=== PATIENT | female | born 1960 | race Caucasian/White ===

== ENCOUNTER → 2020-07-30 11:29 | Outpatient (BNVA) | payer MEDICARE, SELFPAY | PROVIDERS: Visit Provider Family Medicine Adult Medicine | DX: M96.1 Postlaminectomy syndrome, not elsewhere classified (principal); Z79.891 Long term (current) use of opiate analgesic; Z98.890 Other specified postprocedural states | CPT/HCPCS: 99214 ==

== ENCOUNTER → 2020-09-10 11:09 | Outpatient (BNVA) | payer MEDICARE, SELFPAY | PROVIDERS: PCP Internal Medicine; Visit Provider Family Medicine Adult Medicine | DX: M96.1 Postlaminectomy syndrome, not elsewhere classified (principal); Z79.891 Long term (current) use of opiate analgesic | CPT/HCPCS: 99212 ==

== ENCOUNTER → 2020-10-20 13:42 | Outpatient (BNVA) | payer MEDICARE, SELFPAY | PROVIDERS: PCP Internal Medicine; Visit Provider Family Medicine Adult Medicine | DX: M96.1 Postlaminectomy syndrome, not elsewhere classified (principal); Z79.891 Long term (current) use of opiate analgesic | CPT/HCPCS: 99212 ==

== ENCOUNTER → 2020-12-10 10:00 | Outpatient (BNVA) | payer MEDICARE, SELFPAY | PROVIDERS: PCP Internal Medicine; Visit Provider Family Medicine Adult Medicine | DX: M96.1 Postlaminectomy syndrome, not elsewhere classified (principal) | CPT/HCPCS: 99212 ==

== ENCOUNTER 2020-12-21 19:31 | Emergency (ER) | payer MEDICARE, SELFPAY ==
[2020-12-21 20:04] VITALS: BP 113/61; PULSE 62; RESP 16; TEMP 36.6; O2SAT 98; BMI 21.4
== END 2020-12-21 22:59 | disposition left against medical advice (07) ==
PROVIDERS: Emergency Provider Emergency Medicine; PCP Hospitalist
DX: I10 Essential (primary) hypertension (principal); R44.1 Visual hallucinations; F12.90 Cannabis use, unspecified, uncomplicated; F41.9 Anxiety disorder, unspecified; F32.9 Major depressive disorder, single episode, unspecified; J45.909 Unspecified asthma, uncomplicated; F98.8 Other specified behavioral and emotional disorders with onset usually occurring in childhood and adolescence
CPT/HCPCS: 99281; 99282

== ENCOUNTER → 2021-01-15 11:34 | Outpatient (BNVA) | payer MEDICARE, SELFPAY | PROVIDERS: PCP Hospitalist; Visit Provider Nurse Practitioner Family | DX: M96.1 Postlaminectomy syndrome, not elsewhere classified (principal); Z98.890 Other specified postprocedural states; Z79.899 Other long term (current) drug therapy | CPT/HCPCS: 99212 ==

== ENCOUNTER 2021-02-16 11:55 | Outpatient (REF) | payer MEDICARE, SELFPAY ==
[2021-02-16 13:39] LABS: Glucose Urine UA NEG (NEG); Leukocyte Esterase Urine NEG (NEG); Nitrite Urine NEG (NEG); Specific Gravity - Urine 1.015 (1.005-1.025); Urine Blood NEG (NEG); Urine Ketones NEG (NEG); Urine Protein NEG (NEG-TRACE)
[2021-02-16 13:40] LABS: Appearance Urine CLEAR; Color Urine YELLOW
[2021-02-16 14:17] LABS: Creatinine Urine 74.07 mg/dL; Microalbum/Creatinine Ratio Ur 20.2 ug/mg cr
[2021-02-16 14:31] LABS: Anion Gap 18 (12-20); Blood Urea Nitrogen 17 mg/dL (9-16); Carbon Dioxide 28 mmol/L (22-29); Chloride 95 mmol/L (96-108); Estimated Glomerular Filt Rate 40; Glucose Random 115 mg/dL (60-115); Potassium 3.8 mmol/L (3.3-5.1); Sodium 137 mmol/L (135-145)
[2021-02-16 14:46] LABS: Calcium 11.1 mg/dL (8.4-10.2)
== END 2021-02-16 11:56 | disposition home or self-care (01) ==
LOC: HO.WFDLDS 11:55
PROVIDERS: Visit Provider Family Medicine
DX: Z00.00 Encounter for general adult medical examination without abnormal findings (principal); I10 Essential (primary) hypertension; M96.1 Postlaminectomy syndrome, not elsewhere classified; Z79.899 Other long term (current) drug therapy; Z79.891 Long term (current) use of opiate analgesic
CPT/HCPCS: 36415; 80048; 81003; 82043; Q3014

== ENCOUNTER 2021-03-01 13:22 | Outpatient (REF) | payer MEDICARE, SELFPAY ==
--- NOTE | ~2021-03-01 | MR_ITS ---
EXAMINATION: MR LUMBAR SPINE WITHOUT AND WITH CONTRAST CLINICAL INFORMATION: Postlaminectomy syndrome. COMPARISON: Lumbar spine CT 06/13/2016. Lumbar spine MRI 04/22/2015. TECHNIQUE: MRI of the lumbar spine was obtained using routine sequences without and with intravenous contrast. A total of 5.5 mL Gadavist was intravenously administered. FINDINGS: There are postoperative findings related to instrumented fusion across the L4-L5 level with transpedicular areas and paired rods. Grade anterolisthesis across the L4-L5 level measuring up to 1.2 cm is stable. Minimal retrolisthesis of L1 on L2 and L2 on L3 is also again noted. Anterior wedging compression deformity is seen at L1, new from prior with mild associated edema. There is severe disc height loss at T11-T12 and L2-L3. Edematous endplate changes are seen at T10-T11, T11-T12, L2-L3, and L5-S1. The distal spinal cord appears normal. The conus medullaris terminates normally at the upper L2 level. In no abnormal cauda equina nerve root enhancement is seen. A subcentimeter left-sided T2 hyperintense renal cyst is noted. No follow-up imaging recommended. SPINAL LEVELS: T11-T12: Progressive now severe disc height loss with new severe right neural foraminal stenosis with significant compression of the exiting right T11 nerve root. T12-L1: Central/left subarticular protrusion causing mild narrowing of the spinal canal, new from prior. No foraminal nerve root compression. L1-L2: Progressive disc bulging causing flattening the ventral thecal sac. Bilateral neural foraminal stenosis without foraminal nerve root compression. No significant change. L2-L3: Disc bulging with ligamentum flavum infolding and progressive severe left facet arthropathy resulting in mild to moderate spinal canal stenosis. Left foraminal protrusion results in severe left neural foraminal stenosis with significant compression of the exiting left L2 nerve root, new from prior. No right-sided foraminal nerve root compression. L3-L4: Disc bulging with ligamentum flavum infolding and facet arthropathy resulting in progressive moderate spinal canal stenosis. Mild mass effect on the exiting left L3 nerve root, progressed from prior. L4-L5: Unchanged grade 2 anterolisthesis. Spinal canal has been posteriorly decompressed with mild to moderate spinal canal stenosis noted and apparent aggregation of the cauda equina nerve roots. Bilateral neural foraminal stenosis with mild to moderate left and mild right foraminal nerve root compression. L5-S1: Disc bulging with moderate facet arthropathy. Mild narrowing of the right subarticular zone. Right foraminal protrusion results in progressive compression of the exiting right L5 nerve root. Mild to moderate left neural foraminal stenosis. MR/MR lumbar spine wo/w con IMPRESSION: Anterior wedging compression fracture seen at L1 with mild amount of edema suggesting this finding may be acute to subacute. Advanced multilevel degenerative spondylosis. Stable grade 2 anterolisthesis of L4 on L5 with sequela of instrumented fusion noted. Mild to moderate left and mild right foraminal nerve root compression is seen at this level in addition to mild to moderate spinal canal stenosis. At T11-T12 there is new severe disc height loss with new severe right neural foraminal stenosis with compression of the exiting right T11 nerve root. At L2-L3 there is mild to moderate spinal canal stenosis and severe left neural foraminal stenosis with significant compression of exiting left L2 nerve root, new from prior. At L3-L4 there is progressive moderate spinal canal stenosis and progressive mild mass effect on the exiting left L3 nerve root. At L5-S1 there is right foraminal protrusion causing progressive compression of the exiting right L5 nerve root.
--- NOTE | ~2021-03-01 | XR_ITS ---
EXAMINATION: XR LUMBOSACRAL SPINE WITH OBLIQUES CLINICAL INFORMATION: Post laminectomy syndrome COMPARISON: Previous x-rays most recent March 2018 TECHNIQUE: AP, both oblique, and lateral views of the lumbar spine. Lateral view of the lumbosacral junction. FINDINGS: There is curvature of the mid lumbar spine to the right. There is a 1.2 cm anterior subluxation of L4 with respect L5. This is similar to April 2018 exam. Bone alignment is otherwise normal. There is posterior fusion hardware with interpedicular screws at L4 and L5. Orthopedic hardware appears unchanged. Multilevel degenerative disc disease. There is lower lumbar spine facet arthritis. No fracture or dislocation is seen. XR/XR lumbar spine 4V min IMPRESSION: Stable postoperative changes at L4-L5. Scoliosis and 1.2 cm anterior subluxation of L4 with respect L5 that is unchanged. Multilevel degenerative disc disease. Lower lumbar spine facet arthritis.
== END 2021-03-01 13:23 | disposition home or self-care (01) ==
LOC: HO.MRI 13:22
PROVIDERS: Absent Provider Family Medicine Adult Medicine; PCP Family Medicine; Visit Provider Anesthesiology
DX: M96.1 Postlaminectomy syndrome, not elsewhere classified (principal)
CPT/HCPCS: 72110; 72158; A9585

== ENCOUNTER → 2021-03-18 10:30 | Outpatient (BNVA) | payer MEDICARE, SELFPAY | PROVIDERS: PCP Family Medicine; Visit Provider Family Medicine Adult Medicine | DX: M96.1 Postlaminectomy syndrome, not elsewhere classified (principal) | CPT/HCPCS: 99212 ==

== ENCOUNTER 2021-03-19 11:03 | Outpatient (REF) | payer MEDICARE, SELFPAY ==
[2021-03-19 15:12] LABS: Alanine Aminotransferase 29 U/L (0-31); Albumin Level 4.8 g/dL (3.5-5.0); Alkaline Phosphatase 85 U/L (39-117); Anion Gap 15 (12-20); Aspartate Amino Transferase 27 U/L (5-31); Bilirubin Total 0.4 mg/dL (0.0-1.0); Blood Urea Nitrogen 26 mg/dL (9-16); Calcium 10.6 mg/dL (8.4-10.2); Carbon Dioxide 29 mmol/L (22-29); Chloride 96 mmol/L (96-108); Cholesterol 223 mg/dL; Estimated Glomerular Filt Rate 45; Glucose Fasting 101 mg/dL (60-99); HDL Cholesterol 97 mg/dL; LDL Cholesterol Calculated 110 mg/dl; Potassium 3.9 mmol/L (3.3-5.1); Sodium 136 mmol/L (135-145); Total Protein 7.3 g/dL (6.5-8.0); Triglycerides 81 mg/dL
[2021-03-19 15:13] LABS: TSH reflex Free T4 0.49 uIU/mL (0.32-4.0)
== END 2021-03-19 11:04 | disposition home or self-care (01) ==
LOC: HO.WFDLDS 11:03
PROVIDERS: Visit Provider Family Medicine
DX: Z00.00 Encounter for general adult medical examination without abnormal findings (principal)
CPT/HCPCS: 36415; 80053; 80061; 84443

== ENCOUNTER → 2021-03-31 16:28 | Outpatient (BNVA) | payer MEDICARE, SELFPAY | PROVIDERS: PCP Hospitalist; Visit Provider Anesthesiology | DX: M81.0 Age-related osteoporosis without current pathological fracture (principal); S32.010A Wedge compression fracture of first lumbar vertebra, initial encounter for closed fracture; M51.36 Other intervertebral disc degeneration, lumbar region; M96.1 Postlaminectomy syndrome, not elsewhere classified; G89.4 Chronic pain syndrome; Z79.899 Other long term (current) drug therapy | CPT/HCPCS: 99212 ==

== ENCOUNTER → 2021-04-12 12:11 | Outpatient (BNVA) | payer MEDICARE, SELFPAY | PROVIDERS: PCP Hospitalist; Visit Provider Anesthesiology | DX: M81.0 Age-related osteoporosis without current pathological fracture (principal); M51.36 Other intervertebral disc degeneration, lumbar region; M96.1 Postlaminectomy syndrome, not elsewhere classified; S32.010D Wedge compression fracture of first lumbar vertebra, subsequent encounter for fracture with routine healing; G89.4 Chronic pain syndrome | CPT/HCPCS: Q3014 ==

== ENCOUNTER → 2021-04-16 13:04 | Day surgery (SDC) | payer MEDICARE, SELFPAY ==
--- NOTE | 2021-04-14 10:47 | HO.ANESPROP2 ---
Documented by User: Nini Oliva 04/14/21 10:49 HPI - Anesthesia Eval Consult details Narrative: 61yo F for Kyphoplasty PMFSH Active Problems Active Problems: All Active Problems (Updated 03/31/21 @ 17:53 by George Saucedo MD) Chronic pain syndrome (Acute) Postlaminectomy syndrome (Acute) Disc degeneration, lumbar (Acute) Compression fracture of L1 lumbar vertebra (Acute) Osteoporosis (Acute) Adult general medical exam (Acute) Pre-diabetes (Acute) Left leg weakness (Acute) Abdominal pain (Acute) Hypercalcemia (Acute) Laboratory examination ordered as part of a routine general medical examination (Acute) Right low back pain (Acute) Hypertension (Acute) Hypertensive crisis, unspecified (Acute) Asthma (Acute) IBS (irritable bowel syndrome) (Acute) Abdominal pain (Acute) Hypertension (Acute) Attention deficit disorder (Acute) Anxiety (Acute) History of cervical spinal surgery (Acute) Failed back syndrome, lumbar (Acute) Past Medical History Medical History Anxiety Asthma Attention deficit disorder Chronic pain syndrome Compression fracture of L1 lumbar vertebra Depression Disc degeneration, lumbar Herniated disc Hypertension Migraine headache Osteoporosis Postlaminectomy syndrome Spondylosis Surgical History Surgical History History of cervical spinal surgery History of lumbosacral spine surgery History of spinal surgery History of surgery on left wrist Social History Social History Patient Tobacco Use Status: Former Tobacco user Use of substances other than those prescribed or required for medical reasons: No Are you DNR?: No Advance Directives: No Advance Directives Information Provided: Yes service: No 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 Meds Allergies Allergy/AdvReac Type Severity Reaction Status Date / Time naproxen Allergy Severe asthma, SOB Verified 04/16/21 14:34 animal dander [PET DANDER] Allergy Intermediate rash Verified 04/16/21 14:34 SEASONAL ALLERGIES Allergy Mild congestion Uncoded 03/18/21 10:47 Home Medications Medication Instructions Recorded Confirmed Last Taken Type clonazepam 1 mg tablet 1 mg PO BID 07/27/20 03/31/21 Unknown History duloxetine 60 mg capsule,delayed 60 mg PO BID cap 07/27/20 03/31/21 04/16/21 07:30 History release lorazepam 1 mg tablet 1 mg PO DAILY PRN 07/27/20 03/31/21 Unknown History naratriptan 2.5 mg tablet 2.5 mg PO ONCE PRN 07/27/20 03/31/21 Unknown History lisdexamfetamine 60 mg capsule 50 mg PO DAILY cap 03/31/21 03/31/21 04/16/21 07:30 History Exam Exam Date and Time: April 14, 2021 104 Pertinent Lab Results Pertinent Lab Results: Laboratory Tests 07/24/19 03/19/21 12:20 11:15 WBC 7.1 Hgb 11.9 L Hct 35.9 L Plt Count 308 Sodium 136 Potassium 3.9 Chloride 96 Carbon Dioxide 29 BUN 26 H D Creatinine 1.21 Assessment and Plan Assessment Anesthesia Assessment: Chart Reviewed Documented by User: Leonardo Constantino 04/16/21 14:46 PMFSH Past Medical History Medical History Anxiety Asthma Attention deficit disorder Chronic pain syndrome Compression fracture of L1 lumbar vertebra Depression Disc degeneration, lumbar Herniated disc Hypertension Migraine headache Osteoporosis Postlaminectomy syndrome Spondylosis Surgical History Surgical History History of cervical spinal surgery History of lumbosacral spine surgery History of spinal surgery History of surgery on left wrist Social History Social History Patient Tobacco Use Status: Former Tobacco user Use of substances other than those prescribed or required for medical reasons: No Are you DNR?: No Advance Directives: No Advance Directives Information Provided: Yes service: No 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 Meds Allergies Allergy/AdvReac Type Severity Reaction Status Date / Time naproxen Allergy Severe asthma, SOB Verified 04/16/21 14:34 animal dander [PET DANDER] Allergy Intermediate rash Verified 04/16/21 14:34 SEASONAL ALLERGIES Allergy Mild congestion Uncoded 05/20/21 10:47 Home Medications Medication Instructions Recorded Confirmed Last Taken Type clonazepam 1 mg tablet 1 mg PO BID 07/27/20 03/31/21 Unknown History duloxetine 60 mg capsule,delayed 60 mg PO BID cap 07/27/20 03/31/21 04/16/21 07:30 History release lorazepam 1 mg tablet 1 mg PO DAILY PRN 07/27/20 03/31/21 Unknown History naratriptan 2.5 mg tablet 2.5 mg PO ONCE PRN 07/27/20 03/31/21 Unknown History lisdexamfetamine 60 mg capsule 50 mg PO DAILY cap 03/31/21 03/31/21 04/16/21 07:30 History Exam Airway Mallampati Class: II TM Dist: >3cm Neck ROM: Full Denture: Upper
--- NOTE | ~2021-04-16 | FL_ITS ---
EXAMINATION: XR FLUOROSCOPY WITH IMAGES CLINICAL INFORMATION: Anterior wedging L1 vertebra acute to subacute fracture. COMPARISON: MRI lumbar spine 03/01/2021 TECHNIQUE: Fluoroscopy performed by Dr. George Saucedo. Fluoroscopy time: 2.1 minutes DAP: 2.03 Gycm2 Images: 5 FINDINGS: There is a cement augmentation of L1 vertebra with a bipedicle approach. No other bony abnormality seen. There are degenerative disc changes T11-T12 disc level. There are bilateral pedicle screws at L4 vertebra as L5 vertebra with interconnecting rods for posterior fusion. FL/FL guidance in OR IMPRESSION: Fluoroscopy was provided to Dr. Saucedo for spinal procedure
[2021-04-16 14:39] VITALS: BP 143/74; PULSE 77; RESP 18; TEMP 37.5; O2SAT 98
[2021-04-16] MEDS: Lactated Ringers 1,000 ML 100 ML IVCONT (15:09)
== END ==
PROVIDERS: PCP Family Medicine; Visit Provider Anesthesiology
DX: S32.010A Wedge compression fracture of first lumbar vertebra, initial encounter for closed fracture (principal); Z53.8 Procedure and treatment not carried out for other reasons
CPT/HCPCS: J0690

== ENCOUNTER 2021-04-20 06:05 | Day surgery (SDC) | payer MEDICARE, SELFPAY ==
--- NOTE | 2021-04-19 13:43 | P.CONAN_ITS ---
Documented by User: Nini Cubaney 04/19/21 13:43 HPI - Anesthesia Eval Consult details Narrative: 61yo F for Kyphoplasty Rescheduled from 04/16/21 d/t time [facility] Active Problems Active Problems: All Active Problems (Updated 03/31/21 @ 17:53 by George Saucedo MD) Chronic pain syndrome (Acute) Postlaminectomy syndrome (Acute) Disc degeneration, lumbar (Acute) Compression fracture of L1 lumbar vertebra (Acute) Osteoporosis (Acute) Adult general medical exam (Acute) Pre-diabetes (Acute) Left leg weakness (Acute) Abdominal pain (Acute) Hypercalcemia (Acute) Laboratory examination ordered as part of a routine general medical examination (Acute) Right low back pain (Acute) Hypertension (Acute) Hypertensive crisis, unspecified (Acute) Asthma (Acute) IBS (irritable bowel syndrome) (Acute) Abdominal pain (Acute) Hypertension (Acute) Attention deficit disorder (Acute) Anxiety (Acute) History of cervical spinal surgery (Acute) Failed back syndrome, lumbar (Acute) Past Medical History Medical History Anxiety Asthma Attention deficit disorder Chronic pain syndrome Compression fracture of L1 lumbar vertebra Depression Disc degeneration, lumbar Herniated disc Hypertension Migraine headache Osteoporosis Postlaminectomy syndrome Spondylosis Surgical History Surgical History History of cervical spinal surgery History of lumbosacral spine surgery History of spinal surgery History of surgery on left wrist Social History Social History Patient Tobacco Use Status: Former Tobacco user Use of substances other than those prescribed or required for medical reasons: No Are you DNR?: No Advance Directives: No Advance Directives Information Provided: Yes service: No 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 Meds Allergies Allergy/AdvReac Type Severity Reaction Status Date / Time naproxen Allergy Severe asthma, SOB Verified 04/16/21 14:34 animal dander [PET DANDER] Allergy Intermediate rash Verified 04/16/21 14:34 SEASONAL ALLERGIES Allergy Mild congestion Uncoded 03/18/21 10:47 Home Medications Medication Instructions Recorded Confirmed Last Taken Type clonazepam 1 mg tablet 1 mg PO BID 07/27/20 03/31/21 Unknown History duloxetine 60 mg capsule,delayed 60 mg PO BID cap 07/27/20 03/31/21 04/20/21 History release lorazepam 1 mg tablet 1 mg PO DAILY PRN 07/27/20 03/31/21 Unknown History naratriptan 2.5 mg tablet 2.5 mg PO ONCE PRN 07/27/20 03/31/21 Unknown History lisdexamfetamine 60 mg capsule 50 mg PO DAILY cap 03/31/21 03/31/21 04/16/21 07:30 History Exam Exam Date and Time: April 19, 2021 1343 Assessment and Plan Assessment Anesthesia Assessment: Chart Reviewed Documented by User: Tayler Ndiaye 04/20/21 07:33 [facility] Past Medical History Medical History Anxiety Asthma Attention deficit disorder Chronic pain syndrome Compression fracture of L1 lumbar vertebra Depression Disc degeneration, lumbar Herniated disc Hypertension Migraine headache Osteoporosis Postlaminectomy syndrome Spondylosis Family History Family history of problems with anesthesia: No Surgical History Surgical History History of cervical spinal surgery History of lumbosacral spine surgery History of spinal surgery History of surgery on left wrist History of Problems with Anesthesia: No Social History Social History Patient Tobacco Use Status: Former Tobacco user Use of substances other than those prescribed or required for medical reasons: No Are you DNR?: No Advance Directives: No Advance Directives Information Provided: Yes service: No 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 Meds Allergies Allergy/AdvReac Type Severity Reaction Status Date / Time naproxen Allergy Severe asthma, SOB Verified 04/16/21 14:34 animal dander [PET DANDER] Allergy Intermediate rash Verified 04/16/21 14:34 SEASONAL ALLERGIES Allergy Mild congestion Uncoded 03/18/21 10:47 Home Medications Medication Instructions Recorded Confirmed Last Taken Type clonazepam 1 mg tablet 1 mg PO BID 07/27/20 03/31/21 Unknown History duloxetine 60 mg capsule,delayed 60 mg PO BID cap 07/27/20 03/31/21 04/20/21 History release lorazepam 1 mg tablet 1 mg PO DAILY PRN 07/27/20 03/31/21 Unknown History naratriptan 2.5 mg tablet 2.5 mg PO ONCE PRN 07/27/20 03/31/21 Unknown History lisdexamfetamine 60 mg capsule 50 mg PO DAILY cap 03/31/21 03/31/21 04/16/21 07:30 History Exam Height,Weight and Vital Signs: Vital Signs Temp Pulse Resp BP Pulse Ox 04/20/21 06:24 98.0 F 65 18 123/59 L 100 Airway Mallampati Class: II TM Dist: >3cm Neck ROM: Full Denture: Upper Loose/Missing/Broken Teeth: Yes (Only few teeth on bottom. 1 broken) Heart: RRR Lungs: CTAB Assessment and Plan Assessment Anesthesia Assessment: Anesthesia Plan Discussed and Chart Reviewed Final Anesthetic Review NPO: Yes ASA Class: II Final Preanesthetic Review: No Changes in Pt Med Stat, Meds/Allgs Chart Reviewed, Consent Obtained/Reviewed and Anes Risks/Benef Reviewed Patient Risk: Low Procedure Risk: Low Assessment/Block/Sedation in SS: Assess/Block/Sedation-SS Anesthetic Plan Anesthetic Plan: MAC: Disposition: Standard PACU
[2021-04-20] VITALS (13 sets, daily range): BP systolic 123–162; BP diastolic 59–92; PULSE 65–87; RESP 12–18; TEMP 36.4–36.8; O2SAT 95–100
[2021-04-20] MEDS: Lactated Ringers 1,000 ML 100 ML IVCONT (07:22)
--- NOTE | 2021-04-20 07:28 | MHC.SHP ---
Pre-Procedural Eval Section B Chief Complaint: fx of 1st vertebra Details of Present Illness: VCF L1 Relevant Family History (Specify if Yes): No Relevant Social History: None Present Medications: see Short Stay Collaborative assessment Medical History: Significant History (osteoporosis) Allergies: Allergies Allergy/AdvReac Type Severity Reaction Status Date / Time naproxen Allergy Severe asthma, SOB Verified 04/16/21 14:34 animal dander [PET DANDER] Allergy Intermediate rash Verified 04/16/21 14:34 SEASONAL ALLERGIES Allergy Mild congestion Uncoded 03/18/21 10:47 Review of Systems Sugical H&P ROS: Negative: Constitution, Cardiovascular, Respiratory, Neurological, Psychiatric, Hem-Onc, Allergic/Immunologic, Gastrointestinal, Genitourinary, Musculoskeletal, Integumentary, Endocrine and Eyes/Ears/Nose/Throat Exam Surgical H&P Exam: Normal: HEENT, Normal: Heart, Normal: Lungs, Normal: Extremities, Normal: Abdomen, Normal: Skin and Normal: Neurological Plan Diagnosis/Plan: Unchanged I have reviewed the history and physical and performed a pertinent physical examination on my patient. No changes have occurred unless specified.
--- NOTE | 2021-04-20 09:33 | PM.OP ---
Brief Operative Note Date of Service: 04/20/21 Pre-op diagnosis: VCF L1 Post-op diagnosis: same Procedure: Kyphoplasty Implants: none Surgeon: George Saucedo MD Was an [employer] used for this Procedure?: No Estimated blood loss (mL): 50 Pathology: none sent Condition: stable Disposition: PACU
--- NOTE | 2021-04-20 09:37 | W.PM.OPN ---
Operative Note Operative Note Date of Service: 04/20/21 Narrative: Kyphoplasty. Marilu is a very pleasant 61 y.o. female who is suffering from L1 VCF. She came today to the operating room for a kyphoplasty under sedation.Radiographic imaging including MRI confirms acute compression fracture of the lumbar spine L1 vertebra. The patient was brought to the operating room and was positioned prone on the radiolucent OR table. [place] [employer] monitors were applied and patient was moderately sedated. Time-out was performed delineating correct site and side of the procedure. The name, date of , need for antibiotics, DVT prophylactics were also verified. The back was prepped and draped. Two C-arms were brought into position and the L1 vertebra was identified. The tops of the pedicels were brought to the alignment superior endplate and square picture of the vertebra was demonstrated on the AP screen. Projections of the points of interest were chosen as most superior lateral margins of the pedicles bilateral approximately at 2:00 o'clock transpedicular approach was chosen for the procedure. Projections of the points of interest were chosen as most superior lateral margins of the pedicles bilateral approximately at 2:00 o'clock for the right pedicle and 10:00 o'clock for the left pedicle. The point of interests were injected with small amount of mixture of lidocaine 2% and bupivacaine 0.5%. After that under AP and lateral images the Jamshidi osteointroducers was advanced through the right pedilce until the junction of the pedicle and vertebral body was safely passed about 1 cm into the vertebra. Through the cannula, a drill was advanced into the vertebral body under fluoroscopic guidance toward the anterior cortex, creating a channel. After that the procedure was repeated on the left pedicle in the mirroring fashion. Collapsible Ronjure was introduced through the cannulas into the vertebral body and appropriate expansion of the intervertebral void was performed under anterior posterior and lateral simultaneous views. The anterior cortex was probed with the guide pin to ensure no perforations in the anterior cortex. After completing the entry into the vertebral body, a 15 mm inflatable bone balloons were inserted through the cannula and advanced under fluoroscopic guidance into the vertebral body near the anterior cortex. The radiopaque marker bands on the bone balloon were identified using AP and lateral images. Once the balloons were in the position the be inflated with radio opaque contrast under direct anterior posterior and lateral vision. The expansion of the balloons was not allowed to go above the 300 PCI. The expansion was performed very slowly to allow the balloons to compress the medullary portion of the bone to- the lateral cortical bone of the vertebra. The careful attention being paid to the inflation pressures and balloon position. The final balloon volume was 3.5 cc on the right side and approximately 2 mL on the left. There was no breach of the lateral alberto or anterior cortex as well as posterior cortex of the vertebral body. Direct reduction of the fracture was achieved, end plate movement was noted and approximately 3.5 mm of height hindu was achieved. Under fluoroscopic imaging, and the use of the bone void fillers, internal fixation was achieved through a low-pressure injection of the bone cement. The cavity was filled with a total volume of 3.5 cc on the right side and 2.5 cc on the left side. Once the bone cement had hardened, the cannulas were then removed.Post-procedure, all incisions were closed with 0 silk sutures. The patient was kept in the prone position for approximately 10 minutes post cement injection. She was then turned supine, monitored briefly and returned to PACU. She was moving both her lower extremities at this time. Throughout the procedure, there were no intraoperative complications. She recovered in PACU uneventfully She went home without immediate complications.
[2021-04-20] MEDS: fentaNYL citrate/PF 100 MCG/2 ML VIAL 25 MCG IVPUSH ×4 (10:05→10:25)
== END 2021-04-20 12:06 ==
LOC: HO.SSS 06:05
PROVIDERS: PCP Family Medicine; Visit Provider Anesthesiology
PROC: (CPT 22514; principal; 2021-04-20 07:30)
DX: M80.88XA Other osteoporosis with current pathological fracture, vertebra(e), initial encounter for fracture (principal); M81.0 Age-related osteoporosis without current pathological fracture; M51.36 Other intervertebral disc degeneration, lumbar region; M96.1 Postlaminectomy syndrome, not elsewhere classified; G89.4 Chronic pain syndrome; J45.909 Unspecified asthma, uncomplicated; F32.9 Major depressive disorder, single episode, unspecified; I10 Essential (primary) hypertension; Z79.899 Other long term (current) drug therapy; Z88.8 Allergy status to other drugs, medicaments and biological substances; Z87.891 Personal history of nicotine dependence
CPT/HCPCS: 22514; C1713; J0690; J1100; J2250; J2405; J3010; Q9967

== ENCOUNTER → 2021-04-22 11:02 | Outpatient (BNVA) | payer MEDICARE, SELFPAY | PROVIDERS: PCP Family Medicine; Visit Provider Family Medicine Adult Medicine | DX: M18.0 Bilateral primary osteoarthritis of first carpometacarpal joints (principal); M51.36 Other intervertebral disc degeneration, lumbar region; M96.1 Postlaminectomy syndrome, not elsewhere classified; G89.4 Chronic pain syndrome; S32.010D Wedge compression fracture of first lumbar vertebra, subsequent encounter for fracture with routine healing | CPT/HCPCS: 99212 ==

== ENCOUNTER → 2021-04-29 10:32 | Outpatient (BNVA) | payer MEDICARE, SELFPAY | PROVIDERS: PCP Family Medicine; Visit Provider Anesthesiology | DX: M81.0 Age-related osteoporosis without current pathological fracture (principal); S32.010A Wedge compression fracture of first lumbar vertebra, initial encounter for closed fracture; M51.36 Other intervertebral disc degeneration, lumbar region; M96.1 Postlaminectomy syndrome, not elsewhere classified; G89.4 Chronic pain syndrome | CPT/HCPCS: 99212 ==

== ENCOUNTER → 2021-05-10 10:28 | Outpatient (BNVA) | payer MEDICARE, SELFPAY | PROVIDERS: PCP Family Medicine; Visit Provider Anesthesiology | DX: M96.1 Postlaminectomy syndrome, not elsewhere classified (principal); M51.36 Other intervertebral disc degeneration, lumbar region; G89.4 Chronic pain syndrome; G43.909 Migraine, unspecified, not intractable, without status migrainosus; S32.010D Wedge compression fracture of first lumbar vertebra, subsequent encounter for fracture with routine healing | CPT/HCPCS: 99212 ==

== ENCOUNTER 2021-05-14 14:04 | Outpatient (REF) | payer MEDICARE, SELFPAY ==
--- NOTE | ~2021-05-14 | MR_ITS ---
EXAMINATION: MR LUMBAR SPINE WITHOUT AND WITH CONTRAST CLINICAL INFORMATION: 61-year-old with low back pain since previous L1 kyphoplasty. History of L4-L5 laminectomy and fusion. Bowel incontinence. COMPARISON: 03/01/2021 MRI. TECHNIQUE: MRI of the lumbar spine was obtained using routine sequences with and without contrast. Intravenous Contrast: Gadavist 5 mL. FINDINGS: Coronal Alignment: Moderate lumbar dextroscoliosis, convex to the right at L2-L3, stable in appearance. Sagittal Alignment: Stable grade 2 spondylolisthesis at L4-L5 measuring 1.1 cm. 3 mm of grade 1 spondylolisthesis at L3-L4, stable in appearance. Trace retrolisthesis at L2-L3 and L1-L2 are unchanged. Lumbosacral Junction: Normal. Vertebral Bodies: Mild anterior wedge compression deformity of the L1 vertebral body again noted, now with evidence of previous vertebral augmentation since the previous study. No significant progression of height loss. Some enhancement noted along the superior endplate asymmetric to the left which is similar to the previous exam consistent with granulation tissue. Remaining vertebral body heights are well maintained. Bone Marrow: Methylmethacrylate cement noted in the L1 vertebral body since the previous exam consistent with vertebral augmentation. Small benign vertebral hemangioma in the L2 vertebral body, unchanged. Type I degenerative marrow signal changes along the endplates at L4-L5 are unchanged. Type I and type II degenerative marrow signal changes along the endplates at T11-T12 and L5-S1 are stable. Conus Medullaris: Terminates at L1. Morphology and signal is normal. No abnormal enhancement.. Intradural Nerve Roots: There is crowding of the intradural nerve roots at L4-L5 again noted similar to the previous exam consistent with residual spinal stenosis. Mild crowding of the intradural nerve roots also noted at L2-L3 consistent with spinal stenosis, unchanged. Otherwise, within normal limits. No abnormal intradural enhancement. SPINAL LEVELS: L5-S1: Moderate disc space height loss and disc desiccation with Schmorl's nodes and degenerative endplate changes are stable with stable anterolateral spondylosis and diffuse disc bulging, with slight flattening of the dural sac. Bilateral facet arthropathy is stable with slight narrowing of the right subarticular zone without significant central spinal canal stenosis, stable in appearance. Right-sided foraminal disc herniation again noted encroaching on the exiting right L5 nerve root with moderate right-sided and mild left-sided neural foraminal stenosis, stable in appearance. L4-L5: Severe disc space height loss, disc desiccation, Schmorl's nodes and degenerative endplate changes are stable with stable grade 1 spondylolisthesis and ferromagnetic artifact consistent with previous posterior instrumented fusion. Spinal canal has been decompressed posteriorly with moderate residual spinal canal stenosis and crowding of the intradural nerve roots, stable in appearance. Redemonstrated is moderate left-sided and lzjm-lp-nfdbztiz right-sided craniocaudal neural foraminal stenosis, stable in appearance. L3-L4: Disc space height is mildly narrowed asymmetric to the left with mild disc desiccation, stable in appearance, and mild grade 1 spondylolisthesis, unchanged. Diffuse disc bulging is again noted with a prominent dorsal epidural fat pad, ligamentum flavum thickening, interspinous ligament degeneration and bilateral facet arthropathy with moderate central spinal canal stenosis, stable in appearance. Mild narrowing of the subarticular zones bilaterally is stable and there is mild right-sided and moderate left-sided neural foraminal stenosis, with disc bulging encroaching on the exiting left L3 nerve root, unchanged in appearance. L2-L3: Bbpkzhgm-zf-emovwf disc space height loss asymmetric to the left with disc desiccation, Schmorl's nodes and degenerative endplate changes similar to the previous exam with trace retrolisthesis, unchanged. Anterolateral spondylosis and posterolateral disc osteophyte complex is noted with a left-sided foraminal extruded disc herniation with mild cephalad migration, stable in appearance. Ligamentum flavum thickening is stable with qjmuwwsm-rf-cdkasy facet arthropathy, left more than right, unchanged in appearance. Moderate central spinal canal stenosis and crowding of the intradural nerve roots is noted, stable in appearance, with moderate left-sided subarticular recess stenosis, unchanged. Severe left-sided neural foraminal stenosis with left L2 nerve root impingement is stable with stable mild right-sided neural foraminal stenosis. L1-L2: Yhgj-rn-bgwfmllm loss of disc space height, intradiscal degenerative signal changes and mild retrolisthesis with spondylosis are stable. Small central disc protrusion with diffuse disc bulging is stable with mild flattening of the dural sac, unchanged in appearance. Fcyu-ia-mnudecmr bilateral facet hypertrophic degenerative change is stable without significant spinal canal stenosis. Bswi-rv-kurxcxax neural foraminal stenosis, left more than right, is stable. T12-L1: Broad-based ninlbin-dd-rluz subarticular disc protrusion again noted with mild flattening of the dural sac asymmetric to the left without spinal cord impingement similar to the previous exam. Mild spinal canal narrowing is stable. There is lwar-qm-kmagomai neural foraminal stenosis, left more than right, stable in appearance. Severe discogenic degenerative changes at T11-T12 with spondylosis and posterolateral disc osteophyte complex asymmetric to the right with bilateral facet arthropathy and severe right-sided neural foraminal stenosis are stable without significant spinal canal stenosis. Spondylosis and disc degenerative change at T10-T11 are also stable with facet arthropathy and moderate right-sided/mild left-sided neural foraminal stenosis, unchanged. Paraspinal/Retroperitoneal: The paravertebral soft tissues are unremarkable. Small cyst medial cortex left kidney stable in appearance. MR/MR lumbar spine wo/w con IMPRESSION: 1. No significant interval change in multilevel, multifactorial degenerative changes and postoperative changes at L4-L5. 2. Stable height loss at the L1 vertebral body status post vertebral augmentation with persistent marrow edema and enhancement along the superior endplate. 3. Stable multilevel spinal canal stenosis and bilateral neural foraminal stenosis as detailed above similar to the previous exam.
[2021-05-14 14:19] LABS: Blood Urea Nitrogen 30 mg/dL (9-16); Estimated Glomerular Filt Rate 28
== END 2021-05-14 14:05 | disposition home or self-care (01) ==
LOC: HO.MRI 14:04
PROVIDERS: Visit Provider Anesthesiology
DX: S32.010A Wedge compression fracture of first lumbar vertebra, initial encounter for closed fracture (principal); G89.4 Chronic pain syndrome; M51.36 Other intervertebral disc degeneration, lumbar region; M96.1 Postlaminectomy syndrome, not elsewhere classified; R15.9 Full incontinence of feces; Z98.890 Other specified postprocedural states
CPT/HCPCS: 36415; 72158; 82565; 84520; A9585

== ENCOUNTER → 2021-05-20 13:36 | Outpatient (BNVA) | payer MEDICARE, SELFPAY | PROVIDERS: PCP Family Medicine; Visit Provider Family Medicine Adult Medicine | DX: M81.0 Age-related osteoporosis without current pathological fracture (principal); M51.36 Other intervertebral disc degeneration, lumbar region; M96.1 Postlaminectomy syndrome, not elsewhere classified; G89.4 Chronic pain syndrome; S32.010D Wedge compression fracture of first lumbar vertebra, subsequent encounter for fracture with routine healing | CPT/HCPCS: 99212 ==

== ENCOUNTER → 2021-06-10 15:26 | Outpatient (BNVA) | payer MEDICARE, SELFPAY | PROVIDERS: PCP Family Medicine; Visit Provider Family Medicine Adult Medicine | DX: Z51.81 Encounter for therapeutic drug level monitoring (principal); M96.1 Postlaminectomy syndrome, not elsewhere classified; G89.4 Chronic pain syndrome | CPT/HCPCS: 99212 ==

== ENCOUNTER → 2021-06-23 12:54 | Outpatient (BNVA) | payer MEDICARE, SELFPAY | PROVIDERS: PCP Family Medicine; Visit Provider Anesthesiology | DX: G89.4 Chronic pain syndrome (principal); M96.1 Postlaminectomy syndrome, not elsewhere classified; M51.36 Other intervertebral disc degeneration, lumbar region; S32.010A Wedge compression fracture of first lumbar vertebra, initial encounter for closed fracture; G43.909 Migraine, unspecified, not intractable, without status migrainosus; Z79.899 Other long term (current) drug therapy | CPT/HCPCS: 99212 ==

== ENCOUNTER → 2021-07-22 11:34 | Outpatient (BNVA) | payer MEDICARE, SELFPAY | PROVIDERS: PCP Family Medicine; Visit Provider Family Medicine Adult Medicine | DX: Z51.81 Encounter for therapeutic drug level monitoring (principal); Z96.1 Presence of intraocular lens; Z98.890 Other specified postprocedural states | CPT/HCPCS: 99212 ==

== ENCOUNTER 2021-08-05 13:03 | Outpatient (REF) | payer MEDICARE, SELFPAY ==
--- NOTE | ~2021-08-05 | MR_ITS ---
EXAMINATION: MR THORACIC SPINE WITHOUT CONTRAST CLINICAL INFORMATION: 61-year-old with mid back pain and thoracic radiculopathy. COMPARISON: 05/14/2021 MR lumbar spine TECHNIQUE: MRI of the thoracic spine was obtained using routine sequences without contrast. FINDINGS: ALIGNMENT: There is mild S-shaped thoracolumbar scoliosis with moderate lumbar dextroscoliosis and lower thoracic levoscoliosis, convex to the left at T11-T12 with mild upper thoracic dextroscoliosis, convex to the right at T5-T6. There is nqst-am-tgfreats thoracic kyphosis centered at T6-T7. No thoracic spondylolisthesis. VERTEBRAL BODIES AND BONE MARROW: Thoracic vertebral body heights are well maintained. There is mild anterior wedging of the L1 vertebral body again noted with evidence of a previous vertebral augmentation at this level as noted on the previous exam. There are type I degenerative marrow signal changes and type II marrow signal changes at T11-T12, L1-L2 and L2-L3. Remainder of bone marrow signal intensity appears grossly unremarkable. DISC SPACES AND ENDPLATES: There is lsoneftr-px-bwlwrx multilevel thoracic intervertebral disc space height loss, most apparent at T11-T12 and T10-T11 but also seen throughout the remainder of the thoracic spine with multilevel disc desiccation and multilevel fmsx-no-oxldpocm diffuse thoracic spondylosis, most prominent at T10-T11 and T11-T12. Schmorl's nodes are noted at T11-T12 and, to a lesser degree, at other levels including L2-L3 and T7-T8. PARASPINAL SOFT TISSUES: The paravertebral soft tissues appear grossly unremarkable. No paraspinal soft tissue masses or collections. SPINAL CORD: The thoracic spinal cord is normal in caliber and signal intensity throughout. The conus terminates at the L1-L2 level. SPINAL LEVELS: C7-T1: C7-T1 is not included in the ktkrl-zt-tuvy. T1-T2: There is posterolateral disc protrusion bilaterally and disc-osteophyte complex which is also partially cut off from the buogz-no-nzmx on the sagittal images but results in mkvk-px-isyibygr narrowing of the subarticular zones bilaterally on the axial images. There is facet arthropathy bilaterally and probable gkfxmgvn-gu-nkfxmg bilateral neural foraminal stenosis at this level without significant central spinal canal stenosis. This could be better assessed with MRI of the cervical spine if clinically warranted. T2-T3: Posterolateral disc protrusion and disc-osteophyte complex bilaterally with mild bilateral facet arthropathy and mild bilateral neural foraminal stenosis without canal stenosis. T3-T4: Posterolateral disc-osteophyte complex noted bilaterally with minor facet arthrosis without significant canal stenosis. Mild right-sided neural foraminal stenosis noted. T4-T5: Small left paramedian disc protrusion and left foraminal disc-osteophyte complex. Right paramedian to foraminal disc-osteophyte complex. Ponh-nh-zopyiqtz facet arthrosis, right more than left. Bvzm-xn-meopvvnt right-sided neural foraminal stenosis without canal stenosis. T5-T6: Tiny left paramedian disc protrusion. Mild bilateral facet arthropathy noted. Mild bilateral neural foraminal narrowing without canal stenosis. T6-T7: Mild right-sided and htll-lk-lnyffabs left-sided facet arthropathy noted without disc herniation. Minimal left-sided foraminal narrowing without canal stenosis. T7-T8: Left paramedian disc protrusion with flattening of the left side of the dural sac without cord impingement. Cxgz-pl-mfaifppm bilateral facet arthrosis and ligamentum flavum thickening with mild bilateral foraminal stenosis without canal stenosis. T8-T9: Moderate left-sided and mild right-sided facet arthropathy noted without disc herniation or canal stenosis. There is moderate left-sided and mild right-sided neural foraminal stenosis. T9-T10: There is a right paramedian extruded disc herniation with mild cephalad migration, with moderate flattening of the dural sac on the right without cord impingement. Vscn-py-kwvxylfr bilateral facet arthrosis is noted with lhmm-mk-ouvjowqf right-sided and moderate left-sided neural foraminal stenosis without significant central spinal canal stenosis. T10-T11: Mild bilateral facet arthropathy is noted with minimal central to right paramedian disc protrusion without cord impingement or significant spinal canal stenosis. There is moderate right-sided and maeh-is-byvhvosq left-sided neural foraminal stenosis. T11-T12: Posterolateral disc-osteophyte complex noted bilaterally, right more than left, with moderate right-sided facet arthropathy and severe right-sided neural foraminal stenosis with right T11 nerve root impingement. This is unchanged from the previous MRI lumbar spine. No significant central spinal canal stenosis. T12-L1: Broad-based central to left subarticular disc herniation again noted, similar to the previous exam with flattening of the dural sac asymmetric to the left without cord impingement. Mild spinal canal stenosis and left lateral recess stenosis is stable, and there is bilateral facet arthropathy, with moderate left-sided and mild right-sided neural foraminal stenosis, stable in appearance. The visualized L1-L2, L2-L3 and L3-L4 levels demonstrate no significant change from previous MRI report. See previous MRI report. MR/MR thoracic spine wo con IMPRESSION: 1. Thoracolumbar scoliosis, as described above, with upper thoracic kyphosis. 2. Extensive multilevel DDD and multilevel spondylosis, as described above, with multilevel bilateral facet arthropathy, posterolateral disc-osteophyte complexes and disc protrusions without spinal cord impingement, as detailed above. 3. Multilevel bilateral thoracic neural foraminal stenosis throughout the entire thoracic spine, most severe on the right at T11-T12 and probably uolwiptc-qi-hhwftg bilaterally at T1-T2 which was not completely within the cdoia-qd-sant. If clinically warranted, MRI of the cervical spine may be of additional value as the C7-T1 level was also not visualized. 4. Normal appearance to the thoracic spinal cord. No cord compression.
== END 2021-08-05 13:04 | disposition home or self-care (01) ==
LOC: HO.MRI 13:03
PROVIDERS: PCP Hospitalist; Visit Provider Neurological Surgery
DX: M54.89 Other dorsalgia (principal); M54.14 Radiculopathy, thoracic region
CPT/HCPCS: 72146

== ENCOUNTER → 2021-08-19 11:26 | Outpatient (BNVA) | payer MEDICARE, SELFPAY | PROVIDERS: Visit Provider Family Medicine Adult Medicine | DX: M96.1 Postlaminectomy syndrome, not elsewhere classified (principal); M81.0 Age-related osteoporosis without current pathological fracture; G89.4 Chronic pain syndrome; F41.8 Other specified anxiety disorders; F98.8 Other specified behavioral and emotional disorders with onset usually occurring in childhood and adolescence; Z88.8 Allergy status to other drugs, medicaments and biological substances; J30.81 Allergic rhinitis due to animal (cat) (dog) hair and dander; J30.2 Other seasonal allergic rhinitis; Z87.891 Personal history of nicotine dependence; Z79.899 Other long term (current) drug therapy | CPT/HCPCS: Q3014 ==

== ENCOUNTER → 2021-09-14 13:34 | Outpatient (BNVA) | payer MEDICARE, SELFPAY | PROVIDERS: Visit Provider Family Medicine Adult Medicine | DX: Z51.81 Encounter for therapeutic drug level monitoring (principal); M96.1 Postlaminectomy syndrome, not elsewhere classified | CPT/HCPCS: 99212 ==

== ENCOUNTER 2021-09-27 12:27 | Outpatient (REF) | payer MEDICARE, SELFPAY ==
[2021-09-27 14:37] LABS: Anion Gap 15 (12-20); Blood Urea Nitrogen 18 mg/dL (9-16); Calcium 10.2 mg/dL (8.4-10.2); Carbon Dioxide 23 mmol/L (22-29); Chloride 102 mmol/L (96-108); Estimated Glomerular Filt Rate 42; Glucose Random 130 mg/dL (60-115); Potassium 4.1 mmol/L (3.3-5.1); Sodium 136 mmol/L (135-145)
== END 2021-09-27 12:28 | disposition home or self-care (01) ==
LOC: HO.WFDLDS 12:27
PROVIDERS: Visit Provider Family Medicine
DX: Z00.00 Encounter for general adult medical examination without abnormal findings (principal); R79.89 Other specified abnormal findings of blood chemistry
CPT/HCPCS: 36415; 80048

== ENCOUNTER → 2021-10-14 14:18 | Outpatient (BNVA) | payer MEDICARE, SELFPAY | PROVIDERS: PCP Family Medicine; Visit Provider Family Medicine Adult Medicine | DX: Z51.81 Encounter for therapeutic drug level monitoring (principal); F11.20 Opioid dependence, uncomplicated | CPT/HCPCS: 99211 ==

== ENCOUNTER 2021-11-01 10:28 | Outpatient (REF) | payer MEDICARE, SELFPAY ==
[2021-11-01 14:23] LABS: Anion Gap 13 (12-20); Blood Urea Nitrogen 24 mg/dL (9-16); Calcium 10.2 mg/dL (8.4-10.2); Carbon Dioxide 27 mmol/L (22-29); Chloride 102 mmol/L (96-108); Estimated Glomerular Filt Rate 36; Glucose Random 85 mg/dL (60-115); Potassium 4.7 mmol/L (3.3-5.1); Sodium 137 mmol/L (135-145)
== END 2021-11-01 10:29 | disposition home or self-care (01) ==
LOC: HO.WFDLDS 10:28
PROVIDERS: Visit Provider Family Medicine
DX: Z00.00 Encounter for general adult medical examination without abnormal findings (principal); R79.89 Other specified abnormal findings of blood chemistry
CPT/HCPCS: 36415; 80048

== ENCOUNTER → 2021-11-11 11:38 | Outpatient (BNVA) | payer MEDICARE, SELFPAY | PROVIDERS: PCP Family Medicine; Visit Provider Nurse Practitioner Family | DX: Z51.81 Encounter for therapeutic drug level monitoring (principal); F11.20 Opioid dependence, uncomplicated; M96.1 Postlaminectomy syndrome, not elsewhere classified; M47.22 Other spondylosis with radiculopathy, cervical region; M51.36 Other intervertebral disc degeneration, lumbar region; G43.909 Migraine, unspecified, not intractable, without status migrainosus; I10 Essential (primary) hypertension; Z98.890 Other specified postprocedural states | CPT/HCPCS: 99212 ==

== ENCOUNTER → 2021-12-07 13:01 | Outpatient (BNVA) | payer MEDICARE, SELFPAY | PROVIDERS: PCP Family Medicine; Visit Provider Nurse Practitioner Family | DX: Z51.81 Encounter for therapeutic drug level monitoring (principal); F11.20 Opioid dependence, uncomplicated | CPT/HCPCS: 99212 ==

== ENCOUNTER 2021-12-20 12:39 | Outpatient (REF) | payer MEDICARE, SELFPAY ==
[2021-12-20 13:47] LABS: Anion Gap 13 (12-20); Blood Urea Nitrogen 19 mg/dL (9-16); Calcium 10.6 mg/dL (8.4-10.2); Carbon Dioxide 27 mmol/L (22-29); Chloride 90 mmol/L (96-108); Estimated Glomerular Filt Rate 47; Glucose Random 94 mg/dL (60-115); Potassium 5.6 mmol/L (3.3-5.1); Sodium 124 mmol/L (135-145)
== END 2021-12-20 12:40 | disposition home or self-care (01) ==
LOC: HO.WFDLDS 12:39
PROVIDERS: Visit Provider Family Medicine
DX: Z00.00 Encounter for general adult medical examination without abnormal findings (principal); I10 Essential (primary) hypertension
CPT/HCPCS: 36415; 80048

== ENCOUNTER → 2022-01-11 12:45 | Outpatient (BNVA) | payer MEDICARE, SELFPAY | PROVIDERS: PCP Family Medicine; Visit Provider Nurse Practitioner Family | DX: Z51.81 Encounter for therapeutic drug level monitoring (principal); F11.20 Opioid dependence, uncomplicated; M47.22 Other spondylosis with radiculopathy, cervical region; M96.1 Postlaminectomy syndrome, not elsewhere classified; M51.36 Other intervertebral disc degeneration, lumbar region; G89.4 Chronic pain syndrome | CPT/HCPCS: 99212 ==

== ENCOUNTER → 2022-02-08 12:52 | Outpatient (BNVA) | payer MEDICARE, SELFPAY | PROVIDERS: PCP Family Medicine; Visit Provider Nurse Practitioner Family | DX: Z51.81 Encounter for therapeutic drug level monitoring (principal); F11.20 Opioid dependence, uncomplicated; M96.1 Postlaminectomy syndrome, not elsewhere classified; M51.36 Other intervertebral disc degeneration, lumbar region; G89.4 Chronic pain syndrome | CPT/HCPCS: 99212 ==

== ENCOUNTER 2022-03-08 12:26 | Outpatient (REF) | payer MEDICARE, SELFPAY ==
[2022-03-08 13:24] LABS: MANUAL DIFF FLAG NO
[2022-03-08 13:31] LABS: Basophils Absolute Auto 0.1 X10*3/uL (0.0-0.2); Basophils Percent Auto 1.3 % (0-2); Eosinophils Absolute Auto 0.2 X10*3/uL (0.0-0.4); Eosinophils Percent Auto 3.1 % (0-4); Hematocrit 32.2 % (37.0-47.0); Hemoglobin 10.3 g/dl (12.0-16.0); Imm Gran Abs Auto 0.03 X10*3/uL (0.00-0.03); Imm Gran Pct Auto 0.5 % (0.0-0.4); Lymphocytes Absolute Auto 0.6 X10*3/uL (1.2-4.9); Lymphocytes Percent Auto 10.3 % (20-40); Mean Corpuscular Hemoglobin 29.6 pg (27.0-33.0); Mean Corpuscular Volume 92.5 fL (80.0-98.0); Mean Platelet Volume 10.1 fL (9.4-12.3); Monocytes Absolute Auto 0.7 X10*3/uL (0.1-1.2); Monocytes Percent Auto 11.1 % (2-11); Neutrophils Absolute Auto 4.5 x10*3/uL (2.0-8.3); Neutrophils Percent Auto 73.7 % (45-73); Platelet Count 325 X10*3/uL (160-400); Red Blood Count 3.48 X10*6/uL (4.20-5.50); Red Cell Distribution Width 13.4 % (11.0-16.0); White Blood Count 6.1 X10*3/uL (4.8-10.8)
[2022-03-08 13:43] LABS: Alanine Aminotransferase 79 U/L (0-31); Albumin Level 4.5 g/dL (3.5-5.0); Alkaline Phosphatase 112 U/L (39-117); Anion Gap 12 (12-20); Aspartate Amino Transferase 82 U/L (5-31); Bilirubin Total 0.5 mg/dL (0.0-1.0); Blood Urea Nitrogen 21 mg/dL (9-16); Carbon Dioxide 27 mmol/L (22-29); Chloride 101 mmol/L (96-108); Cholesterol 287 mg/dL; Estimated Glomerular Filt Rate 50; Glucose Random 114 mg/dL (60-115); HDL Cholesterol 149 mg/dL; Iron 196 mcg/dL (30-160); LDL Cholesterol Calculated 128 mg/dl; Percent Iron Saturation 41 % (15-50); Potassium 4.1 mmol/L (3.3-5.1); Sodium 136 mmol/L (135-145); Total Iron Binding Capacity 483 mcg/dL (228-428); Total Protein 7.4 g/dL (6.5-8.0); Triglycerides 53 mg/dL; Unsaturated Iron Binding 287 ug/dL
[2022-03-08 13:50] LABS: Calcium 11.5 mg/dL (8.4-10.2)
[2022-03-08 13:59] LABS: TSH reflex Free T4 1.16 uIU/mL (0.32-4.0)
[2022-03-10 07:06] LABS: LDL Cholesterol Direct 99 mg/dL (<100)
== END 2022-03-08 12:27 | disposition home or self-care (01) ==
LOC: HO.WFDLDS 12:26
PROVIDERS: Visit Provider Family Medicine
DX: Z00.00 Encounter for general adult medical examination without abnormal findings (principal); R00.2 Palpitations
CPT/HCPCS: 36415; 80053; 80061; 83540; 83721; 84443; 85025

== ENCOUNTER → 2022-03-11 12:59 | Outpatient (BNVA) | payer MEDICARE, SELFPAY | PROVIDERS: PCP Family Medicine; Visit Provider Nurse Practitioner Family | DX: Z13.89 Encounter for screening for other disorder (principal) ==

== ENCOUNTER → 2022-04-07 13:07 | Outpatient (BNVA) | payer MEDICARE, SELFPAY | PROVIDERS: PCP Family Medicine; Visit Provider Nurse Practitioner Family | DX: G89.4 Chronic pain syndrome (principal); M96.1 Postlaminectomy syndrome, not elsewhere classified; M51.36 Other intervertebral disc degeneration, lumbar region; Z79.891 Long term (current) use of opiate analgesic | CPT/HCPCS: 99212 ==

== ENCOUNTER → 2022-05-12 15:51 | Outpatient (BNVA) | payer MEDICARE, SELFPAY | PROVIDERS: PCP Family Medicine; Visit Provider Nurse Practitioner Family | DX: G89.4 Chronic pain syndrome (principal); M96.1 Postlaminectomy syndrome, not elsewhere classified; M51.36 Other intervertebral disc degeneration, lumbar region; K58.9 Irritable bowel syndrome, unspecified; Z79.891 Long term (current) use of opiate analgesic | CPT/HCPCS: 99211; Q3014 ==

== ENCOUNTER → 2022-06-09 14:03 | Outpatient (BNVA) | payer MEDICARE, SELFPAY | PROVIDERS: PCP Family Medicine; Visit Provider Nurse Practitioner Family | DX: G89.4 Chronic pain syndrome (principal); M96.1 Postlaminectomy syndrome, not elsewhere classified; M51.36 Other intervertebral disc degeneration, lumbar region; Z98.890 Other specified postprocedural states; M81.0 Age-related osteoporosis without current pathological fracture; Z79.891 Long term (current) use of opiate analgesic | CPT/HCPCS: 99212 ==

== ENCOUNTER → 2022-07-08 13:28 | Outpatient (BNVA) | payer MEDICARE, SELFPAY | PROVIDERS: PCP Family Medicine; Visit Provider Nurse Practitioner Family | DX: Z51.81 Encounter for therapeutic drug level monitoring (principal); F11.20 Opioid dependence, uncomplicated; M96.1 Postlaminectomy syndrome, not elsewhere classified; M51.36 Other intervertebral disc degeneration, lumbar region; G89.4 Chronic pain syndrome | CPT/HCPCS: 99212 ==

== ENCOUNTER → 2022-08-12 13:54 | Outpatient (BNVA) | payer MEDICARE, SELFPAY | PROVIDERS: PCP Family Medicine; Visit Provider Nurse Practitioner Family | DX: M96.1 Postlaminectomy syndrome, not elsewhere classified (principal); G89.4 Chronic pain syndrome; M51.36 Other intervertebral disc degeneration, lumbar region; Z51.81 Encounter for therapeutic drug level monitoring; Z79.891 Long term (current) use of opiate analgesic | CPT/HCPCS: 99212 ==

== ENCOUNTER → 2022-09-09 13:31 | Outpatient (BNVA) | payer MEDICARE, SELFPAY | PROVIDERS: PCP Family Medicine; Visit Provider Nurse Practitioner Family | DX: Z51.81 Encounter for therapeutic drug level monitoring (principal); F11.20 Opioid dependence, uncomplicated | CPT/HCPCS: 99211 ==

== ENCOUNTER → 2022-10-13 14:35 | Outpatient (BNVA) | payer MEDICARE, SELFPAY | PROVIDERS: PCP Family Medicine; Visit Provider Nurse Practitioner Family | DX: Z51.81 Encounter for therapeutic drug level monitoring (principal); M96.1 Postlaminectomy syndrome, not elsewhere classified; M51.36 Other intervertebral disc degeneration, lumbar region; M25.511 Pain in right shoulder; M19.049 Primary osteoarthritis, unspecified hand; G89.4 Chronic pain syndrome; Z79.891 Long term (current) use of opiate analgesic | CPT/HCPCS: 99212 ==

== ENCOUNTER → 2022-11-10 11:47 | Outpatient (BNVA) | payer MEDICARE, SELFPAY | PROVIDERS: PCP Family Medicine; Visit Provider Nurse Practitioner Family | DX: Z51.81 Encounter for therapeutic drug level monitoring (principal); F11.20 Opioid dependence, uncomplicated | CPT/HCPCS: 99211 ==

== ENCOUNTER → 2022-12-09 13:56 | Outpatient (BNVA) | payer MEDICARE, SELFPAY | PROVIDERS: PCP Family Medicine; Visit Provider Nurse Practitioner Family | DX: G89.4 Chronic pain syndrome (principal); M96.1 Postlaminectomy syndrome, not elsewhere classified; M51.36 Other intervertebral disc degeneration, lumbar region; R19.7 Diarrhea, unspecified; F41.9 Anxiety disorder, unspecified; F98.8 Other specified behavioral and emotional disorders with onset usually occurring in childhood and adolescence; Z79.891 Long term (current) use of opiate analgesic | CPT/HCPCS: 99212 ==

== ENCOUNTER 2022-12-16 17:56 | Inpatient (IN) | payer MEDICARE, SELFPAY ==
[2022-12-16] VITALS (8 sets, daily range): BP systolic 151–209; BP diastolic 93–113; PULSE 89–109; RESP 13–22; TEMP 36.8–36.9; O2SAT 94–100; BMI 20.5
--- NOTE | ~2022-12-16 | CT_ITS ---
EXAMINATION: CT ABDOMEN AND PELVIS WITH CONTRAST CLINICAL INFORMATION: Epigastric pain. Question pancreas. COMPARISON: None TECHNIQUE: Multidetector volumetric images were obtained from the superior aspect of the liver through the pubic symphysis following administration 85 mL of Omnipaque 350 intravenous contrast. Sagittal and coronal reformatted images were obtained on the technologist's workstation. Oral contrast: No This CT examination was performed using dose optimization techniques as appropriate, variously including the following: *Automated exposure control *Adjustment of mA and/or kV according to patient size (this includes techniques or standardized protocols for targeted exams where dose is matched to indication/reason for exam; i.e. extremities or head) *Use of iterative reconstruction technique DLP: 348 mGy-cm FINDINGS: Artifact from spinal fusion hardware limits evaluation. LUNG BASES: The visualized lung bases are unremarkable. LIVER, GALLBLADDER, AND BILIARY TREE: The liver is normal in size, shape, and attenuation. No focal hepatic lesion or intrahepatic biliary ductal dilatation is present. The gallbladder is unremarkable with no evidence of radiopaque gallstones, gallbladder wall thickening, or obvious pericholecystic inflammatory changes. Mild dilatation of the common bile duct measures 0.7 cm. PANCREAS: Unremarkable. SPLEEN: Unremarkable. ADRENAL GLANDS: Unremarkable. KIDNEYS AND URETERS: The kidneys are normal in size, shape, and attenuation. No hydronephrosis, hydroureter, or calculi seen. No perinephric stranding. BLADDER: Normally distended without wall thickening. GASTROINTESTINAL TRACT: The stomach is unremarkable. Normal caliber small bowel. No obstruction. No colonic wall thickening or inflammation. Normal appendix. No free air. Small volume of pelvic free fluid. ABDOMINAL WALL: No significant hernia is appreciated. LYMPH NODES: Normal. VASCULAR: Unremarkable. PELVIC VISCERA: The uterus and adnexa are unremarkable. OSSEOUS STRUCTURES: Posterior fusion hardware at L4-L5. Kyphoplasty cement at L1. Degenerative changes throughout the spine with multilevel vacuum disc phenomenon. Moderate degenerative change of the left hip with joint space narrowing and osteophytes. CT/CT abdomen pelvis w IV con IMPRESSION: No acute findings in the abdomen or pelvis. No inflammatory changes. Normal appearance of the pancreas. There is mild dilatation of the common bile duct measuring 0.4 cm. No definite ductal filling defect seen. Fleischner guidelines were followed.
--- NOTE | ~2022-12-16 | XR_ITS ---
EXAMINATION: XR CHEST CLINICAL INFORMATION: Shortness of breath COMPARISON: 03/31/2017 TECHNIQUE: 2 views of the chest were obtained. FINDINGS: Mild elevation right hemidiaphragm. Cervical fusion changes noted. No significant abnormality is noted involving the heart, lungs, mediastinum, bony thorax or soft tissues. Vertebral plasty changes noted in the thoracolumbar junction seen in a limited fashion XR/XR chest 2V IMPRESSION: No active chest disease.
--- NOTE | 2022-12-16 19:26 | ECG_ITS ---
Test Reason : CHEST PAIN Blood Pressure : / mmHG Vent. Rate : 084 BPM Atrial Rate : 084 BPM P-R Int : 158 ms QRS Dur : 080 ms QT Int : 360 ms P-R-T Axes : 053 019 046 degrees QTc Int : 425 ms Sinus rhythm with Premature atrial complexes Septal infarct , age undetermined Abnormal ECG When compared with ECG of 28-AUG-2013 13:26, Septal infarct is now Present Referred By: Park Bloom Electronically Signed By:Yared Ge
[2022-12-16 20:06] LABS: MANUAL DIFF FLAG NO
[2022-12-16 20:08] LABS: Basophils Absolute Auto 0.1 X10*3/uL (0.0-0.2); Basophils Percent Auto 0.6 % (0-2); Eosinophils Absolute Auto 0.4 X10*3/uL (0.0-0.4); Eosinophils Percent Auto 4.1 % (0-4); Hematocrit 37.1 % (37.0-47.0); Hemoglobin 12.6 g/dl (12.0-16.0); Imm Gran Abs Auto 0.02 X10*3/uL (0.00-0.03); Imm Gran Pct Auto 0.2 % (0.0-0.4); Lymphocytes Absolute Auto 1.3 X10*3/uL (1.2-4.9); Lymphocytes Percent Auto 12.9 % (20-40); Mean Corpuscular Hemoglobin 29.2 pg (27.0-33.0); Mean Corpuscular Volume 85.9 fL (80.0-98.0); Mean Platelet Volume 9.4 fL (9.4-12.3); Monocytes Absolute Auto 0.8 X10*3/uL (0.1-1.2); Neutrophils Absolute Auto 7.3 x10*3/uL (2.0-8.3); Neutrophils Percent Auto 74.2 % (45-73); Platelet Count 309 X10*3/uL (160-400); Red Blood Count 4.32 X10*6/uL (4.20-5.50); Red Cell Distribution Width 13.2 % (11.0-16.0); White Blood Count 9.9 X10*3/uL (4.8-10.8)
[2022-12-16 20:14] LABS: INTERNATIONAL NORM RATIO 0.9 (0.9-1.1); Prothrombin Time 10.2 SEC (10.0-13.1)
[2022-12-16 20:28] LABS: Alanine Aminotransferase 29 U/L (0-31); Albumin Level 4.3 g/dL (3.5-5.0); Alkaline Phosphatase 113 U/L (39-117); Anion Gap 14 (12-20); Aspartate Amino Transferase 34 U/L (5-31); Bilirubin Total 0.8 mg/dL (0.0-1.0); Blood Urea Nitrogen 5 mg/dL (9-16); Calcium 9.6 mg/dL (8.4-10.2); Carbon Dioxide 24 mmol/L (22-29); Chloride 107 mmol/L (96-108); Creatinine Clr Calc Pharmacy 60.3; Estimated Glomerular Filt Rate > 60; Glucose Random 101 mg/dL (60-115); Magnesium 1.6 mg/dL (1.6-2.6); Potassium 3.1 mmol/L (3.3-5.1); Sodium 142 mmol/L (135-145); Total Protein 6.5 g/dL (6.5-8.0)
[2022-12-16 20:29] LABS: B Type Natriuretic Peptide < 10 pg/mL (<100)
[2022-12-16 20:38] LABS: Troponin-I High Sensitivity 7.5 ng/L (<3.5-17.0)
[2022-12-16 20:45] LABS: Influenza A PCR NEGATIVE (Negative); Influenza B PCR NEGATIVE (Negative); Resp Syncy Virus RNA Qual PCR NEGATIVE (Negative); SARS COV2 PCR INHOUSE NEGATIVE (Negative)
--- NOTE | 2022-12-16 21:34 | ED.SOB ---
HPI - SOB/Dyspnea General Chief Complaint: Dyspnea Stated Complaint: SOB/feeling unwell x 6 days per EMS Time Seen by Provider: 12/16/22 21:17 Source: patient Mode of arrival: ambulatory Limitations: no limitations History of Present Illness HPI Narrative: Patient 62 years old with history of asthma, anxiety, chronic pain syndrome, chronic back pain status post surgery, depression, hypertension comes here for 1 week of nausea feeling and not feeling well for last 5 days noticed shortness of breath which has increased no cough no fever no chills also noticed for last few days has epigastric pain with poor p.o. intake for last 2 days patient using inhalers without much response saturating 97% on arrival blood pressure on arrival was 219/111 with pulse rate 90 patient does have chronic diarrhea Related Data Home Medications Medication Instructions Recorded Confirmed clonazepam 1 mg tablet 1 mg PO BID 07/27/20 11/10/22 lorazepam 1 mg tablet 1 mg PO DAILY PRN anxiety 07/27/20 11/10/22 duloxetine 60 mg capsule,delayed 60 mg PO DAILY 12/07/21 11/10/22 release (Cymbalta) duloxetine 30 mg capsule,delayed 30 mg PO DAILY 03/08/22 11/10/22 release Previous Rx's Medication Instructions Recorded albuterol sulfate 90 mcg/actuation 2 puff inhalation Q4-6H PRN 12/20/21 aerosol inhaler (ProAir HFA) shortness of breath or wheezing 90 days #3 ea naloxone 4 mg/actuation nasal 4 mg intranasal Q2M PRN opioid 01/11/22 spray (Narcan) overdose #2 ea fluticasone 500 mcg-salmeterol 50 1 inh inhalation Q12H 30 days #60 01/19/22 mcg/dose blistr powdr for ea inhalation (Wixela Inhub) lisinopril 40 mg tablet 40 mg PO DAILY 3 months #90 tabs 08/25/22 naratriptan 2.5 mg tablet 2.5 mg PO ONCE PRN migraine 30 08/25/22 days #9 tabs amlodipine 2.5 mg tablet 2.5 mg PO DAILY 30 days #30 tabs 08/28/22 ibuprofen 800 mg tablet 800 mg PO Q12H PRN pain #60 tabs 10/13/22 ferrous sulfate 325 mg (65 mg 325 mg PO BID #60 tabs 10/24/22 iron) tablet clonidine HCl 0.1 mg tablet 0.1 mg PO BID 30 days #60 tabs 11/23/22 tizanidine 4 mg tablet 4 mg PO TID #90 tabs 11/23/22 hydrocodone 10 mg-acetaminophen 1 tab PO Q6H PRN pain 30 days #120 12/09/22 325 mg tablet tabs Allergies Allergy/AdvReac Type Severity Reaction Status Date / Time amoxicillin [From Augmentin] Allergy Severe Facial Verified 12/09/22 14:08 Swelling clavulanic acid Allergy Severe Facial Verified 12/09/22 14:08 [From Augmentin] Swelling naproxen Allergy Severe asthma, SOB Verified 12/09/22 14:08 animal dander [PET DANDER] Allergy Intermediate rash Verified 12/09/22 14:08 SEASONAL ALLERGIES Allergy Mild congestion Uncoded 11/10/22 12:30 Review of Systems Review of Systems: Yes all other systems are reviewed and are negative PMFSH Past Medical History Medical History Anxiety Asthma Attention deficit disorder Chronic pain syndrome Compression fracture of L1 lumbar vertebra Depression Disc degeneration, lumbar Herniated disc Hypertension Migraine headache Migraine headache Osteoporosis Postlaminectomy syndrome Spondylosis Stool incontinence Surgical History History of cervical spinal surgery History of lumbosacral spine surgery History of spinal surgery History of surgery on left wrist Status post kyphoplasty Family History Family History Sister Ovarian cancer Lung cancer Maternal Grandmother Ovarian cancer Paternal Aunt Ovarian cancer Maternal Aunt Pancreatic cancer Social History Social History Household Members: Spouse Housing: House Are you a primary manager respiratory care to a significant other at home: No Do you presently have visiting nurse or other home services: No Patient Tobacco Use Status: Former Tobacco user Smoked in Last 30 Days: No e-Cigarette/Vaping Use: Never Used Second Hand Smoke Exposure: No Advance Directives: No Advance Directives Information Provided: Yes Nutrition Risks: Acute nausea or vomiting x1 week Patient : No service: No Current occupational status: disabled 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 Oriented X3. Moderate discomfort and anxious. Eyes: No pallor or icterus ENT: Pharynx normal. Oral Mucosa moist Neck: Normal inspection. Neck supple. CVS: Normal heart rate and rhythm. Pulses normal. Respiratory: Mild respiratory distress. Equal air entry bilateral, prolonged expiration Abdomen: Soft, epigastric tenderness no rebound tenderness or guarding. Bowel sounds are present, no mass palpable, no CVA tenderness Skin: Skin warm and dry. Normal skin color. Normal skin turgor. Extremities: No lower extremity edema. No calf tenderness Neuro: Oriented X 3. No motor deficit. Medications Administered Generic Name Dose Route Start Last Admin Trade Name Freq PRN Reason Stop Dose Admin Enoxaparin Sodium 40 mg 12/17/22 06:00 12/17/22 06:10 Enoxaparin Sodium 40 Mg/0.4 Ml Syringe SUBCUT 40 mg Q24H OLIVIA Administration Morphine Sulfate 4 mg 12/17/22 02:27 12/17/22 07:00 Morphine Sulfate 4 Mg/Ml Cartridge IVPUSH 4 mg Q4H PRN Administration Pain, Severe (Pain Scale 7-10) Protocol Sodium Chloride 3 ml 12/17/22 08:00 12/17/22 08:07 0.9 % Sodium Chloride Flush 3 Ml Syringe IVFLUSH 3 ml QSHIFT OLIVIA Administration Discontinued Medications Generic Name Dose Route Start Last Admin Trade Name Freq PRN Reason Stop Dose Admin Al Hydroxide/Mg Hydroxide 30 ml 12/17/22 01:21 12/17/22 01:28 Magnesium Hydrox/Alum Hydrox 30 Ml Oral.Susp PO 12/17/22 01:22 30 ml ONCE ONE Administration Amlodipine Besylate 5 mg 12/17/22 02:39 12/17/22 03:20 Amlodipine Besylate 5 Mg Tablet PO 12/17/22 02:40 5 mg ONCE ONE Administration Protocol Clonidine HCl 0.1 mg 12/17/22 00:29 12/17/22 00:52 Clonidine Hcl 0.1 Mg Tablet PO 12/17/22 00:30 0.1 mg ONCE ONE Administration Protocol Albuterol Sulfate 2.5 mg/ 0 mg 12/16/22 21:38 12/16/22 21:50 Ipratropium [place] 0.5 mg INHALE 12/16/22 21:39 1 each ONCE ONE Administration Famotidine 20 mg 12/16/22 21:37 12/16/22 21:56 Famotidine/Pf 20 Mg/2 Ml Vial IVPUSH 12/16/22 21:38 20 mg ONCE ONE Administration Sodium Chloride 1,000 mls @ 999 mls/hr 12/16/22 21:37 12/16/22 23:21 Ns IV 12/16/22 22:37 Infused .Q1H1M ONE Infusion Iohexol 100 ml 12/16/22 22:35 12/16/22 22:35 Iohexol 350 Mg/Ml 100 Ml Infus..Btl IV 12/16/22 22:36 85 ml ONCE ONE Administration Labetalol HCl 20 mg 12/16/22 23:07 12/16/22 23:29 Labetalol Hcl 100 Mg/20 Ml Vial IVPUSH 12/16/22 23:08 20 mg ONCE ONE Administration Labetalol HCl 20 mg 12/17/22 00:28 12/17/22 00:51 Labetalol Hcl 100 Mg/20 Ml Vial IVPUSH 12/17/22 00:29 20 mg ONCE ONE Administration Labetalol HCl 20 mg 12/17/22 04:26 12/17/22 04:34 Labetalol Hcl 100 Mg/20 Ml Vial IVPUSH 12/17/22 04:27 20 mg ONCE ONE Administration Morphine Sulfate 4 mg 12/16/22 21:37 12/16/22 21:55 Morphine Sulfate 4 Mg/Ml Cartridge IVPUSH 12/16/22 21:38 4 mg ONCE ONE Administration Protocol Nitroglycerin 1 inch 12/17/22 02:25 12/17/22 02:41 Nitroglycerin 2 % Oint 1 Gm Packet TRANSDERMA 12/17/22 02:26 1 inch ONCE ONE Administration Ondansetron HCl 4 mg 12/16/22 21:37 12/16/22 21:56 Ondansetron Hcl 4 Mg/2 Ml Vial IVPUSH 12/16/22 21:38 4 mg ONCE ONE Administration Ondansetron HCl 4 mg 12/17/22 01:20 12/17/22 01:28 Ondansetron Hcl 4 Mg/2 Ml Vial IVPUSH 12/17/22 01:21 4 mg ONCE ONE Administration Potassium Chloride 40 meq 12/17/22 02:51 12/17/22 03:20 Potassium Chloride Er 20 Meq Tab.Er.Prt PO 12/17/22 02:52 40 meq ONCE ONE Administration Medical Decision Making Medical Decision Making [facility] Narrative: Patient with epigastric pain with nausea with elevated blood pressure and asthma workup showed slightly elevated lipase but CT scan negative for pancreatitis patient on lisinopril 40 mg and amlodipine 2.5 mg will give a dose of labetalol and pain control patient did complain of shortness of breath but saturating 97% at room air chest x-ray negative for any infiltrate Patient continued to have hypertension with blood pressure in the range of 210/110 requiring 2 doses of IV labetalol until blood pressure on the higher side. Will admit patient for accelerated hypertension Differential Diagnosis Pancreatitis/peptic ulcer disease/UTI/pneumonia/cholelithiasis Consult Healthcare Provider Management of the patient was discussed with: Hospitalist Lab Data [facility] Lab Attestation statement: I reviewed the patient's lab results. 12/16/22 20:01 12/16/22 20:01 Labs: Lab Results 12/16/22 12/16/22 12/16/22 Range/Units 20:00 20:01 20:01 WBC 9.9 (4.8-10.8) X10*3/uL RBC 4.32 D (4.20-5.50) X10*6/uL Hgb 12.6 D (12.0-16.0) g/dl Hct 37.1 (37.0-47.0) % MCV 85.9 (80.0-98.0) fL MCH 29.2 (27.0-33.0) pg MCHC 34.0 (31.0-35.0) g/dl RDW 13.2 (11.0-16.0) % Plt Count 309 (160-400) X10*3/uL MPV 9.4 (9.4-12.3) fL Immature Gran % (Auto) 0.2 (0.0-0.4) % Neut % (Auto) 74.2 H (45-73) % Lymph % (Auto) 12.9 L (20-40) % [place] % (Auto) 8.0 (2-11) % Eos % (Auto) 4.1 H (0-4) % Baso % (Auto) 0.6 (0-2) % Lymph # (Auto) 1.3 (1.2-4.9) X10*3/uL [place] # (Auto) 0.8 (0.1-1.2) X10*3/uL Eos # (Auto) 0.4 (0.0-0.4) X10*3/uL Baso # (Auto) 0.1 (0.0-0.2) X10*3/uL Abs Immat Gran (auto) 0.02 (0.00-0.03) X10*3/uL Absolute Neuts (auto) 7.3 (2.0-8.3) x10*3/uL Absolute Nucleated RBC 0.000 (0.0-0.012) X10*3/uL Nucleated RBC % (auto) 0.0 (0.0-0.2) /100WBC PT 10.2 (10.0-13.1) SEC INR 0.9 (0.9-1.1) Sodium (135-145) mmol/L Potassium (3.3-5.1) mmol/L Chloride (96-108) mmol/L Carbon Dioxide (22-29) mmol/L Anion Gap (12-20) BUN (9-16) mg/dL Creatinine (0.5-1.4) mg/dL Estim Creat Clear Calc Estimated GFR Random Glucose (60-115) mg/dL Calcium (8.4-10.2) mg/dL Magnesium (1.6-2.6) mg/dL Total Bilirubin (0.0-1.0) mg/dL AST (5-31) U/L ALT (0-31) U/L Alkaline Phosphatase (39-117) U/L Troponin I High Sens (<3.5-17.0) ng/L B-Natriuretic Peptide (<100) pg/mL Total Protein (6.5-8.0) g/dL Albumin (3.5-5.0) g/dL Lipase (8-78) U/L Influenza Type A (PCR) NEGATIVE (Negative) Influenza Type B (PCR) NEGATIVE (Negative) RSV RNA Qual (PCR) NEGATIVE (Negative) SARS-CoV-2 RNA (RT-PCR) NEGATIVE (Negative) 12/16/22 12/16/22 12/16/22 Range/Units 20:01 20:01 20:01 WBC (4.8-10.8) X10*3/uL RBC (4.20-5.50) X10*6/uL Hgb (12.0-16.0) g/dl Hct (37.0-47.0) % MCV (80.0-98.0) fL MCH (27.0-33.0) pg MCHC (31.0-35.0) g/dl RDW (11.0-16.0) % Plt Count (160-400) X10*3/uL MPV (9.4-12.3) fL Immature Gran % (Auto) (0.0-0.4) % Neut % (Auto) (45-73) % Lymph % (Auto) (20-40) % [place] % (Auto) (2-11) % Eos % (Auto) (0-4) % Baso % (Auto) (0-2) % Lymph # (Auto) (1.2-4.9) X10*3/uL [place] # (Auto) (0.1-1.2) X10*3/uL Eos # (Auto) (0.0-0.4) X10*3/uL Baso # (Auto) (0.0-0.2) X10*3/uL Abs Immat Gran (auto) (0.00-0.03) X10*3/uL Absolute Neuts (auto) (2.0-8.3) x10*3/uL Absolute Nucleated RBC (0.0-0.012) X10*3/uL Nucleated RBC % (auto) (0.0-0.2) /100WBC PT (10.0-13.1) SEC INR (0.9-1.1) Sodium 142 (135-145) mmol/L Potassium 3.1 L D (3.3-5.1) mmol/L Chloride 107 (96-108) mmol/L Carbon Dioxide 24 (22-29) mmol/L Anion Gap 14 (12-20) BUN 5 L (9-16) mg/dL Creatinine 0.82 (0.5-1.4) mg/dL Estim Creat Clear Calc 60.3 Estimated GFR > 60 Random Glucose 101 (60-115) mg/dL Calcium 9.6 D (8.4-10.2) mg/dL Magnesium 1.6 (1.6-2.6) mg/dL Total Bilirubin 0.8 (0.0-1.0) mg/dL AST 34 H (5-31) U/L ALT 29 (0-31) U/L Alkaline Phosphatase 113 (39-117) U/L Troponin I High Sens 7.5 (<3.5-17.0) ng/L B-Natriuretic Peptide < 10 (<100) pg/mL Total Protein 6.5 (6.5-8.0) g/dL Albumin 4.3 (3.5-5.0) g/dL Lipase 294 H (8-78) U/L Influenza Type A (PCR) (Negative) Influenza Type B (PCR) (Negative) RSV RNA Qual (PCR) (Negative) SARS-CoV-2 RNA (RT-PCR) (Negative) Critical Care Time Critical Care Time Critical Care Time: Yes Total Critical Care Time: 55 Attestation: The patient was critically ill with a high probability of imminent or life threatening deterioration. I spent greater than 60 minutes of discontinuous time evaluating the patient,delivering critical care at the bedside, discussing and evaluating pertinent data with consultants. Critical care time does not include time spent performing separately billable procedures or teaching. Total time spent performing critical care was 55 minutes. Discharge Plan Discharge Clinical Impression: Accelerated essential hypertension, Abdominal pain Patient Disposition: Admitted As Inpatient
[2022-12-16] MEDS: Morphine Sulfate 4 MG/ML CARTRIDGE IVPUSH (21:55)
[2022-12-16] MEDS: ondansetron HCL 4 MG/2 ML VIAL IVPUSH (21:56)
[2022-12-16] MEDS: Famotidine/PF 20 MG/2 ML VIAL IVPUSH (21:56)
[2022-12-16] MEDS: 0.9 % Sodium Chloride 1,000 ML 999 ML IV (21:57)
[2022-12-16] MEDS: iohexoL 350 MG/ML 100 ML INFUS..BTL IV (22:35)
[2022-12-16 22:36] LABS: Lipase 294 U/L (8-78)
[2022-12-16] MEDS: Labetalol HCL 100 MG/20 ML VIAL 20 MG IVPUSH (23:29)
[2022-12-17] VITALS (21 sets, daily range): BP systolic 100–213; BP diastolic 53–129; PULSE 14–101; RESP 11–18; TEMP 36.6–37.1; O2SAT 95–99; BMI 20.7
[2022-12-17] MEDS: Labetalol HCL 100 MG/20 ML VIAL 20 MG IVPUSH ×2 (00:51→04:34)
[2022-12-17] MEDS: cloNIDine HCL 0.1 MG TABLET PO ×3 (00:52→22:24)
[2022-12-17] MEDS: Magnesium Hydrox/Alum Hydrox 30 ML ORAL.SUSP PO (01:28)
[2022-12-17] MEDS: ondansetron HCL 4 MG/2 ML VIAL IVPUSH ×2 (01:28→11:26)
--- NOTE | 2022-12-17 01:32 | PC.NURSE ---
Patient is alert and oriented x3. Patient reports generalized pain at tolerable level at present. Patient's BP has been elevated. 180/122, P 79, and O2 Sat 96% RA after receiving Labetalol 20 mg I push and Clonidine 0.1 mg PO. Patient reported nausea, no vomiting. Dr. Holm notified. Patient medicated with Zofran 4 mg IV push and Maalox PO, effect pending.
--- NOTE | 2022-12-17 02:18 | PM.IMHP ---
History of Present Illness Date of Service: 12/17/22 Chief Complaint: Elevated blood pressure This is a 62-year-old female with pertinent history of essential hypertension, mood disorder, chronic back pain with opioid use, asthma, who presents to the emergency department for evaluation of 5 days of nausea and not feeling well. Patient states her blood pressure was with controlled up until September. She lost her insurance in October and was not able to take her oral home p.o. antihypertensives. She recently got back on her insurance and restarted home medications. States for the last 5 days to 1 week patient has not been feeling well. She has complaints of nausea, dyspnea on exertion, epigastric pain which is constant, nonradiating. Also admits poor p.o. intake. Patient denies fever, chills, palpitations, chest pain, changes in urinary bowel habits In the emergency department, patient's blood pressure upon arrival was 219/111. Review of Systems Constitutional: Constitutional: Reports lethargy and Reports malaise Cardiovascular: Cardiovascular: Reports dyspnea on exertion Respiratory: Respiratory: Reports dyspnea on exertion Gastrointestinal: Gastrointestinal: Reports abdominal pain and Reports nausea Genitourinary: Genitourinary: Reports no additional female genitourinary complaints [facility] Medical History Anxiety Asthma Attention deficit disorder Chronic pain syndrome Compression fracture of L1 lumbar vertebra Depression Disc degeneration, lumbar Herniated disc Hypertension Migraine headache Migraine headache Osteoporosis Postlaminectomy syndrome Spondylosis Stool incontinence Family History Sister Ovarian cancer Lung cancer Maternal Grandmother Ovarian cancer Paternal Aunt Ovarian cancer Maternal Aunt Pancreatic cancer Surgical History History of cervical spinal surgery History of lumbosacral spine surgery History of spinal surgery History of surgery on left wrist Status post kyphoplasty Social History Household Members: Spouse Housing: House Are you a primary home care administrator to a significant other at home: No Do you presently have visiting nurse or other home services: No Patient Tobacco Use Status: Former Tobacco user Smoked in Last 30 Days: No e-Cigarette/Vaping Use: Never Used Second Hand Smoke Exposure: No Advance Directives: No Advance Directives Information Provided: Yes Patient : No service: No Current occupational status: disabled 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 Current occupational exposures/hazards: No Cognitive needs: No Hearing needs: No Vision needs: Yes Meds Allergies Allergy/AdvReac Type Severity Reaction Status Date / Time amoxicillin [From Augmentin] Allergy Severe Facial Verified 12/09/22 14:08 Swelling clavulanic acid Allergy Severe Facial Verified 12/09/22 14:08 [From Augmentin] Swelling naproxen Allergy Severe asthma, SOB Verified 12/09/22 14:08 animal dander [PET DANDER] Allergy Intermediate rash Verified 12/09/22 14:08 SEASONAL ALLERGIES Allergy Mild congestion Uncoded 11/10/22 12:30 Home Medications Medication Instructions Recorded Confirmed Last Taken Type clonazepam 1 mg tablet 1 mg PO BID 07/27/20 11/10/22 Unknown History lorazepam 1 mg tablet 1 mg PO DAILY PRN anxiety 07/27/20 11/10/22 Unknown History dexamethasone 4 mg tablet 4 mg PO DAILY PRN Back Pain 12/07/21 11/10/22 Unknown History duloxetine 60 mg capsule,delayed 60 mg PO DAILY 12/07/21 11/10/22 Unknown History release (Cymbalta) duloxetine 30 mg capsule,delayed 30 mg PO DAILY 03/08/22 11/10/22 Unknown History release lisdexamfetamine 70 mg capsule 70 mg PO QAM 03/08/22 11/10/22 Unknown History (Vyvanse) Physical Exam Vital Signs and Narrative: Vital Signs: Last Vital Signs Temp 98.8 F 12/17/22 00:00 Pulse 88 12/17/22 00:00 Resp 15 12/17/22 00:00 BP 188/120 H 12/17/22 00:00 Pulse Ox 97 12/17/22 00:00 O2 Del Method 12/17/22 00:00 BMI result Body Mass Index 20.5 Middle-aged female lying in bed in no distress Neck supple, no JVD Regular rate and rhythm, S1-S2 heard Regular breath sounds bilaterally, no wheezing or crackles appreciated Abdomen with generalized tenderness to palpation, no guarding, no rigidity, no rebound tenderness Patient is awake, alert and oriented to self, place, time and person ; no focal motor deficit Psych: Normal mood No pedal edema Results Labs 12/16/22 20:01 12/16/22 20:01 Labs: Laboratory Results - last 24 hr 12/16/22 12/16/22 12/16/22 20:00 20:01 20:01 MCV 85.9 MCH 29.2 MCHC 34.0 RDW 13.2 Plt Count 309 MPV 9.4 Immature Gran % (Auto) 0.2 Neut % (Auto) 74.2 H Lymph % (Auto) 12.9 L [place] % (Auto) 8.0 Eos % (Auto) 4.1 H Baso % (Auto) 0.6 Lymph # (Auto) 1.3 [place] # (Auto) 0.8 Eos # (Auto) 0.4 Baso # (Auto) 0.1 Abs Immat Gran (auto) 0.02 Absolute Neuts (auto) 7.3 Absolute Nucleated RBC 0.000 Nucleated RBC % (auto) 0.0 PT 10.2 INR 0.9 Anion Gap Estim Creat Clear Calc Estimated GFR Random Glucose Calcium Magnesium Total Bilirubin AST ALT Alkaline Phosphatase Troponin I High Sens B-Natriuretic Peptide Total Protein Albumin Lipase Influenza Type A (PCR) NEGATIVE Influenza Type B (PCR) NEGATIVE RSV RNA Qual (PCR) NEGATIVE SARS-CoV-2 RNA (RT-PCR) NEGATIVE 12/16/22 12/16/22 12/16/22 20:01 20:01 20:01 MCV MCH MCHC RDW Plt Count MPV Immature Gran % (Auto) Neut % (Auto) Lymph % (Auto) [place] % (Auto) Eos % (Auto) Baso % (Auto) Lymph # (Auto) [place] # (Auto) Eos # (Auto) Baso # (Auto) Abs Immat Gran (auto) Absolute Neuts (auto) Absolute Nucleated RBC Nucleated RBC % (auto) PT INR Anion Gap 14 Estim Creat Clear Calc 60.3 Estimated GFR > 60 Random Glucose 101 Calcium 9.6 D Magnesium 1.6 Total Bilirubin 0.8 AST 34 H ALT 29 Alkaline Phosphatase 113 Troponin I High Sens 7.5 B-Natriuretic Peptide < 10 Total Protein 6.5 Albumin 4.3 Lipase 294 H Influenza Type A (PCR) Influenza Type B (PCR) RSV RNA Qual (PCR) SARS-CoV-2 RNA (RT-PCR) Imaging Radiologist's Impressions: Impressions Chest X-Ray 12/16/22 20:28 IMPRESSION: No active chest disease. Abdomen/Pelvis CT 12/16/22 22:43 IMPRESSION: No acute findings in the abdomen or pelvis. No inflammatory changes. Normal appearance of the pancreas. There is mild dilatation of the common bile duct measuring 0.4 cm. No definite ductal filling defect seen. Fleischner guidelines were followed. Assessment and Plan (1) Elevated blood pressure reading: Status: Acute Plan This is a 62-year-old female with pertinent history of essential hypertension, mood disorder, chronic back pain with opioid use, asthma, who presents to the emergency department for evaluation of 5 days of nausea and not feeling well. #. Hypertensive urgency/emergency: IV labetalol 20 mg x 2 administered in the ER. Initiating nitropaste. Administered oral p.o. antihypertensive. Monitor closely and optimize antihypertensives at discharge. #. Generalized abdominal discomfort with elevated lipase: Unclear etiology. Although lipase is elevated, abdominal imaging without pancreatitis. Patient does have epigastric pain but it is not classical and does not radiate to the back. Full liquid diet and advance as tolerated #. Mood disorder: Continue home mood stabilizing agents #. Chronic back pain with chronic opioid use: Continue home analgesics. IV morphine p.r.n. #. Asthma: No concern for exacerbation at admission. DuoNebs p.r.n. Med rec pending DVT prophylaxis: Lovenox 40 mg daily Full liquid diet. Full code Admit as inpatient and will require two night minimum hospital stay for monitoring of hemodynamics and optimizing antihypertensives Time Spent With Patient Time: Total time managing care of this patient today ____ minutes. Quality Stroke Does the patient have a stroke diagnosis?: No VTE Prior VTE?: No VTE Risk Level:: Medical - moderate - high VTE Device Contraindication: Treatment Not Indicated VTE Drug Contraindication: N/A - Med Ordered
[2022-12-17] MEDS: Nitroglycerin 2 % Oint 1 GM Packet 1 INCH TRANSDERMA (02:41)
[2022-12-17] MEDS: Morphine Sulfate 4 MG/ML CARTRIDGE IVPUSH ×4 (02:41→18:11)
[2022-12-17] MEDS: amLODIPine Besylate 5 MG TABLET PO (03:20)
[2022-12-17] MEDS: Potassium Chloride ER 20 MEQ TAB.ER.PRT 40 MEQ PO (03:20)
--- NOTE | 2022-12-17 03:36 | PC.NURSE ---
Patient medicated per DEC. BP remains elevated 181/113, P 85, RR16, O2 Sat 96% RA. Patient reports improvement in abdominal pain down from 8 to 02/06. Patient states nausea resolved. Patient has been drinking clear liquids, tolerating well. Call suero placed within patient's reach, patient is able to make her needs known.
--- NOTE | 2022-12-17 04:19 | ECG_ITS ---
Test Reason : HYPERTENSION Blood Pressure : / mmHG Vent. Rate : 077 BPM Atrial Rate : 077 BPM P-R Int : 172 ms QRS Dur : 088 ms QT Int : 374 ms P-R-T Axes : 057 015 036 degrees QTc Int : 423 ms Sinus rhythm with Premature atrial complexes Otherwise normal ECG When compared with ECG of 16-DEC-2022 20:10, Criteria for Septal infarct are no longer Present Referred By: Natacha Arreaga Electronically Signed By:Yared Ge
--- NOTE | 2022-12-17 04:27 | PC.NURSE ---
Patient's BP remains high 198/112, P 80, O2 Sat 96% RA. Patient reports mild 3/10 non-radiating pain in left chest describes it as pressure, nausea improved, pain her abdomen is at tolerable level now 4/10. Dr. Arreaga notified, EKG completed and sent to MD via Maven message.
--- NOTE | 2022-12-17 04:43 | PC.NURSE ---
Patient medicated with Labetalol 20 mg IV push with improvement in BP noted 162/104, P 83, O2 Sat 95% RA. Patient reports pressure like pain in her left chest is nearly gone, rating it as 2/10 on 0-10 pain scale.
[2022-12-17 05:01] LABS: Basophils Absolute Auto 0.1 X10*3/uL (0.0-0.2); Basophils Percent Auto 0.8 % (0-2); Eosinophils Absolute Auto 0.5 X10*3/uL (0.0-0.4); Eosinophils Percent Auto 5.7 % (0-4); Hematocrit 38.1 % (37.0-47.0); Hemoglobin 12.9 g/dl (12.0-16.0); Imm Gran Abs Auto 0.02 X10*3/uL (0.00-0.03); Imm Gran Pct Auto 0.2 % (0.0-0.4); Lymphocytes Absolute Auto 1.1 X10*3/uL (1.2-4.9); Lymphocytes Percent Auto 11.9 % (20-40); MANUAL DIFF FLAG NO; Mean Corpuscular HGB Conc 33.9 g/dl (31.0-35.0); Mean Corpuscular Hemoglobin 29.2 pg (27.0-33.0); Mean Corpuscular Volume 86.2 fL (80.0-98.0); Mean Platelet Volume 9.4 fL (9.4-12.3); Monocytes Absolute Auto 0.8 X10*3/uL (0.1-1.2); Monocytes Percent Auto 8.5 % (2-11); Neutrophils Absolute Auto 6.4 x10*3/uL (2.0-8.3); Neutrophils Percent Auto 72.9 % (45-73); Platelet Count 297 X10*3/uL (160-400); Red Blood Count 4.42 X10*6/uL (4.20-5.50); Red Cell Distribution Width 13.4 % (11.0-16.0); White Blood Count 8.8 X10*3/uL (4.8-10.8)
[2022-12-17 05:18] LABS: Anion Gap 17 (12-20); Blood Urea Nitrogen 5 mg/dL (9-16); Calcium 9.7 mg/dL (8.4-10.2); Carbon Dioxide 22 mmol/L (22-29); Chloride 108 mmol/L (96-108); Creatinine Clr Calc Pharmacy 57.5; Estimated Glomerular Filt Rate > 60; Glucose Random 109 mg/dL (60-115); Potassium 3.6 mmol/L (3.3-5.1); Sodium 143 mmol/L (135-145)
[2022-12-17] MEDS: Enoxaparin Sodium 40 MG/0.4 ML SYRINGE SUBCUT (06:10)
[2022-12-17] MEDS: 0.9 % Sodium Chloride Flush 3 ML SYRINGE IVFLUSH ×2 (08:07→22:24)
--- NOTE | 2022-12-17 08:30 | PC.NURSE ---
Alert and oriented, resp even and unlabored. Pt remains hypertensive at this time, denies any headache or dizziness. Respiratory at bedside.
--- NOTE | 2022-12-17 09:02 | PHA.MEDREC ---
Pharmacy Consult ? Medication Reconciliation Pharmacy has completed the medication reconciliation. Patient had list that I reviewed with her and she confirmed medications taken and last doses to complete med rec.
[2022-12-17] MEDS: lisinopriL 40 MG TABLET PO (11:25)
[2022-12-17] MEDS: Multivitamin TABLET 1 TAB PO (11:25)
[2022-12-17] MEDS: DULoxetine HCl 30 MG CAPSULE.DR PO (11:25)
[2022-12-17] MEDS: hydrALAZINE HCl 20 MG/ML VIAL 10 MG IVPUSH (11:26)
--- NOTE | 2022-12-17 12:38 | PM.EVENT ---
Event Note Date of Service: 12/17/22 Event Note: pt seen and examined, admitted this morning with accelereated htn,, bp still high, ordered home meds and added PRN IV hydralazine, o/w a/p per h and p from this morning. Time Spent With Patient Time: Total time managing care of this patient today ____ minutes.
[2022-12-17] MEDS: clonazePAM 1 MG TABLET PO ×2 (13:05→18:40)
[2022-12-17] MEDS: TiZANidine HCL 4 MG TABLET PO ×2 (13:05→18:40)
--- NOTE | 2022-12-17 13:47 | MHC.CM.PN ---
Lives at home with . No previous services or equipment. Drives self where she needs to go. D/C plan is to return home with via . CM to follow.
--- NOTE | 2022-12-17 16:03 | PC.NURSE ---
received in report that pts systolic BP was in the 200s and that it hadn't gone below 190. Upon meeting pt, a new set of vitals was obtained. Current BP is 116/68. aware. Will continue to monitor
[2022-12-18] VITALS (12 sets, daily range): BP systolic 80–186; BP diastolic 56–112; PULSE 72–95; RESP 14–20; TEMP 36.4–36.8; O2SAT 93–98
[2022-12-18] MEDS: Acetaminophen 325 MG TABLET 650 MG PO (03:07)
[2022-12-18] MEDS: SUMAtriptan succinate 50 MG TABLET PO (04:14)
[2022-12-18] MEDS: Enoxaparin Sodium 40 MG/0.4 ML SYRINGE SUBCUT (06:19)
[2022-12-18] MEDS: cloNIDine HCL 0.1 MG TABLET PO (09:16)
[2022-12-18] MEDS: lisinopriL 40 MG TABLET PO (09:16)
[2022-12-18] MEDS: amLODIPine Besylate 2.5 MG TABLET PO (09:16)
[2022-12-18] MEDS: Multivitamin TABLET 1 TAB PO (09:16)
[2022-12-18] MEDS: DULoxetine HCl 30 MG CAPSULE.DR PO (09:16)
[2022-12-18] MEDS: 0.9 % Sodium Chloride Flush 3 ML SYRINGE IVFLUSH ×2 (09:17→15:20)
--- NOTE | 2022-12-18 11:10 | HO.PM.IMPN ---
Subjective Subjective Date of Service: 12/18/22 Interval History: f/u on uncontrolled HTN BP remains very ghigh but better Physical Exam Vital Signs: Vital Signs: Last Vital Signs Temp 98.2 F 12/18/22 08:00 Pulse 72 12/18/22 08:14 Resp 17 12/18/22 08:14 BP 184/96 H 12/18/22 09:29 Pulse Ox 98 12/18/22 08:00 O2 Del Method 12/18/22 08:00 BMI result Body Mass Index 20.7 Objective Data Active Medications Acetaminophen (Acetaminophen 325 Mg Tablet) 650 mg PO Q6H PRN PRN Reason: Pain, Mild (Pain Scale 1-3) Last Admin: 12/18/22 03:07 Dose: 650 mg Documented By: CRISTO Albuterol Sulfate (Albuterol Sulfate 90 Mcg 8 Gm Inhaler) 2 puff INHALE Q4H PRN PRN Reason: shortness of breath or wheezing Amlodipine Besylate (Amlodipine Besylate 2.5 Mg Tablet) 2.5 mg PO DAILY [facility]; Protocol Last Admin: 12/18/22 09:16 Dose: 2.5 mg Documented By: MORGAN Clonazepam (Clonazepam 1 Mg Tablet) 1 mg PO DAILY@1400,1800 [facility] Last Admin: 12/17/22 18:40 Dose: 1 mg Documented By: MORGAN Clonidine HCl (Clonidine Hcl 0.1 Mg Tablet) 0.1 mg PO BID [facility]; Protocol Last Admin: 12/18/22 09:16 Dose: 0.1 mg Documented By: MORGAN Albuterol Sulfate 2.5 mg/ (Ipratropium [place] 0.5 mg) 0 mg INHALE RQ4H WHILE AWAKE [facility] Last Admin: 12/18/22 08:11 Dose: 1 each Documented By: KI Albuterol Sulfate 2.5 mg/ (Ipratropium [place] 0.5 mg) 0 mg INHALE Q4H PRN PRN Reason: Wheezing Duloxetine HCl (Duloxetine Hcl 30 Mg Capsule.Dr) 30 mg PO DAILY [facility] Last Admin: 12/18/22 09:16 Dose: 30 mg Documented By: MORGAN Enoxaparin Sodium (Enoxaparin Sodium 40 Mg/0.4 Ml Syringe) 40 mg SUBCUT Q24H [facility] Last Admin: 12/18/22 06:19 Dose: 40 mg Documented By: CRISTO Fluticasone/Vilanterol (Fluticasone/Vilanterol 200/25 Blst.W.Dev) 1 puff INHALE RDAILY [facility] Hydralazine HCl (Hydralazine Hcl 20 Mg/Ml Vial) 10 mg IVPUSH Q6H PRN; Protocol PRN Reason: Sb > 180 Last Admin: 12/17/22 11:26 Dose: 10 mg Documented By: VANESSA Lisinopril (Lisinopril 40 Mg Tablet) 40 mg PO DAILY [facility]; Protocol Last Admin: 12/18/22 09:16 Dose: 40 mg Documented By: MORGAN Lorazepam (Lorazepam 1 Mg Tablet) 1 mg PO DAILY PRN PRN Reason: anxiety Melatonin (Melatonin 3 Mg Tablet) 6 mg PO BEDTIME PRN PRN Reason: Insomnia Morphine Sulfate (Morphine Sulfate 4 Mg/Ml Cartridge) 4 mg IVPUSH Q4H PRN; Protocol PRN Reason: Pain, Severe (Pain Scale 7-10) Last Admin: 12/17/22 18:11 Dose: 4 mg Documented By: MORGAN Multivitamins/Vitamin C (Multivitamin Tablet) 1 tab PO DAILY [facility] Last Admin: 12/18/22 09:16 Dose: 1 tab Documented By: MORGAN Naloxone HCl (Naloxone Hcl Nasal 4 Mg Presho) 4 mg NOSTRILALT Q2M PRN PRN Reason: opioid overdose Non-Formulary Medication (Lisdexamfetamine [Vyvanse]) 70 mg PO DAILY PRN PRN Reason: adhd symptoms Non-Formulary Medication (Naratriptan) 2.5 mg PO ONCE PRN PRN Reason: migraine Ondansetron HCl (Ondansetron Hcl 4 Mg/2 Ml Vial) 4 mg IVPUSH Q8H PRN PRN Reason: Nausea and Vomiting Last Admin: 12/17/22 11:26 Dose: 4 mg Documented By: VANESSA Pharmacy Consult (Consult Rx Perform Med Rec) 1 each MISCELLANE ONCE PRN PRN Reason: Consult order Sodium Chloride (0.9 % Sodium Chloride Flush 3 Ml Syringe) [facility] Last Admin: 12/18/22 09:17 Dose: 3 ml Documented By: MORGAN Tizanidine HCl (Tizanidine Hcl 4 Mg Tablet) 4 mg PO BID@1400,1800 [facility] Last Admin: 12/17/22 18:40 Dose: 4 mg Documented By: MORGAN Labs 12/17/22 04:57 12/17/22 04:57 Assessment and Plan (1) Accelerated essential hypertension: Status: Acute Plan 62-year-old female with pertinent history of essential hypertension, mood disorder, chronic back pain with opioid use, asthma, who presents to the emergency department for evaluation of 5 days of nausea and not feeling well. #. Hypertensive urgency/emergency: restarted on home meds, PRN hydralazine #. Generalized abdominal discomfort with elevated lipase: Unclear etiology. Although lipase is elevated, abdominal imaging without pancreatitis. Patient does have epigastric pain but it is not classical and does not radiate to the back. better, regular diet #. Mood disorder: Continue home mood stabilizing agents #. Chronic back pain with chronic opioid use: Continue home analgesics. IV morphine p.r.n. #. Asthma: No concern for exacerbation at admission. DuoNebs p.r.n. home when eating and BP alexander DVT prophylaxis: Lovenox 40 mg daily Full code Admit as inpatient and will require two night minimum hospital stay for monitoring of hemodynamics and optimizing antihypertensives Time Spent With Patient Time: Total time managing care of this patient today ____ minutes. Quality Stroke Does the patient have a stroke diagnosis?: No VTE Prior VTE?: No VTE Risk Level:: Medical - moderate - high VTE Device Contraindication: Treatment Not Indicated VTE Drug Contraindication: N/A - Med Ordered
[2022-12-18] MEDS: hydrALAZINE HCl 20 MG/ML VIAL 10 MG IVPUSH (11:52)
[2022-12-18] MEDS: Morphine Sulfate 4 MG/ML CARTRIDGE IVPUSH (14:21)
[2022-12-18] MEDS: clonazePAM 1 MG TABLET PO ×2 (15:16→18:09)
[2022-12-18] MEDS: TiZANidine HCL 4 MG TABLET PO ×2 (15:16→18:08)
[2022-12-18] MEDS: 0.9 % Sodium Chloride 500 ML IV (20:32)
[2022-12-19] VITALS: BP 148/90; PULSE 83; RESP 14; TEMP 36.5; O2SAT 95
[2022-12-19] MEDS: Melatonin 3 MG TABLET 6 MG PO (01:28)
[2022-12-19] MEDS: SUMAtriptan succinate 50 MG TABLET PO (02:39)
[2022-12-19 02:58] VITALS: BP 152/82; PULSE 80; RESP 15; TEMP 36.4; O2SAT 95
[2022-12-19] MEDS: Enoxaparin Sodium 40 MG/0.4 ML SYRINGE SUBCUT (06:09)
[2022-12-19 08:00] VITALS: BP 156/86; PULSE 90; RESP 16; TEMP 36.7; O2SAT 96
[2022-12-19] MEDS: Multivitamin TABLET 1 TAB PO (08:03)
[2022-12-19] MEDS: cloNIDine HCL 0.1 MG TABLET PO (08:03)
[2022-12-19] MEDS: amLODIPine Besylate 2.5 MG TABLET PO (08:03)
[2022-12-19] MEDS: Acetaminophen 325 MG TABLET 650 MG PO (08:04)
[2022-12-19] MEDS: DULoxetine HCl 30 MG CAPSULE.DR PO (08:04)
[2022-12-19] MEDS: 0.9 % Sodium Chloride Flush 3 ML SYRINGE IVFLUSH (08:05)
[2022-12-19] MEDS: lisinopriL 40 MG TABLET PO (08:05)
--- NOTE | 2022-12-19 10:35 | PM.DS ---
DS: Providers Provider Date of Service: 12/19/22 Date of admission: 12/17/22 02:27 Primary care physician: Gustavo Leiva MD DS: Diagnosis Discharge Diagnosis (1) Accelerated essential hypertension: Status: Acute DS: Summary Hospital Course Hospital Course: Chief Complaint: Elevated blood pressure This is a 62-year-old female with pertinent history of essential hypertension, mood disorder, chronic back pain with opioid use, asthma, who presents to the emergency department for evaluation of 5 days of nausea and not feeling well.? Patient states her blood pressure was with controlled up until September.? She lost her insurance in October and was not able to take her oral home p.o. antihypertensives.? She recently got back on her insurance and restarted home medications.? States for the last 5 days to 1 week patient has not been feeling well.? She has complaints of nausea, dyspnea on exertion, epigastric pain which is constant, nonradiating.? Also admits poor p.o. intake.? Patient denies fever, chills, palpitations, chest pain, changes in urinary bowel habits In the emergency department, patient's blood pressure upon arrival was 219/111. Hospital course: Patient presented with abdominal pain and was found to have acceerated blood pressure with SBP > 200 , aparently has not been taking her medication she said she was having abdomen pain and couldn't eat or take her medication. Abdominal work up with CT was unremarkable. Initially her blood pressure was treated with IV medications including labetalol and IV hydralazine and was ultimately restarted on her home medication and presently has no abdominal pain and blood pressure is accepatable at 155/86. Norvasc 2.5 will be increased to 5 mga and will continue Lisinopril 40 mg daily, Clonidine 0.1 bid. She feels comfrotable going home and advised to comply with medication and follow [facility] PCP for further evaluation and possible BP mes adjustment. Time Spent with Patient Time attestation: Total time managing care of this patient today ____ minutes. Discharge coordination time: Greater than 30 minutes Quality: Safe Use of Opioids Does Pt have an Active Cancer Diagnosis on the Problem List?: No Quality: Stroke Does the patient have a stroke diagnosis?: No Physical Exam Vital Signs: Vital Signs: Last Vital Signs Temp 98.1 F 12/19/22 08:00 Pulse 90 12/19/22 08:00 Resp 16 12/19/22 08:00 BP 156/86 H 12/19/22 08:00 Pulse Ox 96 12/19/22 08:00 O2 Del Method 12/19/22 08:00 BMI result Body Mass Index 20.7 Discharge Plan Discharge Anticipated Discharge Date/Time: 12/19/22 10:23 Patient Disposition: Home, Self-Care Discharge Diagnosis: Accelerated HTN Referrals: Gustavo Leiva MD [Primary Care Provider] - 1 Week Discharge Medications: New amlodipine [Norvasc] 5 mg tablet 5 mg PO DAILY Qty: 30 0RF Continued lisinopril 40 mg tablet 40 mg PO DAILY 90 Days Qty: 90 3RF naratriptan 2.5 mg tablet 2.5 mg PO ONCE PRN (Reason: migraine) 30 Days Qty: 9 2RF clonidine HCl 0.1 mg tablet 0.1 mg PO BID 30 Days Qty: 60 1RF fluticasone propion-salmeterol [Wixela Inhub] 500-50 mcg/dose blister with device 1 inh inhalation BID albuterol sulfate [ProAir HFA] 90 mcg/actuation HFA aerosol inhaler 2 puff inhalation Q4H PRN (Reason: shortness of breath or wheezing) tizanidine 4 mg tablet 4 mg PO BID@1400,1800 triamcinolone acetonide 0.025 % Cream 1 appl TOPICAL BID PRN (Reason: rash) Excedrin Migraine 250-250-65 mg Tablet 2 tab PO BID PRN (Reason: Headache) Vyvanse 70 mg capsule 70 mg PO DAILY PRN (Reason: adhd symptoms) nnkiyxorkvab-ovzw-stiyu acid 18-400 mg-mcg Tablet 1 tab PO DAILY duloxetine 30 mg capsule,delayed release(DR/EC) 30 mg PO DAILY lorazepam 1 mg tablet 1 mg PO DAILY PRN (Reason: anxiety) clonazepam 1 mg tablet 1 mg PO DAILY@1400,1800 duloxetine [Cymbalta] 60 mg capsule,delayed release(DR/EC) 60 mg PO DAILY ibuprofen 800 mg tablet 800 mg PO Q12H PRN (Reason: pain) Qty: 60 1RF Rx Instructions: Take it with food and full glass of water. hydrocodone-acetaminophen 10-325 mg tablet 1 tab PO Q6H PRN (Reason: pain) 30 Days Qty: 120 0RF Rx Instructions: Partial Fill upon patient request. naloxone [Narcan] 4 mg/actuation spray,non-aerosol 4 mg intranasal Q2M PRN (Reason: opioid overdose) Qty: 2 0RF Rx Instructions: spray 1 dose into ONE nostril; alternate nostrils w each dose until help arrives Discontinued amlodipine 2.5 mg tablet 2.5 mg PO DAILY 30 Days Qty: 30 1RF Discharge Orders: Discharge Order (Routine); Ordered 12/19/22 Ordered By: Mich Restrepo Diet: Advance to usual diet Activity on Discharge: As tolerated Stand Alone Forms: Patient Portal Discharge page Care Plan Goals: Control of the blood pressure Health Concerns: Uncontrol blood pressure Plan of Treatment: Take your blood pressure medication as recommended Norvasc is increased to 5 mg daily Follow up with your Doctor in a week Assessment: See above
--- NOTE | 2022-12-19 11:07 | MHC.CM.PN ---
dc home no skilled servceis ordered by
[2022-12-19 11:50] VITALS: BP 158/89; PULSE 97; RESP 16; TEMP 36.9; O2SAT 98
== END 2022-12-19 12:50 | disposition home or self-care (01) | DRG 305 ==
LOC: HO.ED 21:17 → HO.EDOVER 12-17 02:42 → HO.IMC 12-17 14:13
PROVIDERS: Physician Assistant Medical; Admitting Provider Student in an Organized Health Care Education/Training Program; Emergency Provider Internal Medicine; PCP Family Medicine; Visit Provider Internal Medicine
DX: I16.0 Hypertensive urgency (principal); G89.4 Chronic pain syndrome; F41.9 Anxiety disorder, unspecified; I10 Essential (primary) hypertension; F32.A Depression, unspecified; R10.9 Unspecified abdominal pain; J45.909 Unspecified asthma, uncomplicated; Z20.822 Contact with and (suspected) exposure to COVID-19; Z91.14 Patient's other noncompliance with medication regimen; Z87.891 Personal history of nicotine dependence; Z88.0 Allergy status to penicillin; Z88.6 Allergy status to analgesic agent; Z79.51 Long term (current) use of inhaled steroids; Z79.891 Long term (current) use of opiate analgesic; Z79.899 Other long term (current) drug therapy
CPT/HCPCS: 0241U; 36415; 71046; 74177; 80048; 80053; 83690; 83735; 83880; 84484; 85025; 85610; 93005; 94640; 99222; 99285; J1650; J2270; J2405; Q9967

== ENCOUNTER → 2023-01-05 12:54 | Outpatient (BNVA) | payer MEDICARE, SELFPAY | PROVIDERS: PCP Family Medicine; Visit Provider Nurse Practitioner Family | DX: Z51.81 Encounter for therapeutic drug level monitoring (principal); F11.20 Opioid dependence, uncomplicated | CPT/HCPCS: 99211 ==

== ENCOUNTER 2023-01-18 12:34 | Outpatient (REF) | payer MEDICARE, SELFPAY ==
[2023-01-18 14:13] LABS: Alanine Aminotransferase 34 U/L (0-31); Alkaline Phosphatase 85 U/L (39-117); Anion Gap 15 (12-20); Aspartate Amino Transferase 32 U/L (5-31); Bilirubin Total 0.4 mg/dL (0.0-1.0); Blood Urea Nitrogen 10 mg/dL (9-16); Calcium 10.7 mg/dL (8.4-10.2); Carbon Dioxide 25 mmol/L (22-29); Chloride 106 mmol/L (96-108); Estimated Glomerular Filt Rate > 60; Glucose Random 121 mg/dL (60-115); Lipase 12 U/L (8-78); Potassium 3.6 mmol/L (3.3-5.1); Sodium 142 mmol/L (135-145); Total Protein 7.5 g/dL (6.5-8.0)
== END 2023-01-18 12:35 | disposition home or self-care (01) ==
LOC: HO.WFDLDS 12:34
PROVIDERS: Visit Provider Family Medicine
DX: R74.8 Abnormal levels of other serum enzymes (principal); I16.1 Hypertensive emergency; I10 Essential (primary) hypertension
CPT/HCPCS: 36415; 80053; 83690

== ENCOUNTER → 2023-02-02 13:51 | Outpatient (BNVA) | payer MEDICARE, SELFPAY | PROVIDERS: PCP Family Medicine; Visit Provider Nurse Practitioner Family | DX: Z51.81 Encounter for therapeutic drug level monitoring (principal); F11.20 Opioid dependence, uncomplicated | CPT/HCPCS: 99211 ==

== ENCOUNTER 2023-02-10 10:36 | Outpatient (REF) | payer MEDICARE, SELFPAY ==
--- NOTE | ~2023-02-10 | US_ITS ---
EXAMINATION: ULTRASOUND RENAL WITH DOPPLER CLINICAL INFORMATION: Hypertensive emergency. COMPARISON: CT abdomen and pelvis to. TECHNIQUE: Real-time grayscale, color Doppler, and duplex Doppler evaluation of the kidneys and renal vasculature was performed. FINDINGS: RENAL MEASUREMENTS: Right: 10.0 x 3.8 x 6.0 cm (Sag x AP x TV) Left: 10.1 x 4.2 x 4.1 cm (Sag x AP x TV) The renal parenchyma appears normal. No hydronephrosis or nephrolithiasis. DOPPLER INTERROGATION: Aorta: 83 cm/sec Right Main Renal Artery: Proximal: 130 cm/sec Mid: 119 cm/sec Distal: 142 cm/sec Left Main Renal Artery: Proximal: 80 cm/sec Mid: 122 cm/sec Distal: 89 cm/sec Renal-Aortic Ratio (RAR): Right: 1.7 Left: 1.5 Resistive Indices: Right: 0.57-0.67 Left: 0.60-0.64 US/US renal doppler IMPRESSION: No evidence of hemodynamically significant renal artery stenosis.
--- NOTE | ~2023-02-10 | US_ITS ---
EXAMINATION: ULTRASOUND RENAL WITH DOPPLER CLINICAL INFORMATION: Hypertensive emergency. COMPARISON: CT abdomen and pelvis to. TECHNIQUE: Real-time grayscale, color Doppler, and duplex Doppler evaluation of the kidneys and renal vasculature was performed. FINDINGS: RENAL MEASUREMENTS: Right: 10.0 x 3.8 x 6.0 cm (Sag x AP x TV) Left: 10.1 x 4.2 x 4.1 cm (Sag x AP x TV) The renal parenchyma appears normal. No hydronephrosis or nephrolithiasis. DOPPLER INTERROGATION: Aorta: 83 cm/sec Right Main Renal Artery: Proximal: 130 cm/sec Mid: 119 cm/sec Distal: 142 cm/sec Left Main Renal Artery: Proximal: 80 cm/sec Mid: 122 cm/sec Distal: 89 cm/sec Renal-Aortic Ratio (RAR): Right: 1.7 Left: 1.5 Resistive Indices: Right: 0.57-0.67 Left: 0.60-0.64 US/US renal BI IMPRESSION: No evidence of hemodynamically significant renal artery stenosis.
== END 2023-02-10 10:37 | disposition home or self-care (01) ==
LOC: HO.US 10:36
PROVIDERS: PCP Family Medicine; Visit Provider Family Medicine
DX: I16.1 Hypertensive emergency (principal); I10 Essential (primary) hypertension
CPT/HCPCS: 76775; 93975

== ENCOUNTER 2023-03-03 12:32 | Outpatient (REF) | payer MEDICARE, SELFPAY ==
[2023-03-03 16:47] LABS: Alanine Aminotransferase 33 U/L (0-31); Albumin Level 4.7 g/dL (3.5-5.0); Alkaline Phosphatase 86 U/L (39-117); Anion Gap 12 (12-20); Aspartate Amino Transferase 33 U/L (5-31); Bilirubin Total 0.3 mg/dL (0.0-1.0); Blood Urea Nitrogen 20 mg/dL (9-16); Calcium 10.5 mg/dL (8.4-10.2); Carbon Dioxide 28 mmol/L (22-29); Chloride 103 mmol/L (96-108); Estimated Glomerular Filt Rate 59; Glucose Random 107 mg/dL (60-115); Sodium 139 mmol/L (135-145); Total Protein 7.1 g/dL (6.5-8.0)
== END 2023-03-03 12:33 | disposition home or self-care (01) ==
LOC: HO.WFDLDS 12:32
PROVIDERS: Visit Provider Family Medicine
DX: G89.4 Chronic pain syndrome (principal); M96.1 Postlaminectomy syndrome, not elsewhere classified; M51.36 Other intervertebral disc degeneration, lumbar region; M25.561 Pain in right knee; R74.8 Abnormal levels of other serum enzymes; E83.52 Hypercalcemia; Z79.891 Long term (current) use of opiate analgesic
CPT/HCPCS: 36415; 80053; 99212

== ENCOUNTER → 2023-03-31 12:54 | Outpatient (BNVA) | payer MEDICARE, SELFPAY | PROVIDERS: PCP Family Medicine; Visit Provider Nurse Practitioner Family | DX: Z51.81 Encounter for therapeutic drug level monitoring (principal); F11.20 Opioid dependence, uncomplicated; M96.1 Postlaminectomy syndrome, not elsewhere classified; M51.36 Other intervertebral disc degeneration, lumbar region; M25.561 Pain in right knee; G89.4 Chronic pain syndrome; Z79.891 Long term (current) use of opiate analgesic | CPT/HCPCS: 99212 ==

== ENCOUNTER 2023-04-17 11:31 | Outpatient (REF) | payer MEDICARE, SELFPAY ==
[2023-04-17 13:48] LABS: MANUAL DIFF FLAG NO
[2023-04-17 14:01] LABS: Basophils Absolute Auto 0.1 X10*3/uL (0.0-0.2); Basophils Percent Auto 1.9 % (0-2); Eosinophils Absolute Auto 0.5 X10*3/uL (0.0-0.4); Hematocrit 36.1 % (37.0-47.0); Hemoglobin 11.6 g/dl (12.0-16.0); Imm Gran Abs Auto 0.01 X10*3/uL (0.00-0.03); Imm Gran Pct Auto 0.2 % (0.0-0.4); Lymphocytes Absolute Auto 1.1 X10*3/uL (1.2-4.9); Lymphocytes Percent Auto 18.6 % (20-40); Mean Corpuscular HGB Conc 32.1 g/dl (31.0-35.0); Mean Corpuscular Hemoglobin 29.4 pg (27.0-33.0); Mean Corpuscular Volume 91.6 fL (80.0-98.0); Mean Platelet Volume 9.8 fL (9.4-12.3); Monocytes Absolute Auto 0.7 X10*3/uL (0.1-1.2); Monocytes Percent Auto 12.4 % (2-11); Neutrophils Absolute Auto 3.5 x10*3/uL (2.0-8.3); Neutrophils Percent Auto 58.9 % (45-73); Platelet Count 375 X10*3/uL (160-400); Red Blood Count 3.94 X10*6/uL (4.20-5.50); Red Cell Distribution Width 12.7 % (11.0-16.0); White Blood Count 5.9 X10*3/uL (4.8-10.8)
[2023-04-17 14:46] LABS: Alanine Aminotransferase 33 U/L (0-31); Albumin Level 4.6 g/dL (3.5-5.0); Alkaline Phosphatase 80 U/L (39-117); Anion Gap 14 (12-20); Aspartate Amino Transferase 33 U/L (5-31); Bilirubin Total 0.5 mg/dL (0.0-1.0); Blood Urea Nitrogen 21 mg/dL (9-16); Calcium 10.9 mg/dL (8.4-10.2); Carbon Dioxide 27 mmol/L (22-29); Chloride 99 mmol/L (96-108); Estimated Glomerular Filt Rate 58; Glucose Fasting 112 mg/dL (60-99); Potassium 3.9 mmol/L (3.3-5.1); Sodium 136 mmol/L (135-145); TSH reflex Free T4 0.72 uIU/mL (0.32-4.0); Total Protein 7.5 g/dL (6.5-8.0)
[2023-04-17 14:55] LABS: Folate 18.4 ng/mL (> or = 4.0); Vitamin B12 1261 pg/mL (200-900)
[2023-04-19 14:18] LABS: Calcium (PTHI) 10.6 mg/dL (8.6-10.4); PTHI 23 pg/mL (16-77)
[2023-04-19 20:19] LABS: CRP High Sensitivity <0.3 mg/L
== END 2023-04-17 11:32 | disposition home or self-care (01) ==
LOC: HO.WFDLDS 11:31
PROVIDERS: Visit Provider Family Medicine
DX: Z00.00 Encounter for general adult medical examination without abnormal findings (principal); R53.83 Other fatigue; E34.9 Endocrine disorder, unspecified; E53.8 Deficiency of other specified B group vitamins; E55.9 Vitamin D deficiency, unspecified
CPT/HCPCS: 36415; 80053; 82306; 82607; 82746; 83970; 84443; 85025; 86141

== ENCOUNTER → 2023-04-28 13:03 | Outpatient (BNVA) | payer MEDICARE, SELFPAY | PROVIDERS: PCP Family Medicine; Visit Provider Nurse Practitioner Family | DX: M25.511 Pain in right shoulder (principal); G89.4 Chronic pain syndrome; M51.36 Other intervertebral disc degeneration, lumbar region; M96.1 Postlaminectomy syndrome, not elsewhere classified; Z79.891 Long term (current) use of opiate analgesic | CPT/HCPCS: 99212 ==

== ENCOUNTER 2023-05-25 11:35 | Outpatient (AMB) | payer MEDICARE, SELFPAY ==
--- NOTE | 2023-05-25 11:37 | A.OFFPC_ITS ---
Vital Signs 05/25/23 11:44 Height 5 ft 4 in Weight 111 lb 2 oz BMI 19.1 BP 126/64 Blood Pressure Location Lt brachial Position Sitting Pulse 83 Pulse Source Pulse Oximeter Pulse Oximetry (%) 97 Intake Visit Reasons: f/u hypertension, fatigue and labs Intake Note: pt is here for hypertension, fatigue, and lab review Library Specialist Required: No Accompanied by: Self / Same As Patient Allergies amoxicillin [From Augmentin] Allergy (Severe, Verified 05/25/23 11:38) Facial Swelling clavulanic acid [From Augmentin] Allergy (Severe, Verified 05/25/23 11:38) Facial Swelling naproxen Allergy (Severe, Verified 05/25/23 11:38) asthma, SOB animal dander [PET DANDER] Allergy (Intermediate, Verified 05/25/23 11:38) rash SEASONAL ALLERGIES Allergy (Mild, Uncoded 04/14/23 13:31) congestion Tobacco use date assessed: 05/25/23 Fall risk assessment: No Falls in past year Last assessed Fall Risk: 05/25/23 Dental Screening Dental Screen Date: 05/25/23 Did you have a dental visit in the last 12 months?: Yes Did you have a dental problem in the last 6 months where you did not have access to dental care?: No Was dental information given to patient?: Patient has dentist HPI f/u hypertension, fatigue and labs HPI Details 63 y/o female presents with complaints of hypertension, fatigue and labs. Labs were drawn 04/17/23. Reviewed labs with pt. Ongoing mild anemia. Blood pressure today is 126/64. She is on lisinopril 40mg. She reports ongoing fatigue. [facility] Medical History Anxiety Asthma Attention deficit disorder Chronic pain syndrome Compression fracture of L1 lumbar vertebra Depression Disc degeneration, lumbar Herniated disc Hypertension Migraine headache Migraine headache Osteoporosis Postlaminectomy syndrome Spondylosis Stool incontinence Surgical History History of cervical spinal surgery History of lumbosacral spine surgery History of spinal surgery History of surgery on left wrist Status post kyphoplasty Family History Sister Ovarian cancer Lung cancer Maternal Grandmother Ovarian cancer Paternal Aunt Ovarian cancer Maternal Aunt Pancreatic cancer Social History Household Members: Spouse Housing: House Are you a primary skin care instructor to a significant other at home: No Do you presently have visiting nurse or other home services: No Patient Tobacco Use Status: Former Tobacco user e-Cigarette/Vaping Use: Never Used Second Hand Smoke Exposure: No service: No Current occupational status: disabled 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 1. Little interest or pleasure in doing things: nearly every day 2. Feeling down, depressed, or hopeless: more than half the days 3. Trouble falling or staying asleep, or sleeping too much: nearly every day 4. Feeling tired or having little energy: nearly every day 5. Poor appetite or overeating: nearly every day 6. Feeling bad about yourself - or that you are a failure or have let yourself or your family down: nearly every day 7. Trouble concentrating on things, such as reading the newspaper or watching television: more than half the days 8. Moving or speaking so slowly that other people could have noticed. Or the opposite - being so fidgety or restless that you have been moving around a lot more than usual: not at all 9. Thoughts that you would be better off or of hurting yourself in some way: not at all Total score: 19 Depression Screening Interpretation: Positive 83433 - PHQ-9 Billing: Yes Source: Developed by Drs. Tyrone García, Marnie Huston, Sadi Ross and colleagues, with an educational krystina from [employer]. Thrive Questionnaire Date Thrive assessed: 05/25/23 I am a: Patient What is your living situation today?: I have a steady place to live Within the past 12 months, did the food you bought not last and you didn't have the money to get more?: Never true Within the past 12 months, did you worry whether your food would run out before you got money to buy more?: Never true Do you have trouble paying for medicines?: No Do you have trouble getting transportation to medical appointments?: No Do you have trouble paying your heating and electricity bill?: No Do you have trouble taking care of your child, family member or friend?: No Do you have trouble with day-to-day activities such as bathing, preparing meals, shopping, managing finances, etc.?: No Are you currently unemployed and looking for a job?: No Are you interested in more education?: No Please select the resources that you would like help with: None Currently or been in a relationship where the following occur: no concerns reported MAU-7 AMB Questionnaire MAU-7 Date MAU - 7 assessed: 05/25/23 Feeling nervous, anxious, or on edge: 3 = Nearly every day Not being able to stop or control worryin = Nearly every day Worrying too much about different things: 3 = Nearly every day Trouble relaxin = Nearly every day Being so restless that it is hard to sit still: 3 = Nearly every day Becoming easily annoyed or irritable: 2 = More than half the days Feeling afraid as if something awful might happen: 0 = Not at all Total MAU-7 score (0-4 normal; 5-9 mild; 10-14 moderate; 15-21 severe): 17 Source: Developed by Drs. Tyrone García, Marnie Huston, Sadi Ross and colleagues, with an educational krystina from [employer]. MAU-7 Assessment Billing MAU-7 Assessment Tool: MAU-7 Assessment 52761 Review of Systems Const Reports fatigue, Denies headache(s) and Denies weakness ENT Denies dizziness and Denies headache(s) Card Denies chest pain, Denies lightheadedness, Denies dyspnea and Denies other (Palpitations) Resp Denies cough, Denies dyspnea, Denies wheezing and Denies other ( shortness of breath) Musc Denies numbness and Denies tingling Neuro Denies dizziness, Denies headache(s), Denies numbness, Denies tingling, Denies paresthesias and Denies weakness Psych Denies anxiety and Denies depression Endo Reports fatigue Aller/Immun Denies wheezing Physical exam (Primary Care) Vital Signs: Last Vital Signs Pulse 83 05/25/23 11:44 BP 126/64 05/25/23 11:44 Pulse Ox 97 05/25/23 11:44 BMI result Body Mass Index 19.1 Tobacco/Smoking Status: Tobacco use Status Tobacco use date assessed 05/25/23 05/25/23 11:39 Patient Tobacco Use Status Former Tobacco user 05/25/23 11:39 e-Cigarette/Vaping Use Never Used 05/25/23 11:39 PHQ-9: PHQ-9 Score PHQ-9: Total score 19 05/25/23 12:17 Depression Screening Interpretation: Positive Thrive Assessment: Date of Thrive Assessment Date Thrive assessed 05/25/23 05/25/23 11:50 Currently or been in a relationship where the following occur: no concerns reported Const General: no acute distress and well developed Nutritional Appearance: well nourished Orientation/consciousness: patient oriented x3 HENMT Head: Yes normocephalic and Yes atraumatic Eyes General: appearance normal, both eyes and all related structures Pupils: Equal, round and reactive pupils present EOM: EOMs intact bilaterally Resp Effort & Inspection: normal respiratory effort Auscultation: clear to auscultation bilaterally Cardio Rate: regular rate Rhythm: regular rhythm Heart sounds: S1 normal heart sound present, S2 normal heart sound present, no gallops, no murmurs and no rubs Neuro General: patient oriented x3 and gait normal Cranial nerves: Yes Equal, round and reactive pupils present Psych Affect: normal affect Assessment and Plan Assessment & Plan (1) Hypertension: Code(s): I10 - Essential (primary) hypertension Plan: Blood pressure is controlled. Goal is less than 140/90 Continue current medications (2) Fatigue: Code(s): R53.83 - Other fatigue Plan: Mild anemia and mild calcium elevations but these do not seem drastic enough to cause fatigue. She also has significant anxiety and depression and is followed by a therapist. She has medications such as duloxetine and a benzodiazepine as well. She is getting enough sleep and does not have any evidence sleep apnea. Objectively she describes improvements in her activity does subjectively she does note that she still has some fatigue This does seem to be improving Encouraged increase activity and exercise (3) Anemia: Code(s): D64.9 - Anemia, unspecified Plan: Very mild anemia Will recheck this prior to her next visit (4) Anxiety: Code(s): F41.9 - Anxiety disorder, unspecified Plan: Positive mau 7 As above, she is followed by therapist and has medication regimen which is stable. Continue current medication regimen, follow-up with therapist as recommended Denies SI/HI Orders: Orders Comprehensive Met. Panel Today R53.83 - Other fatigue Hemoglobin A1c Today R73.01 - Impaired fasting glucose Complete Blood Count Auto Diff Today D64.9 - Anemia, unspecified, Z00.00 - Encounter for general adult medical examination without abnormal findings Coding Level of Care Code Est Pt Level 4 (22426) Diagnoses Hypertension I10 Fatigue R53.83 Anemia D64.9 Anxiety F41.9 Additional Codes MAU-7 Assessment Billing - MAU-7 Assessment Tool: MAU-7 Assessment 16517 ([id number])
[2023-05-25 11:44] VITALS: BP 126/64; PULSE 83; O2SAT 97; BMI 19.1
== END 2023-05-25 12:31 | disposition home or self-care (01) ==
PROVIDERS: PCP Family Medicine; Visit Provider Family Medicine
DX: I10 Essential (primary) hypertension (principal); R53.83 Other fatigue; D64.9 Anemia, unspecified; F41.9 Anxiety disorder, unspecified
CPT/HCPCS: 96127; 99214

== ENCOUNTER 2023-05-26 11:19 | Outpatient (AMB) | payer MEDICARE, SELFPAY ==
--- NOTE | 2023-05-26 11:32 | MHC.OFFVIS ---
Intake Vital Signs 05/26/23 11:45 Height 5 ft 4 in Weight 112 lb 6 oz BMI 19.3 BP 158/89 H Blood Pressure Location Lt brachial Position Sitting Pulse 78 Pulse Source Pulse Oximeter Pulse Oximetry (%) 99 Oxygen Delivery Method Room Air Intake Visit Reasons: Pill count/random UDS Intake Note: Marilu comes in today for a pill count to hydrocodone-acetaminophen, patient should have 108 tablets and presents with 115 tablets which she last took today 05/26/23 at 10:45am. Pain today 04/08. Patient will also have a random UDS done today, aware that she needs to go to the lab on the first floor of this building today 05/26/23 before 1pm. 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 Patient is supposed to have #108 pills, in her possession has #115 pills. This demonstrates a responsible attitude in regards to the medication regimen. Patient reports adequate pain relief on her regimen of hydrocodone-acetaminophen 10-325 mg 1 tab Q6H prn without any noted side effects. Denies any fevers, chills, weight changes, infection, constipation, swelling in her feet, nausea, sedation, dizziness, or urinary retention. PFSH Medical History Anxiety Asthma Attention deficit disorder Chronic pain syndrome Compression fracture of L1 lumbar vertebra Depression Disc degeneration, lumbar Herniated disc Hypertension Migraine headache Migraine headache Osteoporosis Postlaminectomy syndrome Spondylosis Stool incontinence Surgical History History of cervical spinal surgery History of lumbosacral spine surgery History of spinal surgery History of surgery on left wrist Status post kyphoplasty Family History Sister Ovarian cancer Lung cancer Maternal Grandmother Ovarian cancer Paternal Aunt Ovarian cancer Maternal Aunt Pancreatic cancer Social History Household Members: Spouse Housing: House Are you a primary transitional care manager to a significant other at home: No Do you presently have visiting nurse or other home services: No Patient Tobacco Use Status: Former Tobacco user e-Cigarette/Vaping Use: Never Used Second Hand Smoke Exposure: No service: No Current occupational status: disabled 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 Alert and oriented. Mood and affect appropriate. Follows and participates in conversation appropriately. Respiratory effort is unlabored. Able to transition from sit to stand unassisted. Ambulates with bilaterally normal heel strike and toe off. Psych Appearance: grossly normal and well kempt Mental Status: mental status grossly normal Speech and movement: Normal speech and movement present Affect: normal affect Attitude: cooperative Thought process: Normal thought process present Thought content: Normal thought content present, suicidality (none), no hallucinations and No Depressive thoughts present Insight: Good insight present (Psych) Judgement: Good judgement present (Psych) Assessment & Plan Assessment & Plan (1) Chronic pain syndrome: Code(s): G89.4 - Chronic pain syndrome (2) Postlaminectomy syndrome: Code(s): M96.1 - Postlaminectomy syndrome, not elsewhere classified (3) Disc degeneration, lumbar: Code(s): M51.36 - Other intervertebral disc degeneration, lumbar region (4) Opioid contract exists: Code(s): Z79.891 - 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 There is no evidence of misuse, abuse or diversion at this time. [facility] reviewed. Will send in a prescription for hydrocodone-acetaminophen 10-325 mg 1 tab Q6H for 30 days with advanced date on 06/22/23. Discussed with the patient the risks associated with benzodiazepine and opioid use. Patient is aware and verbalized an agreement to take the medications at least two hours apart and she has Narcan at home. All questions were answered and the patient is in agreement with the plan. Follow up in 4 weeks for a pill count/UDS review or sooner if needed. Medications: Refilled hydrocodone-acetaminophen 10-325 mg Partial Fill upon patient request. 1 tab PO Q6H 30 days PRN 120 tabs 0RF pain G89.4 - Chronic pain syndrome, M96.1 - Postlaminectomy syndrome, not elsewhere classified Coding Level of Care Code Est Pt Level 4 (55519) Diagnoses Chronic pain syndrome G89.4 Postlaminectomy syndrome M96.1 Disc degeneration, lumbar M51.36 Opioid contract exists Z79.891
[2023-05-26 11:45] VITALS: BP 158/89; PULSE 78; O2SAT 99; BMI 19.3
== END 2023-05-26 11:51 | disposition home or self-care (01) ==
PROVIDERS: PCP Family Medicine; Visit Provider Nurse Practitioner Family
DX: G89.4 Chronic pain syndrome (principal); M96.1 Postlaminectomy syndrome, not elsewhere classified; M51.36 Other intervertebral disc degeneration, lumbar region; Z79.891 Long term (current) use of opiate analgesic
CPT/HCPCS: 99214

== ENCOUNTER → 2023-05-26 11:19 | Outpatient (BNVA) | payer MEDICARE, SELFPAY | PROVIDERS: PCP Family Medicine; Visit Provider Nurse Practitioner Family | DX: Z51.81 Encounter for therapeutic drug level monitoring (principal); M96.1 Postlaminectomy syndrome, not elsewhere classified; M51.36 Other intervertebral disc degeneration, lumbar region; G89.4 Chronic pain syndrome; Z79.891 Long term (current) use of opiate analgesic | CPT/HCPCS: 99212 ==

== ENCOUNTER 2023-06-02 10:42 | Outpatient (REF) | payer MEDICARE, SELFPAY ==
--- NOTE | ~2023-06-02 | XR_ITS ---
EXAMINATION: XR SHOULDER, RIGHT CLINICAL INFORMATION: Pain COMPARISON: 03/31/2017 TECHNIQUE: AP external rotation, Grashey, scapular Y, and axillary views of the right shoulder. FINDINGS: Severe degeneration the glenohumeral joint appears progressive. Loss of joint space with bulky osteophytes. No radiopaque loose body or focal bony lesion. No erosions. XR/XR shoulder RT min 2V IMPRESSION: Progressive severe degeneration of the glenohumeral joint.
== END 2023-06-02 10:43 | disposition home or self-care (01) ==
LOC: HO.XRAY 10:42
PROVIDERS: PCP Family Medicine; Visit Provider Nurse Practitioner Family
DX: M25.511 Pain in right shoulder (principal)
CPT/HCPCS: 73030

== ENCOUNTER 2023-06-22 11:15 | Outpatient (AMB) | payer MEDICARE, SELFPAY ==
--- NOTE | 2023-06-22 11:28 | A.OFFVIS_ITS ---
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 Patient is currently on a pain contract with pain mgmt. Patient reports that she has had ongoing pain in the right shoulder for about 2 years now, she explains that she was thrown off a horse and landed primarily on her back but she is unsure if this impacted her shoulder. About 5 years ago she reports slip and fall about 5 years ago and landing on the right elbow, she is unsure if this has impacted the shoulder. 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 She complains of pain with daily activity, worse with overhead activity and overuse of her shoulder. She says her pain is severe and is limiting her daily activity. She complains of recent pain that radiates from the back of her shoulder into her neck and jaw, and she thinks this may be due to her posture and stiffness. 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 She reports a Hx of hand OA and has received basal joint injections, which she found very painful She follows with Pain Management for chronic pain syndrome & postlaminectomy syndrome, and is on an Opioid contract with them. She takes NORCO 3-4x daily, which includes 30-40mg Hydrocodone daily PFSH Medical History Anxiety Asthma Attention deficit disorder Chronic pain syndrome Compression fracture of L1 lumbar vertebra Depression Disc degeneration, lumbar Herniated disc Hypertension Migraine headache Migraine headache Osteoporosis Postlaminectomy syndrome Spondylosis Stool incontinence Surgical History History of cervical spinal surgery History of lumbosacral spine surgery History of spinal surgery History of surgery on left wrist Status post kyphoplasty Family History Sister Ovarian cancer Lung cancer Maternal Grandmother Ovarian cancer Paternal Aunt Ovarian cancer Maternal Aunt Pancreatic cancer Social History Household Members: Spouse Housing: House Are you a primary care program resident to a significant other at home: No Do you presently have visiting nurse or other home services: No Patient Tobacco Use Status: Former Tobacco user e-Cigarette/Vaping Use: Never Used Second Hand Smoke Exposure: No service: No Current occupational status: disabled 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 Current occupational exposures/hazards: No Cognitive needs: No Hearing needs: No Vision needs: Yes Review of Systems Const All systems reviewed & are unremarkable except as noted in HPI and below Physical Exam Const General: no acute distress, alert and awake Orientation/consciousness: patient oriented x3 HEENT Head: Yes normocephalic and Yes atraumatic Eyes EOM: EOMs intact bilaterally Resp Effort & Inspection: normal respiratory effort and able to speak in complete sentences Cardio Jugular venous distension: no JVD Skin General skin exam: turgor normal Rashes: no rashes Neuro General: patient oriented x3 Extrem Other: Right Shoulder: ER to 25 degrees compared to 55 degrees on the left side RTC appears intact Psych Appearance: grossly normal Affect: normal affect Attitude: cooperative Office Procedures Joint Injection/Drain Joint Injection/Drain Details: Injected 1 mL of Decadron and 3 mL 1% lidocaine and 3 mL of 0.25% Marcaine. Site was prepped using aseptic technique. Patient tolerated the procedure well. Primary Site: right shoulder (GH joint) Approach Used: posterolateral Coding 87436 - Large joint Procedure code (CPT) selection complete Results Reviewed Results Reviewed: 06/22/23 11:51 BUPivacaine MPF 0.25 % [Sensorcaine-MPF 0.25% 10 ML] 10 ml .ROUTE .STK-MED ONE Lidocaine HCl 2 % MPF [Xylocaine 2 % MPF] 5 ml .ROUTE .STK-MED ONE dexAMETHasone sod phosphate [Decadron] 4 mg .ROUTE .STK-MED ONE I personally reviewed relevant radiographs. Progressive severe degeneration of the glenohumeral joint. Assessment & Plan Assessment & Plan (1) Osteoarthritis of right glenohumeral joint: Code(s): M19.011 - Primary osteoarthritis, right shoulder Plan: This is a 63 year old woman with severe right GH OA. She has pain with daily activity, worse with overhead activity and use of her shoulder. She is on an Opioid contract with Pain Management for chronic pain syndrome, and takes NORCO TID/QID, which she says doesn't help her shoulder pain much. I discussed her diagnosis and treatment options. It is likely she would benefit from a TSA in the future. I recommend she modify her activities and be mindful to not push through pain. I injected her right GH joint today, which she tolerated well. She will follow up in 3 months Plan Scribed for Kaiden Tom MD by Chan Madrigal, medical office technician, on 06/22/23 at 11:45 AM, EST. Coding Level of Care Code New Pt Level 4 (67727) Diagnoses Osteoarthritis of right glenohumeral joint M19.011 CPT Codes Coding - 87823 Large joint: 41098 - Large joint ([id number])
== END 2023-06-22 12:02 | disposition home or self-care (01) ==
PROVIDERS: PCP Family Medicine; Visit Provider Orthopaedic Surgery
DX: M19.011 Primary osteoarthritis, right shoulder (principal)
CPT/HCPCS: 20610; 99204

== ENCOUNTER → 2023-06-22 11:15 | Outpatient (BNVA) | payer MEDICARE, SELFPAY | PROVIDERS: PCP Family Medicine; Visit Provider Orthopaedic Surgery | DX: M19.011 Primary osteoarthritis, right shoulder (principal) | CPT/HCPCS: 20610; 99202; J1100 ==

== ENCOUNTER 2023-06-27 11:02 | Outpatient (AMB) | payer MEDICARE, SELFPAY ==
--- NOTE | 2023-06-27 11:03 | A.OFFVIS_ITS ---
Intake Vital Signs 06/27/23 11:15 Height 5 ft 4 in Weight 112 lb 6 oz BMI 19.3 BP 118/70 Blood Pressure Location Lt brachial Position Sitting Pulse 80 Pulse Source Pulse Oximeter Pulse Oximetry (%) 97 Oxygen Delivery Method Room Air Intake Visit Reasons: Pill count Intake Note: Marilu comes in today for a ill count to hydrocodone-acetaminophen, patient should have 100 tablets and presents with 107 tablets which she last took today 06/27/23 at 10am. Pain today 05/08. 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 Patient is supposed to have #100 pills, in her possession has #107 pills. This demonstrates a responsible attitude in regards to the medication regimen. Patient reports mild to moderate pain relief on her current regimen of hydrocodone-acetaminophen 10-325 mg 1 tab Q6H prn without any noted side effects. Denies any fevers, chills, weight changes, infection, constipation, edema, nausea, sedation, dizziness, or urinary retention. Patient reports she was recently evaluated by Dr. Tom for right shoulder and has received cortisone injection on 06/22/23 with some improvement. She was told she might be a good candidate for potential TSA in the future. Today she also reports left shoulder pain. Pain is localized to anterior left shoulder with mild difficulty with overhead reaches. [facility] Medical History Anxiety Asthma Attention deficit disorder Chronic pain syndrome Compression fracture of L1 lumbar vertebra Depression Disc degeneration, lumbar Herniated disc Hypertension Migraine headache Migraine headache Osteoporosis Postlaminectomy syndrome Spondylosis Stool incontinence Surgical History History of cervical spinal surgery History of lumbosacral spine surgery History of spinal surgery History of surgery on left wrist Status post kyphoplasty Family History Sister Ovarian cancer Lung cancer Maternal Grandmother Ovarian cancer Paternal Aunt Ovarian cancer Maternal Aunt Pancreatic cancer Social History Household Members: Spouse Housing: House Are you a primary vision care associate to a significant other at home: No Do you presently have visiting nurse or other home services: No Patient Tobacco Use Status: Former Tobacco user e-Cigarette/Vaping Use: Never Used Second Hand Smoke Exposure: No service: No Current occupational status: disabled 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 Alert and oriented. Mood and affect appropriate. Follows and participates in conversation appropriately. Respiratory effort is unlabored. Able to transition from sit to stand unassisted. Ambulates with bilaterally normal heel strike and toe off. Extrem General: Yes capillary refill normal, Yes no clubbing, cyanosis or edema and Yes no calf tenderness Right upper extremity: shoulder/upper arm (Limited ROM, mild TTP anterior shoulder. Pain with overhead reaches.) Details: crepitus; no swelling, no ecchymosis and no unusual warmth Left upper extremity: shoulder/upper arm (Limited ROM. TTP anteior shoulder. Pain with overhead reaches.) Details: no swelling, no ecchymosis, no crepitus and no unsual warmth Psych Appearance: grossly normal and well kempt Mental Status: mental status grossly normal Speech and movement: Normal speech and movement present Affect: normal affect Attitude: cooperative Thought process: Normal thought process present Thought content: Normal thought content present, suicidality (none), no hallucinations and No Depressive thoughts present Insight: Good insight present (Psych) Judgement: Good judgement present (Psych) Results Reviewed Results Reviewed: XR SHOULDER, RIGHT 06/02/23 COMPARISON: 03/31/2017 FINDINGS: Severe degeneration the glenohumeral joint appears progressive. Loss of joint space with bulky osteophytes. No radiopaque loose body or focal bony lesion. No erosions. IMPRESSION: Progressive severe degeneration of the glenohumeral joint. 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 There is no evidence of misuse, abuse or diversion at this time. [employer] reviewed and consistent. Recent random UDS came back concordant. Will send in a prescription for hydrocodone-acetaminophen 10-325 mg 1 tab Q6H for 30 days with advanced date on 07/22/23. Discussed with the patient the risks associated with benzodiazepine and opioid use. Patient is aware and verbalized an agreement to take the medications at least two hours apart and she has Narcan at home. Follow up with Orthopedics for bilateral shoulder pain. Recent cortisone right shoulder injection, with minimal to moderate effects so far. Will order imaging for left shoulder. All questions were answered and the patient is in agreement with the plan. Follow up in 4 weeks for a pill count or sooner if needed. Orders: Orders XR shoulder LT min 2V Today M25.512 - Pain in left shoulder Medications: Refilled hydrocodone-acetaminophen 10-325 mg Partial Fill upon patient request. 1 tab PO Q6H 30 days PRN 120 tabs 0RF pain G89.4 - Chronic pain syndrome, M96.1 - Postlaminectomy syndrome, not elsewhere classified Coding Level of Care Code Est Pt Level 4 (18563) Diagnoses Left shoulder pain M25.512 Postlaminectomy syndrome M96.1 Disc degeneration, lumbar M51.36 Opioid contract exists Z79.891 Osteoarthritis of right glenohumeral joint M19.011
[2023-06-27 11:15] VITALS: BP 118/70; PULSE 80; O2SAT 97; BMI 19.3
== END 2023-06-27 11:27 | disposition home or self-care (01) ==
PROVIDERS: PCP Family Medicine; Visit Provider Nurse Practitioner Family
DX: M25.512 Pain in left shoulder (principal); M96.1 Postlaminectomy syndrome, not elsewhere classified; M51.36 Other intervertebral disc degeneration, lumbar region; Z79.891 Long term (current) use of opiate analgesic; M19.011 Primary osteoarthritis, right shoulder
CPT/HCPCS: 99214

== ENCOUNTER → 2023-06-27 11:02 | Outpatient (BNVA) | payer MEDICARE, SELFPAY | PROVIDERS: PCP Family Medicine; Visit Provider Nurse Practitioner Family | DX: M96.1 Postlaminectomy syndrome, not elsewhere classified (principal); M51.36 Other intervertebral disc degeneration, lumbar region; M19.011 Primary osteoarthritis, right shoulder; M25.512 Pain in left shoulder; Z79.891 Long term (current) use of opiate analgesic | CPT/HCPCS: 99212 ==

== ENCOUNTER 2023-07-25 11:09 | Outpatient (AMB) | payer MEDICARE, SELFPAY ==
--- NOTE | 2023-07-25 11:10 | A.OFFVIS_ITS ---
Intake Vital Signs 07/25/23 11:26 Height 5 ft 4 in Weight 117 lb BMI 20.1 BP 145/79 H Blood Pressure Location Lt brachial Position Sitting Pulse 72 Pulse Source Pulse Oximeter Pulse Oximetry (%) 100 Oxygen Delivery Method Room Air Intake Visit Reasons: PILL COUNT/ LVM Intake Note: Marilu comes in today for a pill count to hydrocodone-acetaminophen, patient should have 108 tablets and presents with 114 tablets which she last took today 07/25/23 at 6am. 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 Patient is supposed to have #108 pills, in her possession has #114 pills. This demonstrates a responsible attitude in regards to the medication regimen. Patient reports mild to moderate pain relief on her current regimen of hydrocodone-acetaminophen 10-325 mg 1 tab Q6H prn without any noted side effects. Denies any fevers, chills, weight changes, infection, constipation, edema, nausea, sedation, dizziness, or urinary retention. Patient reports she is considering Ketamine infusion for depression through her psychiatrist Dr. Tonja Lazo. She has upcoming follow up with her psychiatrist and will decide on proceeding with Ketamine or not. Patient also reports right shoulder pain is returning and she will reach out to Orthopedics to schedule another cortisone injection. [facility] Medical History Migraine headache Stool incontinence Chronic pain syndrome Postlaminectomy syndrome Disc degeneration, lumbar Compression fracture of L1 lumbar vertebra Osteoporosis Hypertension Spondylosis Attention deficit disorder Herniated disc Asthma Depression Anxiety Migraine headache Surgical History Status post kyphoplasty History of lumbosacral spine surgery History of cervical spinal surgery History of spinal surgery History of surgery on left wrist Family History Sister Ovarian cancer Lung cancer Maternal Grandmother Ovarian cancer Paternal Aunt Ovarian cancer Maternal Aunt Pancreatic cancer Social History Household Members: Spouse Housing: House Are you a primary care navigator to a significant other at home: No Do you presently have visiting nurse or other home services: No Patient Tobacco Use Status: Former Tobacco user e-Cigarette/Vaping Use: Never Used Second Hand Smoke Exposure: No service: No Current occupational status: disabled 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 Alert and oriented. Mood and affect appropriate. Follows and participates in conversation appropriately. Respiratory effort is unlabored. Able to transition from sit to stand unassisted. Ambulates with bilaterally normal heel strike and toe off. Psych Appearance: grossly normal and well kempt Mental Status: mental status grossly normal Speech and movement: Normal speech and movement present Affect: normal affect Attitude: cooperative Thought process: Normal thought process present Thought content: Normal thought content present, suicidality (none), no hallucinations and No Depressive thoughts present Insight: Good insight present (Psych) Judgement: Good judgement present (Psych) Results Reviewed Results Reviewed: XR SHOULDER, RIGHT 06/02/23 COMPARISON: 03/31/2017 FINDINGS: Severe degeneration the glenohumeral joint appears progressive. Loss of joint space with bulky osteophytes. No radiopaque loose body or focal bony lesion. No erosions. IMPRESSION: Progressive severe degeneration of the glenohumeral joint. Assessment & Plan Assessment & Plan (1) Postlaminectomy syndrome: Code(s): M96.1 - Postlaminectomy syndrome, not elsewhere classified (2) Disc degeneration, lumbar: Code(s): M51.36 - Other intervertebral disc degeneration, lumbar region (3) Opioid contract exists: Code(s): Z79.891 - intermediate (current) use of opiate analgesic (4) Osteoarthritis of right glenohumeral joint: Code(s): M19.011 - Primary osteoarthritis, right shoulder (5) Right shoulder pain: Code(s): M25.511 - Pain in right shoulder Plan Patient has shown accountability for her medication regimen and the pill count was accurate. There is no evidence of misuse, abuse or diversion at this time. [employer] reviewed and consistent. Will send in a prescription for hydrocodone- acetaminophen 10-325 mg 1 tab Q6H for 30 days with advanced date on 08/20/23. Discussed with the patient the risks associated with benzodiazepine and opioid use. Patient is aware and verbalized an agreement to take the medications at least two hours apart and she has Narcan at home. Patient will follow up with Orthopedics for right shoulder pain. Patient also considering Ketamine infusion through her psychiatrist for depression and will update our office the date. All questions were answered and the patient is in agreement with the plan. Follow up in 4-5 weeks for a pill count or sooner if needed. Medications: Refilled hydrocodone-acetaminophen 10-325 mg Partial Fill upon patient request. 1 tab PO Q6H 30 days PRN 120 tabs 0RF pain G89.4 - Chronic pain syndrome, M96.1 - Postlaminectomy syndrome, not elsewhere classified Coding Level of Care Code Est Pt Level 4 (46067) Diagnoses Postlaminectomy syndrome M96.1 Disc degeneration, lumbar M51.36 Opioid contract exists Z79.891 Osteoarthritis of right glenohumeral joint M19.011 Right shoulder pain M25.511
[2023-07-25 11:26] VITALS: BP 145/79; PULSE 72; O2SAT 100; BMI 20.1
== END 2023-07-25 11:41 | disposition home or self-care (01) ==
PROVIDERS: PCP Family Medicine; Visit Provider Nurse Practitioner Family
DX: M96.1 Postlaminectomy syndrome, not elsewhere classified (principal); M51.36 Other intervertebral disc degeneration, lumbar region; Z79.891 Long term (current) use of opiate analgesic; M19.011 Primary osteoarthritis, right shoulder; M25.511 Pain in right shoulder
CPT/HCPCS: 99214

== ENCOUNTER → 2023-07-25 11:09 | Outpatient (BNVA) | payer MEDICARE, SELFPAY | PROVIDERS: PCP Family Medicine; Visit Provider Nurse Practitioner Family | DX: Z51.81 Encounter for therapeutic drug level monitoring (principal); M96.1 Postlaminectomy syndrome, not elsewhere classified; M51.36 Other intervertebral disc degeneration, lumbar region; M19.011 Primary osteoarthritis, right shoulder; M25.511 Pain in right shoulder; Z79.891 Long term (current) use of opiate analgesic | CPT/HCPCS: 99212 ==

== ENCOUNTER 2023-08-07 10:33 | Outpatient (REF) | payer MEDICARE, SELFPAY ==
[2023-08-07 13:27] LABS: MANUAL DIFF FLAG NO
[2023-08-07 13:43] LABS: Basophils Absolute Auto 0.1 X10*3/uL (0.0-0.2); Basophils Percent Auto 1.5 % (0-2); Eosinophils Absolute Auto 0.6 X10*3/uL (0.0-0.4); Eosinophils Percent Auto 9.7 % (0-4); Hemoglobin 11.6 g/dl (12.0-16.0); Imm Gran Abs Auto 0.02 X10*3/uL (0.00-0.03); Imm Gran Pct Auto 0.3 % (0.0-0.4); Lymphocytes Absolute Auto 1.2 X10*3/uL (1.2-4.9); Lymphocytes Percent Auto 20.6 % (20-40); Mean Corpuscular HGB Conc 33.1 g/dl (31.0-35.0); Mean Corpuscular Hemoglobin 29.7 pg (27.0-33.0); Mean Corpuscular Volume 89.5 fL (80.0-98.0); Mean Platelet Volume 9.4 fL (9.4-12.3); Monocytes Absolute Auto 0.7 X10*3/uL (0.1-1.2); Monocytes Percent Auto 11.9 % (2-11); Neutrophils Absolute Auto 3.3 x10*3/uL (2.0-8.3); Platelet Count 356 X10*3/uL (160-400); Red Blood Count 3.91 X10*6/uL (4.20-5.50); Red Cell Distribution Width 12.3 % (11.0-16.0); White Blood Count 5.9 X10*3/uL (4.8-10.8)
[2023-08-07 14:10] LABS: Alanine Aminotransferase 35 U/L (0-31); Albumin Level 4.5 g/dL (3.5-5.0); Alkaline Phosphatase 93 U/L (39-117); Anion Gap 16 (12-20); Aspartate Amino Transferase 32 U/L (5-31); Bilirubin Total 0.3 mg/dL (0.0-1.0); Blood Urea Nitrogen 21 mg/dL (9-16); Calcium 10.5 mg/dL (8.4-10.2); Carbon Dioxide 24 mmol/L (22-29); Chloride 95 mmol/L (96-108); Estimated Glomerular Filt Rate 58; Glucose Random 94 mg/dL (60-115); Potassium 4.2 mmol/L (3.3-5.1); Sodium 131 mmol/L (135-145); Total Protein 7.1 g/dL (6.5-8.0)
[2023-08-08 15:23] LABS: Calcium (PTHI) 10.3 mg/dL (8.6-10.4); PTHI 9 pg/mL (16-77)
== END 2023-08-07 10:34 | disposition home or self-care (01) ==
LOC: HO.WFDLDS 10:33
PROVIDERS: Visit Provider Family Medicine
DX: Z00.00 Encounter for general adult medical examination without abnormal findings (principal); R73.01 Impaired fasting glucose; R53.83 Other fatigue; E83.52 Hypercalcemia; D64.9 Anemia, unspecified
CPT/HCPCS: 36415; 80053; 83036; 83970; 85025

== ENCOUNTER 2023-08-18 11:35 | Outpatient (AMB) | payer MEDICARE, SELFPAY ==
--- NOTE | 2023-08-18 11:46 | MHC.OFFVIS ---
Intake Vital Signs 08/18/23 11:55 Height 5 ft 4 in Weight 117 lb 2 oz BMI 20.1 BP 138/84 Blood Pressure Location Lt brachial Position Sitting Pulse 75 Pulse Source Pulse Oximeter Pulse Oximetry (%) 100 Oxygen Delivery Method Room Air Intake Visit Reasons: PILL COUNT Intake Note: Marilu comes in today for a pill count to hydrocodone-acetaminophen, patient should have 12 tablets and presents with 19 tablets which she last took today 08/18/23 at 10:45am. 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 Patient is supposed to have #12 pills, in her possession has #19 pills. This demonstrates a responsible attitude in regards to the medication regimen. Patient reports mild to moderate pain relief on her current regimen of hydrocodone-acetaminophen 10-325 mg 1 tab Q6H prn without any noted side effects. Denies any fevers, chills, weight changes, infection, constipation, edema, nausea, sedation, dizziness, or urinary retention. Patient reports she is considering Ketamine sublingual for depression through her psychiatrist Dr. Tonja Lazo whom she saw yesterday. She will undergo trial of two more anti-depressants prior to Ketamine SL. Patient also reports persistent right shoulder pain and has upcoming appt with Orthopedics next Monday for potential cortisone injection. She notes right shoulder pain will radiate to her neck and cause her neck stiffness with spasms. She is wearing neck collar with magnets and also uses over the counter topical applications. [facility] Medical History Migraine headache Stool incontinence Chronic pain syndrome Postlaminectomy syndrome Disc degeneration, lumbar Compression fracture of L1 lumbar vertebra Osteoporosis Hypertension Spondylosis Attention deficit disorder Herniated disc Asthma Depression Anxiety Migraine headache Surgical History Status post kyphoplasty History of lumbosacral spine surgery History of cervical spinal surgery History of spinal surgery History of surgery on left wrist Family History Sister Ovarian cancer Lung cancer Maternal Grandmother Ovarian cancer Paternal Aunt Ovarian cancer Maternal Aunt Pancreatic cancer Social History Household Members: Spouse Housing: House Are you a primary customer care associate to a significant other at home: No Do you presently have visiting nurse or other home services: No Patient Tobacco Use Status: Former Tobacco user e-Cigarette/Vaping Use: Never Used Second Hand Smoke Exposure: No service: No Current occupational status: disabled 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 Loss of joint space with bulky osteophytes. No radiopaque loose body or focal bony lesion. No erosions. IMPRESSION: Progressive severe degeneration of the glenohumeral joint. Assessment & Plan Assessment & Plan (1) Postlaminectomy syndrome: Code(s): M96.1 - Postlaminectomy syndrome, not elsewhere classified (2) Disc degeneration, lumbar: Code(s): M51.36 - Other intervertebral disc degeneration, lumbar region (3) Opioid contract exists: Code(s): Z79.891 - skilled nursing (current) use of opiate analgesic (4) Osteoarthritis of right glenohumeral joint: Code(s): M19.011 - Primary osteoarthritis, right shoulder (5) Right shoulder pain: Code(s): M25.511 - Pain in right shoulder Plan Patient has shown accountability for her medication regimen and the pill count was accurate. There is no evidence of misuse, abuse or diversion at this time. [facility] reviewed and consistent. Patient has a pending prescription for hydrocodone-acetaminophen 10-325 mg 1 tab Q6H for 30 days with advanced date on 08/20/23. Discussed with the patient the risks associated with benzodiazepine and opioid use. Patient is aware and verbalized an agreement to take the medications at least two hours apart and she has Narcan at home. Patient will follow up with Orthopedics for right shoulder pain on Monday as planned. Patient also considering Ketamine sublingual through her psychiatrist for depression. All questions were answered and the patient is in agreement with the plan. Follow up in one month for a pill count or sooner if needed. Coding Level of Care Code Est Pt Level 4 (27874) Diagnoses Postlaminectomy syndrome M96.1 Disc degeneration, lumbar M51.36 Opioid contract exists Z79.891 Osteoarthritis of right glenohumeral joint M19.011 Right shoulder pain M25.511
[2023-08-18 11:55] VITALS: BP 138/84; PULSE 75; O2SAT 100; BMI 20.1
== END 2023-08-18 12:08 | disposition home or self-care (01) ==
PROVIDERS: PCP Family Medicine; Visit Provider Nurse Practitioner Family
DX: M96.1 Postlaminectomy syndrome, not elsewhere classified (principal); M51.36 Other intervertebral disc degeneration, lumbar region; Z79.891 Long term (current) use of opiate analgesic; M19.011 Primary osteoarthritis, right shoulder; M25.511 Pain in right shoulder
CPT/HCPCS: 99214

== ENCOUNTER → 2023-08-18 11:35 | Outpatient (BNVA) | payer MEDICARE, SELFPAY | PROVIDERS: PCP Family Medicine; Visit Provider Nurse Practitioner Family | DX: M19.011 Primary osteoarthritis, right shoulder (principal); M25.511 Pain in right shoulder; M54.2 Cervicalgia; M51.36 Other intervertebral disc degeneration, lumbar region; M96.1 Postlaminectomy syndrome, not elsewhere classified; G89.4 Chronic pain syndrome; Z79.891 Long term (current) use of opiate analgesic | CPT/HCPCS: 99212 ==

== ENCOUNTER 2023-08-21 11:20 | Outpatient (AMB) | payer MEDICARE, SELFPAY ==
--- NOTE | 2023-08-21 11:21 | A.OFFVIS_ITS ---
Intake Intake Visit Reasons: OV-right shoulder injection-last injection 06/22/23 Intake Note: Marilu is a 63 year old right hand dominant female who presents today for a follow up of her right shoulder pain, at her last visit on 06/22/23 she received an injection and was advised to modify activity. Patient reports that the injection lasted about a week. She wants to repeat injection and is looking to postpone surgery. Allergies amoxicillin [From Augmentin] Allergy (Severe, Verified 08/18/23 11:56) Facial Swelling clavulanic acid [From Augmentin] Allergy (Severe, Verified 08/18/23 11:56) Facial Swelling naproxen Allergy (Severe, Verified 08/18/23 11:56) asthma, SOB animal dander [PET DANDER] Allergy (Intermediate, Verified 08/18/23 11:56) rash SEASONAL ALLERGIES Allergy (Mild, Uncoded 04/14/23 13:31) congestion HPI OV-right shoulder injection-last injection 06/22/23 HPI Details Marilu is a 63 year old woman who returns to discuss her right shoulder OA. She continues to complain of pain with daily activity, worse with overhead activity and overuse of her shoulder. She says her pain is severe and is limiting her daily activity. She was last seen, and injected, on 06/22/23. 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 She feels she needs to consider shoulder surgery soon in the future as her pain is worsening and limiting her function. She is planning on transitioning to trying Ketamine to manage her depression. She follows with Pain Management for chronic pain syndrome & postlaminectomy syndrome, and is on an Opioid contract with them. She takes NORCO 3-4x daily, which includes 30-40mg Hydrocodone daily. She says she has been taking these for ~20 years now She has a hx of Kyphoplasty [facility] Medical History (Updated 08/21/23 @ 11:58 by Chan Madrigal) Depression Migraine headache Stool incontinence Chronic pain syndrome Postlaminectomy syndrome Disc degeneration, lumbar Compression fracture of L1 lumbar vertebra Osteoporosis Hypertension Spondylosis Attention deficit disorder Herniated disc Asthma Anxiety Migraine headache Surgical History Status post kyphoplasty History of lumbosacral spine surgery History of cervical spinal surgery History of spinal surgery History of surgery on left wrist Family History Sister Ovarian cancer Lung cancer Maternal Grandmother Ovarian cancer Paternal Aunt Ovarian cancer Maternal Aunt Pancreatic cancer Social History Household Members: Spouse Housing: House Are you a primary care navigator to a significant other at home: No Do you presently have visiting nurse or other home services: No Patient Tobacco Use Status: Former Tobacco user e-Cigarette/Vaping Use: Never Used Second Hand Smoke Exposure: No service: No Current occupational status: disabled 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 Current occupational exposures/hazards: No Cognitive needs: No Hearing needs: No Vision needs: Yes Review of Systems Const All systems reviewed & are unremarkable except as noted in HPI and below Physical Exam Const General: no acute distress, alert and awake Orientation/consciousness: patient oriented x3 HEENT Head: Yes normocephalic and Yes atraumatic Eyes EOM: EOMs intact bilaterally Resp Effort & Inspection: normal respiratory effort and able to speak in complete sentences Cardio Jugular venous distension: no JVD Skin General skin exam: turgor normal Rashes: no rashes Neuro General: patient oriented x3 Extrem Other: Right Shoulder: ER to 20 degrees AB 90 degrees with crepitus & pain Psych Appearance: grossly normal Affect: normal affect Attitude: cooperative Office Procedures Joint Injection/Drain Joint Injection/Drain Details: Injected 1 mL of Decadron and 3 mL 1% lidocaine and 3 mL of 0.25% Marcaine. Site was prepped using aseptic technique. Patient tolerated the procedure well. Primary Site: right shoulder Approach Used: posterolateral Coding 02119 - Glenohumeral/Tronchanteric Bursa/Intraarticular Procedure code (CPT) selection complete Results Reviewed Results Reviewed: 08/21/23 11:59 BUPivacaine MPF 0.25 % [Sensorcaine-MPF 0.25% 10 ML] 10 ml .ROUTE .STK-MED ONE Lidocaine HCl 2 % MPF [Xylocaine 2 % MPF] 5 ml .ROUTE .STK-MED ONE dexAMETHasone sod phosphate [Decadron] 4 mg .ROUTE .STK-MED ONE I personally reviewed relevant radiographs. Progressive severe degeneration of the glenohumeral joint. Assessment & Plan Assessment & Plan (1) Osteoarthritis of right glenohumeral joint: Code(s): M19.011 - Primary osteoarthritis, right shoulder Plan: This is a 63 year old woman with severe right GH OA. She has pain with daily activity, worse with overhead activity and use of her shoulder. She is on an Opioid contract with Pain Management for chronic pain syndrome, and takes NORCO TID/QID, which she says doesn't help her shoulder pain much. I discussed the effects of Opioid use prior to surgery and recovery. She found ~1 week of relief from her last steroid injection on 06/22/23. I discussed her diagnosis and treatment options. It is likely she would benefit from a TSA in the future, and she would like to consider this for sometime next year, no sooner than 01/2024. I recommend she modify her activities and be mindful to not push through pain. I injected her right GH joint today, which she tolerated well. She will follow up in 3 months to discuss surgery. I explained this surgery to Marilu including the risks, benefits, and recovery timeline. I will have Angie reach out to her for more information about this procedure. 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 She reports having taken Opioids for ~20 years now. (3) Depression: Code(s): F32.9 - Major depressive disorder, single episode, unspecified Plan: Planning to try Ketamine treatments soon Plan Scribed for Kaiden Tom MD by Chan Madrigal, medical records technician, on 08/21/23 at 12:00 PM, EST. Coding Level of Care Code Est Pt Level 4 (95369) Diagnoses Osteoarthritis of right glenohumeral joint M19.011 Opioid contract exists Z79.891 Depression F32.9 CPT Codes Coding - Joint 7: 95551 - Glenohumeral/Tronchanteric Bursa/Intraarticular ([id number])
== END 2023-08-21 12:20 | disposition home or self-care (01) ==
PROVIDERS: PCP Family Medicine; Visit Provider Orthopaedic Surgery
DX: M19.011 Primary osteoarthritis, right shoulder (principal); Z79.891 Long term (current) use of opiate analgesic; F32.9 Major depressive disorder, single episode, unspecified
CPT/HCPCS: 20610; 99214

== ENCOUNTER → 2023-08-21 11:20 | Outpatient (BNVA) | payer MEDICARE, SELFPAY | PROVIDERS: PCP Family Medicine; Visit Provider Orthopaedic Surgery | DX: M19.011 Primary osteoarthritis, right shoulder (principal); F32.9 Major depressive disorder, single episode, unspecified; Z79.891 Long term (current) use of opiate analgesic | CPT/HCPCS: 20610; 99212; J1100 ==

== ENCOUNTER 2023-09-15 11:07 | Outpatient (AMB) | payer MEDICARE, SELFPAY ==
--- NOTE | 2023-09-15 11:10 | MHC.OFFVIS ---
Intake Vital Signs 09/15/23 11:19 Height 5 ft 4 in Weight 113 lb BMI 19.4 BP 141/76 H Blood Pressure Location Lt brachial Position Sitting Pulse 89 Pulse Source Pulse Oximeter Pulse Oximetry (%) 100 Oxygen Delivery Method Room Air Intake Visit Reasons: PILL COUNT/lvm Intake Note: Marilu comes in today for a pill count to hydrocodone-acetaminophen, patient should have 32 tablets and presents with 32 tablets which she last took today 09/15/23 at 7am. Pain today 07/09. 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 Patient is supposed to have #32 pills, in her possession has #32 pills. This demonstrates a responsible attitude in regards to the medication regimen. Patient reports mild to moderate pain relief on her current regimen of hydrocodone-acetaminophen 7.5-325 mg 1 tab Q6H prn without any noted side effects. Denies any fevers, chills, weight changes, infection, constipation, edema, nausea, sedation, dizziness, or urinary retention. Patient reports she has started Ketamine sublingual for depression through her psychiatrist Dr. Tonja Lazo. She undergone 3 treatments so far and notices some improvement in sleep and increased energy levels. Patient reports she has received right shoulder steroid injection last month and considering right shoulder surgery as next steps. She has decreased her hydrocodone from 10 mg Q6H prn to 7.5 mg Q6H prn in anticipation of surgery and will continue to titrate down as able. [facility] Medical History Depression Migraine headache Stool incontinence Chronic pain syndrome Postlaminectomy syndrome Disc degeneration, lumbar Compression fracture of L1 lumbar vertebra Osteoporosis Hypertension Spondylosis Attention deficit disorder Herniated disc Asthma Anxiety Migraine headache Surgical History Status post kyphoplasty History of lumbosacral spine surgery History of cervical spinal surgery History of spinal surgery History of surgery on left wrist Family History Sister Ovarian cancer Lung cancer Maternal Grandmother Ovarian cancer Paternal Aunt Ovarian cancer Maternal Aunt Pancreatic cancer Social History Household Members: Spouse Housing: House Are you a primary cna caregiver to a significant other at home: No Do you presently have visiting nurse or other home services: No Patient Tobacco Use Status: Former Tobacco user e-Cigarette/Vaping Use: Never Used Second Hand Smoke Exposure: No service: No Current occupational status: disabled 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 Alert and oriented. Mood and affect appropriate. Follows and participates in conversation appropriately. Respiratory effort is unlabored. Able to transition from sit to stand unassisted. Ambulates with bilaterally normal heel strike and toe off. Extrem Right upper extremity: normal capillary refill and shoulder/upper arm (Limited ROM due to pain. ) Details: normal to inspection and tenderness (Anterior and posterior aspects of shoulder); no swelling and no crepitus; no cyanosis Psych Appearance: grossly normal and well kempt Mental Status: mental status grossly normal Speech and movement: Normal speech and movement present Affect: normal affect Attitude: cooperative Thought process: Normal thought process present Thought content: Normal thought content present, suicidality (none), no hallucinations and No Depressive thoughts present Insight: Good insight present (Psych) Judgement: Good judgement present (Psych) Results Reviewed Results Reviewed: XR SHOULDER, RIGHT 06/02/23 COMPARISON: 03/31/2017 FINDINGS: Severe degeneration the glenohumeral joint appears progressive. Loss of joint space with bulky osteophytes. No radiopaque loose body or focal bony lesion. No erosions. IMPRESSION: Progressive severe degeneration of the glenohumeral joint. 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 There is no evidence of misuse, abuse or diversion at this time. [employer] reviewed and consistent. Patient has a pending prescription for hydrocodone-acetaminophen 7.5-325 mg 1 tab Q6H for 30 days with advanced date on 09/23/23. Discussed with the patient the risks associated with benzodiazepine and opioid use. Patient is aware and verbalized an agreement to take the medications at least two hours apart and she has Narcan at home. Patient is also undergoing Ketamine sublingual treatments through her psychiatrist for depression with some notable improvements. All questions were answered and the patient is in agreement with the plan. Follow up in one month for a pill count or sooner if needed. Medications: Changed From hydrocodone-acetaminophen 7.5-325 mg Partial Fill upon patient request. 1 tab PO Q4-6H 30 days PRN 150 tabs 0RF pain G89.4 - Chronic pain syndrome, M96.1 - Postlaminectomy syndrome, not elsewhere classified, Z79.891 - senior living (current) use of opiate analgesic To hydrocodone-acetaminophen 7.5-325 mg Partial Fill upon patient request. 1 tab PO Q6H 30 days PRN 120 tabs 0RF pain G89.4 - Chronic pain syndrome, M96.1 - Postlaminectomy syndrome, not elsewhere classified, Z79.891 - senior living (current) use of opiate analgesic Coding Level of Care Code Est Pt Level 4 (08825) Diagnoses Postlaminectomy syndrome M96.1 Disc degeneration, lumbar M51.36 Opioid contract exists Z79.891 Osteoarthritis of right glenohumeral joint M19.011 Right shoulder pain M25.511
[2023-09-15 11:19] VITALS: BP 141/76; PULSE 89; O2SAT 100; BMI 19.4
== END 2023-09-15 11:33 | disposition home or self-care (01) ==
PROVIDERS: PCP Family Medicine; Visit Provider Nurse Practitioner Family
DX: M96.1 Postlaminectomy syndrome, not elsewhere classified (principal); M51.36 Other intervertebral disc degeneration, lumbar region; Z79.891 Long term (current) use of opiate analgesic; M19.011 Primary osteoarthritis, right shoulder; M25.511 Pain in right shoulder
CPT/HCPCS: 99214

== ENCOUNTER → 2023-09-15 11:07 | Outpatient (BNVA) | payer MEDICARE, SELFPAY | PROVIDERS: PCP Family Medicine; Visit Provider Nurse Practitioner Family | DX: Z51.81 Encounter for therapeutic drug level monitoring (principal); F11.20 Opioid dependence, uncomplicated; M96.1 Postlaminectomy syndrome, not elsewhere classified; M51.36 Other intervertebral disc degeneration, lumbar region; M19.011 Primary osteoarthritis, right shoulder; M25.511 Pain in right shoulder; Z79.891 Long term (current) use of opiate analgesic | CPT/HCPCS: 99212 ==

== ENCOUNTER 2023-09-18 13:06 | Outpatient (AMB) | payer MEDICARE, SELFPAY ==
--- NOTE | 2023-09-18 13:08 | A.OFFVIS_ITS ---
Intake Vital Signs 09/18/23 13:09 Height 5 ft 4 in Weight 113 lb BMI 19.4 Handedness Right Intake Visit Reasons: OV-right shoulder injection-last injection 06/22/23 Intake Note: Marilu is a 63 year old right hand dominant female who presents today for a follow up of her right shoulder. Last Injection was done 06/22/23. Patient reports that this injection was helpful, she has also been implementing a stretching routine. She is looking to discuss pain management for the future as she weans from the Viocin. She has dropped from 10mg to 7.5mg, she is doing well with this transition. She started sublingual Ketamine at the begining of August. has done sessions the , , and 19 of September. Allergies amoxicillin [From Augmentin] Allergy (Severe, Verified 09/28/23 11:21) Facial Swelling clavulanic acid [From Augmentin] Allergy (Severe, Verified 09/28/23 11:21) Facial Swelling naproxen Allergy (Severe, Verified 09/28/23 11:21) asthma, SOB animal dander [PET DANDER] Allergy (Intermediate, Verified 09/28/23 11:21) rash SEASONAL ALLERGIES Allergy (Mild, Uncoded 09/28/23 11:21) congestion HPI OV-right shoulder injection-last injection 06/22/23 HPI Details Marilu is a 63 year old woman who returns to discuss her right shoulder OA. She reports good relief from her most recent injection on 08/21/23 and has been performing a stretching routine at home. She says after using her shoulder for activity or after her exercises she has some increased shoulder pain. She has been weaning off of her Vicodin in preparation to discuss TSA, and has reduced her dose from 40mg to 30mg daily. She is worried about her pain returning and her function being limited in the future. She wants to know how she is supposed to manage her pain if she comes off her Vicoden and cannot have another injection prior to surgery. 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 She has started Ketamine for depression treatment, and feels this is going well. She reports sleeping better and having more energy throughout the day. She follows with Pain Management for chronic pain syndrome & postlaminectomy syndrome, and is on an Opioid contract with them. She has been taking prescription pain medication for ~20 years at this point. She has a hx of Kyphoplasty [facility] Medical History Depression Migraine headache Stool incontinence Chronic pain syndrome Postlaminectomy syndrome Disc degeneration, lumbar Compression fracture of L1 lumbar vertebra Osteoporosis Hypertension Spondylosis Attention deficit disorder Herniated disc Asthma Anxiety Migraine headache Surgical History Status post kyphoplasty History of lumbosacral spine surgery History of cervical spinal surgery History of spinal surgery History of surgery on left wrist Family History Sister Ovarian cancer Lung cancer Maternal Grandmother Ovarian cancer Paternal Aunt Ovarian cancer Maternal Aunt Pancreatic cancer Social History Household Members: Spouse Housing: House Are you a primary eye care professional to a significant other at home: No Do you presently have visiting nurse or other home services: No Comment: medicated in pacu Patient Tobacco Use Status: Former Tobacco user e-Cigarette/Vaping Use: Never Used Second Hand Smoke Exposure: No service: No Current occupational status: disabled 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 Current occupational exposures/hazards: No Cognitive needs: No Hearing needs: No Vision needs: Yes Review of Systems Const All systems reviewed & are unremarkable except as noted in HPI and below Physical Exam Vital Signs: BMI result Body Mass Index 19.4 Const General: no acute distress, alert and awake Orientation/consciousness: patient oriented x3 HEENT Head: Yes normocephalic and Yes atraumatic Eyes EOM: EOMs intact bilaterally Resp Effort & Inspection: normal respiratory effort and able to speak in complete sentences Cardio Jugular venous distension: no JVD Skin General skin exam: turgor normal Rashes: no rashes Neuro General: patient oriented x3 Extrem Other: painful abduction to 70 deg and painful ER to 20 + crepitus Psych Appearance: grossly normal Affect: normal affect Attitude: cooperative Assessment & Plan Assessment & Plan (1) Osteoarthritis of right glenohumeral joint: Code(s): M19.011 - Primary osteoarthritis, right shoulder Plan: This is a 63 year old woman with severe right GH OA. She has pain with daily activity, worse with overhead activity and use of her shoulder. Her pain has improved somewhat following her most recent GH joint injection on 08/21/23. She is on an Opioid contract with Pain Management for chronic pain syndrome, and takes NORCO TID/QID, which she says doesn't help her shoulder pain much. I discussed the effects of Opioid use prior to surgery and recovery. I discussed her diagnosis and treatment options. It is likely she would benefit from a TSA in the future, and she would like to consider this for sometime next year, no sooner than 01/2024. I recommend she modify her activities and be mindful to not push through pain. She will follow up in 2 months to discuss surgery. I explained this surgery to Marilu including the risks, benefits, and recovery timeline. I will have Angie reach out to her for more information about this procedure. Coding Level of Care Code Est Pt Level 3 (69084) Diagnoses Osteoarthritis of right glenohumeral joint M19.011
[2023-09-18 13:09] VITALS: BMI 19.4
== END 2023-09-18 14:06 | disposition home or self-care (01) ==
PROVIDERS: PCP Family Medicine; Visit Provider Orthopaedic Surgery
DX: M19.011 Primary osteoarthritis, right shoulder (principal)
CPT/HCPCS: 99213

== ENCOUNTER → 2023-09-18 13:06 | Outpatient (BNVA) | payer MEDICARE, SELFPAY | PROVIDERS: PCP Family Medicine; Visit Provider Orthopaedic Surgery | DX: M19.011 Primary osteoarthritis, right shoulder (principal) | CPT/HCPCS: 99212 ==

== ENCOUNTER 2023-09-28 11:06 | Outpatient (AMB) | payer MEDICARE, SELFPAY ==
--- NOTE | 2023-09-28 11:18 | A.OFFPC_ITS ---
Vital Signs 09/28/23 11:31 Height 5 ft 4 in Weight 144 lb 6 oz BMI 24.8 BP 120/80 Blood Pressure Location Lt brachial Position Sitting Pulse 69 Pulse Source Pulse Oximeter Pulse Oximetry (%) 99 Oxygen Delivery Method Room Air Intake Visit Reasons: f/u hypertension Intake Note: Patient is here to follow up on hypertension today. Allergies amoxicillin [From Augmentin] Allergy (Severe, Verified 09/28/23 11:21) Facial Swelling clavulanic acid [From Augmentin] Allergy (Severe, Verified 09/28/23 11:21) Facial Swelling naproxen Allergy (Severe, Verified 09/28/23 11:21) asthma, SOB animal dander [PET DANDER] Allergy (Intermediate, Verified 09/28/23 11:21) rash SEASONAL ALLERGIES Allergy (Mild, Uncoded 09/28/23 11:21) congestion Tobacco use date assessed: 09/28/23 Fall risk assessment: No Falls in past year Last assessed Fall Risk: 09/28/23 HPI f/u hypertension HPI Details 63 y/o female presents to f/u hypertensi on. Blood pressure today 120/80. She is on lisinopril 40mg daily and clonidine 0.1mg t.i.d. Pt notes she had been badly depressed over the summer. She had followed up with her psychiatrist and states she is currently on ketamine therapy. She notes the only thing she noticed was increased energy which has been improving her depression a bit. She denies any adverse affects. Labs were drawn 08/07/23. Reviewed labs with pt. Ongoing mild anemia. Liver enzymes mildly elevated - AST 32 and ALT 35. Pt has complaints of a rash. [facility] Medical History Depression Migraine headache Stool incontinence Chronic pain syndrome Postlaminectomy syndrome Disc degeneration, lumbar Compression fracture of L1 lumbar vertebra Osteoporosis Hypertension Spondylosis Attention deficit disorder Herniated disc Asthma Anxiety Migraine headache Surgical History Status post kyphoplasty History of lumbosacral spine surgery History of cervical spinal surgery History of spinal surgery History of surgery on left wrist Family History Sister Ovarian cancer Lung cancer Maternal Grandmother Ovarian cancer Paternal Aunt Ovarian cancer Maternal Aunt Pancreatic cancer Social History Household Members: Spouse Housing: House Are you a primary home care music therapist to a significant other at home: No Do you presently have visiting nurse or other home services: No Comment: medicated in pacu Patient Tobacco Use Status: Former Tobacco user e-Cigarette/Vaping Use: Never Used Second Hand Smoke Exposure: No service: No Current occupational status: disabled 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 Tyrone García, Marnie Huston, Sadi Ross and colleagues, with an educational krystina from [employer]. ACT Questionnaire In the past 4 weeks, how much of the time did your asthma keep you from getting as much done at work, school or at home?: Some of the time During the past 4 weeks, how often have you had shortness of breath?: 1-2 times a week During the past 4 weeks, how often did your asthma symptoms wake you up at night or earlier than usual in the morning?: Not at all During the past 4 weeks, how often have you had to use your rescue inhaler or nebulizer medication?: Once a week or less How would you rate your asthma control during the past 4 weeks?: Well controlled Score: 20 Review of Systems Const Denies chills, Denies fatigue, Denies fever(s), Denies headache(s) and Denies weakness ENT Denies dizziness and Denies headache(s) Card Denies dyspnea Resp Denies cough, Denies dyspnea, Denies wheezing and Denies other (shortness of breath) Musc Denies numbness and Denies tingling Skin/Breast Reports rash Neuro Denies dizziness, Denies headache(s), Denies numbness, Denies tingling and Denies weakness Psych Denies anxiety and Reports depression Endo Denies fatigue Aller/Immun Denies wheezing Physical exam (Primary Care) Vital Signs: Last Vital Signs Pulse 69 09/28/23 11:31 BP 120/80 09/28/23 11:31 Pulse Ox 99 09/28/23 11:31 Oxygen Delivery Method Room Air 09/28/23 11:31 BMI result Body Mass Index 24.8 Tobacco/Smoking Status: Tobacco use Status Tobacco use date assessed 09/28/23 09/28/23 11:25 Patient Tobacco Use Status Former Tobacco user 09/28/23 11:19 e-Cigarette/Vaping Use Never Used 09/28/23 11:19 Thrive Assessment: Date of Thrive Assessment Date Thrive assessed 05/25/23 09/28/23 11:19 Const General: well developed; No acute distress Nutritional Appearance: well nourished Orientation/consciousness: patient oriented x3 HENMT Head: Yes normocephalic and Yes atraumatic Eyes General: appearance normal, both eyes and all related structures Pupils: Equal, round and reactive pupils present EOM: EOMs intact bilaterally Resp Effort & Inspection: normal respiratory effort Neuro General: patient oriented x3 and gait normal Cranial nerves: Yes Equal, round and reactive pupils present Psych Affect: normal affect Office Procedures Pulmonary Testing Pulmonary Testing Details: 180 260 280 best, 280 All charges added?: Additional procedure code (CPT) needed Assessment and Plan Assessment & Plan (1) Hypertension: Code(s): I10 - Essential (primary) hypertension Plan: Blood?pressure?is?controlled.??Goal?is?less?than?140/90 Continue?current?medication?regimen (2) Depression: Code(s): F32.9 - Major depressive disorder, single episode, unspecified Plan: Ongoing?depression?but?improved?with?psychiatrist?and?starting?regimen?with?[place] Follow-up?with?psychiatrist?as?recommended (3) Anemia: Code(s): D64.9 - Anemia, unspecified Plan: Mild?persistent?anemia Likely?secondary?to?opioids?and?or?anemia?of?chronic?disease Will?continue?to?follow (4) Elevated liver enzymes: Code(s): R74.8 - Abnormal levels of other serum enzymes Plan: Check?liver?enzymes?with?elastography. Patient?no?longer?drinking?regularly. (5) Rash: Code(s): R21 - Rash and other nonspecific skin eruption Plan: Appears?allergic Will?give?her?a?prednisone?taper Also?advised?Zyrtec If?not?improving?or?if?returns?after?prednisone?taper,?will?refer?her?to?immunol ogy?for?scratch?testing. Orders: Orders Pulmonary Test/Procedure Today J45.909 - Unspecified asthma, uncomplicated US abdomen arriaza w elastography Today R74.8 - Abnormal levels of other serum enzymes Parathyroid Hormone Intact Today E83.52 - Hypercalcemia Calcium Today E83.52 - Hypercalcemia Referrals Endocrinology Referral E83.52 - Hypercalcemia Medications: New cetirizine (Zyrtec) 10 mg PO DAILY PRN 30 tabs 2RF allergy symptoms 30 days prednisone 4 tabs daily for 4 days, 3 tabs daily for 2 days, 2 tabs daily for 2 days, 1 tab daily for 2 days PO daily; 28 tabs 0RF 10 days Refilled tizanidine 4 mg PO TID 90 tabs 0RF Coding Level of Care Code Est Pt Level 4 (42935) Diagnoses Hypertension I10 Depression F32.9 Anemia D64.9 Elevated liver enzymes R74.8 Rash R21
[2023-09-28 11:31] VITALS: BP 120/80; PULSE 69; O2SAT 99; BMI 24.8
== END 2023-09-28 12:29 | disposition home or self-care (01) ==
PROVIDERS: PCP Family Medicine; Visit Provider Family Medicine
DX: I10 Essential (primary) hypertension (principal); F32.9 Major depressive disorder, single episode, unspecified; D64.9 Anemia, unspecified; R74.8 Abnormal levels of other serum enzymes; R21 Rash and other nonspecific skin eruption
CPT/HCPCS: 99214

== ENCOUNTER 2023-10-20 11:12 | Outpatient (AMB) | payer MEDICARE, SELFPAY ==
--- NOTE | 2023-10-20 11:16 | A.OFFVIS_ITS ---
Intake Vital Signs 10/20/23 11:25 10/20/23 11:25 Height 5 ft 4 in Weight 115 lb BMI 19.7 BP 159/77 H 142/67 H Blood Pressure Location Lt brachial Rt brachial Position Sitting Sitting Pulse 76 Pulse Source Pulse Oximeter Pulse Oximetry (%) 100 Oxygen Delivery Method Room Air Intake Visit Reasons: PILL COUNT/lvm Intake Note: Marilu comes in today for a pill count to hydrocodone-acetaminophen, patient should have 12 tablets and presents with 16 tablets which she last took today 10/20/23 at 10am. Pain today 05/08 [place] Required: No Accompanied by: Self / Same As Patient Allergies amoxicillin [From Augmentin] Allergy (Severe, Verified 10/20/23 11:26) Facial Swelling clavulanic acid [From Augmentin] Allergy (Severe, Verified 10/20/23 11:26) Facial Swelling naproxen Allergy (Severe, Verified 10/20/23 11:26) asthma, SOB animal dander [PET DANDER] Allergy (Intermediate, Verified 10/20/23 11:26) rash SEASONAL ALLERGIES Allergy (Mild, Uncoded 09/28/23 11:21) congestion HPI HPI Comments History of Present Illness Details Patient presents today for a pill count. Patient is supposed to have #12 pills, in her possession has #16 pills. This demonstrates a responsible attitude in regards to the medication regimen. Patient reports adequate analgesia on her current regimen of hydrocodone-acetaminophen 7.5-325 mg 1 tab Q6H prn without any noted side effects. Denies any fevers, chills, weight changes, infection, constipation, edema, nausea, sedation, dizziness, or urinary retention. Patient reports positive benefits in her emotional, social and psychological well being since starting Ketamine sublingual for depression through her psychiatrist Dr. Tonja Lazo. She completed 8 treatments so far and notices significant improvement in her sleep and increased energy levels. She also considers right shoulder surgery due to severe OA in Spring 2023. [facility] Medical History Depression Migraine headache Stool incontinence Chronic pain syndrome Postlaminectomy syndrome Disc degeneration, lumbar Compression fracture of L1 lumbar vertebra Osteoporosis Hypertension Spondylosis Attention deficit disorder Herniated disc Asthma Anxiety Migraine headache Surgical History Status post kyphoplasty History of lumbosacral spine surgery History of cervical spinal surgery History of spinal surgery History of surgery on left wrist Family History Sister Ovarian cancer Lung cancer Maternal Grandmother Ovarian cancer Paternal Aunt Ovarian cancer Maternal Aunt Pancreatic cancer Social History Household Members: Spouse Housing: House Are you a primary family day care worker to a significant other at home: No Do you presently have visiting nurse or other home services: No Comment: medicated in pacu Patient Tobacco Use Status: Former Tobacco user e-Cigarette/Vaping Use: Never Used Second Hand Smoke Exposure: No service: No Current occupational status: disabled 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 Alert and oriented. Mood and affect appropriate. Follows and participates in conversation appropriately. Respiratory effort is unlabored. Able to transition from sit to stand unassisted. Ambulates with bilaterally normal heel strike and toe off. Psych Appearance: grossly normal and well kempt Mental Status: mental status grossly normal Speech and movement: Normal speech and movement present and Clear speech present Affect: normal affect and Ecstatic affect present Attitude: cooperative Thought process: Normal thought process present Thought content: Normal thought content present, suicidality (none), no hallucinations and No Depressive thoughts present Insight: Good insight present (Psych) Judgement: Good judgement present (Psych) Assessment & Plan Assessment & Plan (1) Postlaminectomy syndrome: Code(s): M96.1 - Postlaminectomy syndrome, not elsewhere classified (2) Disc degeneration, lumbar: Code(s): M51.36 - Other intervertebral disc degeneration, lumbar region (3) Opioid contract exists: Code(s): 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 There is no evidence of misuse, abuse or diversion at this time. [employer] reviewed and consistent. Script sent for hydrocodone-acetaminophen 7.5- 325 mg 1 tab Q6H for 30 days with advanced date on 10/21/23. Discussed with the patient the risks associated with benzodiazepine and opioid use. Patient is aware and verbalized an agreement to take the medications at least two hours apart and she has Narcan at home. Patient is also undergoing Ketamine sublingual treatments through her psychiatrist for depression with significant improvements. All questions were answered and the patient is in agreement with the plan. Follow up in one month for a pill count or sooner if needed. Medications: Refilled hydrocodone-acetaminophen 7.5-325 mg Partial Fill upon patient request. 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
[2023-10-20 11:25] VITALS: BP 142/67; BP 159/77; PULSE 76; O2SAT 100; BMI 19.7
== END 2023-10-20 11:40 | disposition home or self-care (01) ==
PROVIDERS: PCP Family Medicine; Visit Provider Nurse Practitioner Family
DX: M96.1 Postlaminectomy syndrome, not elsewhere classified (principal); M51.36 Other intervertebral disc degeneration, lumbar region; Z79.891 Long term (current) use of opiate analgesic; M19.011 Primary osteoarthritis, right shoulder; M25.511 Pain in right shoulder
CPT/HCPCS: 99214

== ENCOUNTER → 2023-10-20 11:12 | Outpatient (BNVA) | payer MEDICARE, SELFPAY | PROVIDERS: PCP Family Medicine; Visit Provider Nurse Practitioner Family | DX: Z51.81 Encounter for therapeutic drug level monitoring (principal); M96.1 Postlaminectomy syndrome, not elsewhere classified; M51.36 Other intervertebral disc degeneration, lumbar region; M19.011 Primary osteoarthritis, right shoulder; M25.511 Pain in right shoulder; Z79.891 Long term (current) use of opiate analgesic | CPT/HCPCS: 99212 ==

== ENCOUNTER → 2023-11-17 11:36 | Outpatient (BNVA) | payer MEDICARE, SELFPAY | PROVIDERS: PCP Family Medicine; Visit Provider Nurse Practitioner Family | DX: Z51.81 Encounter for therapeutic drug level monitoring (principal); M96.1 Postlaminectomy syndrome, not elsewhere classified; M51.36 Other intervertebral disc degeneration, lumbar region; M19.011 Primary osteoarthritis, right shoulder; M25.511 Pain in right shoulder; G89.4 Chronic pain syndrome; Z79.891 Long term (current) use of opiate analgesic | CPT/HCPCS: 99212 ==

== ENCOUNTER 2023-12-14 11:29 | Outpatient (AMB) | payer MEDICARE, SELFPAY ==
[2023-12-14 11:39] VITALS: BP 147/74; PULSE 83; RESP 18; O2SAT 99
--- NOTE | 2023-12-14 11:39 | MHC.OFFVIS ---
Intake Vital Signs 12/14/23 11:39 Height 5 ft 4 in Weight 116 lb 6 oz BMI 20.0 BP 147/74 H Blood Pressure Location Lt brachial Position Sitting Respiration 18 Pulse 83 Pulse Source Pulse Oximeter Pulse Oximetry (%) 99 Oxygen Delivery Method Room Air Intake Visit Reasons: PILL COUNT Allergies amoxicillin [From Augmentin] Allergy (Severe, Verified 12/14/23 11:38) Facial Swelling clavulanic acid [From Augmentin] Allergy (Severe, Verified 12/14/23 11:38) Facial Swelling naproxen Allergy (Severe, Verified 12/14/23 11:38) asthma, SOB animal dander [PET DANDER] Allergy (Intermediate, Verified 12/14/23 11:38) rash SEASONAL ALLERGIES Allergy (Mild, Uncoded 09/28/23 11:21) congestion HPI HPI Comments History of Present Illness Details Patient presents today for a pill count. Patient is supposed to have #36 pills, in her possession has #45 pills. This demonstrates a responsible attitude in regards to the medication regimen. Patient reports mild to moderate analgesia on her current regimen of hydrocodone-acetaminophen 7.5-325 mg 1 tab Q6H prn without any noted side effects. Reports ongoing acute on chronic right shoulder pain which she rates at 8/10. Patient reports she is scheduled to undergo right shoulder steroid injection next Monday with Dr. Tom. Denies any fevers, chills, weight changes, infection, constipation, edema, nausea, sedation, dizziness, or urinary retention. Patient reports Ketamine continues to work well for her and she has graduated to once weekly Ketamine sublingual intake through her psychiatrist Dr. Tonja Lazo. Patient reports significant improvement in her sleep and increased energy levels. [facility] Medical History Depression Migraine headache Stool incontinence Chronic pain syndrome Postlaminectomy syndrome Disc degeneration, lumbar Compression fracture of L1 lumbar vertebra Osteoporosis Hypertension Spondylosis Attention deficit disorder Herniated disc Asthma Anxiety Migraine headache Surgical History Status post kyphoplasty History of lumbosacral spine surgery History of cervical spinal surgery History of spinal surgery History of surgery on left wrist Family History Sister Ovarian cancer Lung cancer Maternal Grandmother Ovarian cancer Paternal Aunt Ovarian cancer Maternal Aunt Pancreatic cancer Social History Household Members: Spouse Housing: House Are you a primary acute care occupational therapist to a significant other at home: No Do you presently have visiting nurse or other home services: No Comment: medicated in pacu Patient Tobacco Use Status: Former Tobacco user e-Cigarette/Vaping Use: Never Used Second Hand Smoke Exposure: No service: No Current occupational status: disabled 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 Alert and oriented. Mood and affect appropriate. Follows and participates in conversation appropriately. Respiratory effort is unlabored. No cough. Wearing facemask. Able to transition from sit to stand unassisted. Ambulates with bilaterally normal heel strike and toe off. Extrem Right upper extremity: shoulder/upper arm (limited ROM due to pain, difficulty with overhead reaches) Details: normal to inspection, tenderness Location: of the A-C joint, over the biceps tendon and over the subacromial bursa and crepitus; no swelling, no ecchymosis and no unusual warmth Psych Appearance: grossly normal Mental Status: mental status grossly normal Speech and movement: Normal speech and movement present Affect: normal affect Attitude: cooperative Thought process: Normal thought process present Thought content: Normal thought content present, suicidality (none), no hallucinations and No Depressive thoughts present Insight: Good insight present (Psych) Judgement: Good judgement present (Psych) Results Reviewed Results Reviewed: XR SHOULDER, RIGHT 06/02/23 COMPARISON: 03/31/2017 FINDINGS: Severe degeneration the glenohumeral joint appears progressive. Loss of joint space with bulky osteophytes. No radiopaque loose body or focal bony lesion. No erosions. IMPRESSION: Progressive severe degeneration of the glenohumeral joint. Assessment & Plan Assessment & Plan (1) Postlaminectomy syndrome: Code(s): M96.1 - Postlaminectomy syndrome, not elsewhere classified (2) Disc degeneration, lumbar: Code(s): M51.36 - Other intervertebral disc degeneration, lumbar region (3) Opioid contract exists: Code(s): Z79.891 - long-term (current) use of opiate analgesic (4) Right shoulder pain: Code(s): M25.511 - Pain in right shoulder (5) Chronic pain syndrome: Code(s): G89.4 - Chronic pain syndrome Plan Patient has shown accountability for her medication regimen and the pill count was accurate. There is no evidence of misuse, abuse or diversion at this time. [employer]Pat reviewed and consistent. Script sent for hydrocodone-acetaminophen 7.5-325 mg 1 tab Q6H for 30 days with advanced date on 12/25/23. Discussed with the patient the risks associated with benzodiazepine and opioid use. Patient is aware and verbalized an agreement to take the medications at least two hours apart. Patient has Narcan at home. Patient is also undergoing Ketamine sublingual treatments through her psychiatrist for depression with notable improvements. Patient is scheduled to undergo right shoulder steroid injection next week with Dr. Tom. All questions were answered and the patient is in agreement with the plan. Follow up in one month for a pill count or sooner if needed. Medications: Refilled hydrocodone-acetaminophen 7.5-325 mg Partial Fill upon patient request. 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
== END 2023-12-14 11:56 | disposition home or self-care (01) ==
PROVIDERS: PCP Family Medicine; Visit Provider Nurse Practitioner Family
DX: G89.4 Chronic pain syndrome (principal); M51.36 Other intervertebral disc degeneration, lumbar region; M25.511 Pain in right shoulder; Z79.891 Long term (current) use of opiate analgesic
CPT/HCPCS: 99214

== ENCOUNTER → 2023-12-14 11:29 | Outpatient (BNVA) | payer MEDICARE, SELFPAY | PROVIDERS: PCP Family Medicine; Visit Provider Nurse Practitioner Family | DX: Z51.81 Encounter for therapeutic drug level monitoring (principal); M96.1 Postlaminectomy syndrome, not elsewhere classified; M51.36 Other intervertebral disc degeneration, lumbar region; M25.511 Pain in right shoulder; G89.4 Chronic pain syndrome; Z79.891 Long term (current) use of opiate analgesic | CPT/HCPCS: 99212 ==

== ENCOUNTER 2023-12-22 11:13 | Outpatient (AMB) | payer MEDICARE, SELFPAY ==
--- NOTE | 2023-12-22 11:16 | MHC.OFFVIS ---
Intake Vital Signs 12/22/23 11:18 Height 5 ft 4 in Weight 116 lb BMI 19.9 Intake Visit Reasons: OV - Severe Right GH OA - Last Inj 09/18/23 Intake Note: Marilu is a 63 year old right hand dominant female who presents today for a follow up of her sever right glenohumeral osteoarthritis. At her last appointment it was discussed that she would benefit from arthroplasty but this should not happen until at least January of 2024. Last injection done 09/18/2023. Patient reports that she is feeling about the same, the injection only give relief for a matter days. She is asking if there is anything else that can be added to the injection for longer relief, or possibly trying a different steroid. But she explains that she typically has good relief with Dexamethasone. Allergies amoxicillin [From Augmentin] Allergy (Severe, Verified 12/22/23 11:18) Facial Swelling clavulanic acid [From Augmentin] Allergy (Severe, Verified 12/22/23 11:18) Facial Swelling naproxen Allergy (Severe, Verified 12/22/23 11:18) asthma, SOB animal dander [PET DANDER] Allergy (Intermediate, Verified 12/22/23 11:18) rash SEASONAL ALLERGIES Allergy (Mild, Uncoded 12/22/23 11:18) congestion HPI OV - Severe Right GH OA - Last Inj 09/18/23 HPI Details Marilu is a 63 year old woman who returns to discuss her right shoulder GH OA. She was last injected on 08/21/23, with good but short-term relief. She has been working on reducing her Vicodin use in order to discuss a TSA. She is still taking 30mg daily, with little relief, and would like to have a shoulder injection today. She wants to know if there is anything else that can be added to the injection for longer pain relief. She continues on her Ketamine treatment for her depression, which she says is going well. [facility] Medical History Depression Migraine headache Stool incontinence Chronic pain syndrome Postlaminectomy syndrome Disc degeneration, lumbar Compression fracture of L1 lumbar vertebra Osteoporosis Hypertension Spondylosis Attention deficit disorder Herniated disc Asthma Anxiety Migraine headache Surgical History Status post kyphoplasty History of lumbosacral spine surgery History of cervical spinal surgery History of spinal surgery History of surgery on left wrist Family History Sister Ovarian cancer Lung cancer Maternal Grandmother Ovarian cancer Paternal Aunt Ovarian cancer Maternal Aunt Pancreatic cancer Social History Household Members: Spouse Housing: House Are you a primary care management associate to a significant other at home: No Do you presently have visiting nurse or other home services: No Comment: medicated in pacu Patient Tobacco Use Status: Former Tobacco user e-Cigarette/Vaping Use: Never Used Second Hand Smoke Exposure: No service: No Current occupational status: disabled 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 Current occupational exposures/hazards: No Cognitive needs: No Hearing needs: No Vision needs: Yes Review of Systems Const All systems reviewed & are unremarkable except as noted in HPI and below Physical Exam Vital Signs: BMI result Body Mass Index 19.9 Const General: no acute distress, alert and awake Orientation/consciousness: patient oriented x3 HEENT Head: Yes normocephalic and Yes atraumatic Eyes EOM: EOMs intact bilaterally Resp Effort & Inspection: normal respiratory effort and able to speak in complete sentences Cardio Jugular venous distension: no JVD Skin General skin exam: turgor normal Rashes: no rashes Neuro General: patient oriented x3 Extrem Other: Painful active and passive motion Neg EC ER to 20 deg Psych Appearance: grossly normal Affect: normal affect Attitude: cooperative Office Procedures Joint Injection/Drain Joint Injection/Drain Details: Injected 1 mL of Decadron and 3 mL 1% lidocaine and 3 mL of 0.25% Marcaine. Site was prepped using aseptic technique. Patient tolerated the procedure well. Primary Site: right shoulder Approach Used: posterolateral Coding 36537 - Large joint Procedure code (CPT) selection complete Assessment & Plan Assessment & Plan (1) Osteoarthritis of right glenohumeral joint: Code(s): M19.011 - Primary osteoarthritis, right shoulder Plan: Marilu is doing well. She still has significant pain and feels limited but wants to get her teeth pulled first ( our recommendation). I injected her shoulder today and we will see her in 3 months. Plan Prepared for Kaiden Tom MD by Chan Madrigal, medical anthropology director, on 12/22/23 at 11:27 AM, EST. Coding Level of Care Code Est Pt Level 3 (92040) Diagnoses Osteoarthritis of right glenohumeral joint M19.011 CPT Codes Coding - 34540 Large joint: 42681 - Large joint ([id number])
[2023-12-22 11:18] VITALS: BMI 19.9
== END 2023-12-22 11:45 | disposition home or self-care (01) ==
PROVIDERS: PCP Family Medicine; Visit Provider Orthopaedic Surgery
DX: M19.011 Primary osteoarthritis, right shoulder (principal)
CPT/HCPCS: 20610; 99213

== ENCOUNTER → 2023-12-22 11:13 | Outpatient (BNVA) | payer MEDICARE, SELFPAY | PROVIDERS: PCP Family Medicine; Visit Provider Orthopaedic Surgery | DX: M19.011 Primary osteoarthritis, right shoulder (principal) | CPT/HCPCS: 20610; 99212; J0665; J1100 ==

== ENCOUNTER 2024-01-10 10:57 | Outpatient (AMB) | payer MEDICARE, SELFPAY ==
[2024-01-10 11:06] VITALS: BP 128/80; PULSE 88; RESP 13; TEMP 36.4; O2SAT 99; BMI 20.8
--- NOTE | 2024-01-10 11:06 | A.OFFPC_ITS ---
Vital Signs 01/10/24 11:06 Height 5 ft 4 in Weight 121 lb BMI 20.8 BP 128/80 Blood Pressure Location Rt brachial Position Sitting Respiration 13 Pulse 88 Pulse Source Pulse Oximeter Temp 97.6 F Temp Source Temporal Artery Scan Pulse Oximetry (%) 99 Oxygen Delivery Method Room Air Intake Visit Reasons: Extended exam with f/u labs and health maintenance Intake Note: Patient needs refill on tizanidine. 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 Accompanied by: Self / Same As Patient Allergies amoxicillin [From Augmentin] Allergy (Severe, Verified 01/10/24 11:11) Facial Swelling clavulanic acid [From Augmentin] Allergy (Severe, Verified 01/10/24 11:11) Facial Swelling naproxen Allergy (Severe, Verified 01/10/24 11:11) asthma, SOB animal dander [PET DANDER] Allergy (Intermediate, Verified 01/10/24 11:11) rash SEASONAL ALLERGIES Allergy (Mild, Uncoded 12/22/23 11:18) congestion Tobacco use date assessed: 01/10/24 Fall risk assessment: No Falls in past year Last assessed Fall Risk: 01/10/24 Dental Screening Dental Screen Date: 01/10/24 Did you have a dental visit in the last 12 months?: No Did you have a dental problem in the last 6 months where you did not have access to dental care?: No Was dental information given to patient?: Patient has dentist HPI Extended exam with f/u labs and health maintenance HPI Details 63 y/o female presents for an extended e xam with f/u labs and health maintenance. No recent CPE-labs to review. Elevated liver enzymes from labs drawn in July. She notes she declines a liver ultrasound. Positive for anxiety/depression. [facility] Medical History Depression Migraine headache Stool incontinence Chronic pain syndrome Postlaminectomy syndrome Disc degeneration, lumbar Compression fracture of L1 lumbar vertebra Osteoporosis Hypertension Spondylosis Attention deficit disorder Herniated disc Asthma Anxiety Migraine headache Surgical History Status post kyphoplasty History of lumbosacral spine surgery History of cervical spinal surgery History of spinal surgery History of surgery on left wrist Family History Sister Ovarian cancer Lung cancer Maternal Grandmother Ovarian cancer Paternal Aunt Ovarian cancer Maternal Aunt Pancreatic cancer Social History Household Members: Spouse Housing: House Are you a primary clinical manager home care to a significant other at home: No Do you presently have visiting nurse or other home services: No Comment: medicated in pacu Patient Tobacco Use Status: Former Tobacco user e-Cigarette/Vaping Use: Never Used Second Hand Smoke Exposure: No service: No Current occupational status: disabled 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 1. Little interest or pleasure in doing things: several days 2. Feeling down, depressed, or hopeless: several days 3. Trouble falling or staying asleep, or sleeping too much: more than half the days 4. Feeling tired or having little energy: more than half the days 5. Poor appetite or overeating: nearly every day 6. Feeling bad about yourself - or that you are a failure or have let yourself or your family down: several days 7. Trouble concentrating on things, such as reading the newspaper or watching television: not at all 8. Moving or speaking so slowly that other people could have noticed. Or the opposite - being so fidgety or restless that you have been moving around a lot more than usual: not at all 9. Thoughts that you would be better off or of hurting yourself in some way: not at all Total score: 10 Depression Screening Interpretation: Positive Depression Screening Follow-up: Existing condition Depression Screening Done: Yes 50759 - PHQ-9 Billing: Yes Source: Developed by Drs. Tyrone García, Marnie Huston, Sadi Ross and colleagues, with an educational krystina from [email or web address]. Thrive Questionnaire Date Thrive assessed: 05/25/23 AUDIT C Alcohol Use Questionnaire (AUDIT-C) 1. How often do you have a drink containing alcohol?: Never 3. How often do you have six or more drinks on one occasion?: Never Total Score: 0 MAU-7 AMB Questionnaire MAU-7 Date MAU - 7 assessed: 01/10/24 Feeling nervous, anxious, or on edge: 2 = More than half the days Not being able to stop or control worryin = More than half the days Worrying too much about different things: 2 = More than half the days Trouble relaxin = More than half the days Being so restless that it is hard to sit still: 0 = Not at all Becoming easily annoyed or irritable: 1 = Several days Feeling afraid as if something awful might happen: 0 = Not at all Total MAU-7 score (0-4 normal; 5-9 mild; 10-14 moderate; 15-21 severe): 9 Source: Developed by Drs. Tyrone García, Marnie Huston, Sadi Ross and colleagues, with an educational krystina from [email or web address]. MAU-7 Assessment Billing MAU-7 Assessment Tool: MAU-7 Assessment 34869 ACT Questionnaire In the past 4 weeks, how much of the time did your asthma keep you from getting as much done at work, school or at home?: A little of the time During the past 4 weeks, how often have you had shortness of breath?: 3-6 times a week During the past 4 weeks, how often did your asthma symptoms wake you up at night or earlier than usual in the morning?: Not at all During the past 4 weeks, how often have you had to use your rescue inhaler or nebulizer medication?: Once a week or less How would you rate your asthma control during the past 4 weeks?: Completely controlled ACT Interpretation: Positive Score: 21 Review of Systems Const Denies chills, Denies fatigue, Denies fever(s), Denies headache(s) and Denies weakness Eyes Denies change in vision ENT Denies dizziness, Denies headache(s), Denies hearing loss, Denies nasal congest ion, Denies sinus pain, Denies sinus pressure and Denies sore throat Card Denies chest pain, Denies lightheadedness, Denies dyspnea and Denies other (palpitations) Resp Denies cough, Denies dyspnea and Denies wheezing GI Denies abdominal pain, Denies melena, Denies hematochezia, Denies change in bowel habits, Denies dyspepsia and Denies nausea Denies hematuria and Denies dysuria Musc Denies abnormal gait, Denies myalgias, Denies arthralgias, Denies numbness and Denies tingling Skin/Breast Denies rash, Denies unusual bruising and Denies wounds Neuro Denies abnormal gait, Denies dizziness, Denies headache(s), Denies memory loss, Denies numbness, Denies Sensory deficit (Neuro), Denies tingling and Denies weakness Psych Denies anxiety, Denies depression and Denies memory loss Endo Denies cold intolerance, Denies fatigue, Denies heat intolerance, Denies polydipsia and Denies polyuria Wood/Lymph Denies easy bleeding and Denies easy bruising Aller/Immun Denies wheezing Physical exam (Primary Care) Vital Signs: Last Vital Signs Temp 97.6 F 01/10/24 11:06 Pulse 88 01/10/24 11:06 Resp 13 01/10/24 11:06 BP 128/80 01/10/24 11:06 Pulse Ox 99 01/10/24 11:06 Oxygen Delivery Method Room Air 01/10/24 11:06 BMI result Body Mass Index 20.8 Tobacco/Smoking Status: Tobacco use Status Tobacco use date assessed 01/10/24 01/10/24 11:21 Patient Tobacco Use Status Former Tobacco user 01/10/24 11:21 e-Cigarette/Vaping Use Never Used 01/10/24 11:21 PHQ-9: PHQ-9 Score PHQ-9: Total score 10 01/10/24 11:40 Depression Screening Interpretation: Positive Depression Screening Follow-up: Existing condition Thrive Assessment: Date of Thrive Assessment Date Thrive assessed 05/25/23 01/10/24 11:21 Const General: no acute distress, well developed, alert and awake Nutritional Appearance: well nourished Orientation/consciousness: patient oriented x3 HENMT Head: Yes normocephalic and Yes atraumatic Ears: hearing grossly normal bilaterally and TM's normal bilaterally General nose exam: Normal external nose present and Normal nares present Mouth: Normal oral and palatal mucosa present and moist mucous membranes Teeth and gingiva: dentition normal Throat: Yes posterior oropharynx normal Eyes General: appearance normal, both eyes and all related structures Pupils: Equal, round and reactive pupils present and Pupil accommodation reflex normal EOM: EOMs intact bilaterally Neck Neck: Yes normal visual inspection, Yes no lymphadenopathy and Yes trachea midline Thyroid: Thyroid normal Carotids: no bruits Lymphatic: no lymphadenopathy noted Chest Chest palpation & inspection: normal inspection of the chest Resp Effort & Inspection: normal respiratory effort Auscultation: clear to auscultation bilaterally Cardio Rate: regular rate Rhythm: regular rhythm Heart sounds: S1 normal heart sound present, S2 normal heart sound present, no gallops, no murmurs and no rubs Bruits: no abdominal aortic bruits and no carotid bruits GI Palpation (GI): No Abdominal aortic bruit present, Soft to palpation, nontender, No hepatosplenomegaly present and No Rebound tenderness present Auscultation: normal bowel sounds General: Yes no CVA tenderness Back/Spine/Pelvis Back: no CVA tenderness Cervical Spine: cervical ROM normal and No Cervical spine tenderness Thoracic/Lumbar Spine: thoraco-lumbar ROM normal, No pain with thoraco-lumbar ROM, No thoracic spinal tenderness and No lumbar spinal tenderness Skin Lesions: no lesions Rashes: no rashes Trauma: no lacerations or abrasions Wounds: no wounds Nails: normal Neuro General: patient oriented x3 Cranial nerves: Yes Equal, round and reactive pupils present Cognition (Neuro): normal cognition Gait exam (Neuro): Normal gait present Motor exam (neuro): 5/5 motor strength present throughout Sensory Exam: No Sensory deficit (Neuro) Deep tendon reflexes (DTR's): Right patellar reflex intensity grade: 2+ and Left patellar reflex intensity grade: 2+ Extrem General: Yes normal to inspection and No edema Psych Appearance: grossly normal Affect: normal affect Attitude: cooperative Thought process: Normal thought process present Assessment and Plan Assessment & Plan (1) Depression with anxiety: Code(s): F41.8 - Other specified anxiety disorders Plan: Continue?duloxetine (2) Cough: Code(s): R05.9 - Cough, unspecified (3) Elevated liver enzymes: Code(s): R74.8 - Abnormal levels of other serum enzymes Plan: Had?ordered?liver?ultrasound but?patient?declines?this She?will?let?me?know?if?she?changes?her?mind (4) Screening for colon cancer: Code(s): Z12.11 - Encounter for screening for malignant neoplasm of colon Plan: Patient?says?she?had?a?colonoscopy?about?7?years?ago?at?[facility] Will?request?report (5) Breast cancer screening by mammogram: Code(s): Z12.31 - Encounter for screening mammogram for malignant neoplasm of breast Plan: Last?mammogram?about?10?years?ago?and?patient?declines?the She?performs?her?own?breast?exams?and?will?let?me?know?if?she?notices?any?proble ms. (6) Adult general medical exam: Code(s): Z00.00 - Encounter for general adult medical examination without abnormal findings Plan: 63-year-old?female?presents?for?an?extended?exam (7) Hypercalcemia: Code(s): E83.52 - Hypercalcemia Plan: History?of?hypercalcemia?and?elevated?parathyroid?hormone. Had?referred?patient?endocrinology?but?she?declines?to?go Will?repeat?labs?and?discuss?at?at?follow-up?visit. Also?patient?high?risk?for?osteoporosis.??Bone?density?test?ordered Orders: Orders Complete Blood Count Auto Diff Today Z00.00 - Encounter for general adult medical examination without abnormal findings XR DEXA axial skeleton Today M81.0 - Age-related osteoporosis without current pathological fracture Parathyroid Hormone Intact Today E83.52 - Hypercalcemia Comprehensive [place]. Panel Fast Today Z00.00 - Encounter for general adult medical examination without abnormal findings Lipid Panel Today Z00.00 - Encounter for general adult medical examination without abnormal findings Microalbumin, Random (w Creat) Today I10 - Essential (primary) hypertension TSH reflex Free T4 Today Z00.00 - Encounter for general adult medical examination without abnormal findings UA and rflx microscopic Today Z00.00 - Encounter for general adult medical examination without abnormal findings Medications: Changed From tizanidine 4 mg PO TID 30 tabs 0RF To tizanidine 4 mg PO TID 90 tabs 0RF 30 days Refilled tizanidine 4 mg PO TID 30 tabs 0RF Coding Level of Care Code Est Pt Level 4 (84355) Diagnoses Depression with anxiety F41.8 Cough R05.9 Elevated liver enzymes R74.8 Screening for colon cancer Z12.11 Breast cancer screening by mammogram Z12.31 Adult general medical exam Z00.00 Hypercalcemia E83.52 Additional Codes MAU-7 Assessment Billing - MAU-7 Assessment Tool: MAU-7 Assessment 70711 ([id number])
== END 2024-01-10 15:05 | disposition home or self-care (01) ==
PROVIDERS: PCP Family Medicine; Visit Provider Family Medicine
DX: Z00.00 Encounter for general adult medical examination without abnormal findings (principal); F41.8 Other specified anxiety disorders; R74.8 Abnormal levels of other serum enzymes; R05.9 Cough, unspecified; E83.52 Hypercalcemia; Z12.11 Encounter for screening for malignant neoplasm of colon; Z12.31 Encounter for screening mammogram for malignant neoplasm of breast
CPT/HCPCS: 99396

== ENCOUNTER 2024-01-18 11:04 | Outpatient (AMB) | payer MEDICARE, SELFPAY ==
--- NOTE | 2024-01-18 11:05 | A.OFFVIS_ITS ---
Intake Vital Signs 01/18/24 11:14 Height 5 ft 4 in Weight 117 lb 2 oz BMI 20.1 BP 135/75 Blood Pressure Location Lt brachial Position Sitting Pulse 98 Pulse Source Pulse Oximeter Pulse Oximetry (%) 98 Oxygen Delivery Method Room Air Intake Visit Reasons: Pill Count Intake Note: Marilu comes in today for a pill count to hydrocodone-acetaminophen, patient should have 24 tablets and presents with 32 tablets which she last took today 01/18/24. 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 Patient is supposed to have #24 pills, in her possession has #32 pills. This demonstrates a responsible a ttitude in regards to the medication regimen. Patient reports mild to moderate analgesia on her current regimen of hydrocodone-acetaminophen 7.5-325 mg 1 tab Q6H prn without any noted side effects. Reports ongoing acute on chronic right shoulder and exacerbation of chronic low back pain which she rates at 8/10. She recently received right shoulder steroid injection on 12/22/[address] Tom. Denies any fevers, chills, weight changes, infection, constipation, edema, nausea, sedation, dizziness, or urinary retention. Patient reports Ketamine continues to work well for her which she gets once weekly Ketamine sublingual intake through her psychiatrist Dr. Tonja Lazo and plans to start it on every other week schedule. Patient reports significant improvement in her sleep and increased energy levels as well as improving her emotional state. She does report lower energy levels with onset of low back pain. [facility] Medical History Depression Migraine headache Stool incontinence Chronic pain syndrome Postlaminectomy syndrome Disc degeneration, lumbar Compression fracture of L1 lumbar vertebra Osteoporosis Hypertension Spondylosis Attention deficit disorder Herniated disc Asthma Anxiety Migraine headache Surgical History Status post kyphoplasty History of lumbosacral spine surgery History of cervical spinal surgery History of spinal surgery History of surgery on left wrist Family History Sister Ovarian cancer Lung cancer Maternal Grandmother Ovarian cancer Paternal Aunt Ovarian cancer Maternal Aunt Pancreatic cancer Social History Household Members: Spouse Housing: House Are you a primary small animal caretaker to a significant other at home: No Do you presently have visiting nurse or other home services: No Comment: medicated in pacu Patient Tobacco Use Status: Former Tobacco user e-Cigarette/Vaping Use: Never Used Second Hand Smoke Exposure: No service: No Current occupational status: disabled 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 Alert and oriented. Mood and affect appropriate. Follows and participates in conversation appropriately. Respiratory effort is unlabored. No cough. Wearing facemask. Able to transition from sit to stand unassisted. Ambulates with bilaterally normal heel strike and toe off. Extrem Right upper extremity: shoulder/upper arm (limited ROM due to pain, difficulty with overhead reaches) Details: normal to inspection, tenderness Location: of the A-C joint, over the biceps tendon and over the subacromial bursa and crepitus; no swelling, no ecchymosis and no unusual warmth Psych Appearance: grossly normal Mental Status: mental status grossly normal Speech and movement: Normal speech and movement present Affect: normal affect Attitude: cooperative Thought process: Normal thought process present Thought content: Normal thought content present, suicidality (none), no hallucinations and No Depressive thoughts present Insight: Good insight present (Psych) Judgement: Good judgement present (Psych) Assessment & Plan Assessment & Plan (1) Postlaminectomy syndrome: Code(s): M96.1 - Postlaminectomy syndrome, not elsewhere classified (2) Disc degeneration, lumbar: Code(s): M51.36 - Other intervertebral disc degeneration, lumbar region (3) Opioid contract exists: Code(s): Z79.891 - intermediate (current) use of opiate analgesic (4) Right shoulder pain: Code(s): M25.511 - Pain in right shoulder (5) Chronic pain syndrome: Code(s): G89.4 - Chronic pain syndrome Plan Patient has shown accountability for her medication regimen and the pill count was accurate. There is no evidence of misuse, abuse or diversion at this time. [employer] reviewed and consistent. Script sent for hydrocodone-acetaminophen 7.5- 325 mg 1 tab Q6H for 30 days with advanced date on 01/24/24. Discussed with the patient the risks associated with benzodiazepine and opioid use. Patient is aware and verbalized an agreement to take the medications at least two hours apart. Patient has Narcan at home. Patient is also undergoing Ketamine sublingual treatments through her psychiatrist for depression with notable improvements. Patient recently received right shoulder steroid injection next week with Dr. oTm. She is planning to get her lower teeth removed for denture plans All questions were answered and the patient is in agreement with the plan. Follow up in one month for a pill count or sooner if needed. Medications: Refilled hydrocodone-acetaminophen 7.5-325 mg Partial Fill upon patient request. 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
[2024-01-18 11:14] VITALS: BP 135/75; PULSE 98; O2SAT 98; BMI 20.1
== END 2024-01-18 11:32 | disposition home or self-care (01) ==
PROVIDERS: PCP Family Medicine; Visit Provider Nurse Practitioner Family
DX: G89.4 Chronic pain syndrome (principal); M96.1 Postlaminectomy syndrome, not elsewhere classified; M51.36 Other intervertebral disc degeneration, lumbar region; Z79.891 Long term (current) use of opiate analgesic; M25.511 Pain in right shoulder
CPT/HCPCS: 99214

== ENCOUNTER → 2024-01-18 11:04 | Outpatient (BNVA) | payer MEDICARE, SELFPAY | PROVIDERS: PCP Family Medicine; Visit Provider Nurse Practitioner Family | DX: M96.1 Postlaminectomy syndrome, not elsewhere classified (principal); M25.511 Pain in right shoulder; G89.4 Chronic pain syndrome; Z51.81 Encounter for therapeutic drug level monitoring; Z79.891 Long term (current) use of opiate analgesic | CPT/HCPCS: 99212 ==

== ENCOUNTER 2024-02-19 11:27 | Outpatient (AMB) | payer MEDICARE, SELFPAY ==
--- NOTE | 2024-02-19 11:29 | A.OFFVIS_ITS ---
Vital Signs 02/19/24 11:40 Height 5 ft 4 in Weight 115 lb 8 oz BMI 19.8 BP 134/76 Blood Pressure Location Lt brachial Position Sitting Pulse 94 Pulse Source Pulse Oximeter Temp 97.3 F Temp Source Tympanic Pulse Oximetry (%) 99 Oxygen Delivery Method Room Air Intake Visit Reasons: Medication Count/ Random UDS Intake Note: Marilu comes in today for a pill count to hydrocodone-acetaminophen, patient should have 16 tablets and presents with 30 tablets which she last too today 02/19/24 at 9:30am. Pain today 07/09 Patient will also go for a random UDS today, aware that she needs to go to the lab on the first floor of this building before 12pm today 02/19/24. Lens Block Gauger Required: No Accompanied by: Self / Same As Patient Allergies amoxicillin [From Augmentin] Allergy (Severe, Verified 02/19/24 11:40) Facial Swelling clavulanic acid [From Augmentin] Allergy (Severe, Verified 02/19/24 11:40) Facial Swelling naproxen Allergy (Severe, Verified 02/19/24 11:40) asthma, SOB animal dander [PET DANDER] Allergy (Intermediate, Verified 02/19/24 11:40) rash SEASONAL ALLERGIES Allergy (Mild, Uncoded 12/22/23 11:18) congestion HPI Comments Details: Patient presents today for a pill count. Patient is supposed to have #16 pills, in her possession has #30 pills. This demonstrates a responsible attitude in regards to the medication regimen. Patient reports mild to moderate analgesia on her current regimen of hydrocodone-acetaminophen 7.5-325 mg 1 tab Q6H prn without any noted side effects. She reports recent stomach bug and has decrease her medication use. Reports ongoing acute on chronic right shoulder and exacerbation of chronic low back pain which she rates at 8/10. She recently received right shoulder steroid injection on 12/22/[address] Tom with partial relief. She has Ortho follow up next month. Denies any fevers, chills, weight changes, infection, constipation, edema, nausea, sedation, dizziness, or urinary retention. Patient reports current Ketamine dose is 160 mg per week and noted this has been working well for her through her psychiatrist Dr. Tonja Lazo. [facility] Medical History Depression Migraine headache Stool incontinence Chronic pain syndrome Postlaminectomy syndrome Disc degeneration, lumbar Compression fracture of L1 lumbar vertebra Osteoporosis Hypertension Spondylosis Attention deficit disorder Herniated disc Asthma Anxiety Migraine headache Surgical History Status post kyphoplasty History of lumbosacral spine surgery History of cervical spinal surgery History of spinal surgery History of surgery on left wrist Family History Sister Ovarian cancer Lung cancer Maternal Grandmother Ovarian cancer Paternal Aunt Ovarian cancer Maternal Aunt Pancreatic cancer Social History Household Members: Spouse Housing: House Are you a primary day care supervisor to a significant other at home: No Do you presently have visiting nurse or other home services: No Comment: medicated in pacu Patient Tobacco Use Status: Former Tobacco user e-Cigarette/Vaping Use: Never Used Second Hand Smoke Exposure: No service: No Current occupational status: disabled 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 Alert and oriented. Mood and affect appropriate. Follows and participates in conversation appropriately. Respiratory effort is unlabored. No cough. Wearing facemask. Able to transition from sit to stand unassisted. Ambulates with bilaterally normal heel strike and toe off. Extrem General: Yes capillary refill normal, Yes no clubbing, cyanosis or edema and Yes no calf tenderness Right upper extremity: shoulder/upper arm (Limited ROM due to pain, difficulty with overhead and back pocket reaches) Details: normal to inspection, tenderness Location: of the A-C joint, over the biceps tendon and over the subacromial bursa and crepitus; no swelling, no ecchymosis, no deformity and no unusual warmth Psych Appearance: grossly normal and well kempt Mental Status: mental status grossly normal Speech and movement: Normal speech and movement present and Clear speech present Affect: normal affect Attitude: cooperative Thought process: Normal thought process present Thought content: Normal thought content present, suicidality (none), no hallucinations and No Depressive thoughts present Insight: Good insight present (Psych) Judgement: Good judgement present (Psych) Assessment & Plan Assessment & Plan (1) Postlaminectomy syndrome: Code(s): M96.1 - Postlaminectomy syndrome, not elsewhere classified Category: Medical (2) Disc degeneration, lumbar: Code(s): M51.36 - Other intervertebral disc degeneration, lumbar region Category: Medical (3) Opioid contract exists: Code(s): Z79.891 - [facility] (current) use of opiate analgesic Category: Medical (4) Right shoulder pain: Code(s): M25.511 - Pain in right shoulder Category: Medical (5) Chronic pain syndrome: Code(s): G89.4 - Chronic pain syndrome Category: Medical Plan Patient has shown accountability for her medication regimen and the pill count was accurate. There is no evidence of misuse, abuse or diversion at this time. [employer] reviewed and consistent. Script sent for hydrocodone-acetaminophen 7.5- 325 mg 1 tab Q6H for 30 days with advanced date on 02/26/24. Discussed with the patient the risks associated with benzodiazepine and opioid use. Patient is aware and verbalized an agreement to take the medications at least two hours apart. Patient has Narcan at home. Patient is also undergoing Ketamine sublingual treatments, currently 160 mg weekly through her psychiatrist for depression with notable improvements. Patient recently received right shoulder steroid injection last month with Dr. Tom with partial pain relief. She is planning to get her lower teeth removed for denture plans prior to shoulder surgery. All questions were answered and the patient is in agreement with the plan. Follow up in one month for a pill count or sooner if needed. Medications: Refilled hydrocodone-acetaminophen 7.5-325 mg Partial Fill upon patient request. 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
[2024-02-19 11:40] VITALS: BP 134/76; PULSE 94; TEMP 36.3; O2SAT 99; BMI 19.8
== END 2024-02-19 12:14 | disposition home or self-care (01) ==
LOC: HO.PMC 11:29
PROVIDERS: PCP Family Medicine; Visit Provider Nurse Practitioner Family
DX: G89.4 Chronic pain syndrome (principal); M96.1 Postlaminectomy syndrome, not elsewhere classified; M51.36 Other intervertebral disc degeneration, lumbar region; Z79.891 Long term (current) use of opiate analgesic; M25.511 Pain in right shoulder
CPT/HCPCS: 99214

== ENCOUNTER → 2024-02-19 11:28 | Outpatient (BNVA) | payer MEDICARE, SELFPAY | PROVIDERS: PCP Family Medicine; Visit Provider Nurse Practitioner Family | DX: Z51.81 Encounter for therapeutic drug level monitoring (principal); F11.20 Opioid dependence, uncomplicated; M96.1 Postlaminectomy syndrome, not elsewhere classified; M51.36 Other intervertebral disc degeneration, lumbar region; M25.511 Pain in right shoulder; G89.4 Chronic pain syndrome; Z79.891 Long term (current) use of opiate analgesic | CPT/HCPCS: 99212 ==

== ENCOUNTER 2024-03-15 12:57 | Outpatient (AMB) | payer MEDICARE, SELFPAY ==
--- NOTE | 2024-03-15 13:03 | MHC.OFFVIS ---
Vital Signs 03/15/24 13:11 Height 5 ft 4 in Weight 114 lb 2 oz BMI 19.6 BP 134/81 Blood Pressure Location Lt brachial Position Sitting Pulse 78 Pulse Source Pulse Oximeter Pulse Oximetry (%) 98 Oxygen Delivery Method Room Air Intake Visit Reasons: PILL COUNT Intake Note: Marilu comes in today for a pill count to hydrocodone-acetaminophen. Patient should have 44 tablets and presents with 53 tablets which she last took today 03/15/24 at 10:20am. Pain today 10. Transitional Care Manager Required: No Accompanied by: Self / Same As Patient Allergies amoxicillin [From Augmentin] Allergy (Severe, Verified 03/15/24 13:11) Facial Swelling clavulanic acid [From Augmentin] Allergy (Severe, Verified 03/15/24 13:11) Facial Swelling naproxen Allergy (Severe, Verified 03/15/24 13:11) asthma, SOB animal dander [PET DANDER] Allergy (Intermediate, Verified 03/15/24 13:11) rash SEASONAL ALLERGIES Allergy (Mild, Uncoded 12/22/23 11:18) congestion HPI Comments Details: Patient presents today for a pill count. Patient is supposed to have #44 pills, in her possession has #53 pills. This demonstrates a responsible attitude in regards to the medication regimen. Patient reports adequate analgesia on her current regimen of hydrocodone-acetaminophen 7.5-325 mg 1 tab Q6H prn without any noted side effects. Reports ongoing chronic right shoulder and exacerbation of chronic low back pain which she rates at 6/10. She recently received right shoulder steroid injection on 12/22/[address] Tom with partial relief. She has Ortho follow up on 03/29/24. She also reports chronic joint pain with inflammation and deformities in the tips of her fingers and new onset of numbness in the right thumb since last yesterday. Patient was offered right hand xray and referral to Rheumatology, patient declined both and would like to follow up with Dr. Tom for this. Denies any fevers, chills, weight changes, infection, constipation, edema, nausea, sedation, dizziness, or urinary retention. Patient reports current Ketamine dose is 160 mg per every other week and noted this has been working well for her through her psychiatrist Dr. Tonja Lazo. COUNTS INCLUDE 234 BEDS AT THE [facility] Medical History Depression Migraine headache Stool incontinence Chronic pain syndrome Postlaminectomy syndrome Disc degeneration, lumbar Compression fracture of L1 lumbar vertebra Osteoporosis Hypertension Spondylosis Attention deficit disorder Herniated disc Asthma Anxiety Migraine headache Surgical History Status post kyphoplasty History of lumbosacral spine surgery History of cervical spinal surgery History of spinal surgery History of surgery on left wrist Family History Sister Ovarian cancer Lung cancer Maternal Grandmother Ovarian cancer Paternal Aunt Ovarian cancer Maternal Aunt Pancreatic cancer Social History Household Members: Spouse Housing: House Are you a primary healthcare facility administrator to a significant other at home: No Do you presently have visiting nurse or other home services: No Comment: medicated in pacu Patient Tobacco Use Status: Former Tobacco user e-Cigarette/Vaping Use: Never Used Second Hand Smoke Exposure: No service: No Current occupational status: disabled 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 Alert and oriented. Mood and affect appropriate. Follows and participates in conversation appropriately. Respiratory effort is unlabored. No cough. Wearing facemask. Able to transition from sit to stand unassisted. Ambulates with bilaterally normal heel strike and toe off. Extrem Right upper extremity: shoulder/upper arm (Limited ROM due to pain, difficulty with overhead and back pocket reaches) Details: normal to inspection, tenderness Location: of the A-C joint, over the biceps tendon and over the subacromial bursa and crepitus; no swelling, no ecchymosis, no deformity and no unusual warmth Psych Appearance: grossly normal Mental Status: mental status grossly normal Speech and movement: Normal speech and movement present Affect: normal affect Attitude: cooperative Thought process: Normal thought process present Thought content: Normal thought content present, suicidality (none), no hallucinations and No Depressive thoughts present Insight: Good insight present (Psych) Judgement: Good judgement present (Psych) Results Reviewed Results Reviewed: XR SHOULDER, RIGHT 06/02/23 COMPARISON: 03/31/2017 FINDINGS: Severe degeneration the glenohumeral joint appears progressive. Loss of joint space with bulky osteophytes. No radiopaque loose body or focal bony lesion. No erosions. IMPRESSION: Progressive severe degeneration of the glenohumeral joint. 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 There is no evidence of misuse, abuse or diversion at this time. [employer] reviewed and consistent. Script sent for hydrocodone-acetaminophen 7.5-325 mg 1 tab Q6H for 30 days with advanced date on 03/27/24. Discussed with the patient the risks associated with benzodiazepine and opioid use. Patient is aware and verbalized an agreement to take the medications at least two hours apart. Patient has Narcan at home. Patient is also undergoing Ketamine sublingual treatments, currently 160 mg once every other week through her psychiatrist for depression with notable improvements. All questions were answered and the patient is in agreement with the plan. Follow up in one month for a pill count or sooner if needed. Medications: Refilled hydrocodone-acetaminophen 7.5-325 mg Partial Fill upon patient request. 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
[2024-03-15 13:11] VITALS: BP 134/81; PULSE 78; O2SAT 98; BMI 19.6
== END 2024-03-15 13:23 | disposition home or self-care (01) ==
PROVIDERS: PCP Family Medicine; Visit Provider Nurse Practitioner Family
DX: M96.1 Postlaminectomy syndrome, not elsewhere classified (principal); M51.36 Other intervertebral disc degeneration, lumbar region; Z79.891 Long term (current) use of opiate analgesic; M25.511 Pain in right shoulder; G89.4 Chronic pain syndrome; M19.041 Primary osteoarthritis, right hand; M19.042 Primary osteoarthritis, left hand
CPT/HCPCS: 99214

== ENCOUNTER → 2024-03-15 12:57 | Outpatient (BNVA) | payer MEDICARE, SELFPAY | PROVIDERS: PCP Family Medicine; Visit Provider Nurse Practitioner Family | DX: Z51.81 Encounter for therapeutic drug level monitoring (principal); M96.1 Postlaminectomy syndrome, not elsewhere classified; M51.36 Other intervertebral disc degeneration, lumbar region; M25.511 Pain in right shoulder; M19.041 Primary osteoarthritis, right hand; M19.042 Primary osteoarthritis, left hand; G89.4 Chronic pain syndrome; Z79.891 Long term (current) use of opiate analgesic | CPT/HCPCS: 99212 ==

== ENCOUNTER 2024-03-29 11:17 | Outpatient (AMB) | payer MEDICARE, SELFPAY ==
--- NOTE | 2024-03-29 11:29 | MHC.OFFVIS ---
Vital Signs 03/29/24 11:34 Height 5 ft 4 in Weight 114 lb BMI 19.6 Intake Visit Reasons: OV-Severe Right GH OA - Last Inj 12/22/23 Intake Note: Simi is a 64 year old right hand dominant female who presents today for a follow up of her severe right shoulder OA. She last had an injection in the right shoulder on 12/22/23, as she needed to proceed with dental work before perusing any surgical intervention. She has not gotten the dental work done, she is working on getting new insurance to have this dental work done. Allergies amoxicillin [From Augmentin] Allergy (Severe, Verified 03/29/24 11:30) Facial Swelling clavulanic acid [From Augmentin] Allergy (Severe, Verified 03/29/24 11:30) Facial Swelling naproxen Allergy (Severe, Verified 03/29/24 11:30) asthma, SOB animal dander [PET DANDER] Allergy (Intermediate, Verified 03/29/24 11:30) rash SEASONAL ALLERGIES Allergy (Mild, Uncoded 03/29/24 11:30) congestion HPI HPI OV-Severe Right GH OA - Last Inj 12/22/23: Details: Simi is a 64 year old right hand dominant female who presents today for a follow up of her severe right shoulder OA. She last had an injection in the right shoulder on 12/22/23, as she needed to proceed with dental work before perusing any surgical intervention. She has not gotten the dental work done, she is working on getting new insurance to have this dental work done. [facility] Medical History Depression Migraine headache Stool incontinence Chronic pain syndrome Postlaminectomy syndrome Disc degeneration, lumbar Compression fracture of L1 lumbar vertebra Osteoporosis Hypertension Spondylosis Attention deficit disorder Herniated disc Asthma Anxiety Migraine headache Surgical History Status post kyphoplasty History of lumbosacral spine surgery History of cervical spinal surgery History of spinal surgery History of surgery on left wrist Family History Sister Ovarian cancer Lung cancer Maternal Grandmother Ovarian cancer Paternal Aunt Ovarian cancer Maternal Aunt Pancreatic cancer Social History Household Members: Spouse Housing: House Are you a primary child care centre manager to a significant other at home: No Do you presently have visiting nurse or other home services: No Comment: medicated in pacu Patient Tobacco Use Status: Former Tobacco user e-Cigarette/Vaping Use: Never Used Second Hand Smoke Exposure: No service: No Current occupational status: disabled 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 Current occupational exposures/hazards: No Cognitive needs: No Hearing needs: No Vision needs: No Physical Exam Vital Signs: BMI result Body Mass Index 19.6 Const General: no acute distress, alert and awake Orientation/consciousness: patient oriented x3 HEENT Head: Yes normocephalic and Yes atraumatic Eyes EOM: EOMs intact bilaterally Resp Effort & Inspection: normal respiratory effort and able to speak in complete sentences Cardio Jugular venous distension: no JVD Skin General skin exam: turgor normal Rashes: no rashes Neuro General: patient oriented x3 Extrem Other: Painful active and passive motion Neg EC ER to 20 deg Psych Appearance: grossly normal Affect: normal affect Attitude: cooperative Assessment & Plan Assessment & Plan (1) Osteoarthritis of right glenohumeral joint: Code(s): M19.011 - Primary osteoarthritis, right shoulder Category: Medical Plan: Marilu is doing well. She still has significant pain and feels limited but still has not had her teeth pulled. Prior inejctions have been only partially helpful. Ordered GH injection to be done in procedure room with pain management. Plan Prepared for Kaiden Tom MD by Chan Madrigal, medical certification specialist, on 12/22/23 at 11:27 AM, EST. Orders: Referrals Pain Management Referral M19.011 - Primary osteoarthritis, right shoulder Coding Level of Care Code Est Pt Level 4 (62827) Diagnoses Osteoarthritis of right glenohumeral joint M19.011
[2024-03-29 11:34] VITALS: BMI 19.6
== END 2024-03-29 12:20 | disposition home or self-care (01) ==
PROVIDERS: PCP Family Medicine; Visit Provider Orthopaedic Surgery
DX: M19.011 Primary osteoarthritis, right shoulder (principal)
CPT/HCPCS: 99214

== ENCOUNTER → 2024-03-29 11:17 | Outpatient (BNVA) | payer MEDICARE, SELFPAY | PROVIDERS: PCP Family Medicine; Visit Provider Orthopaedic Surgery | DX: M19.011 Primary osteoarthritis, right shoulder (principal) | CPT/HCPCS: 99212 ==

== ENCOUNTER 2024-04-12 12:57 | Outpatient (AMB) | payer MEDICARE, SELFPAY ==
--- NOTE | 2024-04-12 13:02 | A.OFFVIS_ITS ---
Vital Signs 04/12/24 13:11 Height 5 ft 4 in Weight 113 lb 4 oz BMI 19.4 BP 133/79 Blood Pressure Location Lt brachial Position Sitting Pulse 88 Pulse Source Pulse Oximeter Pulse Oximetry (%) 96 Oxygen Delivery Method Room Air Intake Visit Reasons: PILL COUNT Intake Note: Marilu comes in today for a pill count to hydrocodone-acetaminophen, patient should have 56 tablets and presents with 62 tablets which she last took today 04/12/24 at 10am. 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 Patient is supposed to have #56 pills, in her possession has #62 pills. This demonstrates a responsible attitude in regards to the medication regimen. Patient reports mild analgesia on her current regimen of hydrocodone-acetaminophen 7.5-325 mg 1 tab Q6H prn without any noted side effects. She reports significant right shoulder pain due to advanced OA. She was evaluated by Dr. Tom, Orthopedics, on 03/29/24 and was referred to us for fluoroscopy guided right GH injection which has pending authorization approval. In meantime, patient would like to return to previous dose of hydrocodone-acetaminophen 10-325 mg 1 tab Q6H prn. She is in the process of dental procedure and is not planning for right shoulder surgery for at least 6 months from now. Patient lso reports her dog is in the process of terminal diagnosis and requires constant care which increases patient's right shoulder pain. She continues to follow up with Psychiatry for ketamine with Dr. Tonja Lazo. Patient denies any fevers, chills, weight changes, infection, constipation, edema, nausea, sedation, dizziness, or urinary retention. [facility] Medical History Depression Migraine headache Stool incontinence Chronic pain syndrome Postlaminectomy syndrome Disc degeneration, lumbar Compression fracture of L1 lumbar vertebra Osteoporosis Hypertension Spondylosis Attention deficit disorder Herniated disc Asthma Anxiety Migraine headache Surgical History Status post kyphoplasty History of lumbosacral spine surgery History of cervical spinal surgery History of spinal surgery History of surgery on left wrist Family History Sister Ovarian cancer Lung cancer Maternal Grandmother Ovarian cancer Paternal Aunt Ovarian cancer Maternal Aunt Pancreatic cancer Social History Household Members: Spouse Housing: House Are you a primary rn wound care to a significant other at home: No Do you presently have visiting nurse or other home services: No Comment: medicated in pacu Patient Tobacco Use Status: Former Tobacco user e-Cigarette/Vaping Use: Never Used Second Hand Smoke Exposure: No service: No Current occupational status: disabled 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 Alert and oriented. Mood and affect appropriate. Follows and participates in conversation appropriately. Respiratory effort is unlabored. No cough. Able to transition from sit to stand unassisted. Ambulates with bilaterally normal heel strike and toe off. Extrem General: Yes capillary refill normal, Yes no clubbing, cyanosis or edema and Yes no calf tenderness Right upper extremity: shoulder/upper arm (Limited passive and active internal and external ROM due to pain) Details: normal to inspection, tenderness Location: of the A-C joint, over the biceps tendon and over the subacromial bursa and crepitus; no swelling, no ecchymosis, no deformity and no unusual warmth Psych Appearance: grossly normal and well kempt Mental Status: mental status grossly normal Speech and movement: Normal speech and movement present and Clear speech present Affect: normal affect and Sad affect present Attitude: cooperative Thought process: Normal thought process present Thought content: Normal thought content present, suicidality (none), no hallucinations and No Depressive thoughts present Insight: Good insight present (Psych) Judgement: Good judgement present (Psych) Results Reviewed Results Reviewed: XR SHOULDER, RIGHT 06/02/23 COMPARISON: 03/31/2017 FINDINGS: Severe degeneration the glenohumeral joint appears progressive. Loss of joint space with bulky osteophytes. No radiopaque loose body or focal bony lesion. No erosions. IMPRESSION: Progressive severe degeneration of the glenohumeral joint. 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 There is no evidence of misuse, abuse or diversion at this time. [employer] reviewed and consistent. Script sent for increased dose of hydrocodone-acetaminophen 10-325 mg 1 tab Q6H for 30 days with advanced date on 04/27/24. Discussed with the patient the risks associated with benzodiazepine and opioid use. Patient is aware and verbalized an agreement to take the medications at least two hours apart. Patient has Narcan at home. Proceed with Right glenohumeral intra-articular steroid injection with local and fluoroscopy as planned. Pending PA. All questions were answered and the patient is in agreement with the plan. Follow up in one month for a pill count or sooner if needed. Medications: Changed From hydrocodone-acetaminophen 7.5-325 mg Partial Fill upon patient request. 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
[2024-04-12 13:11] VITALS: BP 133/79; PULSE 88; O2SAT 96; BMI 19.4
== END 2024-04-12 13:31 | disposition home or self-care (01) ==
PROVIDERS: PCP Family Medicine; Visit Provider Nurse Practitioner Family
DX: M51.36 Other intervertebral disc degeneration, lumbar region (principal); G89.4 Chronic pain syndrome; Z79.891 Long term (current) use of opiate analgesic; M25.511 Pain in right shoulder; M19.011 Primary osteoarthritis, right shoulder; M96.1 Postlaminectomy syndrome, not elsewhere classified
CPT/HCPCS: 99214

== ENCOUNTER → 2024-04-12 12:57 | Outpatient (BNVA) | payer MEDICARE, SELFPAY | PROVIDERS: PCP Family Medicine; Visit Provider Nurse Practitioner Family | DX: G89.4 Chronic pain syndrome (principal); M51.36 Other intervertebral disc degeneration, lumbar region; M19.011 Primary osteoarthritis, right shoulder; M96.1 Postlaminectomy syndrome, not elsewhere classified; Z79.891 Long term (current) use of opiate analgesic | CPT/HCPCS: 99212 ==

== ENCOUNTER 2024-05-07 06:19 | Outpatient (REF) | payer MEDICARE, SELFPAY ==
--- NOTE | ~2024-05-07 | FL_ITS ---
EXAMINATION: XR FLUOROSCOPY WITH IMAGES CLINICAL INFORMATION: Osteoarthritis shoulder, right. COMPARISON: None available. TECHNIQUE: Fluoroscopy Supervised By: Dr. George Saucedo. Fluoroscopy Time: 0.2 minutes. Cumulative Dose: 0.243 mGy. DAP: 0.95043 mGym2. Images: 3. FINDINGS: Intraoperative fluoroscopy and spot films were performed during a procedure in the OR. Marked degenerative changes are seen in the right shoulder. A single needle is present. Contrast media appears to be in the region of the rotator cuff. No visible contrast in the right shoulder glenohumeral joint. Please correlate with Dr. Saucedo's report for complete details. FL/FL guidance in treatment room IMPRESSION: Intraoperative fluoroscopy and spot films were obtained. Please see Dr. Saucedo's report for complete details.
== END 2024-05-07 06:20 | disposition home or self-care (01) ==
LOC: CF 06:19
PROVIDERS: Visit Provider Anesthesiology
DX: M19.011 Primary osteoarthritis, right shoulder (principal); M51.36 Other intervertebral disc degeneration, lumbar region; G89.4 Chronic pain syndrome
CPT/HCPCS: 20610; J2795; J3301; Q9967

== ENCOUNTER 2024-05-07 14:37 | Outpatient (AMB) | payer MEDICARE, SELFPAY ==
--- NOTE | 2024-05-07 15:45 | A.OFFVIS_ITS ---
Vital Signs 05/07/24 16:21 05/07/24 16:22 Height 5 ft 4 in 5 ft 4 in Weight 113 lb 4 oz 113 lb 4 oz BMI 19.4 19.4 BP 129/70 136/68 Blood Pressure Location Lt brachial Lt brachial Position Sitting Sitting Respiration 12 12 Pulse 73 77 Pulse Source Pulse Oximeter Pulse Oximeter Pulse Oximetry (%) 98 99 Oxygen Delivery Method Room Air Room Air Comment pre-op post-op Intake Visit Reasons: right shoulder injection (okay per Shawna) Allergies amoxicillin [From Augmentin] Allergy (Severe, Verified 05/07/24 16:23) Facial Swelling clavulanic acid [From Augmentin] Allergy (Severe, Verified 05/07/24 16:23) Facial Swelling naproxen Allergy (Severe, Verified 05/07/24 16:23) asthma, SOB animal dander [PET DANDER] Allergy (Intermediate, Verified 05/07/24 16:23) rash SEASONAL ALLERGIES Allergy (Mild, Uncoded 03/29/24 11:30) congestion [facility] Medical History Depression Migraine headache Stool incontinence Chronic pain syndrome Postlaminectomy syndrome Disc degeneration, lumbar Compression fracture of L1 lumbar vertebra Osteoporosis Hypertension Spondylosis Attention deficit disorder Herniated disc Asthma Anxiety Migraine headache Surgical History Status post kyphoplasty History of lumbosacral spine surgery History of cervical spinal surgery History of spinal surgery History of surgery on left wrist Family History Sister Ovarian cancer Lung cancer Maternal Grandmother Ovarian cancer Paternal Aunt Ovarian cancer Maternal Aunt Pancreatic cancer Social History Household Members: Spouse Housing: House Are you a primary acute care physician to a significant other at home: No Do you presently have visiting nurse or other home services: No Comment: medicated in pacu Patient Tobacco Use Status: Former Tobacco user e-Cigarette/Vaping Use: Never Used Second Hand Smoke Exposure: No service: No Current occupational status: disabled 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 Current occupational exposures/hazards: No Cognitive needs: No Hearing needs: No Vision needs: No Physical Exam Vital Signs: Last Vital Signs Pulse 77 05/07/24 16:22 Resp 12 05/07/24 16:22 BP 136/68 05/07/24 16:22 Pulse Ox 99 05/07/24 16:22 Oxygen Delivery Method Room Air 05/07/24 16:22 BMI result Body Mass Index 19.4 Assessment & Plan Assessment & Plan (1) Disc degeneration, lumbar: Code(s): M51.36 - Other intervertebral disc degeneration, lumbar region Category: Medical (2) Chronic pain syndrome: Code(s): G89.4 - Chronic pain syndrome Category: Medical (3) Opioid contract exists: Code(s): Z79.891 - senior care (current) use of opiate analgesic Category: Medical (4) Right shoulder pain: Code(s): M25.511 - Pain in right shoulder Category: Medical (5) Osteoarthritis of right glenohumeral joint: Code(s): M19.011 - Primary osteoarthritis, right shoulder Category: Medical (6) Postlaminectomy syndrome: Code(s): M96.1 - Postlaminectomy syndrome, not elsewhere classified Category: Medical Plan Right shoulder steroid injection Informed consent was explained thoroughly to the patient.? All questions about benefits and risks for the procedure were answered. The patient came to the operating room and was positioned prone on the operating table with a small pillow under the right shoulder. The right neck and right shoulder were prepped with ChloraPrep and draped with sterile utility towels. Sterilely draped C-arm was brought over the operating field and picture of the right shoulder joint/glenohumeral joint was demonstrated on the screen. Very prominent narrowing of the glenohumeral joint was noted on the screen. 22 gauge 3 and 1/2 inch needle was driven to the right joint in tunnel vision fashion.? When needle entered the joint capsule injection of the contrast was performed demonstrating intra-articular and minimally periarticular spread of the contrast.? After that 4 cc. of ropivacaine 0.5% mixed with Kenalog 40 mg was injected into the joint.? Upon completion of the injections the needles were removed and pressure were applied.? Sterile dressing was applied.? Upon completion of the injection patient was taken outside of the operating room to the recovery room where she recovered uneventfully. Orders: Orders FL guidance in treatment room 05/07/24 M19.011 - Primary osteoarthritis, right shoulder Coding Level of Care Code Procedure Only Diagnoses Disc degeneration, lumbar M51.36 Chronic pain syndrome G89.4 Opioid contract exists Z79.891 Right shoulder pain M25.511 Osteoarthritis of right glenohumeral joint M19.011 Postlaminectomy syndrome M96.1
[2024-05-07 16:21] VITALS: BP 129/70; PULSE 73; RESP 12; O2SAT 98; BMI 19.4
[2024-05-07 16:22] VITALS: BP 136/68; PULSE 77; RESP 12; O2SAT 99; BMI 19.4
== END 2024-05-07 16:17 | disposition home or self-care (01) ==
LOC: HO.PMCPRC 14:37
PROVIDERS: PCP Family Medicine; Visit Provider Anesthesiology
DX: M25.511 Pain in right shoulder (principal); M19.011 Primary osteoarthritis, right shoulder
CPT/HCPCS: 20610; 77002

== ENCOUNTER 2024-05-10 11:19 | Outpatient (AMB) | payer MEDICARE, SELFPAY ==
--- NOTE | 2024-05-10 11:22 | MHC.OFFVIS ---
Vital Signs 05/10/24 11:31 Height 5 ft 4 in Weight 112 lb BMI 19.2 BP 155/80 H Blood Pressure Location Lt brachial Position Sitting Pulse 96 Pulse Source Pulse Oximeter Pulse Oximetry (%) 99 Oxygen Delivery Method Room Air Intake Visit Reasons: Pill Count/ also f/u right shoulder injection Intake Note: Marilu comes in today for a pill count to hydrocodone-acetaminophen, patient should have 68 tablets and presents with 72 tablets which she last took today 05/10/24 at 10am. 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 Patient is supposed to have #68 pills, in her possession has #72 pills. This demonstrates a responsible attitude in regards to the medication regimen. Patient reports adequate analgesia on her current regimen of hydrocodone-acetaminophen 10-325 mg 1 tab Q6H prn without any noted side effects. Patient underwent fluoroscopy guided right GH steroid injection on 05/07/[address] Saucedo for significant right shoulder pain due to advanced OA. She reports slight pain relief with some bruising. She is in the process of dental procedure and is not planning for right shoulder surgery for several months. Patient continues to follow Psychiatry for ketamine therapy with Dr. Tonja Lazo. Patient denies any fevers, chills, weight changes, infection, constipation, edema, nausea, sedation, dizziness, or urinary retention. [facility] Medical History Depression Migraine headache Stool incontinence Chronic pain syndrome Postlaminectomy syndrome Disc degeneration, lumbar Compression fracture of L1 lumbar vertebra Osteoporosis Hypertension Spondylosis Attention deficit disorder Herniated disc Asthma Anxiety Migraine headache Surgical History Status post kyphoplasty History of lumbosacral spine surgery History of cervical spinal surgery History of spinal surgery History of surgery on left wrist Family History Sister Ovarian cancer Lung cancer Maternal Grandmother Ovarian cancer Paternal Aunt Ovarian cancer Maternal Aunt Pancreatic cancer Social History Household Members: Spouse Housing: House Are you a primary career guidance counselor to a significant other at home: No Do you presently have visiting nurse or other home services: No Comment: medicated in pacu Patient Tobacco Use Status: Former Tobacco user e-Cigarette/Vaping Use: Never Used Second Hand Smoke Exposure: No service: No Current occupational status: disabled 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 Alert and oriented. Mood and affect appropriate. Follows and participates in conversation appropriately. Respiratory effort is unlabored. No cough. Able to transition from sit to stand unassisted. Ambulates with bilaterally normal heel strike and toe off. Extrem General: Yes capillary refill normal, Yes no clubbing, cyanosis or edema and Yes no calf tenderness Right upper extremity: shoulder/upper arm (Limited ROM due to pain) Details: normal to inspection, tenderness Location: of the A-C joint and over the subacromial bursa and crepitus; no swelling, no ecchymosis, no deformity and no unusual warmth Psych Appearance: grossly normal and well kempt Mental Status: mental status grossly normal Speech and movement: Normal speech and movement present and Clear speech present Affect: normal affect and Sad affect present Attitude: cooperative Thought process: Normal thought process present Thought content: Normal thought content present, suicidality (none), no hallucinations and No Depressive thoughts present Insight: Good insight present (Psych) Judgement: Good judgement present (Psych) Results Reviewed Results Reviewed: XR SHOULDER, RIGHT 06/02/23 COMPARISON: 03/31/2017 FINDINGS: Severe degeneration the glenohumeral joint appears progressive. Loss of joint space with bulky osteophytes. No radiopaque loose body or focal bony lesion. No erosions. IMPRESSION: Progressive severe degeneration of the glenohumeral joint. Assessment & Plan Assessment & Plan (1) Disc degeneration, lumbar: Code(s): M51.36 - Other intervertebral disc degeneration, lumbar region Category: Medical (2) Chronic pain syndrome: Code(s): G89.4 - Chronic pain syndrome Category: Medical (3) Opioid contract exists: Code(s): Z79.891 - shelter (current) use of opiate analgesic Category: Medical (4) Right shoulder pain: Code(s): M25.511 - Pain in right shoulder Category: Medical (5) Osteoarthritis of right glenohumeral joint: Code(s): M19.011 - Primary osteoarthritis, right shoulder Category: Medical (6) Postlaminectomy syndrome: Code(s): M96.1 - Postlaminectomy syndrome, not elsewhere classified Category: Medical Plan Patient has shown accountability for her medication regimen and the pill count was accurate. There is no evidence of misuse, abuse or diversion at this time. [facility] reviewed and consistent. Script sent for hydrocodone-acetaminophen 10-325 mg 1 tab Q6H for 30 days with advanced date on 05/26/24. Discussed with the patient the risks associated with benzodiazepine and opioid use. Patient is aware and verbalized an agreement to take the medications at least two hours apart. Patient has Narcan at home. Patient is status post Right glenohumeral intra-articular steroid injection on 05/07/24-will re-evaluate effectiveness of therapeutic injection at next visit. All questions were answered and the patient is in agreement with the plan. Follow up in 4-5 weeks for a pill count or sooner if needed. Medications: Refilled hydrocodone-acetaminophen 10-325 mg Partial Fill upon patient request. 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
[2024-05-10 11:31] VITALS: BP 155/80; PULSE 96; O2SAT 99; BMI 19.2
== END 2024-05-10 11:39 | disposition home or self-care (01) ==
PROVIDERS: PCP Family Medicine; Visit Provider Nurse Practitioner Family
DX: M51.36 Other intervertebral disc degeneration, lumbar region (principal); G89.4 Chronic pain syndrome; Z79.891 Long term (current) use of opiate analgesic; M25.511 Pain in right shoulder; M19.011 Primary osteoarthritis, right shoulder; M96.1 Postlaminectomy syndrome, not elsewhere classified
CPT/HCPCS: 99214

== ENCOUNTER → 2024-05-10 11:19 | Outpatient (BNVA) | payer MEDICARE, SELFPAY | PROVIDERS: PCP Family Medicine; Visit Provider Nurse Practitioner Family | DX: Z51.81 Encounter for therapeutic drug level monitoring (principal); M51.36 Other intervertebral disc degeneration, lumbar region; M25.511 Pain in right shoulder; M19.011 Primary osteoarthritis, right shoulder; M96.1 Postlaminectomy syndrome, not elsewhere classified; G89.4 Chronic pain syndrome; Z79.891 Long term (current) use of opiate analgesic | CPT/HCPCS: 99212 ==

== ENCOUNTER 2024-06-14 11:12 | Outpatient (AMB) | payer MEDICARE, SELFPAY ==
--- NOTE | 2024-06-14 11:17 | MHC.OFFVIS ---
Vital Signs 06/14/24 11:28 Height 5 ft 4 in Weight 111 lb 6 oz BMI 19.1 BP 139/83 Blood Pressure Location Lt brachial Position Sitting Pulse 82 Pulse Source Pulse Oximeter Pulse Oximetry (%) 100 Oxygen Delivery Method Room Air Intake Visit Reasons: Pill Count Intake Note: Marilu comes in today for a pill count to hydrocodone-acetaminophen, patient should have 48 tablets and presents with 51 tablets which she last took today 06/14/24 at 10:30am. 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 Patient is supposed to have #48 pills, in her possession has #51 pills. This demonstrates a responsible attitude in regards to the medication regimen. Patient reports adequate analgesia on her current regimen of hydrocodone-acetaminophen 10-325 mg 1 tab Q6H prn without any noted side effects. Patient underwent fluoroscopy guided right GH steroid injection on 05/07/[address] Saucedo for significant right shoulder pain due to advanced OA. She awaits dental procedure prior to right shoulder surgery and might need to repeat one more therapeutic injection prior to shoulder surgery per patient. Patient continues to follow Psychiatry for ketamine therapy with Dr. Tonja Lazo. She has paused ketamine therapy for 2 months and recently restarted ketamine at 160 mg weekly. Patient denies any fevers, chills, weight changes, infection, constipation, edema, nausea, sedation, dizziness, or urinary retention. [facility] Medical History Depression Migraine headache Stool incontinence Chronic pain syndrome Postlaminectomy syndrome Disc degeneration, lumbar Compression fracture of L1 lumbar vertebra Osteoporosis Hypertension Spondylosis Attention deficit disorder Herniated disc Asthma Anxiety Migraine headache Surgical History Status post kyphoplasty History of lumbosacral spine surgery History of cervical spinal surgery History of spinal surgery History of surgery on left wrist Family History Sister Ovarian cancer Lung cancer Maternal Grandmother Ovarian cancer Paternal Aunt Ovarian cancer Maternal Aunt Pancreatic cancer Social History Household Members: Spouse Housing: House Are you a primary pet care assistant to a significant other at home: No Do you presently have visiting nurse or other home services: No Comment: medicated in pacu Patient Tobacco Use Status: Former Tobacco user e-Cigarette/Vaping Use: Never Used Second Hand Smoke Exposure: No service: No Current occupational status: disabled 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 Alert and oriented. Mood and affect appropriate. Follows and participates in conversation appropriately. Respiratory effort is unlabored. No cough. Able to transition from sit to stand unassisted. Ambulates with bilaterally normal heel strike and toe off. Extrem General: Yes capillary refill normal, Yes no clubbing, cyanosis or edema and Yes no calf tenderness Right upper extremity: shoulder/upper arm (Limited ROM due to pain) Details: tenderness Location: of the A-C joint and over the subacromial bursa and crepitus; no swelling, no ecchymosis and no unusual warmth Psych Appearance: grossly normal Mental Status: mental status grossly normal Speech and movement: Normal speech and movement present Affect: normal affect Attitude: cooperative Thought process: Normal thought process present Thought content: Normal thought content present, suicidality (none), no hallucinations and No Depressive thoughts present Insight: Good insight present (Psych) Judgement: Good judgement present (Psych) Results Reviewed Results Reviewed: XR SHOULDER, RIGHT 06/02/23 COMPARISON: 03/31/2017 FINDINGS: Severe degeneration the glenohumeral joint appears progressive. Loss of joint space with bulky osteophytes. No radiopaque loose body or focal bony lesion. No erosions. IMPRESSION: Progressive severe degeneration of the glenohumeral joint. 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 There is no evidence of misuse, abuse or diversion at this time. [facility] reviewed and consistent. Script sent for hydrocodone-acetaminophen 10-325 mg 1 tab Q6H for 30 days with advanced date on 06/26/24. Discussed with the patient the risks associated with benzodiazepine and opioid use. Patient is aware and verbalized an agreement to take the medications at least two hours apart. Patient has Narcan at home. All questions were answered and the patient is in agreement with the plan. Follow up in 4-5 weeks for a pill count or sooner if needed. Medications: Refilled hydrocodone-acetaminophen 10-325 mg Partial Fill upon patient request. 1 tab PO Q6H PRN 120 tabs 0RF pain 30 days MDD 4 G89.4 - Chronic pain syndrome, M19.011 - Primary osteoarthritis, right shoulder, M25.511 - Pain in right shoulder, M51.36 - Other intervertebral disc degeneration, lumbar region, Z79.891 - prison (current) use of opiate analgesic Coding Level of Care Code Est Pt Level 4 (79328) Diagnoses Disc degeneration, lumbar M51.36 Chronic pain syndrome G89.4 Opioid contract exists Z79.891 Right shoulder pain M25.511 Osteoarthritis of right glenohumeral joint M19.011 Postlaminectomy syndrome M96.1
[2024-06-14 11:28] VITALS: BP 139/83; PULSE 82; O2SAT 100; BMI 19.1
== END 2024-06-14 11:41 | disposition home or self-care (01) ==
PROVIDERS: PCP Family Medicine; Visit Provider Nurse Practitioner Family
DX: G89.4 Chronic pain syndrome (principal); M51.36 Other intervertebral disc degeneration, lumbar region; M25.511 Pain in right shoulder; Z79.891 Long term (current) use of opiate analgesic; M19.011 Primary osteoarthritis, right shoulder; M96.1 Postlaminectomy syndrome, not elsewhere classified
CPT/HCPCS: 99214

== ENCOUNTER → 2024-06-14 11:12 | Outpatient (BNVA) | payer MEDICARE, SELFPAY | PROVIDERS: PCP Family Medicine; Visit Provider Nurse Practitioner Family | DX: Z51.81 Encounter for therapeutic drug level monitoring (principal); M51.36 Other intervertebral disc degeneration, lumbar region; M25.511 Pain in right shoulder; M19.011 Primary osteoarthritis, right shoulder; M96.1 Postlaminectomy syndrome, not elsewhere classified; G89.4 Chronic pain syndrome; Z79.891 Long term (current) use of opiate analgesic | CPT/HCPCS: 99212 ==

== ENCOUNTER 2024-07-19 11:28 | Outpatient (AMB) | payer MEDICARE, SELFPAY ==
--- NOTE | 2024-07-19 11:34 | A.OFFVIS_ITS ---
Vital Signs 07/19/24 11:46 Height 5 ft Weight 115 lb 8 oz BMI 22.6 BP 137/86 Blood Pressure Location Lt brachial Position Sitting Pulse 85 Pulse Source Pulse Oximeter Pulse Oximetry (%) 98 Oxygen Delivery Method Room Air Intake Visit Reasons: Pill Count Intake Note: Marilu comes in today for a pill count to hydrocodone-acetaminophen, patient should have 32 tablets and presents with 34 tablets which she last took today 07/19/24. Pain 06/08 Hair Assistant Required: No Accompanied by: Self / Same As Patient Allergies amoxicillin [From Augmentin] Allergy (Severe, Verified 05/10/24 11:32) Facial Swelling clavulanic acid [From Augmentin] Allergy (Severe, Verified 05/10/24 11:32) Facial Swelling naproxen Allergy (Severe, Verified 05/10/24 11:32) asthma, SOB animal dander [PET DANDER] Allergy (Intermediate, Verified 05/10/24 11:32) rash SEASONAL ALLERGIES Allergy (Mild, Uncoded 03/29/24 11:30) congestion HPI Comments Details: Patient presents today for a pill count. Patient is supposed to have #32 pills, in her possession has #34 pills. This demonstrates a responsible attitude in regards to the medication regimen. Patient reports mild-moderate analgesia on her current regimen of hydrocodone-acetaminophen 10-325 mg 1 tab Q6H prn without any noted side effects. Patient reports effects of right GH steroid injection on 05/07/24 have faded out. She continues to report significant right shoulder pain due to advanced OA with neck stiffness and muscle spasms. She also has chronic left hip pain with moderate OA and post-laminectomy syndrome. Patient reports current opioid regime does not provide adequate analgesia but allows her to be less symptomatic and more functional. Patient requests refill for tizanidine and is aware to avoid Tylenol or Excedrin medication while taking tizanidine. She is scheduled for dental procedure for teeth extractions next week prior to right shoulder surgery. Patient continues to follow Psychiatry for ketamine therapy with Dr. Tonja Lazo. Patient denies any fevers, chills, weight changes, infection, constipation, edema, nausea, sedation, dizziness, or urinary retention. [facility] Medical History Depression Migraine headache Stool incontinence Chronic pain syndrome Postlaminectomy syndrome Disc degeneration, lumbar Compression fracture of L1 lumbar vertebra Osteoporosis Hypertension Spondylosis Attention deficit disorder Herniated disc Asthma Anxiety Migraine headache Surgical History Status post kyphoplasty History of lumbosacral spine surgery History of cervical spinal surgery History of spinal surgery History of surgery on left wrist Family History Sister Ovarian cancer Lung cancer Maternal Grandmother Ovarian cancer Paternal Aunt Ovarian cancer Maternal Aunt Pancreatic cancer Social History Household Members: Spouse Housing: House Are you a primary nursing care attendant to a significant other at home: No Do you presently have visiting nurse or other home services: No Comment: medicated in pacu Patient Tobacco Use Status: Former Tobacco user e-Cigarette/Vaping Use: Never Used Second Hand Smoke Exposure: No service: No Current occupational status: disabled 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 Alert and oriented. Mood and affect appropriate. Follows and participates in conversation appropriately. Respiratory effort is unlabored. No cough. Able to transition from sit to stand unassisted. Ambulates with bilaterally normal heel strike and toe off. Neck Neck: Yes full ROM, Yes supple, No anterior neck swelling, Yes no JVD and No prominent dorsocervical fat pad Back/Spine/Pelvis Cervical Spine: cervical ROM normal, loss of normal cervical lordosis, cervical muscular tenderness, pain with cervical ROM and No Cervical spine tenderness Thoracic/Lumbar Spine: thoracic and lumbar spine normal to inspection, Thoracic/lumbar spine scar(s), pain with thoraco-lumbar ROM, No thoracic spinal tenderness and No lumbar spinal tenderness Extrem General: Yes capillary refill normal, Yes no clubbing, cyanosis or edema and Yes no calf tenderness Right upper extremity: shoulder/upper arm (Limited ROM due to pain) Details: tenderness Location: of the A-C joint and over the subacromial bursa and crepitus; no swelling, no ecchymosis and no unusual warmth Right lower extremity: hip/thigh (Limited ROM due to pain) Details: tenderness Location: of the hip Location: laterally and crepitus Psych Appearance: grossly normal Mental Status: mental status grossly normal Speech and movement: Normal speech and movement present Affect: normal affect Attitude: cooperative Thought process: Normal thought process present Thought content: Normal thought content present, suicidality (none), no hallucinations and No Depressive thoughts present Insight: Good insight present (Psych) Judgement: Good judgement present (Psych) Results Reviewed Results Reviewed: XR SHOULDER, RIGHT 06/02/23 COMPARISON: 03/31/2017 FINDINGS: Severe degeneration the glenohumeral joint appears progressive. Loss of joint space with bulky osteophytes. No radiopaque loose body or focal bony lesion. No erosions. IMPRESSION: Progressive severe degeneration of the glenohumeral joint. CT abdomen pelvis w IV con 12/16/22 OSSEOUS STRUCTURES: Posterior fusion hardware at L4-L5. Kyphoplasty cement at L1. Degenerative changes throughout the spine with multilevel vacuum disc phenomenon. Moderate degenerative change of the left hip with joint space narrowing and osteophytes. 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 There is no evidence of misuse, abuse or diversion at this time. [employer] reviewed and consistent. Script sent for hydrocodone-acetaminophen 10-325 mg 1 tab Q6H for 30 days with advanced date on 07/27/24. Discussed with the patient the risks associated with benzodiazepine and opioid use. Patient is aware and verbalized an agreement to take the medications at least two hours apart. Patient has Narcan at home. Refill provided for tizanidine. Reviewed side effects and precautions. Patient is aware to avoid Excedrin and Tylenol while taking tizanidine for neck muscle spasms. All questions were answered and the patient is in agreement with the plan. Follow up in 4-5 weeks for a pill count or sooner if needed. Medications: Refilled hydrocodone-acetaminophen 10-325 mg Partial Fill upon patient request. 1 tab PO Q6H 30 days PRN 120 tabs 0RF pain MDD 4 G89.4 - Chronic pain syndrome, M19.011 - Primary osteoarthritis, right shoulder, M25.511 - Pain in right shoulder, M51.36 - Other intervertebral disc degeneration, lumbar region, Z79.891 - assisted (current) use of opiate analgesic hydrocodone-acetaminophen 10-325 mg Partial Fill upon patient request. 1 tab PO Q6H 30 days PRN 120 tabs 0RF pain MDD 4 G89.4 - Chronic pain syndrome, M19.011 - Primary osteoarthritis, right shoulder, M25.511 - Pain in right shoulder, M51.36 - Other intervertebral disc degeneration, lumbar region, Z79.891 - assisted (current) use of opiate analgesic tizanidine 4 mg PO TID 30 days 90 tabs 0RF Coding Level of Care Code Est Pt Level 4 (10219) Complex EM visit Add On G2211 Diagnoses Disc degeneration, lumbar M51.36 Chronic pain syndrome G89.4 Opioid contract exists Z79.891 Right shoulder pain M25.511 Osteoarthritis of right glenohumeral joint M19.011 Postlaminectomy syndrome M96.1 Left hip pain M25.552
[2024-07-19 11:46] VITALS: BP 137/86; PULSE 85; O2SAT 98; BMI 22.6
== END 2024-07-19 11:59 | disposition home or self-care (01) ==
PROVIDERS: PCP Family Medicine; Visit Provider Nurse Practitioner Family
DX: M51.36 Other intervertebral disc degeneration, lumbar region (principal); G89.4 Chronic pain syndrome; Z79.891 Long term (current) use of opiate analgesic; M25.511 Pain in right shoulder; M19.011 Primary osteoarthritis, right shoulder; M96.1 Postlaminectomy syndrome, not elsewhere classified; M25.552 Pain in left hip
CPT/HCPCS: 99214; G2211

== ENCOUNTER → 2024-07-19 11:28 | Outpatient (BNVA) | payer MEDICARE, SELFPAY | PROVIDERS: PCP Family Medicine; Visit Provider Nurse Practitioner Family | DX: M51.36 Other intervertebral disc degeneration, lumbar region (principal); M25.511 Pain in right shoulder; M19.011 Primary osteoarthritis, right shoulder; M25.552 Pain in left hip; M96.1 Postlaminectomy syndrome, not elsewhere classified; G89.4 Chronic pain syndrome; Z51.81 Encounter for therapeutic drug level monitoring; Z79.891 Long term (current) use of opiate analgesic | CPT/HCPCS: 99212 ==

== ENCOUNTER 2024-08-02 10:10 | Outpatient (AMB) | payer MEDICARE, SELFPAY ==
[2024-08-02 10:11] VITALS: BMI 19.7
--- NOTE | 2024-08-02 10:11 | A.OFFVIS_ITS ---
Vital Signs 08/02/24 10:11 Height 5 ft 4 in Weight 115 lb BMI 19.7 Intake Visit Reasons: Electrical Shock Feeling in Legs Allergies amoxicillin [From Augmentin] Allergy (Severe, Verified 08/02/24 10:11) Facial Swelling clavulanic acid [From Augmentin] Allergy (Severe, Verified 08/02/24 10:11) Facial Swelling naproxen Allergy (Severe, Verified 08/02/24 10:11) asthma, SOB animal dander [PET DANDER] Allergy (Intermediate, Verified 08/02/24 10:11) rash SEASONAL ALLERGIES Allergy (Mild, Uncoded 03/29/24 11:30) congestion HPI Comments Details: Patient presents today for follow up via telehealth encounter to address electrical shock-like sensations of my whole body. Patient reports she was taking tizanidine for increasing muscle spasms in her neck and shoulder blades with minimal relief. She underwent dental procedure with multiple teeth extractions and has significant bruising and swelling to her chin and cheek bones. She had dental follow up yesterday at [facility]. She is concerned for residual tooth fragment and potential nerve damage it can cause and requests dexamethasone . I encouraged patient to continue to follow up for this with her dentist. Patient reports she first experienced numbness and shock-like sensations in her lower extremities, worse in her right foot and now experiences increase in neck symptoms and upper and lower extremities with numbness, tingling and shock-like sensations. Patient notified our office on Monday, reports no follow up for this with her PCP. Patient states she spent 3 days mostly resting and in bed after dental procedure and has significant exacerbation of her chronic pain generators. She is chronically suffering from post laminectomy syndrome and has been on our opioid program for many years and has also underwent interventional treatments. Denies any recent cough, cold, infection, fever, weakness, bladder or bowel dysfunction, saddle anesthesia or any other significant changes in medical history since last office visit. PRIOR: Patient presents today for a pill count. Patient is supposed to have #32 pills, in her possession has #34 pills. This demonstrates a responsible attitude in regards to the medication regimen. Patient reports mild-moderate analgesia on her current regimen of hydrocodone-acetaminophen 10-325 mg 1 tab Q6H prn without any noted side effects. Patient reports effects of right GH steroid injection on 05/07/24 have faded out. She continues to report significant right shoulder pain due to advanced OA with neck stiffness and muscle spasms. She also has chronic left hip pain with moderate OA and post-laminectomy syndrome. Patient reports current opioid regime does not provide adequate analgesia but allows her to be less symptomatic and more functional. Patient requests refill for tizanidine and is aware to avoid Tylenol or Excedrin medication while taking tizanidine. She is scheduled for dental procedure for teeth extractions next week prior to right shoulder surgery. Patient continues to follow Psychiatry for ketamine therapy with Dr. Tonja Lazo. Patient denies any fevers, chills, weight changes, infection, constipation, edema, nausea, sedation, dizziness, or urinary retention. [facility] Medical History Depression Migraine headache Stool incontinence Chronic pain syndrome Postlaminectomy syndrome Disc degeneration, lumbar Compression fracture of L1 lumbar vertebra Osteoporosis Hypertension Spondylosis Attention deficit disorder Herniated disc Asthma Anxiety Migraine headache Surgical History Status post kyphoplasty History of lumbosacral spine surgery History of cervical spinal surgery History of spinal surgery History of surgery on left wrist Family History Sister Ovarian cancer Lung cancer Maternal Grandmother Ovarian cancer Paternal Aunt Ovarian cancer Maternal Aunt Pancreatic cancer Social History Household Members: Spouse Housing: House Are you a primary child care leader to a significant other at home: No Do you presently have visiting nurse or other home services: No Comment: medicated in pacu Patient Tobacco Use Status: Former Tobacco user e-Cigarette/Vaping Use: Never Used Second Hand Smoke Exposure: No service: No Current occupational status: disabled 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 Current occupational exposures/hazards: No Cognitive needs: No Hearing needs: No Vision needs: No Review of Systems Const All systems reviewed & are unremarkable except as noted in HPI and below ENT Reports Normal hearing present Neuro Reports Normal hearing present and Denies confusion Psych Denies confusion Physical Exam Vital Signs: BMI result Body Mass Index 19.7 Const General: cooperative, alert and awake; No confusion Orientation/consciousness: patient oriented x3 and No confusion Resp Effort & Inspection: able to speak in complete sentences, no audible wheezes and no cough Neuro General: patient oriented x3 and No confusion Cranial nerves: Yes Normal hearing present Cognition (Neuro): normal cognition Psych Mental Status: mental status grossly normal Speech and movement: Clear speech present Affect: normal affect Attitude: cooperative Thought process: Normal thought process present Thought content: Normal thought content present and No Depressive thoughts present Insight: Good insight present (Psych) Judgement: Good judgement present (Psych) Telehealth Telehealth Telehealth Platform: Telephone Location of provider rendering services: practice address Location of patient: address on file Patient Identification confirmed using: Name, : Yes Telehealth method: voice only Patient verbally consented to treatment: Yes Patient verbally consented to billing insurance company: Yes Patient informed of any privacy concerns related to visit: Yes Results Reviewed Results Reviewed: XR SHOULDER, RIGHT 06/02/23 COMPARISON: 03/31/2017 FINDINGS: Severe degeneration the glenohumeral joint appears progressive. Loss of joint space with bulky osteophytes. No radiopaque loose body or focal bony lesion. No erosions. IMPRESSION: Progressive severe degeneration of the glenohumeral joint. CT abdomen pelvis w IV con 12/16/22 OSSEOUS STRUCTURES: Posterior fusion hardware at L4-L5. Kyphoplasty cement at L1. Degenerative changes throughout the spine with multilevel vacuum disc phenomenon. Moderate degenerative change of the left hip with joint space narrowing and osteophytes. Assessment & Plan Assessment & Plan (1) Paresthesia of upper and lower extremities of both sides: Code(s): R20.2 - Paresthesia of skin Category: Medical (2) Opioid contract exists: Code(s): Z79.891 - half-way (current) use of opiate analgesic Category: Medical (3) Chronic pain syndrome: Code(s): G89.4 - Chronic pain syndrome Category: Medical (4) Postlaminectomy syndrome: Code(s): M96.1 - Postlaminectomy syndrome, not elsewhere classified Category: Medical (5) Disc degeneration, lumbar: Code(s): M51.36 - Other intervertebral disc degeneration, lumbar region Category: Medical (6) Status post tooth extraction: Onset Date: ~07/30/24 Comment: [facility] 07/30/24 8 teeth extracted, residual tooth fragment x1 per patient Code(s): K08.409 - Partial loss of teeth, unspecified cause, unspecified class Category: Surgical Plan Patient is status post multiple teeth extractions on Monday with new onset of electrical shock-like sensations, initially in her lower extremities and now in upper and lower extremities. She has chronic neck and shoulder pain due to degenerative OA and post-laminectomy syndrome. We will obtain lab work to rule out electrolyte imbalances and deficiencies and Neurodiagnostic studies. Patient encouraged to follow up with PCP and dentist if her symptoms worsens or if she develops any red flag symptoms to seek emergency care. All questions and concerns have been answered and patient agreed with the treatment plan. Follow-up as scheduled and sooner as needed. I hereby testify that I spent 18 minutes in conversation with this patient as well as with planning and coordinating care for this patient and organizing this note. Orders: Orders Magnesium Today R20.2 - Paresthesia of skin Comprehensive Met. Panel Today R20.2 - Paresthesia of skin Vitamin B12 and Folate Today R20.2 - Paresthesia of skin NE nerve conduction velocity Today R20.2 - Paresthesia of skin NE electromyogram (EMG) Today R20.2 - Paresthesia of skin Coding Level of Care Code Tele Est Pt Level 4 (47741) Complex EM visit Add On G2211 Diagnoses Paresthesia of upper and lower extremities of both sides R20.2 Opioid contract exists Z79.891 Chronic pain syndrome G89.4 Postlaminectomy syndrome M96.1 Disc degeneration, lumbar M51.36 Status post tooth extraction K08.409
== END 2024-08-02 10:26 | disposition home or self-care (01) ==
LOC: HO.PMC 10:10
PROVIDERS: PCP Family Medicine; Visit Provider Nurse Practitioner Family
DX: R20.2 Paresthesia of skin (principal); Z79.891 Long term (current) use of opiate analgesic; G89.4 Chronic pain syndrome; M96.1 Postlaminectomy syndrome, not elsewhere classified; M51.36 Other intervertebral disc degeneration, lumbar region; K08.409 Partial loss of teeth, unspecified cause, unspecified class
CPT/HCPCS: 99442

== ENCOUNTER → 2024-08-02 10:10 | Outpatient (BNVA) | payer MEDICARE, SELFPAY | PROVIDERS: PCP Family Medicine; Visit Provider Nurse Practitioner Family ==

== ENCOUNTER 2024-08-16 11:29 | Outpatient (AMB) | payer MEDICARE, SELFPAY ==
--- NOTE | 2024-08-16 11:31 | A.OFFVIS_ITS ---
Vital Signs 08/16/24 11:39 Height 5 ft 4 in Weight 117 lb 6 oz BMI 20.1 BP 150/103 H Blood Pressure Location Lt brachial Position Sitting Pulse 82 Pulse Source Pulse Oximeter Intake Visit Reasons: PILL COUNT Intake Note: Marilu comes in today for a pill count to hydrocodone-acetaminophen, patient should have 40 tablets and presents with 43 tablets which she last took today 08/16/24 at 9:30am. Pain today 06/08 Buckle Sorter Required: No Accompanied by: Self / Same As Patient Allergies amoxicillin [From Augmentin] Allergy (Severe, Verified 08/16/24 11:39) Facial Swelling clavulanic acid [From Augmentin] Allergy (Severe, Verified 08/16/24 11:39) Facial Swelling naproxen Allergy (Severe, Verified 08/16/24 11:39) asthma, SOB animal dander [PET DANDER] Allergy (Intermediate, Verified 08/16/24 11:39) rash SEASONAL ALLERGIES Allergy (Mild, Uncoded 03/29/24 11:30) congestion HPI Comments Details: Patient presents today for a pill count. Patient is supposed to have #40 pills, in her possession has #43 pills. This demonstrates a responsible attitude in regards to the medication regimen. Patient reports mild-moderate analgesia on her current regimen of hydrocodone-acetaminophen 10-325 mg 1 tab Q6H prn without any noted side effects. Reports recent mechanical fall and injuring right knee, left hip and left arm. No bruising or swelling noted. She reports muscle tenderness in the left upper arm. Denies follow up with PCP, Urgent clinic or ER since fall. She has pending labs and EMG studies since our recent telehealth encounter as noted below. Patient continues to follow Psychiatry for ketamine therapy with Dr. Tonja Lazo. Patient denies any fevers, chills, weight changes, infection, constipation, edema, nausea, sedation, dizziness, or urinary retention. PRIOR 08/02/24: Patient presents today for follow up via telehealth encounter to address electrical shock-like sensations of my whole body. Patient reports she was taking tizanidine for increasing muscle spasms in her neck and shoulder blades with minimal relief. She underwent dental procedure with multiple teeth extractions and has significant bruising and swelling to her chin and cheek bones. She had dental follow up yesterday at [facility]. She is concerned for residual tooth fragment and potential nerve damage it can cause and requests dexamethasone . I encouraged patient to continue to follow up for this with her dentist. Patient reports she first experienced numbness and shock-like sensations in her lower extremities, worse in her right foot and now experiences increase in neck symptoms and upper and lower extremities with numbness, tingling and shock-like sensations. Patient notified our office on Monday, reports no follow up for this with her PCP. Patient states she spent 3 days mostly resting and in bed after dental procedure and has significant exacerbation of her chronic pain generators. She is chronically suffering from post laminectomy syndrome and has been on our opioid program for many years and has also underwent interventional treatments. Denies any recent cough, cold, infection, fever, weakness, bladder or bowel dysfunction, saddle anesthesia or any other significant changes in medical history since last office visit. [facility] Medical History Depression Migraine headache Stool incontinence Chronic pain syndrome Postlaminectomy syndrome Disc degeneration, lumbar Compression fracture of L1 lumbar vertebra Osteoporosis Hypertension Spondylosis Attention deficit disorder Herniated disc Asthma Anxiety Migraine headache Surgical History Status post kyphoplasty History of lumbosacral spine surgery History of cervical spinal surgery History of spinal surgery History of surgery on left wrist Family History Sister Ovarian cancer Lung cancer Maternal Grandmother Ovarian cancer Paternal Aunt Ovarian cancer Maternal Aunt Pancreatic cancer Social History Household Members: Spouse Housing: House Are you a primary md do resident urgent care to a significant other at home: No Do you presently have visiting nurse or other home services: No Comment: medicated in pacu Patient Tobacco Use Status: Former Tobacco user e-Cigarette/Vaping Use: Never Used Second Hand Smoke Exposure: No service: No Current occupational status: disabled 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 Alert and oriented. Mood and affect appropriate. Follows and participates in conversation appropriately. Respiratory effort is unlabored. No cough. Able to transition from sit to stand unassisted. Ambulates with bilaterally normal heel strike and toe off. Eyes General: appearance normal, both eyes and all related structures Neck Neck: Yes supple, No anterior neck swelling, Yes no JVD and No prominent dorsocervical fat pad Resp Effort & Inspection: normal respiratory effort, able to speak in complete sentences, no cough and no respiratory distress General: Yes no CVA tenderness Back/Spine/Pelvis Back: no CVA tenderness Cervical Spine: cervical ROM normal, loss of normal cervical lordosis, cervical muscular tenderness, pain with cervical ROM and No Cervical spine tenderness Thoracic/Lumbar Spine: thoracic and lumbar spine normal to inspection, Thoracic/lumbar spine scar(s), pain with thoraco-lumbar ROM, paraspinal muscle tenderness, thoraco-lumbar ROM limited, No thoracic spinal tenderness and No lumbar spinal tenderness Pelvis: buttock tenderness on the left Sacroiliac joints: bilaterally tender to palpation Extrem General: Yes capillary refill normal, Yes no clubbing, cyanosis or edema and Yes no calf tenderness Right upper extremity: shoulder/upper arm (Limited ROM due to pain) Details: tenderness Location: of the A-C joint and over the subacromial bursa and crepitus; no swelling, no ecchymosis and no unusual warmth Left upper extremity: shoulder/upper arm Details: inspection abnormal, tenderness Location: over the biceps tendon and swelling Right lower extremity: hip/thigh (Limited ROM due to pain) Details: tenderness Location: of the hip Location: laterally and crepitus Psych Appearance: grossly normal Mental Status: mental status grossly normal Speech and movement: Normal speech and movement present Affect: normal affect Attitude: cooperative Thought process: Normal thought process present Thought content: Normal thought content present, suicidality (none), no hallucinations and No Depressive thoughts present Insight: Good insight present (Psych) Judgement: Good judgement present (Psych) Results Reviewed Results Reviewed: XR SHOULDER, RIGHT 06/02/23 COMPARISON: 03/31/2017 FINDINGS: Severe degeneration the glenohumeral joint appears progressive. Loss of joint space with bulky osteophytes. No radiopaque loose body or focal bony lesion. No erosions. IMPRESSION: Progressive severe degeneration of the glenohumeral joint. CT abdomen pelvis w IV con 12/16/22 OSSEOUS STRUCTURES: Posterior fusion hardware at L4-L5. Kyphoplasty cement at L1. Degenerative changes throughout the spine with multilevel vacuum disc phenomenon. Moderate degenerative change of the left hip with joint space narrowing and osteophytes. Assessment & Plan Assessment & Plan (1) Disc degeneration, lumbar: Code(s): M51.36 - Other intervertebral disc degeneration, lumbar region Category: Medical (2) Chronic pain syndrome: Code(s): G89.4 - Chronic pain syndrome Category: Medical (3) Opioid contract exists: Code(s): Z79.891 - [facility] (current) use of opiate analgesic Category: Medical (4) Right shoulder pain: Code(s): M25.511 - Pain in right shoulder Category: Medical (5) Osteoarthritis of right glenohumeral joint: Code(s): M19.011 - Primary osteoarthritis, right shoulder Category: Medical (6) Postlaminectomy syndrome: Code(s): M96.1 - Postlaminectomy syndrome, not elsewhere classified Category: Medical (7) Left hip pain: Code(s): M25.552 - Pain in left hip Category: Medical Plan Patient has shown accountability for her medication regimen and the pill count was accurate. There is no evidence of misuse, abuse or diversion at this time. [employer] reviewed and consistent. Script sent for hydrocodone-acetaminophen 10-325 mg 1 tab Q6H for 30 days with advanced date on 08/25/24. Discussed with the patient the risks associated with benzodiazepine and opioid use. Patient is aware and verbalized an agreement to take the medications at least two hours apart. Patient has Narcan at home. Refill provided for tizanidine. Reviewed side effects and precautions. Script provided for lidocaine patches per patient's request. All questions were answered and the patient is in agreement with the plan. Follow up in 4-5 weeks for a pill count or sooner if needed. Medications: New lidocaine 5% 1 patch topical DAILY 30 days 30 ea 3RF pain M25.561 - Pain in right knee Refilled hydrocodone-acetaminophen 10-325 mg Partial Fill upon patient request. 1 tab PO Q6H 30 days PRN 120 tabs 0RF pain MDD 4 G89.4 - Chronic pain syndrome, M19.011 - Primary osteoarthritis, right shoulder, M25.511 - Pain in right shoulder, M51.36 - Other intervertebral disc degeneration, lumbar region, Z79.891 - [employer] (current) use of opiate analgesic Coding Level of Care Code Est Pt Level 4 (91218) Complex EM visit Add On G2211 Diagnoses Disc degeneration, lumbar M51.36 Chronic pain syndrome G89.4 Opioid contract exists Z79.891 Right shoulder pain M25.511 Osteoarthritis of right glenohumeral joint M19.011 Postlaminectomy syndrome M96.1 Left hip pain M25.552
[2024-08-16 11:39] VITALS: BP 150/103; PULSE 82; BMI 20.1
== END 2024-08-16 11:53 | disposition home or self-care (01) ==
PROVIDERS: PCP Family Medicine; Visit Provider Nurse Practitioner Family
DX: M51.369 Other intervertebral disc degeneration, lumbar region without mention of lumbar back pain or lower extremity pain (principal); G89.4 Chronic pain syndrome; Z79.891 Long term (current) use of opiate analgesic; M25.511 Pain in right shoulder; M19.011 Primary osteoarthritis, right shoulder; M96.1 Postlaminectomy syndrome, not elsewhere classified; M25.552 Pain in left hip
CPT/HCPCS: 99214; G2211

== ENCOUNTER → 2024-08-16 11:29 | Outpatient (BNVA) | payer MEDICARE, SELFPAY | PROVIDERS: PCP Family Medicine; Visit Provider Nurse Practitioner Family | DX: Z51.81 Encounter for therapeutic drug level monitoring (principal); M51.360 Other intervertebral disc degeneration, lumbar region with discogenic back pain only; M25.511 Pain in right shoulder; M19.011 Primary osteoarthritis, right shoulder; M96.1 Postlaminectomy syndrome, not elsewhere classified; M25.552 Pain in left hip; G89.4 Chronic pain syndrome; Z79.891 Long term (current) use of opiate analgesic | CPT/HCPCS: 99212 ==

== ENCOUNTER 2024-08-29 11:12 | Outpatient (AMB) | payer MEDICARE, SELFPAY ==
--- NOTE | 2024-08-29 11:35 | A.OFFPC_ITS ---
Vital Signs 08/29/24 11:39 Height 5 ft 4 in Weight 112 lb 4 oz BMI 19.3 BP 131/71 Blood Pressure Location Lt brachial Position Sitting Respiration 14 Pulse 70 Pulse Source Pulse Oximeter Temp 97.3 F Temp Source Temporal Artery Scan Pulse Oximetry (%) 98 Oxygen Delivery Method Room Air Intake Visit Reasons: Check Up Intake Note: pt did not get labs done but she still would like to be seen for cold symptoms Allergies amoxicillin [From Augmentin] Allergy (Severe, Verified 08/29/24 11:36) Facial Swelling clavulanic acid [From Augmentin] Allergy (Severe, Verified 08/29/24 11:36) Facial Swelling naproxen Allergy (Severe, Verified 08/29/24 11:36) asthma, SOB animal dander [PET DANDER] Allergy (Intermediate, Verified 08/29/24 11:36) rash SEASONAL ALLERGIES Allergy (Mild, Uncoded 03/29/24 11:30) congestion Tobacco use date assessed: 01/10/24 Dental Screening Dental Screen Date: 01/10/24 HPI Check Up HPI Details 64 y/o female presents to f/u chronic co nditions. Has complaints of ?viral illness x 10 days. Notes she had thought she had a pinched nerve in her arms/extremities after a teeth extraction. She questions whether or not novocaine could have caused this along with bodyaches/headaches. Has started about x2-3 weeks ago. [facility] Medical History Depression Migraine headache Stool incontinence Chronic pain syndrome Postlaminectomy syndrome Disc degeneration, lumbar Compression fracture of L1 lumbar vertebra Osteoporosis Hypertension Spondylosis Attention deficit disorder Herniated disc Asthma Anxiety Migraine headache Surgical History Status post kyphoplasty History of lumbosacral spine surgery History of cervical spinal surgery History of spinal surgery History of surgery on left wrist Family History Sister Ovarian cancer Lung cancer Maternal Grandmother Ovarian cancer Paternal Aunt Ovarian cancer Maternal Aunt Pancreatic cancer Social History Household Members: Spouse Housing: House Are you a primary career discovery teacher to a significant other at home: No Do you presently have visiting nurse or other home services: No Comment: medicated in pacu Patient Tobacco Use Status: Former Tobacco user e-Cigarette/Vaping Use: Never Used Second Hand Smoke Exposure: No service: No Current occupational status: disabled 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 Current occupational exposures/hazards: No Cognitive needs: No Hearing needs: No Vision needs: No Questionnaire Thrive Questionnaire Date Thrive assessed: 05/25/23 I am a: Patient What is your living situation today?: I have a steady place to live Within the past 12 months, did the food you bought not last and you didn't have the money to get more?: Never true Within the past 12 months, did you worry whether your food would run out before you got money to buy more?: Never true Do you have trouble paying for medicines?: No Do you have trouble getting transportation to medical appointments?: No Do you have trouble paying your heating and electricity bill?: No Do you have trouble taking care of your child, family member or friend?: No Do you have trouble with day-to-day activities such as bathing, preparing meals, shopping, managing finances, etc.?: Yes Are you currently unemployed and looking for a job?: No Are you interested in more education?: No Please select the resources that you would like help with: Daily support Currently or been in a relationship where the following occur: No concerns rep orted THRIVE Score: 0 AUDIT C Alcohol Use Questionnaire (AUDIT-C) 1. How often do you have a drink containing alcohol?: Monthly or less 2. How many drinks containing alcohol do you have on a typical day when you are drinking?: 1 or 2 3. How often do you have six or more drinks on one occasion?: Never Total Score: 1 MAU-7 AMB Questionnaire MAU-7 Date MAU - 7 assessed: 01/10/24 Feeling nervous, anxious, or on edge: 1 = Several days Not being able to stop or control worryin = Several days Worrying too much about different things: 1 = Several days Trouble relaxin = Several days Being so restless that it is hard to sit still: 1 = Several days Becoming easily annoyed or irritable: 1 = Several days Feeling afraid as if something awful might happen: 1 = Several days Total MAU-7 score (0-4 normal; 5-9 mild; 10-14 moderate; 15-21 severe): 7 Source: Developed by Drs. Tyrone García, Marnie Huston, Sadi Ross and colleagues, with an educational krystina from [employer]. Review of Systems Const Denies chills, Denies fatigue, Denies fever(s), Denies headache(s) and Denies weakness ENT Denies dizziness and Denies headache(s) Card Denies dyspnea Resp Denies cough, Denies dyspnea, Denies wheezing and Denies other (shortness of breath) Musc Denies numbness and Denies tingling Neuro Denies dizziness, Denies headache(s), Denies numbness, Denies tingling and Denies weakness Psych Denies anxiety and Denies depression Endo Denies fatigue Aller/Immun Denies wheezing Physical exam (Primary Care) Vital Signs: Last Vital Signs Temp 97.3 F 08/29/24 11:39 Pulse 70 08/29/24 11:39 Resp 14 08/29/24 11:39 BP 131/71 08/29/24 11:39 Pulse Ox 98 08/29/24 11:39 Oxygen Delivery Method Room Air 08/29/24 11:39 BMI result Body Mass Index 19.3 Tobacco/Smoking Status: Tobacco use Status Tobacco use date assessed 01/10/24 08/29/24 11:41 Patient Tobacco Use Status Former Tobacco user 08/29/24 11:41 e-Cigarette/Vaping Use Never Used 08/29/24 11:41 Thrive Assessment: Date of Thrive Assessment Date Thrive assessed 05/25/23 08/29/24 11:41 Currently or been in a relationship where the following occur: No concerns reported Const General: well developed; No acute distress Nutritional Appearance: well nourished Orientation/consciousness: patient oriented x3 HENMT Head: Yes normocephalic and Yes atraumatic Eyes General: appearance normal, both eyes and all related structures Pupils: Equal, round and reactive pupils present EOM: EOMs intact bilaterally Resp Effort & Inspection: normal respiratory effort Auscultation: clear to auscultation bilaterally Cardio Rate: regular rate Rhythm: regular rhythm Heart sounds: S1 normal heart sound present, S2 normal heart sound present, no gallops, no murmurs and no rubs Neuro General: patient oriented x3 and gait normal Cranial nerves: Yes Equal, round and reactive pupils present Psych Affect: normal affect Coding Level of Care Code Est Pt Level 3 (53022) Diagnoses Viral illness B34.9 Neuralgia M79.2 Myalgia M79.10 Assessment & Plan Assessment & Plan (1) Viral illness: Code(s): B34.9 - Viral infection, unspecified Category: Medical Plan: Recent?viral?illness?with?moderately?severe?cold?like?symptoms?and?ches t?congestion.??She?notes?that?this?has?been?improving. She?has?a?history?of?chronic?pain?and?musculoskeletal?pain?including?arthralgias &?myalgias. This?appears?worsened?and?I?suspect?it?is?secondary ?to?current?viral?illness Will?have?her?check?inflammatory?markers?along?with?labs?that?she?has?not?gotten ?drawn?yet.??We?can?review?these?in?3-4?weeks. Meantime,?she?is?on?Vicodin?prescribed?by?linh n?management.??She?can?also?use?some?ibuprofen.??She?notes?that?she?has?been?usi ng?this?occasionally?but?has?worried?that?it?might?cause?problems?with Vicodin. She?can?take?the?ibuprofen?as?well.??Hydrate?well.??Use?ice/heat (2) Neuralgia: Code(s): M79.2 - Neuralgia and neuritis, unspecified Category: Medical Plan: Neuralgia?and?she?had?had?electric?shock- like?symptoms?in?neck?and?limbs?but?these?are?resolving. (3) Myalgia: Code(s): M79.10 - Myalgia, unspecified site Category: Medical Plan: As above Orders: Orders Comprehensive [place]. Panel Fast Today Z00.00 - Encounter for general adult medical examination without abnormal findings Lipid Panel Today Z00.00 - Encounter for general adult medical examination without abnormal findings LDL Cholesterol Direct Today E78.5 - Hyperlipidemia, unspecified Microalbumin, Random (w Creat) Today I10 - Essential (primary) hypertension TSH reflex Free T4 Today Z00.00 - Encounter for general adult medical examination without abnormal findings CRP High Sensitivity Today M79.10 - Myalgia, unspecified site Complete Blood Count Auto Diff Today Z00.00 - Encounter for general adult medical examination without abnormal findings UA and rflx microscopic Today Z00.00 - Encounter for general adult medical examination without abnormal findings Erythrocyte Sedimentation Rate Today M79.10 - Myalgia, unspecified site Lyme IgG/IgM w/reflex to WB Today M79.10 - Myalgia, unspecified site
[2024-08-29 11:39] VITALS: BP 131/71; PULSE 70; RESP 14; TEMP 36.3; O2SAT 98; BMI 19.3
== END 2024-08-29 12:07 | disposition home or self-care (01) ==
LOC: HO.HMCFM 11:13
PROVIDERS: PCP Family Medicine; Visit Provider Family Medicine
DX: B34.9 Viral infection, unspecified (principal); M79.2 Neuralgia and neuritis, unspecified; M79.10 Myalgia, unspecified site

== ENCOUNTER → 2024-08-29 11:12 | Outpatient (BNVA) | payer MEDICARE, SELFPAY | PROVIDERS: PCP Family Medicine; Visit Provider Family Medicine | DX: B34.9 Viral infection, unspecified (principal); M79.2 Neuralgia and neuritis, unspecified; M79.10 Myalgia, unspecified site | CPT/HCPCS: 99212 ==

== ENCOUNTER 2024-09-11 14:28 | Outpatient (REF) | payer MEDICARE, SELFPAY ==
--- NOTE | 2024-09-11 14:32 | EMG_ITS ---
Chief complaint: 6 weeks ago, after dental procedure, patient had to lie down for 3 days. Then started having shock-like sensations on both upper and lower extremities, and new numbness on right foot. She admits to chronic tingling/needles/pins on both hands and feet. History of cervical fusion and lumbar surgery. Reason for referral: Evaluate for neuropathy Referred by: Shawna Diamond NP Procedure done: Bilateral upper and lower extremities NCS/EMG Precautions and/or limitations: Previous cervical and lumbar spine surgeries - for this reason paraspinal EMG examination deferred, not reliable to show accurate diagnostic evidence evidence. The limb temperature was monitored continuously and remained between 32-36 degrees C during the performance of the NCS. Nerve Conduction Studies Anti Sensory Summary Table ?Stim Site NR Onset (ms) Norm Onset (ms) Peak (ms) Norm Peak (ms) O-P Amp (?V) Norm O-P Amp Site1 Site2 Delta-0 (ms) Dist (cm) Juan Carlos (m/s) Norm Juan Carlos (m/s) Left Median Anti Sensory (2nd Digit) Wrist ? 2.0 3.2 <3.6 13.0 >10 Wrist 2nd Digit 2.0 14.0 70 Right Median Anti Sensory (2nd Digit) Wrist ? 2.6 3.6 <3.6 18.3 >10 Wrist 2nd Digit 2.6 14.0 54 Left Sural Anti Sensory (Lat Mall) Calf ? 2.4 3.5 <4.0 5.8 >5.0 Calf Lat Mall 2.4 14.0 58 Right Sural Anti Sensory (Lat Mall) Calf ? 2.4 3.3 <4.0 21.9 >5.0 Calf Lat Mall 2.4 14.0 58 Left Ulnar Anti Sensory (5th Digit) Wrist ? 0.9 2.9 <3.7 7.8 >15.0 Wrist 5th Digit 0.9 14.0 156 Right Ulnar Anti Sensory (5th Digit) Wrist ? 2.3 3.5 <3.7 26.6 >15.0 Wrist 5th Digit 2.3 14.0 61 Motor Summary Table ?Stim Site NR Onset (ms) Norm Onset (ms) O-P Amp (mV) Norm O-P Amp iAmp (mV) Amp (1st) (%) Site1 Site2 Delta-0 (ms) Dist (cm) Juan Carlos (m/s) Norm Juan Carlos (m/s) Left Median Motor (Abd Poll Brev) Wrist ? 3.8 <3.9 5.3 >4.5 6.0 100.0 Elbow Wrist 3.7 20.0 54 >45 Elbow ? 7.5 4.9 5.5 92.5 Right Median Motor (Abd Poll Brev) Wrist ? 3.8 <3.9 5.3 >4.5 5.9 100.0 Elbow Wrist 4.5 22.0 49 >45 Elbow ? 8.3 3.7 4.2 69.8 Left Peroneal Motor (Ext Dig Brev) Ankle ? 4.5 <4.0 0.5 >2.5 0.5 100.0 Ankle Ext Dig Brev 4.5 0.0 B Fib ? 12.2 0.4 0.3 80.0 B Fib Ankle 7.7 32.0 42 >40 Poplt ? 13.8 0.6 0.5 120.0 Poplt B Fib 1.6 4.0 25 >40 Right Peroneal Motor (Ext Dig Brev) Ankle ? 6.6 <4.0 1.8 >2.5 2.1 100.0 Ankle Ext Dig Brev 6.6 0.0 B Fib ? 12.7 1.7 1.7 94.4 B Fib Ankle 6.1 33.0 54 >40 Poplt ? 14.3 1.5 1.7 83.3 Poplt B Fib 1.6 5.5 34 >40 Left Tibial Motor (Abd Dumont Brev) Ankle ? 4.1 <5 8.0 >2.5 10.5 100.0 Ankle Abd Dumont Brev 4.1 0.0 Knee ? 13.0 4.3 5.5 53.8 Knee Ankle 8.9 38.0 43 >40 Right Tibial Motor (Abd Dumont Brev) Ankle ? 4.0 <5 4.3 >2.5 5.6 100.0 Ankle Abd Dumont Brev 4.0 0.0 Knee ? 12.3 3.6 4.8 83.7 Knee Ankle 8.3 39.0 47 >40 Left Ulnar Motor (Abd Dig Minimi) Wrist ? 2.5 <3.0 9.1 >5 10.3 100.0 B Elbow Wrist 3.3 18.5 56 >45 B Elbow ? 5.8 8.2 9.6 90.1 A Elbow B Elbow 1.8 10.0 56 >45 A Elbow ? 7.6 7.8 9.1 85.7 Right Ulnar Motor (Abd Dig Minimi) Wrist ? 2.8 <3.0 10.5 >5 12.0 100.0 B Elbow Wrist 3.5 19.0 54 >45 B Elbow ? 6.3 9.6 11.5 91.4 A Elbow B Elbow 1.7 10.0 59 >45 A Elbow ? 8.0 8.2 10.0 78.1 EMG ?Side Muscle Nerve Root Ins Act Fibs Psw Amp Dur Poly Recrt Int Pat Comment Right 1stDorInt Ulnar C8-T1 Nml Nml Nml Nml Nml 0 Nml Complete Right FlexCarRad Median C6-7 Nml Nml Nml Nml Nml 0 Nml Complete Right Biceps Musculocut C5-6 Nml Nml Nml Nml Nml 0 Nml Complete Right Triceps Radial C6-7-8 Nml Nml Nml Incr Incr 0 Nml Complete Right Deltoid Axillary C5-6 Nml Nml Nml Incr Incr 0 Nml Complete Left 1stDorInt Ulnar C8-T1 Nml Nml Nml Nml Nml 0 Nml Complete Left FlexCarRad Median C6-7 Nml Nml Nml Nml Nml 0 Nml Complete Left Biceps Musculocut C5-6 Nml Nml Nml Nml Nml 0 Nml Complete Left Triceps Radial C6-7-8 Nml Nml Nml Nml Nml 0 Nml Complete Left Deltoid Axillary C5-6 Nml Nml Nml Nml Nml 0 Nml Complete Right AbdHallucis MedPlantar S1-2 Nml Nml Nml Nml Nml 0 Nml Complete Right AntTibialis Dp Br Peron L4-5 Nml Nml Nml Nml Nml 0 Nml Complete Right MedGastroc Tibial S1-2 Nml Nml Nml Nml Nml 0 Nml Complete Right VastusMed Femoral L2-4 Nml Nml Nml Nml Nml 0 Nml Complete Right Peroneus Long Sup Br Peron L5-S1 Nml Nml Nml Nml Nml 0 Nml Complete Left AbdHallucis MedPlantar S1-2 Nml Nml Nml Nml Nml 0 Nml Complete Left AntTibialis Dp Br Peron L4-5 Nml Nml Nml Nml Nml 0 Nml Complete Left MedGastroc Tibial S1-2 Nml Nml Nml Nml Nml 0 Nml Complete Left VastusMed Femoral L2-4 Nml Nml Nml Nml Nml 0 Nml Complete Left Peroneus Long Sup Br Peron L5-S1 Nml Nml Nml Nml Nml 0 Nml Complete FINDINGS: Bilateral peroneal nerves showed prolonged distal latency, small amplitude and slow conduction velocity across the fibular neck. All other nerves tested were within normal. Concentric needle EMG was performed in selected muscles of the bilateral upper and lower extremities. Study revealed signs of electric abnormalities as shown in the table above. Chronic reinnervation changes seen on right deltoids and triceps, with increased duration and amplitude. IMPRESSION: 1. This is an abnormal study. 2. 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 3. Chronic reinnervation seen on C6-7 innervated muscles on right upper extremity, suggesting chronic radiculopathy. 4. There is no electrodiagnostic evidence for median neuropathy, ulnar neuropathy, brachial plexopathy, cervical radiculopathy, tibial neuropathy, lumbosacral plexopathy, or peripheral neuropathy. Thank you for your kind referral. Kaya Zhu MD, [place] Board Certified, [place] Board of [employer] and Rehabilitation (ABPMR) Board Certified, [place] Board of Electrodiagnostic Medicine (ABEM) CODIN 62028 x 4 MTDD
== END 2024-09-11 14:29 | disposition home or self-care (01) ==
LOC: HO.NEURO 14:28
PROVIDERS: PCP Family Medicine; Visit Provider Nurse Practitioner Family
DX: R20.2 Paresthesia of skin (principal)
CPT/HCPCS: 95886; 95913

== ENCOUNTER → 2024-09-11 14:32 | Outpatient (BNV) | payer MEDICARE, SELFPAY | PROVIDERS: PCP Family Medicine; Visit Provider Physical Medicine & Rehabilitation | DX: G62.89 Other specified polyneuropathies (principal); M54.12 Radiculopathy, cervical region | CPT/HCPCS: 95886; 95913 ==

== ENCOUNTER 2024-09-13 11:26 | Outpatient (AMB) | payer MEDICARE, SELFPAY ==
--- NOTE | 2024-09-13 11:32 | A.OFFVIS_ITS ---
Vital Signs 09/13/24 11:45 09/13/24 11:45 Height 5 ft 4 in Weight 117 lb 2 oz BMI 20.1 BP 175/104 H 162/98 H Blood Pressure Location Lt brachial Rt brachial Position Sitting Sitting Pulse 90 Pulse Source Pulse Oximeter Pulse Oximetry (%) 97 Oxygen Delivery Method Room Air Comment bp recheck Intake Visit Reasons: PILL COUNT/EMG review Intake Note: Marilu comes in today for a pill count to hydrocodone-acetaminophen, patient should have 52 tablets and presents with 55 tablets which she last took today 09/13/24 at 10:30am. Pain today 05/08 Pts Bp was elevated today, states that her PCP has not refilled her Lisinopril and she has been out of medication for the last 5 days. Elderly Caregiver Required: No Accompanied by: Self / Same As Patient Allergies amoxicillin [From Augmentin] Allergy (Severe, Verified 09/13/24 11:46) Facial Swelling clavulanic acid [From Augmentin] Allergy (Severe, Verified 09/13/24 11:46) Facial Swelling naproxen Allergy (Severe, Verified 09/13/24 11:46) asthma, SOB animal dander [PET DANDER] Allergy (Intermediate, Verified 09/13/24 11:46) rash SEASONAL ALLERGIES Allergy (Mild, Uncoded 03/29/24 11:30) congestion HPI Comments Details: Patient presents today for a pill count. Patient is supposed to have #52 pills, in her possession has #55 pills. This demonstrates a responsible attitude in regards to the medication regimen. Patient reports mild-moderate analgesia on her current regimen of hydrocodone-acetaminophen 10-325 mg 1 tab Q6H prn without any noted side effects. Neurodiagnostic studies were reviewed with patient today. Patient reports parasthesia sensations, shock-like sensations in her neck upper and upper limbs have been resolving since dental procedure and recent viral illness. She continues to endorse neck and right shoulder pain with increasing fatigue especially while exercising on her bike. Patient has pending lab work to complete prior to upcoming PCP follow up. Patient continues to follow Psychiatry for ketamine therapy 160 mg every other week with Dr. Tonja Lazo. Patient denies any fevers, chills, weight changes, infection, constipation, edema, nausea, sedation, dizziness, or urinary retention. PRIOR 08/02/24: Patient presents today for follow up via telehealth encounter to address electrical shock-like sensations of my whole body. Patient reports she was taking tizanidine for increasing muscle spasms in her neck and shoulder blades with minimal relief. She underwent dental procedure with multiple teeth extractions and has significant bruising and swelling to her chin and cheek bones. She had dental follow up yesterday at [facility]. She is concerned for residual tooth fragment and potential nerve damage it can cause and requests dexamethasone . I encouraged patient to continue to follow up for this with her dentist. Patient reports she first experienced numbness and shock-like sensations in her lower extremities, worse in her right foot and now experiences increase in neck symptoms and upper and lower extremities with numbness, tingling and shock-like sensations. Patient notified our office on Monday, reports no follow up for this with her PCP. Patient states she spent 3 days mostly resting and in bed after dental procedure and has significant exacerbation of her chronic pain generators. She is chronically suffering from post laminectomy syndrome and has been on our opioid program for many years and has also underwent interventional treatments. Denies any recent cough, cold, infection, fever, weakness, bladder or bowel dysfunction, saddle anesthesia or any other significant changes in medical history since last office visit. [facility] Medical History Depression Migraine headache Stool incontinence Chronic pain syndrome Postlaminectomy syndrome Disc degeneration, lumbar Compression fracture of L1 lumbar vertebra Osteoporosis Hypertension Spondylosis Attention deficit disorder Herniated disc Asthma Anxiety Migraine headache Surgical History Status post kyphoplasty History of lumbosacral spine surgery History of cervical spinal surgery History of spinal surgery History of surgery on left wrist Family History Sister Ovarian cancer Lung cancer Maternal Grandmother Ovarian cancer Paternal Aunt Ovarian cancer Maternal Aunt Pancreatic cancer Social History Household Members: Spouse Housing: House Are you a primary hospice care transitions coordinator to a significant other at home: No Do you presently have visiting nurse or other home services: No Comment: medicated in pacu Patient Tobacco Use Status: Former Tobacco user e-Cigarette/Vaping Use: Never Used Second Hand Smoke Exposure: No service: No Current occupational status: disabled 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 Alert and oriented. Mood and affect appropriate. Follows and participates in conversation appropriately. Respiratory effort is unlabored. No cough. Able to transition from sit to stand unassisted. Ambulates with bilaterally normal heel strike and toe off. Extrem General: Yes capillary refill normal, Yes no clubbing, cyanosis or edema and Yes no calf tenderness Right upper extremity: shoulder/upper arm (Limited ROM due to pain) Details: tenderness Location: of the A-C joint and over the subacromial bursa and crepitus; no swelling, no ecchymosis and no unusual warmth Psych Appearance: grossly normal Mental Status: mental status grossly normal Speech and movement: Normal speech and movement present Affect: normal affect Attitude: cooperative Thought process: Normal thought process present Thought content: Normal thought content present, suicidality (none), no hallucinations and No Depressive thoughts present Insight: Good insight present (Psych) Judgement: Good judgement present (Psych) Results Reviewed Results Reviewed: Nerve Conduction Study 09/11/24 FINDINGS: Bilateral peroneal nerves showed prolonged distal latency, small amplitude and slow conduction velocity across the fibular neck. All other nerves tested were within normal. Concentric needle EMG was performed in selected muscles of the bilateral upper and lower extremities. Study revealed signs of electric abnormalities as shown in the table above. Chronic reinnervation changes seen on right deltoids and triceps, with increased duration and amplitude. IMPRESSION: 1. This is an abnormal study. 2. 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 3. Chronic reinnervation seen on C6-7 innervated muscles on right upper extremity, suggesting chronic radiculopathy. 4. There is no electrodiagnostic evidence for median neuropathy, ulnar neuropathy, brachial plexopathy, cervical radiculopathy, tibial neuropathy, lumbosacral plexopathy, or peripheral neuropathy. Assessment & Plan Assessment & Plan (1) Disc degeneration, lumbar: Code(s): M51.36 - Other intervertebral disc degeneration, lumbar region Category: Medical (2) Chronic pain syndrome: Code(s): G89.4 - Chronic pain syndrome Category: Medical (3) Opioid contract exists: Code(s): Z79.891 - custodial (current) use of opiate analgesic Category: Medical (4) Right shoulder pain: Code(s): M25.511 - Pain in right shoulder Category: Medical (5) Osteoarthritis of right glenohumeral joint: Code(s): M19.011 - Primary osteoarthritis, right shoulder Category: Medical (6) Postlaminectomy syndrome: Code(s): M96.1 - Postlaminectomy syndrome, not elsewhere classified Category: Medical Plan Patient has shown accountability for her medication regimen and the pill count was accurate. There is no evidence of misuse, abuse or diversion at this time. [facility] reviewed and consistent. Script sent for hydrocodone-acetaminophen 10-325 mg 1 tab Q6H for 30 days with advanced date on 09/26/24. Discussed with the patient the risks associated with benzodiazepine and opioid use. Patient is aware and verbalized an agreement to take the medications at least two hours apart. Patient has Narcan at home. She also takes Ibuprofen prn for breakthrough pain. Script for lidocaine patches was sent at previous visit, pending PA approval. All questions were answered and the patient is in agreement with the plan. Follow up in 4-5 weeks for a pill count or sooner if needed. Medications: Refilled hydrocodone-acetaminophen 10-325 mg Partial Fill upon patient request. 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
[2024-09-13 11:45] VITALS: BP 162/98; BP 175/104; PULSE 90; O2SAT 97; BMI 20.1
== END 2024-09-13 12:03 | disposition home or self-care (01) ==
PROVIDERS: PCP Family Medicine; Visit Provider Nurse Practitioner Family
DX: M51.369 Other intervertebral disc degeneration, lumbar region without mention of lumbar back pain or lower extremity pain (principal); G89.4 Chronic pain syndrome; Z79.891 Long term (current) use of opiate analgesic; M25.511 Pain in right shoulder; M19.011 Primary osteoarthritis, right shoulder; M96.1 Postlaminectomy syndrome, not elsewhere classified
CPT/HCPCS: 99214; G2211

== ENCOUNTER → 2024-09-13 11:26 | Outpatient (BNVA) | payer MEDICARE, SELFPAY | PROVIDERS: PCP Family Medicine; Visit Provider Nurse Practitioner Family | DX: Z51.81 Encounter for therapeutic drug level monitoring (principal); M51.360 Other intervertebral disc degeneration, lumbar region with discogenic back pain only; M25.511 Pain in right shoulder; M19.011 Primary osteoarthritis, right shoulder; M96.1 Postlaminectomy syndrome, not elsewhere classified; G89.4 Chronic pain syndrome; Z79.891 Long term (current) use of opiate analgesic | CPT/HCPCS: 99212 ==

== ENCOUNTER 2024-09-30 12:10 | Outpatient (REF) | payer MEDICARE, SELFPAY ==
[2024-09-30 14:17] LABS: Appearance Urine Cloudy; Color Urine Yellow; Glucose Urine UA Negative (Negative); Leukocyte Esterase Urine Negative (Negative); Nitrite Urine Negative (Negative); Urine Blood Negative (Negative); Urine Ketones Negative (Negative); Urine Protein Negative (Neg-Trace)
[2024-09-30 14:27] LABS: MANUAL DIFF FLAG NO
[2024-09-30 14:35] LABS: Basophils Absolute Auto 0.1 X10*3/uL (0.0-0.2); Basophils Percent Auto 1.5 % (0-2); Eosinophils Absolute Auto 0.9 X10*3/uL (0.0-0.4); Eosinophils Percent Auto 11.9 % (0-4); Hematocrit 35.9 % (37.0-47.0); Hemoglobin 11.7 g/dl (12.0-16.0); Imm Gran Abs Auto 0.02 X10*3/uL (0.00-0.03); Imm Gran Pct Auto 0.3 % (0.0-0.4); Lymphocytes Absolute Auto 0.9 X10*3/uL (1.2-4.9); Lymphocytes Percent Auto 12.6 % (20-40); Mean Corpuscular HGB Conc 32.6 g/dl (31.0-35.0); Mean Corpuscular Hemoglobin 30.1 pg (27.0-33.0); Mean Corpuscular Volume 92.3 fL (80.0-98.0); Mean Platelet Volume 9.5 fL (9.4-12.3); Monocytes Absolute Auto 0.7 X10*3/uL (0.1-1.2); Monocytes Percent Auto 8.8 % (2-11); Neutrophils Absolute Auto 4.8 x10*3/uL (2.0-8.3); Neutrophils Percent Auto 64.9 % (45-73); Platelet Count 345 X10*3/uL (160-400); Red Blood Count 3.89 X10*6/uL (4.20-5.50); Red Cell Distribution Width 13.1 % (11.0-16.0); White Blood Count 7.4 X10*3/uL (4.8-10.8)
[2024-09-30 15:18] LABS: Creatinine Urine 105.23 mg/dL; Microalbum/Creatinine Ratio Ur 14.2 ug/mg cr (<30)
[2024-09-30 15:18] LABS: Erythrocyte Sedimentation Rate 11 MM/HR (0-20)
[2024-09-30 16:05] LABS: Alanine Aminotransferase 34 U/L (0-31); Albumin Level 4.5 g/dL (3.5-5.0); Alkaline Phosphatase 92 U/L (39-117); Anion Gap 14 (12-20); Aspartate Amino Transferase 33 U/L (5-31); Bilirubin Total 0.4 mg/dL (0.0-1.0); Blood Urea Nitrogen 14 mg/dL (9-16); Calcium 10.3 mg/dL (8.4-10.2); Carbon Dioxide 28 mmol/L (22-29); Chloride 102 mmol/L (96-108); Cholesterol 232 mg/dL (<200); Estimated Glomerular Filt Rate > 60; Glucose Fasting 107 mg/dL (60-99); Glucose Random 107 mg/dL (60-115); HDL Cholesterol 99 mg/dL (>40); LDL Cholesterol Calculated 122 mg/dL (<100); Magnesium 1.9 mg/dL (1.6-2.6); Potassium 3.8 mmol/L (3.3-5.1); Sodium 140 mmol/L (135-145); TSH reflex Free T4 0.85 uIU/mL (0.32-4.0); Total Protein 7.1 g/dL (6.5-8.0); Triglycerides 57 mg/dL (<150)
[2024-09-30 17:18] LABS: Parathyroid Hormone Intact 37.4 pg/mL (8.7-77.1)
[2024-10-01 06:54] LABS: CRP High Sensitivity 0.7 mg/L
[2024-10-01 08:24] LABS: Lyme Abs Screen <0.90 index
[2024-10-01 16:44] LABS: LDL Cholesterol Direct 104 mg/dL (<100)
== END 2024-09-30 12:11 | disposition home or self-care (01) ==
LOC: HO.WFDLDS 12:10
PROVIDERS: Referring Provider Nurse Practitioner Family; Visit Provider Family Medicine
DX: Z00.00 Encounter for general adult medical examination without abnormal findings (principal); E78.5 Hyperlipidemia, unspecified; I10 Essential (primary) hypertension; M79.10 Myalgia, unspecified site; E83.52 Hypercalcemia; R20.2 Paresthesia of skin
CPT/HCPCS: 36415; 80053; 80061; 81003; 82043; 82570; 83721; 83735; 83970; 84443; 85025; 85652; 86141; 86617; 86618

== ENCOUNTER 2024-10-03 13:32 | Outpatient (REF) | payer MEDICARE, SELFPAY ==
--- NOTE | ~2024-10-03 | XR_ITS ---
EXAMINATION: XR FACIAL BONES CLINICAL INFORMATION: Headache, unspecified. COMPARISON: None available. TECHNIQUE: 7 views of the facial bones were obtained. FINDINGS: Limited evaluation of the facial bones. Overlapping osseous structures limits evaluation. No gross displaced fracture is identified, but evaluation is limited. In the partially visualized mandible, no gross displaced fracture seen. The frontal and maxillary sinuses are aerated, without air-fluid levels or opacification seen. Cervical spine fusion hardware. Lung apices are clear. XR/XR zygomatic arches IMPRESSION: Limited evaluation of facial bones. Recommend CT facial bones of further evaluation, as clinically indicated. Electronically signed by: Dc Ambrosio MD 10/04/2024 10:45 AM [facility]
--- NOTE | ~2024-10-03 | XR_ITS ---
EXAMINATION: XR KNEE, RIGHT CLINICAL INFORMATION: M25.561 - Pain in right knee COMPARISON: Pain, fall. TECHNIQUE: Three views of the right knee. FINDINGS: Small marginal spurring in the medial compartment. Mild-moderate patellofemoral joint space narrowing and marginal osteophytes. No acute fractures identified. No dislocation. No significant effusion is seen. Anterior soft tissue swelling present. XR/XR knee RT 3V IMPRESSION: No radiographic evidence of acute fracture. Degenerative changes. Mild-moderate patellofemoral arthritis. Anterior soft tissue swelling.. Electronically signed by: Dc Ambrosio MD 10/04/2024 09:57 AM [facility] [place]
== END 2024-10-03 13:33 | disposition home or self-care (01) ==
LOC: HO.XRAY 13:32
PROVIDERS: PCP Family Medicine; Visit Provider Family Medicine
DX: R51.9 Headache, unspecified (principal); M25.561 Pain in right knee; M79.10 Myalgia, unspecified site; R74.8 Abnormal levels of other serum enzymes; S00.11XA Contusion of right eyelid and periocular area, initial encounter; W19.XXXA Unspecified fall, initial encounter; Y93.9 Activity, unspecified; Y92.9 Unspecified place or not applicable; Y99.9 Unspecified external cause status
CPT/HCPCS: 70150; 73562; 99212

== ENCOUNTER 2024-10-03 13:32 | Outpatient (AMB) | payer MEDICARE, SELFPAY ==
--- NOTE | 2024-10-03 13:55 | A.OFFPC_ITS ---
Vital Signs 10/03/24 14:00 Height 5 ft 4 in Weight 118 lb BMI 20.3 BP 108/70 Blood Pressure Location Lt brachial Position Sitting Respiration 16 Pulse 90 Pulse Source Pulse Oximeter Pulse Oximetry (%) 96 Oxygen Delivery Method Room Air Intake Visit Reasons: f/u myalgias, labs Intake Note: f/u labs Allergies amoxicillin [From Augmentin] Allergy (Severe, Verified 10/03/24 13:56) Facial Swelling clavulanic acid [From Augmentin] Allergy (Severe, Verified 10/03/24 13:56) Facial Swelling naproxen Allergy (Severe, Verified 10/03/24 13:56) asthma, SOB animal dander [PET DANDER] Allergy (Intermediate, Verified 10/03/24 13:56) rash SEASONAL ALLERGIES Allergy (Mild, Uncoded 03/29/24 11:30) congestion Tobacco use date assessed: 01/10/24 Dental Screening Dental Screen Date: 01/10/24 HPI f/u myalgias, labs HPI Details 64 y/o female presents to f/u myalgia, l abs. Had worsened arthralgia/myalgia and chronic pain. Labs drawn 09/30/24. Reviewed labs with pt. Ongoing anemia. Ongoing elevated liver enzymes. Denies any excessive EtOH use. Does continue taking tylenol for pain. Notes she had a fall around 2 weeks ago. Has a hematoma of her eye and had hurt her knees as well. She reports ongoing R knee pain and swelling. Denies any double vision. No malalignment of jaw. HPI Comments History of Present Illness Details Documentation assistance for Gustavo Leiva MD, was provided by Nikhil Cortez, Chief Clerk on 10/03/2024 at 2:10 PM EST. I, Dr. Leiva, have read, observed, and verified documentation. [facility] Medical History Depression Migraine headache Stool incontinence Chronic pain syndrome Postlaminectomy syndrome Disc degeneration, lumbar Compression fracture of L1 lumbar vertebra Osteoporosis Hypertension Spondylosis Attention deficit disorder Herniated disc Asthma Anxiety Migraine headache Surgical History Status post kyphoplasty History of lumbosacral spine surgery History of cervical spinal surgery History of spinal surgery History of surgery on left wrist Family History Sister Ovarian cancer Lung cancer Maternal Grandmother Ovarian cancer Paternal Aunt Ovarian cancer Maternal Aunt Pancreatic cancer Social History Household Members: Spouse Housing: House Are you a primary doggy daycare activities director to a significant other at home: No Do you presently have visiting nurse or other home services: No Comment: medicated in pacu Patient Tobacco Use Status: Former Tobacco user e-Cigarette/Vaping Use: Never Used Second Hand Smoke Exposure: No service: No Current occupational status: disabled 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 Current occupational exposures/hazards: No Cognitive needs: No Hearing needs: No Vision needs: No Questionnaire Thrive Questionnaire Date Thrive assessed: 08/29/24 I am a: Patient What is your living situation today?: I have a steady place to live Within the past 12 months, did the food you bought not last and you didn't have the money to get more?: Never true Within the past 12 months, did you worry whether your food would run out before you got money to buy more?: Never true Do you have trouble paying for medicines?: No Do you have trouble getting transportation to medical appointments?: No Do you have trouble paying your heating and electricity bill?: No Do you have trouble taking care of your child, family member or friend?: No Do you have trouble with day-to-day activities such as bathing, preparing meals, shopping, managing finances, etc.?: Yes Are you currently unemployed and looking for a job?: No Are you interested in more education?: No Please select the resources that you would like help with: Daily support Currently or been in a relationship where the following occur: No concerns reported THRIVE Score: 0 MAU-7 AMB Questionnaire MAU-7 Date MAU - 7 assessed: 01/10/24 Source: Developed by Drs. Tyrone García, Marnie Huston, Sadi Ross and colleagues, with an educational krystina from [employer]. Review of Systems Const Denies chills, Denies fatigue, Denies fever(s), Denies headache(s) and Denies weakness ENT Denies dizziness and Denies headache(s) Card Denies dyspnea Resp Denies cough, Denies dyspnea, Denies wheezing and Denies other (shortness of breath) Musc Denies numbness and Denies tingling Neuro Denies dizziness, Denies headache(s), Denies numbness, Denies tingling and Denies weakness Psych Denies anxiety and Denies depression Endo Denies fatigue Aller/Immun Denies wheezing Physical exam (Primary Care) Vital Signs: Last Vital Signs Pulse 90 10/03/24 14:00 Resp 16 10/03/24 14:00 BP 108/70 10/03/24 14:00 Pulse Ox 96 10/03/24 14:00 Oxygen Delivery Method Room Air 10/03/24 14:00 BMI result Body Mass Index 20.3 Tobacco/Smoking Status: Tobacco use Status Tobacco use date assessed 01/10/24 10/03/24 14:01 Patient Tobacco Use Status Former Tobacco user 10/03/24 14:01 e-Cigarette/Vaping Use Never Used 10/03/24 14:01 Thrive Assessment: Date of Thrive Assessment Date Thrive assessed 08/29/24 10/03/24 14:01 Currently or been in a relationship where the following occur: No concerns reported Const General: well developed; No acute distress Nutritional Appearance: well nourished Orientation/consciousness: patient oriented x3 HENMT Other: Large mass/lump over her R zygomatic arch, discolored, swollen, tender Head: Yes normocephalic and Yes atraumatic Eyes General: appearance normal, both eyes and all related structures Pupils: Equal, round and reactive pupils present EOM: EOMs intact bilaterally Resp Effort & Inspection: normal respiratory effort Neuro General: patient oriented x3 and gait normal Cranial nerves: Yes Equal, round and reactive pupils present Extrem Other: R knee pain and swelling Normal range of motion Psych Affect: normal affect Coding Level of Care Code Est Pt Level 4 (77403) Diagnoses Facial pain R51.9 Right knee pain M25.561 Myalgia M79.10 Status post fall Z91.81 Hematoma T14.8XXA Knee pain M25.569 Elevated liver enzymes R74.8 Assessment & Plan Assessment & Plan (1) Facial pain: Code(s): R51.9 - Headache, unspecified Category: Medical Plan: Pain and?swelling?and?hematoma?at?right?zygomatic?arch after fall. Concern?for?fracture?though?there?does?not?seem?to?be?any?instability.??No?misal ignment?of?jaw. No?double?vision. Check?x-ray (2) Right knee pain: Code(s): M25.561 - Pain in right knee Category: Medical Plan: Right?knee?pain?and?swelling?after?trip & fall Normal?range?of?motion Check?x-ray Use?ice/heat Patient?has?a?brace?and?can?continue?using?this (3) Myalgia: Code(s): M79.10 - Myalgia, unspecified site Category: Medical Plan: Chronic?muscular?pain Had?ordered?inflammatory?markers?and?these?are?negative. He?is?followed?by?pain?management?and?will?continue?do?so (4) Status post fall: Code(s): Z91.81 - History of falling Category: Medical Plan: As?above,?recent?fall Checking?x-rays Will?follow- up?with?patient?tomorrow?and?refer?to?ortho?or?maxillofacial?specialist?if?neede d (5) Hematoma: Code(s): T14.8XXA - Other injury of unspecified body region, initial encounter Category: Medical Plan: Warm?compresses Will?follow-up?tomorrow?indeterminate?further?treatment?is?warranted (6) Knee pain: Code(s): M25.569 - Pain in unspecified knee Category: Medical Plan: As above (7) Elevated liver enzymes: Code(s): R74.8 - Abnormal levels of other serum enzymes Category: Medical Plan: Chronically?elevated?liver?enzymes Patient?says?she?is?n o?longer?drinking?more?than?1?glass?wine?when?going?out?dinner Only?using?Tylenol?in?her?prescribed?medication?adding?additional?acetaminophen. She?does?not?have?a?weight?problem Prior?imaging?by?[facility]?2?years?ago?did?not?show?any?lesions?in?the?liver Check?ultrasound Orders: Orders XR zygomatic arches Today R51.9 - Headache, unspecified, Z91.81 - History of falling XR knee RT 3V Today M25.561 - Pain in right knee, Z91.81 - History of falling US abdomen arriaza w elastography Today R74.8 - Abnormal levels of other serum enzymes
[2024-10-03 14:00] VITALS: BP 108/70; PULSE 90; RESP 16; O2SAT 96; BMI 20.3
== END 2024-10-03 14:22 | disposition home or self-care (01) ==
PROVIDERS: PCP Family Medicine; Visit Provider Family Medicine
DX: R51.9 Headache, unspecified (principal); M25.561 Pain in right knee; M79.10 Myalgia, unspecified site; Z91.81 History of falling; T14.8XXA Other injury of unspecified body region, initial encounter; M25.569 Pain in unspecified knee; R74.8 Abnormal levels of other serum enzymes

== ENCOUNTER → 2024-10-04 11:02 | Outpatient (AMB) | payer MEDICARE, SELFPAY ==
--- NOTE | 2024-10-04 11:00 | MHC.PC.OV ---
Intake Visit Reasons: fu xrays Allergies amoxicillin [From Augmentin] Allergy (Severe, Verified 10/04/24 11:00) Facial Swelling clavulanic acid [From Augmentin] Allergy (Severe, Verified 10/04/24 11:00) Facial Swelling naproxen Allergy (Severe, Verified 10/04/24 11:00) asthma, SOB animal dander [PET DANDER] Allergy (Intermediate, Verified 10/04/24 11:00) rash SEASONAL ALLERGIES Allergy (Mild, Uncoded 03/29/24 11:30) congestion Tobacco use date assessed: 01/10/24 Dental Screening Dental Screen Date: 01/10/24 HPI fu xrays HPI Details 64 y/o female presents to f/u x-rays of face and knees. Facial x-rays show: Limited evaluation of the facial bones. Overlapping osseous structures limits evaluation. No gross displaced fracture is identified, but evaluation is limited. In the partially visualized mandible, no gross displaced fracture seen. The frontal and maxillary sinuses are aerated, without air-fluid levels or opacification seen. Cervical spine fusion hardware. Lung apices are clear. Knee x-ray showed no radiographic evidence of acute fracture. Did show degenerative changes, mild-moderate patellofemoral arthritis. [facility] Medical History Depression Migraine headache Stool incontinence Chronic pain syndrome Postlaminectomy syndrome Disc degeneration, lumbar Compression fracture of L1 lumbar vertebra Osteoporosis Hypertension Spondylosis Attention deficit disorder Herniated disc Asthma Anxiety Migraine headache Surgical History Status post kyphoplasty History of lumbosacral spine surgery History of cervical spinal surgery History of spinal surgery History of surgery on left wrist Family History Sister Ovarian cancer Lung cancer Maternal Grandmother Ovarian cancer Paternal Aunt Ovarian cancer Maternal Aunt Pancreatic cancer Social History Household Members: Spouse Housing: House Are you a primary regular senior care provider to a significant other at home: No Do you presently have visiting nurse or other home services: No Comment: medicated in pacu Patient Tobacco Use Status: Former Tobacco user e-Cigarette/Vaping Use: Never Used Second Hand Smoke Exposure: No service: No Current occupational status: disabled 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 Tyrone García, Marnie Huston, Sadi Ross and colleagues, with an educational krystina from [employer]. Physical exam (Primary Care) Tobacco/Smoking Status: Tobacco use Status Tobacco use date assessed 01/10/24 10/04/24 11:01 Patient Tobacco Use Status Former Tobacco user 10/04/24 11:01 e-Cigarette/Vaping Use Never Used 10/04/24 11:01 Thrive Assessment: Date of Thrive Assessment Date Thrive assessed 08/29/24 10/04/24 11:01 Telehealth Telehealth Telehealth Platform: Telephone Location of provider rendering services: practice address Location of patient: address on file Patient Identification confirmed using: Name, : Yes Telehealth method: voice only Patient verbally consented to treatment: Yes Patient verbally consented to billing insurance company: Yes Patient informed of any privacy concerns related to visit: Yes Minutes spent on Phone/Video with Pt.: 11 Coding Level of Care Code Tele Est Pt Level 2 (01907) Diagnoses Facial pain R51.9 Knee pain M25.569 Assessment & Plan Assessment & Plan (1) Facial pain: Code(s): R51.9 - Headache, unspecified Category: Medical Plan: Right?cheek?pain?after?a?fall?with?hematoma?over?right?zygomatic?arch. No?gross?displaced?fractures?seen?on?x-ray She?has?no?malocclusion?of?mandible/teeth No?vision?changes At?this?point,?she?has?a?large?hematoma?over?her?right?cheek?which?should?continue?to?reabsorb?over?time. She?can?use?warm?compresses Reviewed?S/S?of?infection?though?no?infection?is?present?currently.??She?will?let?me?know?if?this?is?not?resolving?or?if?worsens?or?she?has?any?new,?concerning?symptoms. (2) Knee pain: Code(s): M25.569 - Pain in unspecified knee Category: Medical Plan: No?fracture?on?x-ray He?does?have?a?joint?effusion?after?contusion?of?her?knee?from?falling. Advised?elevation?and?ice?and?Tylenol Should?resolve?on?its?own She?will?let?me?know?if?not?improving
== END ==
LOC: HO.HMCFM 11:02
PROVIDERS: PCP Family Medicine; Visit Provider Family Medicine
DX: R51.9 Headache, unspecified (principal); M25.561 Pain in right knee

== ENCOUNTER 2024-10-18 11:25 | Outpatient (REF) | payer MEDICARE, SELFPAY ==
--- NOTE | ~2024-10-18 | XR_ITS ---
EXAMINATION: XR SHOULDER 2 OR MORE VIEWS LEFT, XR SHOULDER 2 OR MORE VIEWS RIGHT HISTORY: M25.511 - Pain in LEFT shoulder COMPARISON: There are no prior studies available for comparison. FINDINGS: Three views of the right shoulder and 4 views of the left shoulder are submitted. Osseous mineralization is normal. There is no fracture or dislocation. On the right, there is severe degenerative change involving the glenohumeral joint with joint space narrowing and osteophyte formation as well as remodeling and partial collapse of the humeral head. There is mild degenerative change of the right AC joint. On the left, the glenohumeral and acromioclavicular joints are maintained. A portion of a fusion plate is seen in the lower cervical spine. The soft tissues are unremarkable. XR/XR shoulder RT min 2V IMPRESSION: Severe degenerative change of the right glenohumeral joint as described. The left shoulder is unremarkable. Electronically signed by: Tyrone Qiu MD 11/06/2024 12:20 PM AP
--- NOTE | ~2024-10-18 | XR_ITS ---
EXAMINATION: XR SHOULDER 2 OR MORE VIEWS LEFT, XR SHOULDER 2 OR MORE VIEWS RIGHT HISTORY: M25.511 - Pain in LEFT shoulder COMPARISON: There are no prior studies available for comparison. FINDINGS: Three views of the right shoulder and 4 views of the left shoulder are submitted. Osseous mineralization is normal. There is no fracture or dislocation. On the right, there is severe degenerative change involving the glenohumeral joint with joint space narrowing and osteophyte formation as well as remodeling and partial collapse of the humeral head. There is mild degenerative change of the right AC joint. On the left, the glenohumeral and acromioclavicular joints are maintained. A portion of a fusion plate is seen in the lower cervical spine. The soft tissues are unremarkable. XR/XR shoulder LT min 2V IMPRESSION: Severe degenerative change of the right glenohumeral joint as described. The left shoulder is unremarkable. Electronically signed by: Tyrone Qiu MD 11/06/2024 12:20 PM AP
== END 2024-10-18 11:26 | disposition home or self-care (01) ==
LOC: HO.XRAY 11:25
PROVIDERS: PCP Family Medicine; Visit Provider Nurse Practitioner Family
DX: M25.511 Pain in right shoulder (principal); M25.512 Pain in left shoulder; Z91.81 History of falling; R26.89 Other abnormalities of gait and mobility; M51.360 Other intervertebral disc degeneration, lumbar region with discogenic back pain only; G89.4 Chronic pain syndrome; Z79.891 Long term (current) use of opiate analgesic; M81.0 Age-related osteoporosis without current pathological fracture
CPT/HCPCS: 73030; 99212

== ENCOUNTER 2024-10-18 11:25 | Outpatient (AMB) | payer MEDICARE, SELFPAY ==
--- NOTE | 2024-10-18 11:34 | A.OFFVIS_ITS ---
Vital Signs 10/18/24 11:42 10/18/24 11:43 Height 5 ft 4 in Weight 119 lb BMI 20.4 BP 170/85 H 150/72 H Blood Pressure Location Lt brachial Rt brachial Position Sitting Sitting Pulse 83 Pulse Source Pulse Oximeter Pulse Oximetry (%) 96 Oxygen Delivery Method Room Air Comment bp recheck Intake Visit Reasons: PILL COUNT Intake Note: Marilu comes in today for a pill count to hydrocodone-acetaminophen, patient should have 36 tablets and presents with 37 tablets which she last took today 10/18/24 at 11:00am. Pain today 07/09 [place] [facility] Required: No Accompanied by: Self / Same As Patient Allergies amoxicillin [From Augmentin] Allergy (Severe, Verified 10/18/24 11:45) Facial Swelling clavulanic acid [From Augmentin] Allergy (Severe, Verified 10/18/24 11:45) Facial Swelling naproxen Allergy (Severe, Verified 10/18/24 11:45) asthma, SOB animal dander [PET DANDER] Allergy (Intermediate, Verified 10/18/24 11:45) rash SEASONAL ALLERGIES Allergy (Mild, Uncoded 03/29/24 11:30) congestion HPI Comments Details: Patient presents today for a pill count. Patient is supposed to have #36 pills, in her possession has #37 pills. This demonstrates a responsible attitude in regards to the medication regimen. Patient reports mild-moderate analgesia on her current regimen of hydrocodone-acetaminophen 10-325 mg 1 tab Q6H prn without any noted side effects. Patient continues to follow Psychiatry for ketamine therapy 160 mg every other week with Dr. Tonja Lazo. She had Ketamine treatment on Monday and reports her BP reading 110's/70's. Patient denies any fevers, chills, weight changes, infection, constipation, edema, nausea, sedation, dizziness, or urinary retention except recent mechanical fall last month. She reports falling on her face and right knee. Reports significant flare up in bilateral shoulder pain with radiation into her upper extremities with numbness, tingling and burning sensation and tenderness in biceps areas. Patient has healing bruising and swelling in her right face cheek bone and right knee due to loss of balance. She requests dexamethasone to reduce facial and knee swelling. I will defer any steroids or therapeutic injections at this time, we will proceed with cervical spine MRI to further evaluate neck symptoms with loss of balance and repeated falls. Patient is also advised to see [facility] for follow up for osteoporosis with prior history of L1 compression fractures. Discussed effects on decreased bone density with repeated systemic oral steroids and cortisone injections. PRIOR 08/02/24: Patient presents today for follow up via telehealth encounter to address electrical shock-like sensations of my whole body. Patient reports she was taking tizanidine for increasing muscle spasms in her neck and shoulder blades with minimal relief. She underwent dental procedure with multiple teeth extractions and has significant bruising and swelling to her chin and cheek bones. She had dental follow up yesterday at [facility]. She is concerned for residual tooth fragment and potential nerve damage it can cause and requests dexamethasone . I encouraged patient to continue to follow up for this with her dentist. Patient reports she first experienced numbness and shock-like sensations in her lower extremities, worse in her right foot and now experiences increase in neck symptoms and upper and lower extremities with numbness, tingling and shock-like sensations. Patient notified our office on Monday, reports no follow up for this with her PCP. Patient states she spent 3 days mostly resting and in bed a fter dental procedure and has significant exacerbation of her chronic pain generators. She is chronically suffering from post laminectomy syndrome and has been on our opioid program for many years and has also underwent interventional treatments. Denies any recent cough, cold, infection, fever, weakness, bladder or bowel dysfunction, saddle anesthesia or any other significant changes in medical history since last office visit. [facility] Medical History Depression Migraine headache Stool incontinence Chronic pain syndrome Postlaminectomy syndrome Disc degeneration, lumbar Compression fracture of L1 lumbar vertebra Osteoporosis Hypertension Spondylosis Attention deficit disorder Herniated disc Asthma Anxiety Migraine headache Surgical History Status post kyphoplasty History of lumbosacral spine surgery History of cervical spinal surgery History of spinal surgery History of surgery on left wrist Family History Sister Ovarian cancer Lung cancer Maternal Grandmother Ovarian cancer Paternal Aunt Ovarian cancer Maternal Aunt Pancreatic cancer Social History Household Members: Spouse Housing: House Are you a primary career and guidance counselor to a significant other at home: No Do you presently have visiting nurse or other home services: No Comment: medicated in pacu Patient Tobacco Use Status: Former Tobacco user e-Cigarette/Vaping Use: Never Used Second Hand Smoke Exposure: No service: No Current occupational status: disabled 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 Alert and oriented. Mood and affect appropriate. Follows and participates in conversation appropriately. Respiratory effort is unlabored. No cough. Able to transition from sit to stand unassisted. Ambulates with bilaterally normal heel strike and toe off. Healing bruising noted to right side of the face, more noted right zygomatic a rch bone. Denies temporal or occipital tenderness. Limited right knee ROM due to pain, swelling and tenderness with healing bruising. Bilateral shoulder pain with overhead or backside pocket reaching activities. Neck Neck: Yes no lymphadenopathy, Yes supple, No anterior neck swelling, Yes no JVD and No prominent dorsocervical fat pad Back/Spine/Pelvis Cervical Spine: No Lhermitte's sign positive, loss of normal cervical lordosis, cervical muscular tenderness, pain with cervical ROM, Cervical spine scars present, cervical spasm, No Cervical spine tenderness and other Thoracic/Lumbar Spine: Thoracic/lumbar spine scar(s), pain with thoraco-lumbar ROM, thoraco-lumbar ROM limited, No thoracic spinal tenderness and No lumbar spinal tenderness Extrem General: Yes capillary refill normal, Yes no clubbing, cyanosis or edema and Yes no calf tenderness Right upper extremity: shoulder/upper arm (Limited ROM due to pain) Details: tenderness Location: of the A-C joint and over the subacromial bursa and crepitus; no swelling, no ecchymosis and no unusual warmth Psych Appearance: grossly normal Mental Status: mental status grossly normal Speech and movement: Normal speech and movement present Affect: normal affect and Sad affect present Attitude: cooperative Thought process: Normal thought process present Thought content: Normal thought content present, suicidality (none), no hallucinations and Depressive thoughts present Insight: Good insight present (Psych) Judgement: Good judgement present (Psych) Results Reviewed Results Reviewed: XR FACIAL BONES 10/03/24 CLINICAL INFORMATION: Headache, unspecified. COMPARISON: None available. TECHNIQUE: 7 views of the facial bones were obtained. FINDINGS: Limited evaluation of the facial bones. Overlapping osseous structures limits evaluation. No gross displaced fracture is identified, but evaluation is limited. In the partially visualized mandible, no gross displaced fracture seen. The frontal and maxillary sinuses are aerated, without air-fluid levels or opacification seen. Cervical spine fusion hardware. Lung apices are clear. IMPRESSION: Limited evaluation of facial bones. Recommend CT facial bones of further evaluation, as clinically indicated. XR KNEE, RIGHT 10/03/24 CLINICAL INFORMATION: M25.561 - Pain in right knee COMPARISON: Pain, fall. TECHNIQUE: Three views of the right knee. FINDINGS: Small marginal spurring in the medial compartment. Mild-moderate patellofemoral joint space narrowing and marginal osteophytes. No acute fractures identified. No dislocation. No significant effusion is seen. Anterior soft tissue swelling present. IMPRESSION: No radiographic evidence of acute fracture. Degenerative changes. Mild-moderate patellofemoral arthritis. Anterior soft tissue swelling.. Nerve Conduction Study 09/11/24 FINDINGS: Bilateral peroneal nerves showed prolonged distal latency, small amplitude and slow conduction velocity across the fibular neck. All other nerves tested were within normal. Concentric needle EMG was performed in selected muscles of the bilateral upper and lower extremities. Study revealed signs of electric abnormalities as shown in the table above. Chronic reinnervation changes seen on right deltoids and triceps, with increased duration and amplitude. IMPRESSION: 1. This is an abnormal study. 2. 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 3. Chronic reinnervation seen on C6-7 innervated muscles on right upper extremity, suggesting chronic radiculopathy. 4. There is no electrodiagnostic evidence for median neuropathy, ulnar neuropat hy, brachial plexopathy, cervical radiculopathy, tibial neuropathy, lumbosacral plexopathy, or peripheral neuropathy. Assessment & Plan Assessment & Plan (1) History of cervical spinal surgery: Comment: Dr. Keshav Salinas 2014 Code(s): Z98.890 - Other specified postprocedural states Category: Surgical (2) Cervical spondylosis with radiculopathy: Code(s): M47.22 - Other spondylosis with radiculopathy, cervical region Category: Medical (3) Keeps losing balance: Code(s): R26.89 - Other abnormalities of gait and mobility Category: Medical (4) History of recent fall: Code(s): Z91.81 - History of falling Category: Medical (5) Disc degeneration, lumbar: Code(s): M51.36 - Other intervertebral disc degeneration, lumbar region Category: Medical (6) Chronic pain syndrome: Code(s): G89.4 - Chronic pain syndrome Category: Medical (7) Opioid contract exists: Code(s): Z79.891 - retirement (current) use of opiate analgesic Category: Medical (8) Osteoarthritis of right glenohumeral joint: Code(s): M19.011 - Primary osteoarthritis, right shoulder Category: Medical (9) Bilateral shoulder pain: Code(s): M25.511 - Pain in right shoulder; M25.512 - Pain in left shoulder Category: Medical (10) Osteoporosis: Code(s): M81.0 - Age-related osteoporosis without current pathological fracture Category: Medical Plan Patient has shown accountability for her medication regimen and the pill count was accurate. There is no evidence of misuse, abuse or diversion at this time. [employer] reviewed and consistent. Script sent for hydrocodone-acetaminophen 10-325 mg 1 tab Q6H for 30 days only for moderate-severe pain with advanced date on 10/26/24. Discussed with the patient the risks associated with benzodiazepine and opioid use. Patient is aware and verbalized an agreement to take the medications at least two hours apart. Patient has Narcan at home. MRI of the cervical spine to assess for neural integrity and compression. Patient is aware to call if pain worsens or if she develops any red flag symptoms to seek emergency care. Endocrinology referral for repeated falls with prior h/o osteoporosis and previous L1 compression fracture. Patient is advised to follow up with Orthopedics for increased pain in both shoulder s/p recent fall. Will update xrays. All questions were answered and the patient is in agreement with the plan. Follow up in 4-5 weeks for a pill count or sooner if needed. Orders: Orders MR cervical spine wo con Today M47.22 - Other spondylosis with radiculopathy, cervical region, R26.89 - Other abnormalities of gait and mobility, Z91.81 - History of falling, Z98.890 - Other specified postprocedural states XR shoulder LT min 2V Today M25.511 - Pain in right shoulder, M25.512 - Pain in left shoulder, R26.89 - Other abnormalities of gait and mobility, Z91.81 - History of falling XR shoulder RT min 2V Today M25.511 - Pain in right shoulder, M25.512 - Pain in left shoulder, Z91.81 - History of falling Referrals Endocrinology Referral M81.0 - Age-related osteoporosis without current pathological fracture Medications: Refilled hydrocodone-acetaminophen 10-325 mg Partial Fill upon patient request. 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
[2024-10-18 11:42] VITALS: BP 170/85; PULSE 83; O2SAT 96; BMI 20.4
[2024-10-18 11:43] VITALS: BP 150/72
== END 2024-10-18 12:03 | disposition home or self-care (01) ==
PROVIDERS: PCP Family Medicine; Visit Provider Nurse Practitioner Family
DX: Z98.890 Other specified postprocedural states (principal); M47.22 Other spondylosis with radiculopathy, cervical region; R26.89 Other abnormalities of gait and mobility; Z91.81 History of falling; M51.369 Other intervertebral disc degeneration, lumbar region without mention of lumbar back pain or lower extremity pain; G89.4 Chronic pain syndrome; Z79.891 Long term (current) use of opiate analgesic; M19.011 Primary osteoarthritis, right shoulder; M25.511 Pain in right shoulder; M25.512 Pain in left shoulder; M81.0 Age-related osteoporosis without current pathological fracture
CPT/HCPCS: 99214; G2211

== ENCOUNTER → 2024-10-18 12:16 | Outpatient (BNV) | payer MEDICARE, SELFPAY | PROVIDERS: PCP Family Medicine; Visit Provider Radiology Diagnostic Radiology | DX: M25.511 Pain in right shoulder (principal); M25.512 Pain in left shoulder | CPT/HCPCS: 73030 ==

== ENCOUNTER 2024-11-07 10:18 | Outpatient (REF) | payer MEDICARE, SELFPAY ==
--- NOTE | ~2024-11-07 | XR_ITS ---
EXAMINATION: XR ANKLE, LEFT CLINICAL INFORMATION: M25.572 - Pain in left ankle and joints of left foot COMPARISON: None available. TECHNIQUE: AP, lateral, and mortise views of the left ankle. FINDINGS: No fracture. Alignment is anatomic. No erosions. There is a small calcaneal heel enthesophyte. Joint spaces are maintained. Soft tissues are normal. XR/XR ankle LT min 3V IMPRESSION: Unremarkable left ankle Electronically signed by: Yoni Austin MD 11/07/2024 11:47 AM AP
--- NOTE | ~2024-11-07 | US_ITS ---
EXAMINATION: US ABDOMEN LIMITED WITH LIVER ELASTOGRAPHY CLINICAL INFORMATION: Abnormal liver serum enzyme COMPARISON: None available. TECHNIQUE: Real-time imaging of the abdominal viscera. Noninvasive ultrasound liver fibrosis assessment is performed using Chidi ElastPQ point quantification shear wave elastography (pSWE) with a 5 MHz transducer. Multiple elastography samples are obtained. FINDINGS: PANCREAS: The visualized pancreatic head and body are normal in appearance. The remainder of the pancreas is obscured from visualization by the overlying bowel gas. LIVER: The liver demonstrates normal size, contour and echogenicity. No focal lesion or intrahepatic biliary duct dilatation. The right lobe measures 17.1 cm in length. The left lobe measures 2.0 cm in length. There is normal hepatopedal flow seen in the middle portal vein Doppler exam Shear wave elastography provides a median stiffness of 1.50 m/s (reference: normal median stiffness is 0.81 - 1.22 m/s). The IQR/median stiffness to assess sampling precision is 0.07 (reference: optimal IQR/median stiffness is under 0.3). GALLBLADDER: The gallbladder is physiologically distended without evidence of stones, sludge, polyps, wall thickening or pericholecystic fluid. COMMON BILE DUCT: Normal in caliber measuring 0.9 cm in diameter. RIGHT KIDNEY: No hydronephrosis. No renal calculi or focal parenchymal lesions. The kidney measures 10.1 cm in maximum dimension. FREE FLUID: None seen. US/US abdomen arriaza w elastography IMPRESSION: 1. Normal hepatic echotexture. Normal gallbladder, right kidney and CBD. 2. Elastography: Liver stiffness measures 1.50 m/s and corresponds to cACLD. Electronically signed by: Yoni Austin MD 11/07/2024 11:53 AM EST
== END 2024-11-07 10:19 | disposition home or self-care (01) ==
LOC: HO.US 10:18
PROVIDERS: PCP Family Medicine; Visit Provider Family Medicine
DX: M25.572 Pain in left ankle and joints of left foot (principal); Z91.81 History of falling; R74.8 Abnormal levels of other serum enzymes
CPT/HCPCS: 73610; 76705; 76981

== ENCOUNTER → 2024-11-07 10:21 | Outpatient (BNV) | payer MEDICARE, SELFPAY | PROVIDERS: PCP Family Medicine; Visit Provider Radiology Diagnostic Radiology | DX: R74.01 Elevation of levels of liver transaminase levels (principal); M25.572 Pain in left ankle and joints of left foot | CPT/HCPCS: 73610; 76705; 76981 ==

== ENCOUNTER → 2024-11-10 14:03 | Outpatient (BNV) | payer MEDICARE, SELFPAY | PROVIDERS: PCP Family Medicine; Visit Provider Radiology Diagnostic Radiology | DX: M47.22 Other spondylosis with radiculopathy, cervical region (principal) | CPT/HCPCS: 72141 ==

== ENCOUNTER 2024-11-10 14:05 | Outpatient (REF) | payer MEDICARE, SELFPAY ==
--- NOTE | ~2024-11-10 | MR_ITS ---
CLINICAL HISTORY: <OBR.31.1><OBR.31.1.1>Z98.890 - Other specified postprocedural states Multiple fal ls with the last occurrence being 06/2024. New numbness radiating into vaginal </OBR.31.1.1><OBR.31.1 .2> anal region. 1 week.</OBR.31.1.2></OBR.31.1> MR cervical spine without gadolinium Comparison: MR - MRI CERVICAL SPINE [id number] - 04/22/15 13:26 EDT There is 5 mm of anterolisthesis of C7 on T1 with interval worsening. Remaining alignment is normal. Prior anterior metallic fusion extending from C4 through C6. Appropriate alignment at surgical levels. No hardware failure. No acute fractures or pathologic bone lesions. C2-C3: No significant disc disease. Mild facet osteoarthritis on the right. C3-C4: Disc osteophyte complex with interval increase. Moderate mass effect on the thecal sac. Severe osteoarthritis of the right facet joint with interval worsening. Moderate stenosis of the right neural foramen with interval worsening C4-C5: Ankylosis with no significant central canal or neural foraminal narrowing. C5-C6: Ankylosis with no significant central canal narrowing. Mild moderate narrowing of the right neural foramen. C6-C7: Moderate broad-based disc bulge, similar to the prior study. Moderate thecal sac effacement. Mild narrowing of neural foramina. C7-T1: Severe osteoarthritis of the bilateral facet joints with worsening. 6 mm central disc protrusion with worsening. Moderate central canal stenosis with mass effect on both the anterior and posterior aspects of the cervical spinal cord. Vague increased signal intensity within the cord at this level. Visualized intracranial contents are unremarkable. No cervical fluid collections or masses. IMPRESSION: 1. There has been interval progression of degenerative changes. This is most significant at C7-T1 where there is a 6 mm central disc protrusion with worsening, severe osteoarthritis of the bilateral facets with worsening, and moderate central canal stenosis with mass effect on the cord and findings of myelomalacia. This document has been electronically signed by: Guerita Carl MD on 11/10/2024 15:58:24
== END 2024-11-10 14:06 | disposition home or self-care (01) ==
LOC: HO.MRI 14:05
PROVIDERS: PCP Family Medicine; Visit Provider Nurse Practitioner Family
DX: Z98.890 Other specified postprocedural states (principal); M47.22 Other spondylosis with radiculopathy, cervical region; R26.89 Other abnormalities of gait and mobility; Z91.81 History of falling
CPT/HCPCS: 72141

== ENCOUNTER 2024-11-11 08:52 | Outpatient (AMB) | payer MEDICARE, SELFPAY ==
--- NOTE | 2024-11-11 08:53 | MHC.OFFVIS ---
Vital Signs 11/11/24 08:53 Height 5 ft 4 in Intake Visit Reasons: MRI results Allergies amoxicillin [From Augmentin] Allergy (Severe, Verified 11/11/24 08:53) Facial Swelling clavulanic acid [From Augmentin] Allergy (Severe, Verified 11/11/24 08:53) Facial Swelling naproxen Allergy (Severe, Verified 11/11/24 08:53) asthma, SOB animal dander [PET DANDER] Allergy (Intermediate, Verified 11/11/24 08:53) rash SEASONAL ALLERGIES Allergy (Mild, Uncoded 03/29/24 11:30) congestion HPI Comments Details: Patient presents today via telehelath encounter to discuss recent critical cervical spine MRI results. Patient reports recurrent falls and weakness in her upper and lower extremities, with associated weakness, unsteady gait, difficulty walking, increasing neck and lower back pain with stiffness, and new onset of numbness radiating into vaginal and anal regions and right buttock saddle anesthesia for one week. She reports most recent fall last Monday. Patient reports receiving assistance with mobility, transfer and ADLs at home by her . She was urged to go to ER for worsening symptoms but prefers urgent Neurosurgical evaluation. She has pending Bone scan ordered last December by her PCP. This will be resubmitted today along with lumbar spine MRI. Denies any recent cough, cold, infection, fever, any significant changes in her medical history, medications or recent hospitalizations. PRIOR 10/18/24: Patient presents today for a pill count. Patient is supposed to have #36 pills, in her possession has #37 pills. This demonstrates a responsible attitude in regards to the medication regimen. Patient reports mild-moderate analgesia on her current regimen of hydrocodone-acetaminophen 10-325 mg 1 tab Q6H prn without any noted side effects. Patient continues to follow Psychiatry for ketamine therapy 160 mg every other week with Dr. Tonja Lazo. She had Ketamine treatment on Monday and reports her BP reading 110's/70's. Patient denies any fevers, chills, weight changes, infection, constipation, edema, nausea, sedation, dizziness, or urinary retention except recent mechanical fall last month. She reports falling on her face and right knee. Reports significant flare up in bilateral shoulder pain with radiation into her upper extremities with numbness, tingling and burning sensation and tenderness in biceps areas. Patient has healing bruising and swelling in her right face cheek bone and right knee due to loss of balance. She requests dexamethasone to reduce facial and knee swelling. I will defer any steroids or therapeutic injections at this time, we will proceed with cervical spine MRI to further evaluate neck symptoms with loss of balance and repeated falls. Patient is also advised to see [facility] for follow up for osteoporosis with prior history of L1 compression fractures. Discussed effects on decreased bone density with repeated systemic oral steroids and cortisone injections. PRIOR 08/02/24: Patient presents today for follow up via telehealth encounter to address electrical shock-like sensations of my whole body. Patient reports she was taking tizanidine for increasing muscle spasms in her neck and shoulder blades with minimal relief. She underwent dental procedure with multiple teeth extractions and has significant bruising and swelling to her chin and cheek bones. She had dental follow up yesterday at [facility]. She is concerned for residual tooth fragment and potential nerve damage it can cause and requests dexamethasone . I encouraged patient to continue to follow up for this with her dentist. Patient reports she first experienced numbness and shock-like sensations in her lower extremities, worse in her right foot and now experiences increase in neck symptoms and upper and lower extremities with numbness, tingling and shock-like sensations. Patient notified our office on Monday, reports no follow up for this with her PCP. Patient states she spent 3 days mostly resting and in bed after dental procedure and has significant exacerbation of her chronic pain generators. She is chronically suffering from post laminectomy syndrome and has been on our opioid program for many years and has also underwent interventional treatments. Denies any recent cough, cold, infection, fever, weakness, bladder or bowel dysfunction, saddle anesthesia or any other significant changes in medical history since last office visit. [facility] Medical History Depression Migraine headache Stool incontinence Chronic pain syndrome Postlaminectomy syndrome Disc degeneration, lumbar Compression fracture of L1 lumbar vertebra Osteoporosis Hypertension Spondylosis Attention deficit disorder Herniated disc Asthma Anxiety Migraine headache Surgical History Status post kyphoplasty History of lumbosacral spine surgery History of cervical spinal surgery History of spinal surgery History of surgery on left wrist Family History Sister Ovarian cancer Lung cancer Maternal Grandmother Ovarian cancer Paternal Aunt Ovarian cancer Maternal Aunt Pancreatic cancer Social History Household Members: Spouse Housing: House Are you a primary healthcare liaison to a significant other at home: No Do you presently have visiting nurse or other home services: No Comment: medicated in pacu Patient Tobacco Use Status: Former Tobacco user e-Cigarette/Vaping Use: Never Used Second Hand Smoke Exposure: No service: No Current occupational status: disabled 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 Current occupational exposures/hazards: No Cognitive needs: No Hearing needs: No Vision needs: No Review of Systems Const All systems reviewed & are unremarkable except as noted in HPI and below ENT Reports Normal hearing present Neuro Reports Normal hearing present and Denies confusion Psych Denies confusion Physical Exam Const General: cooperative, alert and awake; No confusion Orientation/consciousness: patient oriented x3 and No confusion Resp Effort & Inspection: able to speak in complete sentences, no audible wheezes and no cough Neuro General: patient oriented x3 and No confusion Cranial nerves: Yes Normal hearing present Cognition (Neuro): normal cognition Psych Mental Status: mental status grossly normal Speech and movement: Clear speech present Affect: normal affect Attitude: cooperative Thought process: Normal thought process present Thought content: Normal thought content present and No Depressive thoughts present Insight: Good insight present (Psych) Judgement: Good judgement present (Psych) Telehealth Telehealth Telehealth Platform: Telephone Location of provider rendering services: practice address Location of patient: address on file Patient Identification confirmed using: Name, : Yes Telehealth method: voice only Patient verbally consented to treatment: Yes Patient verbally consented to billing insurance company: Yes Patient informed of any privacy concerns related to visit: Yes Minutes spent on Phone/Video with Pt.: 21 Results Reviewed Results Reviewed: ADDENDUM This document has been electronically signed by: Guerita Carl MD on 11/10/2024 15:58:24 ADDENDUM: This report was discussed with Lobo Matos on Nov 10, 2024 16:51:00 EST. This document has been electronically signed by: Franklin Dumont on 11/10/2024 16:51:48 Addendum Dictated By: Guerita Carl MD Addendum Signed By: <Electronically signed by Guerita Carl MD in OV> 11/10/241652 Addendum Cosigned By: DD/ /23/1558 TD/TT: 11/10/2410/23/1651 CLINICAL HISTORY: <OBR.31.1><OBR.31.1.1>Z98.890 - Other specified postprocedural states Multiple falls with the last occurrence being 06/2024. New numbness radiating into vaginal </OBR.31.1.1><OBR.31.1.2> anal region. 1 week.</OBR.31.1.2></OBR.31.1> MR cervical spine without gadolinium 11/10/24 Comparison: MR - MRI CERVICAL SPINE [id number] - 04/22/15 13:26 EDT There is 5 mm of anterolisthesis of C7 on T1 with interval worsening. Remaining alignment is normal. Prior anterior metallic fusion extending from C4 through C6. Appropriate alignment at surgical levels. No hardware failure. No acute fractures or pathologic bone lesions. C2-C3: No significant disc disease. Mild facet osteoarthritis on the right. C3-C4: Disc osteophyte complex with interval increase. Moderate mass effect on the thecal sac. Severe osteoarthritis of the right facet joint with interval worsening. Moderate stenosis of the right neural foramen with interval worsening C4-C5: Ankylosis with no significant central canal or neural foraminal narrowing. C5-C6: Ankylosis with no significant central canal narrowing. Mild moderate narrowing of the right neural foramen. C6-C7: Moderate broad-based disc bulge, similar to the prior study. Moderate thecal sac effacement. Mild narrowing of neural foramina. C7-T1: Severe osteoarthritis of the bilateral facet joints with worsening. 6 mm central disc protrusion with worsening. Moderate central canal stenosis with mass effect on both the anterior and posterior aspects of the cervical spinal cord. Vague increased signal intensity within the cord at this level. Visualized intracranial contents are unremarkable. No cervical fluid collections or masses. IMPRESSION: 1. There has been interval progression of degenerative changes. This is most significant at C7-T1 where there is a 6 mm central disc protrusion with worsening, severe osteoarthritis of the bilateral facets with worsening, and moderate central canal stenosis with mass effect on the cord and findings of myelomalacia. This document has been electronically signed by: Guerita Carl MD on 11/10/2024 15:58:24 MR LUMBAR SPINE WITHOUT AND WITH CONTRAST 05/14/21 CLINICAL INFORMATION: 61-year-old with low back pain since previous L1 kyphoplasty. History of L4-L5 laminectomy and fusion. Bowel incontinence. COMPARISON: 03/01/2021 MRI. TECHNIQUE: MRI of the lumbar spine was obtained using routine sequences with and without contrast. Intravenous Contrast: Gadavist 5 mL. FINDINGS: Coronal Alignment: Moderate lumbar dextroscoliosis, convex to the right at L2-L3, stable in appearance. Sagittal Alignment: Stable grade 2 spondylolisthesis at L4-L5 measuring 1.1 cm. 3 mm of grade 1 spondylolisthesis at L3-L4, stable in appearance. Trace retrolisthesis at L2-L3 and L1-L2 are unchanged. Lumbosacral Junction: Normal. Vertebral Bodies: Mild anterior wedge compression deformity of the L1 vertebral body again noted, now with evidence of previous vertebral augmentation since the previous study. No significant progression of height loss. Some enhancement noted along the superior endplate asymmetric to the left which is similar to the previous exam consistent with granulation tissue. Remaining vertebral body heights are well maintained. Bone Marrow: Methylmethacrylate cement noted in the L1 vertebral body since the previous exam consistent with vertebral augmentation. Small benign vertebral hemangioma in the L2 vertebral body, unchanged. Type I degenerative marrow signal changes along the endplates at L4-L5 are unchanged. Type I and type II degenerative marrow signal changes along the endplates at T11-T12 and L5-S1 are stable. Conus Medullaris: Terminates at L1. Morphology and signal is normal. No abnormal enhancement.. Intradural Nerve Roots: There is crowding of the intradural nerve roots at L4-L5 again noted similar to the previous exam consistent with residual spinal stenosis. Mild crowding of the intradural nerve roots also noted at L2-L3 consistent with spinal stenosis, unchanged. Otherwise, within normal limits. No abnormal intradural enhancement. SPINAL LEVELS: L5-S1: Moderate disc space height loss and disc desiccation with Schmorl's nodes and degenerative endplate changes are stable with stable anterolateral spondylosis and diffuse disc bulging, with slight flattening of the dural sac. Bilateral facet arthropathy is stable with slight narrowing of the right subarticular zone without significant central spinal canal stenosis, stable in appearance. Right-sided foraminal disc herniation again noted encroaching on the exiting right L5 nerve root with moderate right-sided and mild left-sided neural foraminal stenosis, stable in appearance. L4-L5: Severe disc space height loss, disc desiccation, Schmorl's nodes and degenerative endplate changes are stable with stable grade 1 spondylolisthesis and ferromagnetic artifact consistent with previous posterior instrumented fusion. Spinal canal has been decompressed posteriorly with moderate residual spinal canal stenosis and crowding of the intradural nerve roots, stable in appearance. Redemonstrated is moderate left-sided and itqw-nj-mkzlfjsw right-sided craniocaudal neural foraminal stenosis, stable in appearance. L3-L4: Disc space height is mildly narrowed asymmetric to the left with mild disc desiccation, stable in appearance, and mild grade 1 spondylolisthesis, unchanged. Diffuse disc bulging is again noted with a prominent dorsal epidural fat pad, ligamentum flavum thickening, interspinous ligament degeneration and bilateral facet arthropathy with moderate central spinal canal stenosis, stable in appearance. Mild narrowing of the subarticular zones bilaterally is stable and there is mild right-sided and moderate left-sided neural foraminal stenosis, with disc bulging encroaching on the exiting left L3 nerve root, unchanged in appearance. L2-L3: Uaiykpsb-ig-juigyq disc space height loss asymmetric to the left with disc desiccation, Schmorl's nodes and degenerative endplate changes similar to the previous exam with trace retrolisthesis, unchanged. Anterolateral spondylosis and posterolateral disc osteophyte complex is noted with a left-sided foraminal extruded disc herniation with mild cephalad migration, stable in appearance. Ligamentum flavum thickening is stable with isgevmeh-or-xcekyc facet arthropathy, left more than right, unchanged in appearance. Moderate central spinal canal stenosis and crowding of the intradural nerve roots is noted, stable in appearance, with moderate left-sided subarticular recess stenosis, unchanged. Severe left-sided neural foraminal stenosis with left L2 nerve root impingement is stable with stable mild right-sided neural foraminal stenosis. L1-L2: Jkrx-sc-gczmuchn loss of disc space height, intradiscal degenerative signal changes and mild retrolisthesis with spondylosis are stable. Small central disc protrusion with diffuse disc bulging is stable with mild flattening of the dural sac, unchanged in appearance. Ogsu-ce-zhpftome bilateral facet hypertrophic degenerative change is stable without significant spinal canal stenosis. Nsgu-xs-jxelimbm neural foraminal stenosis, left more than right, is stable. T12-L1: Broad-based ugawnsv-ls-trxa subarticular disc protrusion again noted with mild flattening of the dural sac asymmetric to the left without spinal cord impingement similar to the previous exam. Mild spinal canal narrowing is stable. There is nxqd-aj-diinuokx neural foraminal stenosis, left more than right, stable in appearance. Severe discogenic degenerative changes at T11-T12 with spondylosis and posterolateral disc osteophyte complex asymmetric to the right with bilateral facet arthropathy and severe right-sided neural foraminal stenosis are stable without significant spinal canal stenosis. Spondylosis and disc degenerative change at T10-T11 are also stable with facet arthropathy and moderate right-sided/mild left-sided neural foraminal stenosis, unchanged. Paraspinal/Retroperitoneal: The paravertebral soft tissues are unremarkable. Small cyst medial cortex left kidney stable in appearance. IMPRESSION: 1. No significant interval change in multilevel, multifactorial degenerative changes and postoperative changes at L4-L5. 2. Stable height loss at the L1 vertebral body status post vertebral augmentation with persistent marrow edema and enhancement along the superior endplate. 3. Stable multilevel spinal canal stenosis and bilateral neural foraminal stenosis as detailed above similar to the previous exam. Assessment & Plan Assessment & Plan (1) Postlaminectomy syndrome: Code(s): M96.1 - Postlaminectomy syndrome, not elsewhere classified Category: Medical (2) Paresthesia of upper and lower extremities of both sides: Code(s): R20.2 - Paresthesia of skin Category: Medical (3) Cervical myelopathy with cervical radiculopathy: Code(s): G95.9 - Disease of spinal cord, unspecified; M54.12 - Radiculopathy, cervical region Category: Medical (4) Cervical spinal stenosis: Code(s): M48.02 - Spinal stenosis, cervical region Category: Medical (5) Spondylolisthesis, lumbar region: Code(s): M43.16 - Spondylolisthesis, lumbar region Category: Medical (6) History of recent fall: Code(s): Z91.81 - History of falling Category: Medical (7) Osteoporosis: Code(s): M81.0 - Age-related osteoporosis without current pathological fracture Category: Medical Plan Cervical spine MRI critical findings were discussed in greater detail with patient today. Given progressive weakness, numbness, signs of myelopathy and spinal stenosis, recurrent falls, saddle anesthesia, we are proceeding with stat Neurosurgical evaluation at [facility]. Patient was also urged to go to ER for medical evaluation if worsening of symptoms. She will consider it but prefers to be seen by Neurosurgery. Bone scan order was resubmitted today with h/o osteoporosis and prior kyphoplasty. Lumbar spine MRI to assess for neural integrity and compression and follow up on previous MRI findings. All questions and concerns have been answered and patient agreed with the treatment plan. Follow up for MRI results/pill count as scheduled and sooner as needed. I hereby testify that I spent 21 minutes in conversation with this patient as well as with planning and coordinating care for this patient and organizing this note. Coding Level of Care Code Tele Est Pt Level 4 (87783) Diagnoses Postlaminectomy syndrome M96.1 Paresthesia of upper and lower extremities of both sides R20.2 Cervical myelopathy with cervical radiculopathy G95.9; M54.12 Cervical spinal stenosis M48.02 Spondylolisthesis, lumbar region M43.16 History of recent fall Z91.81 Osteoporosis M81.0
== END 2024-11-11 09:08 | disposition home or self-care (01) ==
LOC: HO.PMC 08:52
PROVIDERS: PCP Family Medicine; Visit Provider Nurse Practitioner Family
DX: M96.1 Postlaminectomy syndrome, not elsewhere classified (principal); R20.2 Paresthesia of skin; G95.9 Disease of spinal cord, unspecified; M54.12 Radiculopathy, cervical region; M48.02 Spinal stenosis, cervical region; M43.16 Spondylolisthesis, lumbar region; Z91.81 History of falling; M81.0 Age-related osteoporosis without current pathological fracture
CPT/HCPCS: 98016

== ENCOUNTER 2024-11-12 14:52 | Outpatient (REF) | payer MEDICARE, SELFPAY ==
--- NOTE | ~2024-11-12 | MR_ITS ---
CLINICAL HISTORY: G95.9 - Disease of spinal cord, unspecified MR LUMBAR SPINE WITH AND WITHOUT GADOLINIUM Comparison: MR/REG - MR LUMBAR SPINE WO/W CON - 05/14/21 16:13 EDT CR - XR LUMBAR SPINE 4V MIN - 03/01/21 13:47 EDT Findings: Similar alignment compared to prior study. Minimal grade 1 retrolisthesis L2 on L3. Minimal grade 1 anterolisthesis L3 on L4. Grade 1-2 anterolisthesis L4 on L5. Stable dextroscoliosis, apex L3. Redemonstration of L4-5 posterior fusion. Redemonstration of L1 kyphoplasty. No acute fracture or pathologic bone lesion. The conus medullaris terminates at the L2 level. T12-L1: Mild disc bulge. Facet arthropathy. No significant spinal stenosis. Severe bilateral foraminal stenoses. L1-L2: Bilateral small foraminal disc protrusions. Facet arthropathy. No significant spinal stenosis. Severe bilateral foraminal stenoses. L2-L3: Mild disc bulge with bilateral small foraminal disc protrusions. Facet arthropathy. Mild spinal stenosis. Severe bilateral foraminal stenoses. L3-L4: Large disc bulge. Facet arthropathy. Ligamentum flavum hypertrophy. Severe spinal and bilateral foraminal stenoses. L4-L5: Stable residual disc remnant. No enhancing scar tissue. Pfab-al-vizyvlhj spinal stenosis. There is clumping of the nerve roots at this level. L5-S1: Mild disc bulge with small right foraminal disc protrusion. No significant spinal stenosis. Facet arthropathy. Severe bilateral foraminal stenoses. Visualized retroperitoneum and paraspinous musculature intact. IMPRESSION: 1. Large disc bulge at L3-4 combined with facet arthropathy and ligamentum flavum hypertrophy results in severe spinal stenosis. 2. Postsurgical changes L4-5 with stable small residual disc remnant. No enhancing scar tissue. Tlxp-mg-avhhejgi spinal stenosis. Redemonstration of likely adhesive arachnoiditis at this level. 3. Multilevel facet arthropathy with severe foraminal stenoses. 4. Compared to prior study, findings are overall unchanged. This document has been electronically signed by: Karina Wellington DO on 11/12/2024 17:50:11
[2024-11-12] MEDS: gadobutroL 7.5 ML VIAL IVPUSH (15:37)
== END 2024-11-12 14:53 | disposition home or self-care (01) ==
LOC: HO.MRI 14:52
PROVIDERS: PCP Family Medicine; Visit Provider Nurse Practitioner Family
DX: G95.9 Disease of spinal cord, unspecified (principal); M54.12 Radiculopathy, cervical region; M43.16 Spondylolisthesis, lumbar region; M81.0 Age-related osteoporosis without current pathological fracture; R29.6 Repeated falls
CPT/HCPCS: 72158; A9585

== ENCOUNTER → 2024-11-12 14:55 | Outpatient (BNV) | payer MEDICARE, SELFPAY | PROVIDERS: PCP Family Medicine; Visit Provider Radiology Diagnostic Radiology | DX: G95.9 Disease of spinal cord, unspecified (principal) | CPT/HCPCS: 72158 ==

== ENCOUNTER 2024-11-15 09:46 | Outpatient (AMB) | payer MEDICARE, SELFPAY ==
--- NOTE | 2024-11-15 10:15 | A.SPINEOV_ITS ---
Vital Signs 11/15/24 10:20 Height 5 ft 4 in Weight 120 lb BMI 20.6 Intake Visit Reasons: Urgent consult from PM Intake Note: Ms. Bailey is here today c/o low back pain difficulty walking. Pharmacy District Manager Required: No Allergies amoxicillin [From Augmentin] Allergy (Severe, Verified 11/15/24 10:21) Facial Swelling clavulanic acid [From Augmentin] Allergy (Severe, Verified 11/15/24 10:21) Facial Swelling naproxen Allergy (Severe, Verified 11/15/24 10:21) asthma, SOB animal dander [PET DANDER] Allergy (Intermediate, Verified 11/15/24 10:21) rash SEASONAL ALLERGIES Allergy (Mild, Uncoded 03/29/24 11:30) congestion Physical Exam Vital Signs: BMI result Body Mass Index 20.6 Assessment & Plan Assessment & Plan (1) Cervical spinal stenosis: Code(s): M48.02 - Spinal stenosis, cervical region Category: Medical Plan Dear Shawna, Thank you for referring Mrs Bailey to our office today. She is a very nice 64-year-old female with a history of a previous C4-5, C5-[address] Sue at [facility] remotely in the past, also history of L4-5 fusion done by her as well maybe 10 years ago or more. The patient presents with a 4 month history of progressive cervical myelopathic symptoms including feelings of electrical shocks going down her body, pain in her neck, shoulder spasms and balance problems. She has also had progressive difficulty with numbness in her arms as well as trouble with her hands. She comes in today for an urgent evaluation secondary to severe stenosis at C7-T1 with cord signal change seen on her most recent MRI. The patient's symptoms have been fairly rapidly progressing. She has had frequent falls over the last few weeks and she feels like almost daily the symptoms are getting worse. PMH: She has history of arthritis all throughout her body, it appears as though it is osteoarthritis, she has had trouble with her right shoulder more recently and needs a right shoulder replacement. History of osteoporosis, hypertension, asthma, ADD, high blood pressure, migraines, chronic pain. She takes Vicodin daily, as well as weekly ketamine sublingual treatments. Denies any history of heart attack, stroke, major pulmonary disease, major abdominal surgery, bleeding blood clots, kidney disease etc.. Social hx: She does not smoke, she did have a previous issue with alcohol for number of years but quit over year ago. She does not smoke marijuana use any recreational drugs. Medications: Wixela, clonazepam, Ritalin, clonidine, lisinopril, Cymbalta, k etamine weekly, nor Triptan, tizanidine, lorazepam, Vicodin, acetaminophen Allergies: Please see the [employer] list Physical exam: Patient is very slow to stand up, she is very unsteady on her feet, unable to do tandem gait walking, positive Romberg, motor examination reveals bilateral hand weakness with bilateral iliopsoas weakness in the lower extremities. Rest of her motor examination is normal. I would rate her hand and iliopsoas weakness as 4/5. She is hyperreflexic. Imaging review: There is a cervical MRI and a lumbar MRI done here at [place] just a few days ago. The cervical MRI shows anterior listhesis at C7-T1 with severe spinal cord compression and cord signal change. There are postsurgical changes from C4-C6 with an anterior plate. There is moderate stenosis at C6-7. Lumbar MRI shows what looks like a posterior lumbar interbody fusion at L4-5 with a grade 2 spondylolisthesis with Modic endplate changes and severe stenosis at this level as well. There may also be some moderate to severe stenosis at L3-4 as well. Impression: 64-year-old female with history of fairly rapid progressive myelopathy in the setting of a previous anterior cervical fusion C4-5 and C5-6 done at [facility] by Dr. 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 Because of the symptom progression, Dr. Neville would like to put her urgently on for C6-7 and C7-T1 anterior cervical fusion. Specifically we would do a stand-alone cage at C6-7 and an anterior plate with a cage at C7-T1. The patient understands that the goal of surgery is not to bring her back to full function, but rather to stop the progression of her myelopathy and that any improvement in her symptoms would be a Bonus. With regard to her lumbar situation, currently she is not having any claudicating symptoms but we may need to deal with this is a later date once the myelopathy has been addressed. We have tentatively put her on for November 19 2024. Pt was given risk and benefits of surgery including but not limited to infection, hematoma , nerve injury,durotomy, weakness,bowel/bladder injury, persistent pain, vocal hoarseness as well as the option to continue with conservative treatment and patient wishes to proceed with surgery. Pt is aware they should stop their motrin, aspirin 7 days prior to surgery. All questions were answered to the best of our ability. If there is anything about this patients medical history that we have overlooked or concerns you have about us proceeding with surgery we would appreciate any input you can offer. Thank you for allowing us to care for your patient. The total time spent with this visit with this patient was 45 minutes reviewing history, physical exam, lumbar and cervical imaging review, and implementation of treatment plan or further diagnostic testing Jelani Neville MD,PhD [facility] Coding Level of Care Code New Pt Level 4 (17116) Diagnoses Cervical spinal stenosis M48.02
[2024-11-15 10:20] VITALS: BMI 20.6
== END 2024-11-15 11:34 | disposition home or self-care (01) ==
PROVIDERS: PCP Family Medicine; Referring Provider Nurse Practitioner Family; Visit Provider Physician Assistant
DX: M48.02 Spinal stenosis, cervical region (principal)
CPT/HCPCS: 99204

== ENCOUNTER → 2024-11-15 09:46 | Outpatient (BNVA) | payer MEDICARE, SELFPAY | PROVIDERS: PCP Family Medicine; Referring Provider Nurse Practitioner Family; Visit Provider Physician Assistant | DX: Z51.81 Encounter for therapeutic drug level monitoring (principal); M47.22 Other spondylosis with radiculopathy, cervical region; M51.360 Other intervertebral disc degeneration, lumbar region with discogenic back pain only; M19.011 Primary osteoarthritis, right shoulder; M25.512 Pain in left shoulder; M81.0 Age-related osteoporosis without current pathological fracture; G89.4 Chronic pain syndrome; Z79.891 Long term (current) use of opiate analgesic | CPT/HCPCS: 99202; 99212 ==

== ENCOUNTER 2024-11-15 11:35 | Outpatient (AMB) | payer MEDICARE, SELFPAY ==
--- NOTE | 2024-11-15 11:45 | MHC.OFFVIS ---
Vital Signs 11/15/24 11:57 Height 5 ft 4 in Weight 120 lb 4 oz BMI 20.6 BP 129/82 Blood Pressure Location Lt brachial Position Sitting Pulse 78 Pulse Source Pulse Oximeter Pulse Oximetry (%) 99 Oxygen Delivery Method Room Air Intake Visit Reasons: Pill Count Intake Note: Marilu comes in today for a pill count to hydrocodone-acetaminophen, patient should have 40 tablets and presents with 43 tablets which she last took today 11/15/24 at 9am. Pain today 05/08 Patient resigned opioid contract in office today, signed copy of contract was given to patient. Stroboscope Operator Required: No Accompanied by: Spouse Allergies amoxicillin [From Augmentin] Allergy (Severe, Verified 11/15/24 11:57) Facial Swelling clavulanic acid [From Augmentin] Allergy (Severe, Verified 11/15/24 11:57) Facial Swelling naproxen Allergy (Severe, Verified 11/15/24 11:57) asthma, SOB animal dander [PET DANDER] Allergy (Intermediate, Verified 11/15/24 11:57) rash SEASONAL ALLERGIES Allergy (Mild, Uncoded 03/29/24 11:30) congestion HPI Comments Details: Patient presents today for a pill count. Patient is supposed to have #40 pills, in her possession has #43 pills. This demonstrates a responsible attitude in regards to the medication regimen. Patient reports mild analgesia on her current regimen of hydrocodone-acetaminophen 10-325 mg 1 tab Q6H prn without any noted side effects. Patient continues to follow Psychiatry for sublingual ketamine therapy 160 mg every other week with Dr. Tonja Lazo. Patient was seen by [facility], Jelani GIRALDO this morning for acute cervical radiculopathy with myelopathic symptoms progressively worsening over the past few months with associated weakness, frequent falls and loss of balance. She recently completed cervical and lumbar spine MRI results as noted below, significant for C7-T1 with 6 mm central disc protrusion with worsening, severe osteoarthritis of the bilateral facets with worsening, and moderate central canal stenosis with mass effect on the cord and findings of myelomalacia. Patient is being scheduled for urgent C6-7 and C7-T1 anterior cervical fusion for next week. She also has significant lumbar spinal stenosis at L3-L4 which will be addressed at a later date. PRIOR 11/11/24: Patient presents today via telehelath encounter to discuss recent critical cervical spine MRI results. Patient reports recurrent falls and weakness in her upper and lower extremities, with associated weakness, unsteady gait, difficulty walking, increasing neck and lower back pain with stiffness, and new onset of numbness radiating into vaginal and anal regions and right buttock saddle anesthesia for one week. She reports most recent fall last Monday. Patient reports receiving assistance with mobility, transfer and ADLs at home by her . She was urged to go to ER for worsening symptoms but prefers urgent Neurosurgical evaluation. She has pending Bone scan ordered last December by her PCP. This will be resubmitted today along with lumbar spine MRI. Denies any recent cough, cold, infection, fever, any significant changes in her medical history, medications or recent hospitalizations. FOR[facility]LY [facility], [facility] Medical History Depression Migraine headache Stool incontinence Chronic pain syndrome Postlaminectomy syndrome Disc degeneration, lumbar Compression fracture of L1 lumbar vertebra Osteoporosis Hypertension Spondylosis Attention deficit disorder Herniated disc Asthma Anxiety Migraine headache Surgical History Status post kyphoplasty History of lumbosacral spine surgery History of cervical spinal surgery History of spinal surgery History of surgery on left wrist Family History Sister Ovarian cancer Lung cancer Maternal Grandmother Ovarian cancer Paternal Aunt Ovarian cancer Maternal Aunt Pancreatic cancer Social History Household Members: Spouse Housing: House Are you a primary home care physical therapist to a significant other at home: No Do you presently have visiting nurse or other home services: No Comment: medicated in pacu Patient Tobacco Use Status: Former Tobacco user e-Cigarette/Vaping Use: Never Used Second Hand Smoke Exposure: No service: No Current occupational status: disabled 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 Alert and oriented. Mood and affect appropriate. Follows and participates in conversation appropriately. Respiratory effort is unlabored. No cough. Able to transition from sit to stand unassisted. Ambulates with bilaterally normal heel strike and toe off. Bilateral shoulder pain with overhead or backside pocket reaching activities. Neck Neck: Yes no lymphadenopathy, Yes supple, No anterior neck swelling, Yes no JVD and No prominent dorsocervical fat pad Back/Spine/Pelvis Cervical Spine: Lhermitte's sign positive, loss of normal cervical lordosis, cervical muscular tenderness, pain with cervical ROM, Cervical spine scars present, cervical spasm and No Cervical spine tenderness Thoracic/Lumbar Spine: Thoracic/lumbar spine scar(s), Lasegue's sign positive (worse on the right) bilateral and localized, pain with thoraco-lumbar ROM, thoraco-lumbar ROM limited, No thoracic spinal tenderness and lumbar spinal tenderness (L3-S1) Extrem General: Yes capillary refill normal, Yes no clubbing, cyanosis or edema and Yes no calf tenderness Psych Appearance: grossly normal Mental Status: mental status grossly normal Speech and movement: Normal speech and movement present Affect: normal affect and Sad affect present Attitude: cooperative Thought process: Normal thought process present Thought content: Normal thought content present, suicidality (none), no hallucinations and Depressive thoughts present Insight: Good insight present (Psych) Judgement: Good judgement present (Psych) Results Reviewed Results Reviewed: ADDENDUM This document has been electronically signed by: Guerita Carl MD on 11/10/2024 15:58:24 ADDENDUM: This report was discussed with Lobo Matos on Nov 10, 2024 16:51:00 EST. This document has been electronically signed by: Franklin Dumont on 11/10/2024 16:51:48 Addendum Dictated By: Guerita Carl MD Addendum Signed By: <Electronically signed by Guerita Carl MD in OV> 11/10/241652 Addendum Cosigned By: DD/ /23/1558 TD/TT: 11/10/2410/23/1651 CLINICAL HISTORY: <OBR.31.1><OBR.31.1.1>Z98.890 - Other specified postprocedural states Multiple falls with the last occurrence being 06/2024. New numbness radiating into vaginal </OBR.31.1.1><OBR.31.1.2> anal region. 1 week.</OBR.31.1.2></OBR.31.1> MR cervical spine without gadolinium 11/10/24 Comparison: MR - MRI CERVICAL SPINE [id number] - 04/22/15 13:26 EDT There is 5 mm of anterolisthesis of C7 on T1 with interval worsening. Remaining alignment is normal. Prior anterior metallic fusion extending from C4 through C6. Appropriate alignment at surgical levels. No hardware failure. No acute fractures or pathologic bone lesions. C2-C3: No significant disc disease. Mild facet osteoarthritis on the right. C3-C4: Disc osteophyte complex with interval increase. Moderate mass effect on the thecal sac. Severe osteoarthritis of the right facet joint with interval worsening. Moderate stenosis of the right neural foramen with interval worsening C4-C5: Ankylosis with no significant central canal or neural foraminal narrowing. C5-C6: Ankylosis with no significant central canal narrowing. Mild moderate narrowing of the right neural foramen. C6-C7: Moderate broad-based disc bulge, similar to the prior study. Moderate thecal sac effacement. Mild narrowing of neural foramina. C7-T1: Severe osteoarthritis of the bilateral facet joints with worsening. 6 mm central disc protrusion with worsening. Moderate central canal stenosis with mass effect on both the anterior and posterior aspects of the cervical spinal cord. Vague increased signal intensity within the cord at this level. Visualized intracranial contents are unremarkable. No cervical fluid collections or masses. IMPRESSION: 1. There has been interval progression of degenerative changes. This is most significant at C7-T1 where there is a 6 mm central disc protrusion with worsening, severe osteoarthritis of the bilateral facets with worsening, and moderate central canal stenosis with mass effect on the cord and findings of myelomalacia. MR LUMBAR SPINE WITH AND WITHOUT GADOLINIUM 11/12/24 Comparison: MR/REG - MR LUMBAR SPINE WO/W CON - 05/14/21 16:13 EDT CR - XR LUMBAR SPINE 4V MIN - 03/01/21 13:47 EDT Findings: Similar alignment compared to prior study. Minimal grade 1 retrolisthesis L2 on L3. Minimal grade 1 anterolisthesis L3 on L4. Grade 1-2 anterolisthesis L4 on L5. Stable dextroscoliosis, apex L3. Redemonstration of L4-5 posterior fusion. Redemonstration of L1 kyphoplasty. No acute fracture or pathologic bone lesion. The conus medullaris terminates at the L2 level. T12-L1: Mild disc bulge. Facet arthropathy. No significant spinal stenosis. Severe bilateral foraminal stenoses. L1-L2: Bilateral small foraminal disc protrusions. Facet arthropathy. No significant spinal stenosis. Severe bilateral foraminal stenoses. L2-L3: Mild disc bulge with bilateral small foraminal disc protrusions. Facet arthropathy. Mild spinal stenosis. Severe bilateral foraminal stenoses. L3-L4: Large disc bulge. Facet arthropathy. Ligamentum flavum hypertrophy. Severe spinal and bilateral foraminal stenoses. L4-L5: Stable residual disc remnant. No enhancing scar tissue. [id number] spinal stenosis. There is clumping of the nerve roots at this level. L5-S1: Mild disc bulge with small right foraminal disc protrusion. No significant spinal stenosis. Facet arthropathy. Severe bilateral foraminal stenoses. Visualized retroperitoneum and paraspinous musculature intact. IMPRESSION: 1. Large disc bulge at L3-4 combined with facet arthropathy and ligamentum flavum hypertrophy results in severe spinal stenosis. 2. Postsurgical changes L4-5 with stable small residual disc remnant. No enhancing scar tissue. [id number] spinal stenosis. Redemonstration of likely adhesive arachnoiditis at this level. 3. Multilevel facet arthropathy with severe foraminal stenoses. 4. Compared to prior study, findings are overall unchanged. Assessment & Plan Assessment & Plan (1) Cervical spondylosis with radiculopathy: Code(s): M47.22 - Other spondylosis with radiculopathy, cervical region Category: Medical (2) Disc degeneration, lumbar: Code(s): M51.36 - Other intervertebral disc degeneration, lumbar region Category: Medical (3) Chronic pain syndrome: Code(s): G89.4 - Chronic pain syndrome Category: Medical (4) Opioid contract exists: Code(s): Z79.891 - residential (current) use of opiate analgesic Category: Medical (5) Osteoarthritis of right glenohumeral joint: Code(s): M19.011 - Primary osteoarthritis, right shoulder Category: Medical (6) Bilateral shoulder pain: Code(s): M25.511 - Pain in right shoulder; M25.512 - Pain in left shoulder Category: Medical (7) Osteoporosis: Code(s): M81.0 - Age-related osteoporosis without current pathological fracture Category: Medical Plan Patient has shown accountability for her medication regimen and the pill count was accurate. There is no evidence of misuse, abuse or diversion at this time. MassPat reviewed and consistent. Script sent for hydrocodone-acetaminophen 10-325 mg 1 tab Q6H for 30 days with advanced date on 11/22/24. Discussed with the patient the risks associated with benzodiazepine and opioid use. Patient is aware and verbalized an agreement to take the medications at least two hours apart. Patient has Narcan at home. Patient may take one extra pill per day after neck surgery for post-op pain control. She will notify our office with any changes or concerns. Patient was [place] [facility] [place] with plan for urgent C6-7 and C7-T1 anterior cervical fusion for next week. All questions were answered and the patient is in agreement with the plan. Follow up in 4-5 weeks for a pill count or sooner if needed. Medications: Refilled hydrocodone-acetaminophen 10-325 mg Partial Fill upon patient request. 1 tab PO Q6H 30 days PRN 120 tabs 0RF pain MDD 4 G89.4 - Chronic pain syndrome, M19.011 - Primary osteoarthritis, right shoulder, M25.511 - Pain in right shoulder, M51.36 - Other intervertebral disc degeneration, lumbar region, Z79.891 - terminologist (current) use of opiate analgesic Coding Level of Care Code Est Pt Level 4 (38752) Complex EM visit Add On G2211 Diagnoses Cervical spondylosis with radiculopathy M47.22 Disc degeneration, lumbar M51.36 Chronic pain syndrome G89.4 Opioid contract exists Z79.891 Osteoarthritis of right glenohumeral joint M19.011 Bilateral shoulder pain M25.511; M25.512 Osteoporosis M81.0
[2024-11-15 11:57] VITALS: BP 129/82; PULSE 78; O2SAT 99; BMI 20.6
== END 2024-11-15 12:08 | disposition home or self-care (01) ==
PROVIDERS: PCP Family Medicine; Visit Provider Nurse Practitioner Family
DX: M47.22 Other spondylosis with radiculopathy, cervical region (principal); M51.369 Other intervertebral disc degeneration, lumbar region without mention of lumbar back pain or lower extremity pain; G89.4 Chronic pain syndrome; Z79.891 Long term (current) use of opiate analgesic; M19.011 Primary osteoarthritis, right shoulder; M25.511 Pain in right shoulder; M25.512 Pain in left shoulder; M81.0 Age-related osteoporosis without current pathological fracture
CPT/HCPCS: 99214; G2211

== ENCOUNTER 2024-11-19 05:56 | Day surgery (SDC) | payer MEDICARE, SELFPAY ==
--- NOTE | 2024-11-18 12:32 | HO.ANESPROP2 ---
Documented by User: Nini Baptiste NP 11/18/24 12:33 HPI - Anesthesia Eval Consult details Narrative: 64yo F for C6-7,C7-T1 Ant Cerv Discectomy w/ fusion Add on/No PAT PMFSH Active Problems Active Problems: All Active Problems Recurrent falls (Acute) Spondylolisthesis, lumbar region (Acute) Cervical spinal stenosis (Acute) Cervical myelopathy with cervical radiculopathy (Acute) Left ankle pain (Acute) Bilateral shoulder pain (Acute) History of recent fall (Acute) Keeps losing balance (Acute) Facial pain (Acute) Knee pain (Acute) Hematoma (Acute) Status post fall (Acute) Myalgia (Acute) Neuralgia (Acute) Viral illness (Acute) Status post tooth extraction (Acute ~07/30/24) History of tooth extraction (Acute) Paresthesia of upper and lower extremities of both sides (Acute) Left hip pain (Acute) Osteoarthritis of hands, bilateral (Acute) Cough (Acute) Depression with anxiety (Acute) Rash (Acute) Depression (Acute) Left shoulder pain (Acute) Osteoarthritis of right glenohumeral joint (Acute) Fatigue (Acute) Right knee pain (Acute) Elevated lipase (Acute) Nausea (Acute) Hypertensive emergency (Acute) Right shoulder pain (Acute) Laceration of finger (Acute) Opioid contract exists (Acute) Elevated parathyroid hormone (Acute) Normochromic normocytic anemia (Acute) Anemia (Acute) Elevated liver enzymes (Acute) Abnormal EKG (Acute) Palpitations (Acute) Screening for cervical cancer (Acute) Breast cancer screening by mammogram (Acute) Screening for colon cancer (Acute) Hyponatremia (Acute) Diarrhea (Acute) Cervical spondylosis with radiculopathy (Acute) Difficulty swallowing (Acute) High serum creatinine (Acute) Screening for osteoporosis (Acute) Migraine headache (Acute) Status post kyphoplasty (Acute) Stool incontinence (Acute) Chronic pain syndrome (Acute) Postlaminectomy syndrome (Acute) Disc degeneration, lumbar (Acute) Compression fracture of L1 lumbar vertebra (Acute) Osteoporosis (Acute) Adult general medical exam (Acute) Pre-diabetes (Acute) Left leg weakness (Acute) Abdominal pain (Acute) Hypercalcemia (Acute) Laboratory examination ordered as part of a routine general medical examination (Acute) Right low back pain (Acute) Hypertension (Acute) Hypertensive crisis, unspecified (Acute) Asthma (Acute) IBS (irritable bowel syndrome) (Acute) Abdominal pain (Acute) Hypertension (Acute) Attention deficit disorder (Acute) Anxiety (Acute) History of cervical spinal surgery (Acute) Failed back syndrome, lumbar (Acute) Past Medical History Medical History Depression Migraine headache Stool incontinence Chronic pain syndrome Postlaminectomy syndrome Disc degeneration, lumbar Compression fracture of L1 lumbar vertebra Osteoporosis Hypertension Spondylosis Attention deficit disorder Herniated disc Asthma Anxiety Migraine headache Family History Family History Sister Ovarian cancer Lung cancer Maternal Grandmother Ovarian cancer Paternal Aunt Ovarian cancer Maternal Aunt Pancreatic cancer Family history of problems with anesthesia: No Surgical History Surgical History Status post kyphoplasty History of lumbosacral spine surgery History of cervical spinal surgery History of spinal surgery History of surgery on left wrist History of Problems with Anesthesia: No Social History Social History Household Members: Spouse Housing: House Are you a primary care analyst to a significant other at home: No Do you presently have visiting nurse or other home services: No Comment: medicated in pacu Patient Tobacco Use Status: Former Tobacco user e-Cigarette/Vaping Use: Never Used Second Hand Smoke Exposure: No Use of substances other than those prescribed or required for medical reasons: No Are you DNR?: No Advance Directives: No Advance Directives Information Provided: Yes service: No Current occupational status: disabled 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 Current occupational exposures/hazards: No Cognitive needs: No Hearing needs: No Vision needs: No Meds Allergies Allergy/AdvReac Type Severity Reaction Status Date / Time amoxicillin [From Augmentin] Allergy Severe Facial Verified 11/19/24 06:21 Swelling clavulanic acid Allergy Severe Facial Verified 11/19/24 06:21 [From Augmentin] Swelling naproxen Allergy Severe asthma, SOB Verified 11/19/24 06:21 animal dander [PET DANDER] Allergy Intermediate rash Verified 11/19/24 06:21 SEASONAL ALLERGIES Allergy Mild congestion Uncoded 11/19/24 06:21 Home Medications ?Medication ?Instructions ?Recorded ?Confirmed ?Last Taken ?Type clonazepam 1 mg tablet 1 mg PO DAILY@1400,1800 07/27/20 11/19/24 12/16/22 History lorazepam 1 mg tablet 1 mg PO DAILY PRN anxiety 07/27/20 11/19/24 12/16/22 History duloxetine 60 mg capsule,delayed 60 mg PO DAILY 12/07/21 11/19/24 11/19/24 04:00 History release (Cymbalta) duloxetine 30 mg capsule,delayed 30 mg PO DAILY 03/08/22 11/19/24 11/19/24 04:00 History release multivitamin-ferrous 1 tab PO DAILY 12/17/22 11/19/24 Unknown History fumarate-folic acid 18 mg-400 mcg tablet triamcinolone acetonide 0.025 % 1 appl topical BID PRN rash 12/17/22 11/19/24 Unknown History topical cream dextroamphetamine-amphetamine ER 2 cap PO QAM 08/18/23 11/19/24 Unknown History 30 mg 24hr capsule,extend release ondansetron HCl 4 mg tablet 4 mg PO DAILY 12/14/23 11/19/24 Unknown History ketamine 100 mg sublingual sepideh 160 mg sublingual 08/29/24 Unknown History Exam Pertinent Lab Results Pertinent Lab Results: Laboratory Tests 09/30/24 12:14 WBC 7.4 Hgb 11.7 L Hct 35.9 L Plt Count 345 Sodium 140 Potassium 3.8 Chloride 102 Carbon Dioxide 28 BUN 14 Creatinine 0.85 Narrative Narrative: EKG 2022 Vent. Rate : 077 BPM Atrial Rate : 077 BPM P-R Int : 172 ms QRS Dur : 088 ms QT Int : 374 ms P-R-T Axes : 057 015 036 degrees QTc Int : 423 ms Sinus rhythm with Premature atrial complexes Otherwise normal ECG When compared with ECG of 16-DEC-2022 20:10, Criteria for Septal infarct are no longer Present Assessment and Plan Assessment Anesthesia Assessment: Chart Reviewed Final Anesthetic Review Family History of Problems with Anesthesia: No History of Problems with Anesthesia: No Documented by User: Doreen Guerrero MD 11/19/24 08:11 [facility] Past Medical History Medical History Depression Migraine headache Stool incontinence Chronic pain syndrome Postlaminectomy syndrome Disc degeneration, lumbar Compression fracture of L1 lumbar vertebra Osteoporosis Hypertension Spondylosis Attention deficit disorder Herniated disc Asthma Anxiety Migraine headache Family History Family History Sister Ovarian cancer Lung cancer Maternal Grandmother Ovarian cancer Paternal Aunt Ovarian cancer Maternal Aunt Pancreatic cancer Surgical History Surgical History Status post kyphoplasty History of lumbosacral spine surgery History of cervical spinal surgery History of spinal surgery History of surgery on left wrist Social History Social History Household Members: Spouse Housing: House Are you a primary care analyst to a significant other at home: No Do you presently have visiting nurse or other home services: No Comment: medicated in pacu Patient Tobacco Use Status: Former Tobacco user e-Cigarette/Vaping Use: Never Used Second Hand Smoke Exposure: No Use of substances other than those prescribed or required for medical reasons: No Are you DNR?: No Advance Directives: No Advance Directives Information Provided: Yes service: No Current occupational status: disabled 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 Current occupational exposures/hazards: No Cognitive needs: No Hearing needs: No Vision needs: No Meds Allergies Allergy/AdvReac Type Severity Reaction Status Date / Time amoxicillin [From Augmentin] Allergy Severe Facial Verified 11/19/24 06:21 Swelling clavulanic acid Allergy Severe Facial Verified 11/19/24 06:21 [From Augmentin] Swelling naproxen Allergy Severe asthma, SOB Verified 11/19/24 06:21 animal dander [PET DANDER] Allergy Intermediate rash Verified 11/19/24 06:21 SEASONAL ALLERGIES Allergy Mild congestion Uncoded 11/19/24 06:21 Home Medications ?Medication ?Instructions ?Recorded ?Confirmed ?Last Taken ?Type clonazepam 1 mg tablet 1 mg PO DAILY@1400,1800 07/27/20 11/19/24 12/16/22 History lorazepam 1 mg tablet 1 mg PO DAILY PRN anxiety 07/27/20 11/19/24 12/16/22 History duloxetine 60 mg capsule,delayed 60 mg PO DAILY 12/07/21 11/19/24 11/19/24 04:00 History release (Cymbalta) duloxetine 30 mg capsule,delayed 30 mg PO DAILY 03/08/22 11/19/24 11/19/24 04:00 History release multivitamin-ferrous 1 tab PO DAILY 12/17/22 11/19/24 Unknown History fumarate-folic acid 18 mg-400 mcg tablet triamcinolone acetonide 0.025 % 1 appl topical BID PRN rash 12/17/22 11/19/24 Unknown History topical cream dextroamphetamine-amphetamine ER 2 cap PO QAM 08/18/23 11/19/24 Unknown History 30 mg 24hr capsule,extend release ondansetron HCl 4 mg tablet 4 mg PO DAILY 12/14/23 11/19/24 Unknown History ketamine 100 mg sublingual sepideh 160 mg sublingual 08/29/24 Unknown History Exam Airway Mallampati Class: II (edentulous) TM Dist: >3cm Neck ROM: Limited Denture: Upper Loose/Missing/Broken Teeth: Yes, Upper and Lower Heart: RRR Lungs: CTA Assessment and Plan Assessment Anesthesia Assessment: Anesthesia Plan Discussed Final Anesthetic Review NPO: Yes ASA Class: II Final Preanesthetic Review: Meds/Allgs Chart Reviewed, Consent Obtained/Reviewed and Anes Risks/Benef Reviewed Patient Risk: Low Procedure Risk: Intermediate Anesthetic Plan Anesthetic Plan: GA Disposition: Standard PACU
[2024-11-19] VITALS (11 sets, daily range): BP systolic 110–128; BP diastolic 63–74; PULSE 77–84; RESP 16–18; TEMP 36.6–36.9; O2SAT 95–99; BMI 20.6
--- NOTE | ~2024-11-19 | FL_ITS ---
EXAMINATION: FL GUIDANCE ONLY HISTORY: C6-C7, C7-T1 ACDF COMPARISON: None available. TECHNIQUE: Fluoroscopy time: 13.3 seconds. Cumulative Dose: 2.414 mGy. DAP: 0.5405 uGy-m2 (microgray-meter squared). Images: 2. FINDINGS: Images demonstrate anterior fusion of the lower cervical spine with plate and screws. FL/FL guidance in OR IMPRESSION: Fluoroscopy during procedure. Please see procedure report for additional information. Electronically signed by: Tyrone Qiu MD 11/19/2024 01:02 PM AP BLACK
--- NOTE | 2024-11-19 07:09 | MHC.SHP ---
Pre-Procedural Eval Section A - 24 Hr Update-Section A only Date of Service: 11/19/24 The patient is an INPATIENT: No Changes since office visit: No Cold of Flu in the past 2 weeks, No New Medical Problems, No Changes in Medication and No Patient answered all questions The patient has been examined within 24 hours of the surgical procedure. The History & Physical has been completed within 30 days and I have reviewed it.: No Section B - Complete if H&P > 30 days Chief Complaint: Spinal stenosis, lumbar region with neurogenic cla Allergies: Allergies Allergy/AdvReac Type Severity Reaction Status Date / Time amoxicillin [From Augmentin] Allergy Severe Facial Verified 11/19/24 06:21 Swelling clavulanic acid Allergy Severe Facial Verified 11/19/24 06:21 [From Augmentin] Swelling naproxen Allergy Severe asthma, SOB Verified 11/19/24 06:21 animal dander [PET DANDER] Allergy Intermediate rash Verified 11/19/24 06:21 SEASONAL ALLERGIES Allergy Mild congestion Uncoded 11/19/24 06:21 Review of Systems Sugical H&P ROS: Negative: Constitution, Cardiovascular, Respiratory, Neurological, Psychiatric, Hem-Onc, Allergic/Immunologic, Gastrointestinal, Genitourinary, Musculoskeletal, Integumentary, Endocrine and Eyes/Ears/Nose/Throat Exam Surgical H&P Exam: Normal: HEENT, Normal: Heart, Normal: Lungs, Normal: Extremities, Normal: Abdomen, Normal: Skin and Normal: Neurological (awake, alert,oriented x 3 ) Plan Diagnosis/Plan: Unchanged C6-7, C7-T1 anterior cervical fusion and diskectomy Time Spent With Patient Time: Total time managing care of this patient today _5___ minutes.
[2024-11-19] MEDS: Lactated Ringers 1,000 ML 100 ML IVCONT (07:21)
[2024-11-19] MEDS: methocarbamoL 750 MG TABLET PO (07:30)
[2024-11-19] MEDS: Gabapentin 300 MG CAPSULE PO (07:30)
--- NOTE | 2024-11-19 10:04 | PM.DS ---
DS: Providers Provider Date of Service: 11/19/24 Date of discharge: 11/19/24 Primary care physician: Gustavo Leiva MD Admitting clinician: Jules Neville DS: Diagnosis Discharge Diagnosis (1) Cervical myelopathy with cervical radiculopathy: Status: Acute DS: Summary Time Attestation Discharge Coordination Time (in mins): 4 Quality: Safe Use of Opioids Does Pt have an Active Cancer Diagnosis on the Problem List?: No Quality: Stroke Does the patient have a stroke diagnosis?: No Physical Exam Vital Signs: Vital Signs: Last Vital Signs Temp 98.5 F 11/19/24 06:37 Pulse 79 11/19/24 06:37 Resp 16 11/19/24 06:37 BP 110/67 11/19/24 06:37 Pulse Ox 99 11/19/24 06:37 O2 Del Method Room Air 11/19/24 06:37 BMI result Body Mass Index 20.6 Discharge Plan Discharge Patient Disposition: Home, Self-Care Referrals: Gustavo Leiva MD [Primary Care Provider] - 1 Week Discharge Medications: Continued albuterol sulfate 90 mcg/actuation HFA aerosol inhaler 2 puff inhalation Q4-6H PRN (Reason: for wheezing) Qty: 25.5 2RF diclofenac sodium [Voltaren Arthritis Pain] 1 % gel 4 g topical QID PRN (Reason: pain) 30 Days Qty: 100 3RF naratriptan 2.5 mg tablet 2.5 mg PO ONCE PRN (Reason: migraine) 30 Days Qty: 9 2RF fluticasone propion-salmeterol [Wixela Inhub] 500-50 mcg/dose blister with device 1 inh inhalation BID 30 Days Qty: 60 3RF lisinopril 40 mg tablet 40 mg PO DAILY 90 Days Qty: 90 3RF tizanidine 4 mg tablet 4 mg PO TID PRN (Reason: for muscle spasm) Qty: 90 3RF acetaminophen 650 mg tablet extended release 650 mg PO Q12H PRN (Reason: for pain) Qty: 60 0RF clonidine HCl 0.1 mg tablet 0.1 mg PO TID 30 Days Qty: 90 0RF triamcinolone acetonide 0.025 % Cream 1 appl TOPICAL BID PRN (Reason: rash) ondlxpletpol-xbnk-lusft acid 18-400 mg-mcg Tablet 1 tab PO DAILY cetirizine [Zyrtec] 10 mg tablet 10 mg PO DAILY PRN (Reason: allergy symptoms) 30 Days Qty: 30 2RF duloxetine 30 mg capsule,delayed release(DR/EC) 30 mg PO DAILY lorazepam 1 mg tablet 1 mg PO DAILY PRN (Reason: anxiety) clonazepam 1 mg tablet 1 mg PO DAILY@1400,1800 duloxetine [Cymbalta] 60 mg capsule,delayed release(DR/EC) 60 mg PO DAILY ibuprofen 800 mg tablet 800 mg PO Q12H PRN (Reason: pain) Qty: 60 1RF Rx Instructions: Take it with food and full glass of water. dextroamphetamine-amphetamine 30 mg capsule,extended release 24hr 2 cap PO QAM naloxone [Narcan] 4 mg/actuation spray,non-aerosol 4 mg intranasal Q2M PRN (Reason: opioid overdose) Qty: 2 0RF Rx Instructions: spray 1 dose into ONE nostril; alternate nostrils w each dose until help arrives ondansetron HCl 4 mg tablet 4 mg PO DAILY lidocaine 5 % adhesive patch,medicated 1 patch topical DAILY 30 Days Qty: 30 3RF hydrocodone-acetaminophen 10-325 mg tablet 1 tab PO Q6H MDD 4 PRN (Reason: pain) 30 Days Qty: 120 0RF Rx Instructions: Partial Fill upon patient request. ketamine 100 mg sepideh 160 mg sublingual Discharge Orders: Discharge Order (Routine); Ordered 11/19/24 Ordered By: Jelani Luciano Diet: Advance to usual diet Activity on Discharge: As tolerated Activity Restrictions/Additional Instructions: After your spinal surgery we ask you to observe the following restrictions/guidelines: Activity: It is normal to feel some discomfort as you increase your activity, but that will improve with time. We ask you avoid heavy lifting or acitivities that cause pain. As a general rule, 8lbs is a safe limit for lifting right after surgery. Walk as much as you feel comfortable but not to exhaustion. You will feel extra tired the first few days after surgery. Stay well hydrated. It is OK to walk up and down stairs You may return to driving when you are off narcotics (such as vicodin, oxycodone, dilaudid, etc), and you are back to normal functional capacity. If you have any concerns please check with office before driving. Return to work is specific to each patient and each surgery, so please speak with your doctor/PA at first follow up. Please bring paperwork such as FMLA at that time if you need it filled out. Medications: For optimum pain control, it is best to start with a combination of 500 mg of Tylenol every 4 hours with 600 mg of Motrin every 8 hours, and use narcotics as needed in between for breakthrough pain. We will give you a short supply of narcotics after surgery (usually one weeks worth). If you need more please call the office but do not use more than prescribed. You will need to give our office 48 hours notice if you need narcotics refilled and we do not fill narcotics on weekends or evenings. If you are on a narcotic, it is a good idea to take a stool softener such as colace or senna to avoid constipation If you take blood thinner such as aspirin, Plavix, Coumadin, Effient, Eliquis etc for conditions such as Afib, DVT, Pulmonary embolus, coronary disease, stents etc please speak with your surgeon about specific details as to when you can resume these medications. You can resume NSAIDs on post op day 1 (eg: Motrin, Naproxen, etc). Follow up: Please call the office, , after surgery to arrange a 3 week follow up for wound check. Wound Care: You may remove your dressing on the first day after surgery. ?You may ?leave open to air. Please do not remove the steri strips underneath. they will fall off on their own in one week. IT IS NORMAL FOR THE WOUND TO OOZE OR BE BLOODY FOR A FEW DAYS AFTER SURGERY. ?IF THIS HAPPENS JUST PLACE NEW DRESSING OVER IT TO AVOID STAINING CLOTHES. You may shower on post op day # 1 We ask that you do not let the water soak the wound. If it does get wet, just towel dry lightly. Please do not scrub your incision or place any type of chemical/ointment on the wound. No tub baths, pools or jacuzzis for one month. If you have any leaking or redness from your wound, or fevers, please call office Print Language: Vietnamese
[2024-11-19] MEDS: HYDROmorphone HCl 0.5 MG/0.5 ML SYRINGE 0.25 MG IVPUSH ×4 (10:45→11:00)
--- NOTE | 2024-11-19 10:48 | W.PM.OPN ---
Operative Note Operative Note Date of Service: 11/19/24 Narrative: Preoperative Diagnosis: 1)Cervical myelopathy due to C7-T1 anterolisthesis and spinal cord compression 2) status post C4-C6 anterior diskectomy and fusion Procedure: C6-7, C7-T1 Anterior discectomy, arthrodesis and implantation cage ; C6-T1 anterior instrumentation ; local autograft; microscope Informed Consent was obtained for this operation. I have explained the nature, purpose and benefits of the operation. I have discussed the risks and benefit of the operation including possible complications or adverse events with patient/family. Alternative(s) were discussed with the patient with their relative benefits and risks as well as the consequences of not accepting the operation were included in obtaining consent. Surgeon: GALINA ZULETA MD, PHD Procedure Assisted By: Jelani diaz Description of Procedure: This patient had a previous anterior diskectomy fusion done C4-5 C5-6 and another institution. She presented with progressive myelopathy with quadriparesis due to C7-T1 anterolisthesis with spinal cord compression and myelomalacia. She was offered a urgent decompression of this level. The C6-7 level was also included to prevent failure in the future. The procedure and complications were explained. The patient was consented. The patient was brought to the operating room and endotracheally intubated. The patient was put in supine position with slight extension of the neck. Prep and drape was done followed by timeout. A mid cervical incision was made followed by opening of the platysma. The prevertebral fascia was reached following the natural planes while the physician admissions assistant provided manual retraction. The prevertebral fascia was opened to expose the disc spaces. A spinal needle was placed in the disk spaces to confirm the correct levels with xray. The longus colli muscles were released bilaterally and a self retaining retractor was inserted. An initial diskectomy was done of C7-T1 and C6-7 towards the posterior annulus. Two Vanderbilt pins were placed in the C7 and T1 vertebral bodies and distraction was give over the interspace. The discectomy was completed toward the posterior annulus of the disc. The microscope was brought in. The remainder of the discectomy was completed. The posterior ligament was opened and resected to expose the underlying dura. Osteophytes were resected from the body of C7 and T1 and saved for autograft. Bilateral foraminotomies were done. The endplates were prepared after which a 6 mm cage filled with autograft and allograft was inserted into the disc space. A separate attached plate was locked down with 2 x 14 mm screws as anterior instrumentation. Attention was turned to the C6-7 disc space. Similar procedure was done. The posterior longitudinal ligament was opened and resected to expose the underlying dura. Osteophytes were resected and saved for autograft. The endplates were prepared after which a 6 mm cage was inserted filled with autograft and allograft. A separate attached plate was locked down with 2 x 14 mm screws. Finally a 12 mm plate was locked down with 4 x 14 mm screws to provide additional anterior instrumentation for the C7-T1 level. Final x-rays in AP and lateral projection showed a satisfactory position of the implants and anterior instrumentation. The physician admissions assistant took over. The Vanderbilt pin was removed. Hemostasis was done. He closed the incision in 2 layers with a 3-0 Vicryl. Steri-Strips used to approximate incision. An OpSite with Tegaderm was used to cover the incision. All sponge and needle counts were correct. Patient was extubated and transported in stable is to recovery room. Anesthesia: General Estimated Blood Loss (ml): 40 mL Duration of Surgery: 2 hrs Postoperative Plan: Discharge home Complications: None
== END 2024-11-19 12:19 | disposition home or self-care (01) ==
PROVIDERS: PCP Family Medicine; Visit Provider Neurological Surgery
PROC: (CPT 22551; principal; 2024-11-19 07:30)
DX: M50.03 Cervical disc disorder with myelopathy, cervicothoracic region (principal); M54.12 Radiculopathy, cervical region; G95.29 Other cord compression; Z98.1 Arthrodesis status
CPT/HCPCS: 22551; 22552; 22853; 20936; 22845; C1713; C1889; J0131; J0690; J1100; J1171; J2003; J2250; J2371; J2405; J2704; J3010; L8699

== ENCOUNTER → 2024-11-19 05:56 | Outpatient (BNV) | payer MEDICARE, SELFPAY | PROVIDERS: PCP Family Medicine; Visit Provider Physician Assistant | DX: M50.03 Cervical disc disorder with myelopathy, cervicothoracic region (principal); G95.9 Disease of spinal cord, unspecified; M54.12 Radiculopathy, cervical region | CPT/HCPCS: 20930; 20936; 22551; 22552; 22845; 22853; 99499 ==

== ENCOUNTER 2024-12-11 13:29 | Outpatient (AMB) | payer MEDICARE, SELFPAY ==
--- NOTE | 2024-12-11 13:41 | A.SPINEOV_ITS ---
Intake Visit Reasons: 1st post op Intake Note: Mrs. Bailey is here today for her 1st post op appointment. Owner Spa Director Required: No Allergies amoxicillin [From Augmentin] Allergy (Severe, Verified 12/11/24 13:42) Facial Swelling clavulanic acid [From Augmentin] Allergy (Severe, Verified 12/11/24 13:42) Facial Swelling naproxen Allergy (Severe, Verified 12/11/24 13:42) asthma, SOB animal dander [PET DANDER] Allergy (Intermediate, Verified 12/11/24 13:42) rash SEASONAL ALLERGIES Allergy (Mild, Uncoded 11/19/24 06:21) congestion Assessment & Plan Assessment & Plan (1) Status post cervical spinal fusion: Code(s): Z98.1 - Arthrodesis status Category: Surgical Plan Dear colleague On 12/11/2024 I saw for 1st postoperative visit Marilu Bailey. She underwent an emergent decompression of C6-7 C7-1 for progressive quadriparesis 3 weeks ago. She had his recurrent improvement in neurological function. She is able to walk again and her sensory deficits have greatly improved. The side effect is that she feels her right shoulder pain more than usual as well as her back pain. She also has traveling swallowing and migraine attacks. I told the patient that I am optimistic for further neurological recovery. Most recovery will occur in the 1st 3 months. The dysphagia should resolve when the swelling in the operative area comes down. She will return to the office in 6 weeks for 2nd postoperative visit with an x-ray of the cervical spine. Thank you for allowing me take care of your patient. Jules Neville MD, PhD Spine Fellowship Trained Neurosurgeon Director, [facility] Orders: Orders XR cervical spine 2V 6 Weeks Z98.1 - Arthrodesis status Coding Level of Care Code Global (17720) Diagnoses Status post cervical spinal fusion Z98.1
== END 2024-12-11 14:23 | disposition home or self-care (01) ==
PROVIDERS: PCP Family Medicine; Visit Provider Neurological Surgery
DX: Z98.1 Arthrodesis status (principal)
CPT/HCPCS: 99024

== ENCOUNTER → 2024-12-11 13:29 | Outpatient (BNVA) | payer MEDICARE, SELFPAY | PROVIDERS: PCP Family Medicine; Visit Provider Neurological Surgery | DX: Z47.89 Encounter for other orthopedic aftercare (principal); Z98.1 Arthrodesis status | CPT/HCPCS: 99212 ==

== ENCOUNTER 2024-12-13 10:59 | Outpatient (AMB) | payer MEDICARE, SELFPAY ==
--- NOTE | 2024-12-13 11:08 | A.OFFVIS_ITS ---
Vital Signs 12/13/24 11:16 Height 5 ft 4 in Weight 125 lb 4 oz BMI 21.5 BP 165/98 H Blood Pressure Location Lt brachial Position Sitting Pulse 86 Pulse Source Pulse Oximeter Pulse Oximetry (%) 97 Oxygen Delivery Method Room Air Intake Visit Reasons: Pill Count Intake Note: Marilu comes in today for a pill count to hydrocodone-acetmaniphen, patient should have 40 tablets and presents with 43 tablets which she last took today 12/13/24 at 9am. 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 Patient is supposed to have #40 pills, in her possession has #43 pills. This demonstrates a responsible attitude in regards to the medication regimen. Patient reports minimal analgesia on her current regimen of hydrocodone-acetaminophen 10-325 mg 1 tab Q6H prn without any noted side effects. She reports pain in her neck after recent cervical fusion few weeks ago and also has significant lumbar spinal stenosis at L3-L4 which wi ll be addressed at [facility]. She is tearful and reports current medication regime does not provide adequate analgesia since recent neck surgery. Patient also reports right shoulder pain due to severe OA and increased migraine headaches. Patient is interested in physical therapy after cervical fusion and right shoulder steroid injection. She was told she would benefit from a TSA in the future by Dr. Tom. Patient will reach out to Dr. Neville for PT recommendations. Denies any recent cough, cold, infection, fever or any other significant changes in medical history since last office visit. [facility] Dr. Neville 12/11/24: On 12/11/2024 I saw for 1st postoperative visit Marilu Bailey. She underwent an emergent decompression of C6-7 C7-1 for progressive quadriparesis 3 weeks ago. She had his recurrent improvement in neurological function. She is able to walk again and her sensory deficits have greatly improved. The side effect is that she feels her right shoulder pain more than usual as well as her back pain. She also has traveling swallowing and migraine attacks. I told the patient that I am optimistic for further neurological recovery. Most recovery will occur in the 1st 3 months. The dysphagia should resolve when the swelling in the operative area comes down. She will return to the office in 6 weeks for 2nd postoperative visit with an x-ray of the cervical spine. [facility] Medical History Depression Migraine headache Stool incontinence Chronic pain syndrome Postlaminectomy syndrome Disc degeneration, lumbar Compression fracture of L1 lumbar vertebra Osteoporosis Hypertension Spondylosis Attention deficit disorder Herniated disc Asthma Anxiety Migraine headache Surgical History Status post kyphoplasty History of lumbosacral spine surgery History of cervical spinal surgery History of spinal surgery History of surgery on left wrist Family History Sister Ovarian cancer Lung cancer Maternal Grandmother Ovarian cancer Paternal Aunt Ovarian cancer Maternal Aunt Pancreatic cancer Social History Household Members: Spouse Housing: House Are you a primary childcare director to a significant other at home: No Do you presently have visiting nurse or other home services: No Comment: medicated in pacu Patient Tobacco Use Status: Former Tobacco user e-Cigarette/Vaping Use: Never Used Second Hand Smoke Exposure: No service: No Current occupational status: disabled 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 Alert and oriented. Mood and affect appropriate. Clear speech. Follows and participates in conversation appropriately. Respiratory effort is unlabored. No cough. Able to transition from sit to stand unassisted. Ambulates with bilaterally normal heel strike and toe off, wide based and antalgic gait. Bilateral shoulder pain with overhead or backside pocket reaching activities, right>left. Neck Neck: Yes normal visual inspection, Yes no lymphadenopathy, Yes supple, No anterior neck swelling, Yes no JVD and No prominent dorsocervical fat pad Back/Spine/Pelvis Cervical Spine: No collar present, cervical muscular tenderness, pain with cer vical ROM, Cervical spine scars present (well healing anterior scar) and No Cervical spine tenderness Thoracic/Lumbar Spine: Thoracic/lumbar spine scar(s), Lasegue's sign positive (right>left) bilateral and localized, pain with thoraco-lumbar ROM, thoraco- lumbar ROM limited, No thoracic spinal tenderness and lumbar spinal tenderness (L3-S1) Pelvis: buttock tenderness bilaterally Extrem General: Yes capillary refill normal, Yes no clubbing, cyanosis or edema and Yes no calf tenderness Psych Appearance: grossly normal Mental Status: mental status grossly normal Speech and movement: Normal speech and movement present Affect: normal affect and Sad affect present Attitude: cooperative Thought process: Normal thought process present Thought content: Normal thought content present, suicidality (none), no hallucinations and Depressive thoughts present Insight: Good insight present (Psych) Judgement: Good judgement present (Psych) Results Reviewed Results Reviewed: ADDENDUM This document has been electronically signed by: Guerita Carl MD on 11/10/2024 15:58:24 ADDENDUM: This report was discussed with Lobo Matos on Nov 10, 2024 16:51:00 EST. This document has been electronically signed by: Franklin Dumont on 11/10/2024 16:51:48 Addendum Dictated By: Guerita Carl MD Addendum Signed By: <Electronically signed by Guerita Carl MD in [place]> 11/10/241652 Addendum Cosigned By: DD/ /23/1558 TD/TT: 11/10/2410/23/1651 CLINICAL HISTORY: <OBR.31.1><OBR.31.1.1>Z98.890 - Other specified postprocedural states Multiple falls with the last occurrence being 06/2024. New numbness radiating into vaginal </OBR.31.1.1><OBR.31.1.2> anal region. 1 week.</OBR.31.1.2></OBR.31.1> MR cervical spine without gadolinium 11/10/24 Comparison: MR - MRI CERVICAL SPINE [id number] - 04/22/15 13:26 EDT There is 5 mm of anterolisthesis of C7 on T1 with interval worsening. Remaining alignment is normal. Prior anterior metallic fusion extending from C4 through C6. Appropriate alignment at surgical levels. No hardware failure. No acute fractures or pathologic bone lesions. C2-C3: No significant disc disease. Mild facet osteoarthritis on the right. C3-C4: Disc osteophyte complex with interval increase. Moderate mass effect on the thecal sac. Severe osteoarthritis of the right facet joint with interval worsening. Moderate stenosis of the right neural foramen with interval worsening C4-C5: Ankylosis with no significant central canal or neural foraminal narrowing. C5-C6: Ankylosis with no significant central canal narrowing. Mild moderate narrowing of the right neural foramen. C6-C7: Moderate broad-based disc bulge, similar to the prior study. Moderate thecal sac effacement. Mild narrowing of neural foramina. C7-T1: Severe osteoarthritis of the bilateral facet joints with worsening. 6 mm central disc protrusion with worsening. Moderate central canal stenosis with mass effect on both the anterior and posterior aspects of the cervical spinal cord. Vague increased signal intensity within the cord at this level. Visualized intracranial contents are unremarkable. No cervical fluid collections or masses. IMPRESSION: 1. There has been interval progression of degenerative changes. This is most significant at C7-T1 where there is a 6 mm central disc protrusion with worsening, severe osteoarthritis of the bilateral facets with worsening, and moderate central canal stenosis with mass effect on the cord and findings of myelomalacia. MR LUMBAR SPINE WITH AND WITHOUT GADOLINIUM 11/12/24 Comparison: MR/REG - MR LUMBAR SPINE WO/W CON - 05/14/21 16:13 EDT CR - XR LUMBAR SPINE 4V MIN - 03/01/21 13:47 EDT Findings: Similar alignment compared to prior study. Minimal grade 1 retrolisthesis L2 on L3. Minimal grade 1 anterolisthesis L3 on L4. Grade 1-2 anterolisthesis L4 on L5. Stable dextroscoliosis, apex L3. Redemonstration of L4-5 posterior fusion. Redemonstration of L1 kyphoplasty. No acute fracture or pathologic bone lesion. The conus medullaris terminates at the L2 level. T12-L1: Mild disc bulge. Facet arthropathy. No significant spinal stenosis. Severe bilateral foraminal stenoses. L1-L2: Bilateral small foraminal disc protrusions. Facet arthropathy. No significant spinal stenosis. Severe bilateral foraminal stenoses. L2-L3: Mild disc bulge with bilateral small foraminal disc protrusions. Facet arthropathy. Mild spinal stenosis. Severe bilateral foraminal stenoses. L3-L4: Large disc bulge. Facet arthropathy. Ligamentum flavum hypertrophy. Severe spinal and bilateral foraminal stenoses. L4-L5: Stable residual disc remnant. No enhancing scar tissue. Vsee-kq-ydjnkwlp spinal stenosis. There is clumping of the nerve roots at this level. L5-S1: Mild disc bulge with small right foraminal disc protrusion. No significant spinal stenosis. Facet arthropathy. Severe bilateral foraminal stenoses. Visualized retroperitoneum and paraspinous musculature intact. IMPRESSION: 1. Large disc bulge at L3-4 combined with facet arthropathy and ligamentum flavum hypertrophy results in severe spinal stenosis. 2. Postsurgical changes L4-5 with stable small residual disc remnant. No enhancing scar tissue. Drrc-zc-cthezwor spinal stenosis. Redemonstration of likely adhesive arachnoiditis at this level. 3. Multilevel facet arthropathy with severe foraminal stenoses. 4. Compared to prior study, findings are overall unchanged. 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 Category: Medical (4) Osteoarthritis of right glenohumeral joint: Code(s): M19.011 - Primary osteoarthritis, right shoulder Category: Medical (5) Bilateral shoulder pain: Code(s): M25.511 - Pain in right shoulder; M25.512 - Pain in left shoulder Category: Medical (6) Postlaminectomy syndrome: Code(s): M96.1 - Postlaminectomy syndrome, not elsewhere classified Category: Medical (7) Right shoulder pain: Code(s): M25.511 - Pain in right shoulder Category: Medical (8) Status post cervical spinal fusion: Code(s): Z98.1 - Arthrodesis status Category: Surgical Plan Patient has shown accountability for her medication regimen and the pill count was accurate. There is no evidence of misuse, abuse or diversion at this time. MassPat reviewed and consistent. Script sent for increased dose for hydrocodone-acetaminophen 10-325 mg 1 tab Q4- 6H #150 tabs for 30 days with advanced date on 12/20/24 for next month to cover significant right shoulder and neck pain s/p recent cervical fusion. Discussed with the patient the risks associated with benzodiazepine and opioid use. Patient is aware and verbalized an agreement to take the medications at least two hours apart. Patient has Narcan at home. Schedule right shoulder steroid injection with local and fluoroscopy to be scheduled after mid-December. Confirmed with Neurosurgery. Expectations, risks and benefits were reviewed. Patient is aware she will be contacted to schedule this procedure. All questions were answered and the patient is in agreement with the plan. Follow up in 4-5 weeks for a pill count or sooner if needed. Medications: Refilled hydrocodone-acetaminophen 10-325 mg Partial Fill upon patient request. 1 tab PO Q6H 30 days PRN 150 tabs 0RF pa in MDD 5 G89.4 - Chronic pain syndrome, M19.011 - Primary osteoarthritis, right shoulder, M25.511 - Pain in right shoulder, M51.36 - Other intervertebral disc degeneration, lumbar region, Z79.891 - [facility] (current) use of opiate analgesic Coding Level of Care Code Est Pt Level 4 (75248) Complex EM visit Add On G2211 Diagnoses Disc degeneration, lumbar M51.36 Chronic pain syndrome G89.4 Opioid contract exists Z79.891 Osteoarthritis of right glenohumeral joint M19.011 Bilateral shoulder pain M25.511; M25.512 Postlaminectomy syndrome M96.1 Right shoulder pain M25.511 Status post cervical spinal fusion Z98.1
[2024-12-13 11:16] VITALS: BP 165/98; PULSE 86; O2SAT 97; BMI 21.5
== END 2024-12-13 11:41 | disposition home or self-care (01) ==
PROVIDERS: PCP Family Medicine; Visit Provider Nurse Practitioner Family
DX: G89.4 Chronic pain syndrome (principal); M51.369 Other intervertebral disc degeneration, lumbar region without mention of lumbar back pain or lower extremity pain; Z79.891 Long term (current) use of opiate analgesic; M19.011 Primary osteoarthritis, right shoulder; M25.511 Pain in right shoulder; M25.512 Pain in left shoulder; M96.1 Postlaminectomy syndrome, not elsewhere classified; Z98.1 Arthrodesis status
CPT/HCPCS: 99214; G2211

== ENCOUNTER → 2024-12-13 10:59 | Outpatient (BNVA) | payer MEDICARE, SELFPAY | PROVIDERS: PCP Family Medicine; Visit Provider Nurse Practitioner Family | DX: M51.360 Other intervertebral disc degeneration, lumbar region with discogenic back pain only (principal); M19.011 Primary osteoarthritis, right shoulder; M25.512 Pain in left shoulder; G89.4 Chronic pain syndrome; M96.1 Postlaminectomy syndrome, not elsewhere classified; M25.511 Pain in right shoulder; Z98.1 Arthrodesis status; Z51.81 Encounter for therapeutic drug level monitoring; Z79.891 Long term (current) use of opiate analgesic | CPT/HCPCS: 99212 ==

== ENCOUNTER → 2024-12-19 15:54 | Outpatient (AMB) | payer MEDICARE, SELFPAY ==
--- NOTE | 2024-12-19 15:47 | A.OFFPC_ITS ---
Intake Visit Reasons: us results Intake Note: u/s results Allergies amoxicillin [From Augmentin] Allergy (Severe, Verified 12/19/24 15:48) Facial Swelling clavulanic acid [From Augmentin] Allergy (Severe, Verified 12/19/24 15:48) Facial Swelling naproxen Allergy (Severe, Verified 12/19/24 15:48) asthma, SOB animal dander [PET DANDER] Allergy (Intermediate, Verified 12/19/24 15:48) rash SEASONAL ALLERGIES Allergy (Mild, Uncoded 11/19/24 06:21) congestion Tobacco use date assessed: 01/10/24 Dental Screening Dental Screen Date: 01/10/24 HPI us results HPI Details 64 y/o female presents to review ultraso und results. Has been following up with the [facility] for postoperative visit. She had underwent emergent decompression of C6-7 C7-1 for progressive quadriparesis. Liver ultrasound 11/07/24 showed: 1. Normal hepatic echotexture. Normal gallbladder, right kidney and CBD. 2. Elastography: Liver stiffness measur es 1.50 m/s and corresponds to cACLD. [facility] Medical History Depression Migraine headache Stool incontinence Chronic pain syndrome Postlaminectomy syndrome Disc degeneration, lumbar Compression fracture of L1 lumbar vertebra Osteoporosis Hypertension Spondylosis Attention deficit disorder Herniated disc Asthma Anxiety Migraine headache Surgical History Status post kyphoplasty History of lumbosacral spine surgery History of cervical spinal surgery History of spinal surgery History of surgery on left wrist Family History Sister Ovarian cancer Lung cancer Maternal Grandmother Ovarian cancer Paternal Aunt Ovarian cancer Maternal Aunt Pancreatic cancer Social History Household Members: Spouse Housing: House Are you a primary associate director career services to a significant other at home: No Do you presently have visiting nurse or other home services: No Comment: medicated in pacu Patient Tobacco Use Status: Former Tobacco user e-Cigarette/Vaping Use: Never Used Second Hand Smoke Exposure: No service: No Current occupational status: disabled 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 Tyrone García, Marnie Huston, Sadi Ross and colleagues, with an educational krystina from [employer]. Review of Systems Const Denies chills, Denies fatigue, Denies fever(s), Denies headache(s) and Denies weakness ENT Denies dizziness and Denies headache(s) Card Denies dyspnea Resp Denies cough, Denies dyspnea, Denies wheezing and Denies other (shortness of breath) Musc Denies numbness and Denies tingling Neuro Denies dizziness, Denies headache(s), Denies numbness, Denies tingling and Denies weakness Psych Denies anxiety and Denies depression Endo Denies fatigue Aller/Immun Denies wheezing Physical exam (Primary Care) Tobacco/Smoking Status: Tobacco use Status Tobacco use date assessed 01/10/24 12/19/24 15:51 Patient Tobacco Use Status Former Tobacco user 12/19/24 15:51 e-Cigarette/Vaping Use Never Used 12/19/24 15:51 Thrive Assessment: Date of Thrive Assessment Date Thrive assessed 08/29/24 12/19/24 15:51 Telehealth Telehealth Telehealth Platform: Telephone Location of provider rendering services: practice address Location of patient: address on file Patient Identification confirmed using: Name, : Yes Telehealth method: voice only Patient verbally consented to treatment: Yes Patient verbally consented to billing insurance company: Yes Patient informed of any privacy concerns related to visit: Yes Minutes spent on Phone/Video with Pt.: 14 Coding Level of Care Code Tele Est Pt Level 2 (55389) Diagnoses Status post cervical spinal fusion Z98.1 Elevated liver enzymes R74.8 History of alcohol abuse F10.11 Assessment & Plan Assessment & Plan (1) Status post cervical spinal fusion: Code(s): Z98.1 - Arthrodesis status Category: Surgical Plan: Gradually?improving Follow-up?with neuro/spine?as?recommended (2) Elevated liver enzymes: Code(s): R74.8 - Abnormal levels of other serum enzymes Category: Medical Plan: Liver?ultrasound?did?not?show?any?masses?or abnormal?echogenicity Elastography was?read?as?compensated?advanced?chronic?liver?disease Patient?has?history?of?alcohol?abuse?though?she?has?been?in?remission?for?quite? some?time. Liver?enzymes?mildly?elevated?but?steady?and?lower?than?[place] in?2021 Continue?good?hydration?and?healthy?diet Will?continue?to?monitor (3) History of alcohol abuse: Comment: In Remission 12/19/24 Code(s): F10.11 - Alcohol abuse, in remission Category: Medical Plan: As?above,?patient in remission Encouraged?abstinence Orders: Orders Comprehensive Met. Panel Today F10.11 - Alcohol abuse, in remission
== END ==
LOC: HO.HMCFM 15:54
PROVIDERS: PCP Family Medicine; Visit Provider Family Medicine
DX: R74.8 Abnormal levels of other serum enzymes (principal); Z98.1 Arthrodesis status; F10.11 Alcohol abuse, in remission

== ENCOUNTER 2024-12-30 13:19 | Outpatient (REF) | payer MEDICARE, SELFPAY | END 2024-12-30 13:20 | disposition home or self-care (01) | LOC: HO.HOSX 13:19 | PROVIDERS: Visit Provider Physician Assistant | DX: Z13.89 Encounter for screening for other disorder (principal) ==

== ENCOUNTER 2025-01-02 13:18 | Outpatient (REF) | payer MEDICARE, SELFPAY ==
--- NOTE | ~2025-01-02 | MM_ITS ---
EXAMINATION: DXA BONE DENSITY EXTREMITY HISTORY: Estrogen deficiency TECHNIQUE: Poynt Dual energy absorptiometry (DEXA) of the lumbar spine, total left hip, and femoral neck was performed. COMPARISON: There are no prior studies for comparison. FINDINGS: The bone mineral density of the lumbar spine is 1.092 with a T-score of -0.6, and a Z-score of 1.3. The bone mineral density of the left total hip is 0.668 with a T-score of -2.7, and a Z-score of -1.2. The bone mineral density of the left femoral neck is 0.717 with a T-score of -2.3, and a Z-score of -0.6. MM/XR DEXA appendicular skeleton IMPRESSION: Based on bone mineral density, and according to World Health Organization (WHO) criteria, the diagnosis is consistent with osteoporosis. All bone density values are in grams per centimeter squared (g/cm2). Statistically, 68% of repeat scans fall within 1 SD (+/- 0.010 g/cm2 for AP spine L1-L4) and 1 SD (+/- 0.012 g/cm2 for femur total) FRAX is a trademark of the [employer]'s [place] for Metabolic Bone Disease, a World Health Organization (WHO) Collaborating Center. Electronically signed by: Tyrone Qiu MD 01/03/2025 07:13 AM [facility]
== END 2025-01-02 13:19 | disposition home or self-care (01) ==
LOC: HO.MAMMO 13:18
PROVIDERS: PCP Family Medicine; Visit Provider Nurse Practitioner Family
DX: M81.0 Age-related osteoporosis without current pathological fracture (principal); M96.1 Postlaminectomy syndrome, not elsewhere classified; G95.9 Disease of spinal cord, unspecified
CPT/HCPCS: 77081

== ENCOUNTER → 2025-01-02 13:30 | Outpatient (BNV) | payer MEDICARE, SELFPAY | PROVIDERS: PCP Family Medicine; Visit Provider Radiology Diagnostic Radiology | DX: E28.39 Other primary ovarian failure (principal) | CPT/HCPCS: 77081 ==

== ENCOUNTER 2025-01-03 12:52 | Outpatient (AMB) | payer MEDICARE, SELFPAY ==
--- NOTE | 2025-01-03 13:21 | A.SPINEOV_ITS ---
Intake Visit Reasons: F/u X-rays Intake Note: Ms. Bailey is here today to F/u on xrays [employer] Advisor Required: No Allergies amoxicillin [From Augmentin] Allergy (Severe, Verified 01/03/25 13:30) Facial Swelling clavulanic acid [From Augmentin] Allergy (Severe, Verified 01/03/25 13:30) Facial Swelling naproxen Allergy (Severe, Verified 01/03/25 13:30) asthma, SOB animal dander [PET DANDER] Allergy (Intermediate, Verified 01/03/25 13:30) rash SEASONAL ALLERGIES Allergy (Mild, Uncoded 11/19/24 06:21) congestion Assessment & Plan Assessment & Plan (1) Cervical spinal stenosis: Code(s): M48.02 - Spinal stenosis, cervical region Category: Medical (2) Left groin pain: Code(s): R10.32 - Left lower quadrant pain Category: Medical Plan Mrs Bailey is here in follow-up. She underwent a C7-T1 anterior cervical diskectomy and fusion about 6 weeks ago or so with spinal cord compression and myelopathy. She has gotten somewhat better from the standpoint of her myelopathy but she called the other day to report that she was having severe intense anterior groin pain on the left side. I brought her in just to evaluate and get a few x-rays. What she describes as very local pain right near the anterior groin/pubic region. It is aggravated with standing and walking and gets better when she sits down. She can put her hand on it and massage the area to affect it. It does not present with tingling numbness or radiation from her back. It only started really in the last few weeks rather abruptly. On exam, her strength is good and I do not palpate any mass or evidence of hernia. Inte rnal and external rotation of the leg does give some pain but it is not severe. I looked at her x-rays and although there is some arthritis it does not appear that she has avascular necrosis. There is no official report back. Her lumbar spine shows as previously seen severe degenerative disc disease, status post L4- 5 fusion. That looks stable compared to previous x-rays. It sounds to me like she had some kind of groin strain in the muscle or the tendon insertion in that area. It is very local and is in a very small area of her anterior groin. We talked about possibly referring her up to orthopedics see if this is some kind of groin pull that may benefit from either therapy or injection etc.. The patient is going to see Shawna from pain management and see what she thinks. I do not think it is coming from her lumbar region however so I do not feel the need to escalate a new MRI to rule out a disc herniation etc.. She will follow up with us again in a few weeks and review her cervical Spine x-rays. Jelani Neville MD, PhD [facility] [place] [facility] Orders: Orders XR cervical spine 4V Today M48.02 - Spinal stenosis, cervical region Coding Level of Care Code Global (58724) Diagnoses Cervical spinal stenosis M48.02 Left groin pain R10.32
== END 2025-01-03 14:03 | disposition home or self-care (01) ==
PROVIDERS: PCP Family Medicine; Visit Provider Physician Assistant
DX: M48.02 Spinal stenosis, cervical region (principal); R10.32 Left lower quadrant pain
CPT/HCPCS: 99024

== ENCOUNTER → 2025-01-03 13:01 | Outpatient (BNV) | payer MEDICARE, SELFPAY | PROVIDERS: Visit Provider Radiology Diagnostic Radiology | DX: M43.16 Spondylolisthesis, lumbar region (principal); R10.32 Left lower quadrant pain | CPT/HCPCS: 72110; 73502 ==

== ENCOUNTER 2025-01-03 13:19 | Outpatient (REF) | payer MEDICARE, SELFPAY ==
--- NOTE | ~2025-01-03 | XR_ITS ---
EXAMINATION: XR HIP, LEFT CLINICAL INFORMATION: R10.32 - Left lower quadrant pain COMPARISON: None available. TECHNIQUE: Two views of the left hip. FINDINGS: No definite fracture or dislocation. No suspicious bone lesion. Severe, end-stage osteoarthrosis of the left hip joint present with superior joint space loss, wahk-sl-qgin appearance, with subchondral sclerosis and cystic changes in both the femoral head and superior acetabulum. There are prominent marginal productive osteophytes and subcapital osteophytes. There is mild irregularity of the contour to the superior femoral head. Partially imaged fusion hardware in the lower lumbar spine. Mild to moderate degenerative SI joint changes. No soft tissue abnormality. XR/XR hip LT min 2V IMPRESSION: Severe osteoarthrosis left hip joint. Electronically signed by: Asher Grady MD 01/06/2025 03:16 PM EDT
--- NOTE | ~2025-01-03 | XR_ITS ---
EXAMINATION: XR LUMBOSACRAL SPINE CLINICAL INFORMATION: M43.16 - Spondylolisthesis, lumbar region COMPARISON: MR lumbar 11/12/2024. Radiographs 03/01/2021. TECHNIQUE: 4 views of the lumbar spine, inclusive of flexion and extension views, were obtained. FINDINGS: There is a moderate right convex scoliosis, apex at L3, with a rotatory component. There is a normal lumbar lordosis. There is kyphoplasty cement in L1. No acute compression deformity is identified otherwise. There has been prior dorsal instrumented fusion of L4-L5. Hardware appears intact without evidence of loosening. Multilevel disc degeneration is present, most severe at L to 3 with sclerotic endplate changes and disc vacuum phenomenon. Multilevel left greater than right facet degeneration is present. Neutral view demonstrates a trace 2 mm retrolisthesis of L1 on L2 and L2 on L3. There is a 3 mm anterolisthesis of L3 on L4. There is a 12 mm anterolisthesis of L4 on L5. On flexion exam, there is mild increase of L4-5 anterolisthesis to 13 mm. No additional changes. On extension exam, there is no change L4-5 anterolisthesis of 13 mm. No additional changes. No evidence of instability on this examination. Mild vascular calcification in the soft tissues. XR/XR lumbar spine 4V min IMPRESSION: 1. Multilevel moderate to advanced spondylosis with a moderate right convex scoliosis. No acute bony abnormality. 2. Kyphoplasty of L1. Dorsal instrumented fusion of L4-5 without complication evident. 3. Stable subluxations on flexion and extension most significant at L4-5, measuring up to 13 mm. No definite instability. Electronically signed by: Asher Grady MD 01/06/2025 03:35 PM EDT
== END 2025-01-03 13:20 | disposition home or self-care (01) ==
LOC: HO.HOSX 13:19
PROVIDERS: Visit Provider Physician Assistant
DX: M48.02 Spinal stenosis, cervical region (principal); R10.32 Left lower quadrant pain; M43.16 Spondylolisthesis, lumbar region
CPT/HCPCS: 72110; 73502; 99212

== ENCOUNTER 2025-01-09 11:01 | Outpatient (AMB) | payer MEDICARE, SELFPAY ==
--- NOTE | 2025-01-09 11:10 | MHC.OFFVIS ---
Vital Signs 01/09/25 11:18 Height 5 ft 4 in Weight 123 lb 8 oz BMI 21.2 BP 163/95 H Blood Pressure Location Lt brachial Position Sitting Pulse 106 H Pulse Source Pulse Oximeter Pulse Oximetry (%) 98 Oxygen Delivery Method Room Air Intake Visit Reasons: pill count Intake Note: Marilu comes in today for a pill count to hydrocodone-acetmainophen, patient should have 50 tablets and presents with 57 tablets which she last took today 01/09/25 at 10:30am. 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 Patient is supposed to have #50 pills, in her possession has #57 pills. This demonstrates a responsible attitude in regards to the medication regimen. Patient reports reasonable analgesia on her current regimen of hydrocodone-acetaminophen 10-325 mg 1 tab [id number] prn without any noted side effects. Patient underwent cervical spine surgery in October, post which she experienced transient dysphagia due to swelling-associated complications, which have largely subsided. The patient's current concerns include persistent numbness in the right lower buttock area, with radiation down her right leg when sitting for extended periods or at the edge of a seat. She also reports significant left hip and groin pain. Recent left hip imaging revealed severe osteoarthritis in the left hip joint. Additionally, she reported she experienced a fall, resulting in pain in the left groin, potentially linked to the left hip joint's arthritic condition or a muscle insertion issue. Patient continues to endorse right shoulder pain due to severe OA. She was told she would benefit from a TSA in the future by Dr. Tom. She is scheduled to undergo therapeutic right shoulder injection next month. Denies any recent cough, cold, infection, fever or any other significant changes in medical history since last office visit. - Pain quality: Chronic pain, described as numbness in the right lower buttock, radiating to the right leg extending to the right foot. Right shoulder pain with restricted ROM. Left hip pain with significant left groin and thigh pain with ambulation and movements. - Affect: Pain impacts daily activities, including limiting her ability to sit for extended periods or walk for more than an hour - Analgesia: Currently taking prescribed pain medication as needed and managed with existing dosage; reports additional requirement during nightly interruptions due to pain and anxiety - Adverse Effects: Experiences consistent constipation, managed with daily Metamucil and dietary fiber - Activities of Daily Living: Limited outdoor activity due to pain and fatigue; recent improvements noted during warmer weather - Aberrant Drug Related Behaviors: Surplus of prescribed medication indicates compliance with 'as needed' usage [facility] Medical History Left groin pain Depression Migraine headache Stool incontinence Chronic pain syndrome Postlaminectomy syndrome Disc degeneration, lumbar Compression fracture of L1 lumbar vertebra Osteoporosis Hypertension Spondylosis Attention deficit disorder Herniated disc Asthma Anxiety Migraine headache Surgical History Status post kyphoplasty History of lumbosacral spine surgery History of cervical spinal surgery History of spinal surgery History of surgery on left wrist Family History Sister Ovarian cancer Lung cancer Maternal Grandmother Ovarian cancer Paternal Aunt Ovarian cancer Maternal Aunt Pancreatic cancer Social History Household Members: Spouse Housing: House Are you a primary reservoir caretaker to a significant other at home: No Do you presently have visiting nurse or other home services: No Comment: medicated in pacu Patient Tobacco Use Status: Former Tobacco user e-Cigarette/Vaping Use: Never Used Second Hand Smoke Exposure: No service: No Current occupational status: disabled 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 Current occupational exposures/hazards: No Cognitive needs: No Hearing needs: No Vision needs: No Review of Systems Const Details: Neurological: - Reports numbness in lower buttock and sensation radiating down the right leg Musculoskeletal: - Reports persistent severe left groin pain, especially during movement Gastrointestinal: - Reports frequent constipation, managed with Metamucil General: - Reports feeling worse at night, issues with sleep due to pain - Reports anxiety related to nighttime pain management - Denies side effects aside from constipation All systems reviewed & are unremarkable except as noted in HPI and below Physical Exam General: Appears afebrile. Alert and oriented. Mood and affect appropriate. Clear speech. Follows and participates in conversation appropriately. Respiratory effort is unlabored. No cough. Able to transition from sit to stand unassisted. Ambulates with bilaterally normal heel strike and toe off, wide based and antalgic gait. Bilateral shoulder pain with overhead or backside pocket reaching activities, right>left. Neck Neck: Yes normal visual inspection, Yes no lymphadenopathy, Yes supple, No anterior neck swelling, Yes no JVD and No prominent dorsocervical fat pad General: Yes no CVA tenderness Back/Spine/Pelvis Other: Limited lumbar ROM due to pain. +Ucrt's on the left, reproduces left buttock, lower back and left groin and hip pain. Moderate left hip pain with I/E hip rotations. +mild TTP with left GTB. Back: no CVA tenderness Cervical Spine: No collar present, cervical muscular tenderness, pain with cervical ROM, Cervical spine scars present (well healing anterior scar) and No Cervical spine tenderness Thoracic/Lumbar Spine: Thoracic/lumbar spine scar(s), Lasegue's sign positive (right>left) bilateral and localized, pain with thoraco-lumbar ROM, thoraco-lumbar ROM limited, No thoracic spinal tenderness and lumbar spinal tenderness (L3-S1) Pelvis: buttock tenderness bilaterally Sacroiliac joints: bilaterally tender to palpation Extrem General: Yes capillary refill normal, Yes no clubbing, cyanosis or edema and Yes no calf tenderness Psych Appearance: grossly normal Mental Status: mental status grossly normal Speech and movement: Normal speech and movement present Affect: normal affect and Sad affect present Attitude: cooperative Thought process: Normal thought process present Thought content: Normal thought content present, suicidality (none), no hallucinations and Depressive thoughts present Insight: Good insight present (Psych) Judgement: Good judgement present (Psych) Results Reviewed Results Reviewed: XR HIP, LEFT 01/03/25 CLINICAL INFORMATION: R10.32 - Left lower quadrant pain COMPARISON: None available. TECHNIQUE: Two views of the left hip. FINDINGS: No definite fracture or dislocation. No suspicious bone lesion. Severe, end-stage osteoarthrosis of the left hip joint present with superior joint space loss, [id number] appearance, with subchondral sclerosis and cystic changes in both the femoral head and superior acetabulum. There are prominent marginal productive osteophytes and subcapital osteophytes. There is mild irregularity of the contour to the superior femoral head. Partially imaged fusion hardware in the lower lumbar spine. Mild to moderate degenerative SI joint changes. No soft tissue abnormality. IMPRESSION: Severe osteoarthrosis left hip joint. DXA BONE DENSITY EXTREMITY 01/02/25 HISTORY: Estrogen deficiency TECHNIQUE: [employer] Dual energy absorptiometry (DEXA) of the lumbar spine, total left hip, and femoral neck was performed. COMPARISON: There are no prior studies for comparison. FINDINGS: The bone mineral density of the lumbar spine is 1.092 with a T-score of -0.6, and a Z-score of 1.3. The bone mineral density of the left total hip is 0.668 with a T-score of -2.7, and a Z-score of -1.2. The bone mineral density of the left femoral neck is 0.717 with a T-score of -2.3, and a Z-score of -0.6. IMPRESSION: Based on bone mineral density, and according to World Health Organization (WHO) criteria, the diagnosis is consistent with osteoporosis. 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 Category: Medical (4) Osteoarthritis of right glenohumeral joint: Code(s): M19.011 - Primary osteoarthritis, right shoulder Category: Medical (5) Bilateral shoulder pain: Code(s): M25.511 - Pain in right shoulder; M25.512 - Pain in left shoulder Category: Medical (6) Postlaminectomy syndrome: Code(s): M96.1 - Postlaminectomy syndrome, not elsewhere classified Category: Medical (7) Right shoulder pain: Code(s): M25.511 - Pain in right shoulder Category: Medical (8) Status post cervical spinal fusion: Code(s): Z98.1 - Arthrodesis status Category: Surgical (9) Left hip pain: Code(s): M25.552 - Pain in left hip Category: Medical Plan Patient has shown accountability for her medication regimen and the pill count was accurate. There is no evidence of misuse, abuse or diversion at this time. MassPat reviewed and consistent. Script sent for increased dose for hydrocodone-acetaminophen 10-325 mg 1 tab Q4-6H #150 tabs for 30 days with advanced date on 01/16/25 for another month to cover significant right shoulder, left hip and neck pain s/p recent cervical fusion. Discussed with the patient the risks associated with benzodiazepine and opioid use. Patient is aware and verbalized an agreement to take the medications at least two hours apart. Patient has Narcan at home. Proceed with right shoulder steroid injection (half dose steroid due to osteoporosis) with local and fluoroscopy as planned. An orthopedic follow up and further imaging evaluation were discussed to assess the severe left hip osteoarthritis contributing to pain and restricted activities of daily living, including walking and sitting for prolonged periods, with particular attention to an ongoing left hip groin pain that might stem from muscle insertion. All questions were answered and the patient is in agreement with the plan. Follow up in 4-5 weeks for a pill count or sooner if needed. Patient was informed and verbally consented to the use of an ambient scribe for clinic note documentation during this visit. Medications: Changed From hydrocodone-acetaminophen 10-325 mg Partial Fill upon patient request. 1 tab PO Q6H 30 days PRN 150 tabs 0RF pain MDD 5 G89.4 - Chronic pain syndrome, M19.011 - Primary osteoarthritis, right shoulder, M25.511 - Pain in right shoulder, M51.36 - Other intervertebral disc degeneration, lumbar region, Z79.891 - intermediate (current) use of opiate analgesic To hydrocodone-acetaminophen 10-325 mg 1 tab orally [id number] as needed. Maximum daily dose is 5; Partial Fill upon patient request. 30 days 150 tabs 0RF pain MDD 5 G89.4 - Chronic pain syndrome, M19.011 - Primary osteoarthritis, right shoulder, M25.511 - Pain in right shoulder, M51.36 - Other intervertebral disc degeneration, lumbar region, Z79.891 - intermediate (current) use of opiate analgesic Patient Instructions: During the visit, we discussed the management of the patient?s chronic pain and post-cervical spine surgery symptoms with a focus on her severe osteoarthritis of the left hip, as well as her osteoporosis. We agreed to continue the current analgesic regimen of as-needed dosing for an additional month, pending reassessment at the next visit. We discussed the need to avoid full-dose steroid injections in the back or hip areas in light of her osteoporosis, and the rationale for the scheduled right shoulder half-dose cortisone injection under fluoroscopic guidance. The patient is scheduled to follow up with Dr. Tom in February post-procedure and will also have an orthopedic evaluation to consider further management strategies regarding her hip condition. The patient is aware of the need to monitor for potential side effects of her medications, notably constipation, and will continue to manage this with daily Metamucil use. She is instructed to monitor her medication intake, ensuring it is used only as needed, and maintain appropriate intervals with her other medications, such as lorazepam, to mitigate risk of excessive sedation. I emphasized the importance of adherence to the current plans to prevent recurrence of her symptoms, avoid further deterioration of her osteoarthritis and osteoporosis, and maintain control over her chronic pain. Coding Level of Care Code Est Pt Level 4 (57364) Complex EM visit Add On G2211 Diagnoses Disc degeneration, lumbar M51.36 Chronic pain syndrome G89.4 Opioid contract exists Z79.891 Osteoarthritis of right glenohumeral joint M19.011 Bilateral shoulder pain M25.511; M25.512 Postlaminectomy syndrome M96.1 Right shoulder pain M25.511 Status post cervical spinal fusion Z98.1 Left hip pain M25.552
[2025-01-09 11:18] VITALS: BP 163/95; PULSE 106; O2SAT 98; BMI 21.2
== END 2025-01-09 11:27 | disposition home or self-care (01) ==
LOC: HO.PMC 11:01
PROVIDERS: PCP Family Medicine; Visit Provider Nurse Practitioner Family
DX: M51.369 Other intervertebral disc degeneration, lumbar region without mention of lumbar back pain or lower extremity pain (principal); G89.4 Chronic pain syndrome; Z79.891 Long term (current) use of opiate analgesic; M19.011 Primary osteoarthritis, right shoulder; M25.511 Pain in right shoulder; M25.512 Pain in left shoulder; M96.1 Postlaminectomy syndrome, not elsewhere classified; Z98.1 Arthrodesis status; M25.552 Pain in left hip
CPT/HCPCS: 99214; G2211

== ENCOUNTER 2025-01-09 12:25 | Outpatient (REF) | payer MEDICARE, SELFPAY ==
[2025-01-09 14:12] LABS: Appearance Urine Clear; Color Urine Dark Yellow; Glucose Urine UA Negative (Negative); Leukocyte Esterase Urine Trace (Negative); Nitrite Urine Negative (Negative); PH 5.5 (5.0-9.0); UMIC TRIGGER UA YES; Urine Blood Negative (Negative); Urine Ketones Negative (Negative); Urine Protein Negative (Neg-Trace)
[2025-01-09 14:25] LABS: Bacteria Urine None Seen (None Seen); Creatinine Urine 125.02 mg/dL; Microalbum/Creatinine Ratio Ur 12.7 ug/mg cr (<30); RBC Urine 0-2 /HPF (0-2); Squamous Epithelial Cell Urine 0-2 /HPF (0-2); WBC Urine 0-5 /HPF (0-5)
[2025-01-09 14:27] LABS: MANUAL DIFF FLAG NO
[2025-01-09 14:33] LABS: Basophils Absolute Auto 0.1 X10*3/uL (0.0-0.2); Basophils Percent Auto 1.1 % (0-2); Eosinophils Percent Auto 12.2 % (0-4); Hematocrit 34.1 % (37.0-47.0); Hemoglobin 11.3 g/dl (12.0-16.0); Imm Gran Abs Auto 0.02 X10*3/uL (0.00-0.03); Imm Gran Pct Auto 0.2 % (0.0-0.4); Lymphocytes Absolute Auto 1.4 X10*3/uL (1.2-4.9); Mean Corpuscular HGB Conc 33.1 g/dl (31.0-35.0); Mean Corpuscular Hemoglobin 29.4 pg (27.0-33.0); Mean Corpuscular Volume 88.6 fL (80.0-98.0); Mean Platelet Volume 9.4 fL (9.4-12.3); Monocytes Absolute Auto 0.7 X10*3/uL (0.1-1.2); Monocytes Percent Auto 8.6 % (2-11); Neutrophils Absolute Auto 4.9 x10*3/uL (2.0-8.3); Neutrophils Percent Auto 60.9 % (45-73); Platelet Count 370 X10*3/uL (160-400); Red Blood Count 3.85 X10*6/uL (4.20-5.50); Red Cell Distribution Width 13.2 % (11.0-16.0)
[2025-01-09 15:03] LABS: Alanine Aminotransferase 28 U/L (0-31); Albumin Level 4.3 g/dL (3.5-5.0); Alkaline Phosphatase 108 U/L (39-117); Anion Gap 10 (12-20); Aspartate Amino Transferase 31 U/L (5-31); Bilirubin Total 0.3 mg/dL (0.0-1.0); Blood Urea Nitrogen 13 mg/dL (9-16); Calcium 9.8 mg/dL (8.4-10.2); Carbon Dioxide 29 mmol/L (22-29); Chloride 104 mmol/L (96-108); Cholesterol 223 mg/dL (<200); Estimated Glomerular Filt Rate 56; Glucose Fasting 112 mg/dL (60-99); Glucose Random 111 mg/dL (60-115); HDL Cholesterol 79 mg/dL (>40); LDL Cholesterol Calculated 129 mg/dL (<100); Sodium 139 mmol/L (135-145); Total Protein 7.3 g/dL (6.5-8.0); Triglycerides 78 mg/dL (<150)
[2025-01-09 15:17] LABS: Folate 16.2 ng/mL (> or = 4.0); Vitamin B12 1467 pg/mL (200-900)
[2025-01-09 15:20] LABS: TSH reflex Free T4 0.85 uIU/mL (0.32-4.0)
== END 2025-01-09 12:26 | disposition home or self-care (01) ==
LOC: HO.WFDLDS 12:25
PROVIDERS: Referring Provider Nurse Practitioner Family; Visit Provider Family Medicine
DX: M96.1 Postlaminectomy syndrome, not elsewhere classified (principal); G89.4 Chronic pain syndrome; Z79.891 Long term (current) use of opiate analgesic; Z00.00 Encounter for general adult medical examination without abnormal findings; I10 Essential (primary) hypertension; F10.11 Alcohol abuse, in remission; R20.2 Paresthesia of skin
CPT/HCPCS: 36415; 80053; 80061; 81001; 82043; 82570; 82607; 82746; 84443; 85025; 99212

== ENCOUNTER 2025-01-13 15:50 | Outpatient (AMB) | payer MEDICARE, SELFPAY ==
--- NOTE | 2025-01-13 16:12 | A.OFFPC_ITS ---
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: No Is last menstrual period known: No Post menopausal: Yes Patient : No Allergies amoxicillin [From Augmentin] Allergy (Severe, Verified 01/13/25 16:19) Facial Swelling clavulanic acid [From Augmentin] Allergy (Severe, Verified 01/13/25 16:19) Facial Swelling naproxen Allergy (Severe, Verified 01/13/25 16:19) asthma, SOB animal dander [PET DANDER] Allergy (Intermediate, Verified 01/13/25 16:19) rash SEASONAL ALLERGIES Allergy (Mild, Uncoded 11/19/24 06:21) congestion Medication List - Last Reconciled 01/13/25 by Gustavo Leiva MD acetaminophen ER 650 mg PO Q12H PRN albuterol sulfate 90 mcg/actuation 2 puffs inhalation Q4-6H PRN cetirizine (Zyrtec) 10 mg PO DAILY PRN 30 days clonazepam 1 mg PO DAILY@1400,1800 clonidine HCl 0.1 mg PO TID 30 days diclofenac sodium 1% (Voltaren Arthritis Pain) 4 grams topical QID PRN 30 days duloxetine 30 mg PO DAILY duloxetine (Cymbalta) 60 mg PO DAILY fluticasone propion-salmeterol 500-50 mcg/dose (Wixela Inhub) 1 inh inhalation BID 30 days hydrocodone-acetaminophen 10-325 mg 1 tab orally [id number] as needed. Maximum daily dose is 5; Partial Fill upon patient request. 30 days MDD 5 ibuprofen 800 mg PO Q12H PRN ketamine 160 mg sublingual lidocaine 5% 1 patch topical DAILY 30 days lisinopril 40 mg PO DAILY 3 months lorazepam 1 mg PO DAILY PRN methylphenidate HCl 10 mg PO TID jzkkeuarilas-wscw-pnhmc acid 18-400 mg-mcg 1 tab PO DAILY naloxone 4 mg/actuation (Narcan) 4 mg intranasal Q2M PRN naratriptan 2.5 mg PO ONCE PRN 30 days ondansetron HCl 4 mg PO DAILY tizanidine 4 mg PO TID PRN triamcinolone acetonide 0.025% 1 appl topical BID PRN Tobacco use date assessed: 01/13/25 Fall risk assessment: 2 + Falls in past year Last assessed Fall Risk: 01/13/25 Dental Screening Dental Screen Date: 01/13/25 Did you have a dental visit in the last 12 months?: Yes Did you have a dental problem in the last 6 months where you did not have access to dental care?: No Was dental information given to patient?: No HPI Annual PE HPI Details 64 y/o female presents for an extended e xam with f/u labs and health maintenance. Labs drawn 01/09/25. Reviewed labs with pt. Mild ongoing anemia. Triglycerides 78. TC 223. LDL 129. HDL 79. AST 31 and ALT 28. Elevated fasting glucose of 112. Hx of pre-diabetes. A1c today 01/13/25 is 6.1%. Bone density test 01/02/25 showed osteoporosis. Followed by pain management for chronic pain. Pt notes she had been having difficulty manipulating the new controller medication. She had been on Wixela and was given a generic Has complaints of a hematoma under R eye. She declines mammograms. Declines colonoscopies. Declines any cervical cancer screening. HPI Comments History of Present Illness Details Documentation assistance for Gustavo Leiva MD, was provided by Nikhil Cortez,? Enrollment Specialist on 01/13/2025 at 4:45 PM EST. I, Dr. Leiva, have read, observed, and verified documentation. ?? PFS Medical History Left groin pain Depression Migraine headache Stool incontinence Chronic pain syndrome Postlaminectomy syndrome Disc degeneration, lumbar Compression fracture of L1 lumbar vertebra Osteoporosis Hypertension Spondylosis Attention deficit disorder Herniated disc Asthma Anxiety Migraine headache Surgical History Status post kyphoplasty History of lumbosacral spine surgery History of cervical spinal surgery History of spinal surgery History of surgery on left wrist Family History Sister Ovarian cancer Lung cancer Maternal Grandmother Ovarian cancer Paternal Aunt Ovarian cancer Maternal Aunt Pancreatic cancer Social History Household Members: Spouse Housing: House Are you a primary healthcare interpreter to a significant other at home: No Do you presently have visiting nurse or other home services: No Comment: medicated in pacu Patient Tobacco Use Status: Former Tobacco user e-Cigarette/Vaping Use: Never Used Second Hand Smoke Exposure: No Patient : No service: No Current occupational status: disabled 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 1. Little interest or pleasure in doing things: several days 2. Feeling down, depressed, or hopeless: several days 3. Trouble falling or staying asleep, or sleeping too much: more than half the days 4. Feeling tired or having little energy: more than half the days 5. Poor appetite or overeating: more than half the days 6. Feeling bad about yourself - or that you are a failure or have let yourself or your family down: several days 7. Trouble concentrating on things, such as reading the newspaper or watching television: nearly every day 8. Moving or speaking so slowly that other people could have noticed. Or the opposite - being so fidgety or restless that you have been moving around a lot more than usual: not at all 9. Thoughts that you would be better off or of hurting yourself in some way: several days Total score: 13 Depression Screening Interpretation: Positive Depression Screening Done: Yes [id number] - PHQ-9 Billing: Yes Source: Developed by Drs. Tyrone García, Marnie Huston, Sadi Ross and colleagues, with an educational krystina from [employer]. Thrive Questionnaire Date Thrive assessed: 01/13/25 I am a: Patient What is your living situation today?: I have a steady place to live Within the past 12 months, did the food you bought not last and you didn't have the money to get more?: Never true Within the past 12 months, did you worry whether your food would run out before you got money to buy more?: Never true Do you have trouble paying for medicines?: No Do you have trouble getting transportation to medical appointments?: No Do you have trouble paying your heating and electricity bill?: Yes Do you have trouble taking care of your child, family member or friend?: Yes Do you have trouble with day-to-day activities such as bathing, preparing meals, shopping, managing finances, etc.?: Yes Are you currently unemployed and looking for a job?: No Are you interested in more education?: No Please select the resources that you would like help with: Care for elder or disabled and Daily support Currently or been in a relationship where the following occur: No concerns reported THRIVE Score: 1 AUDIT C Alcohol Use Questionnaire (AUDIT-C) 1. How often do you have a drink containing alcohol?: Monthly or less 2. How many drinks containing alcohol do you have on a typical day when you are drinking?: 1 or 2 3. How often do you have six or more drinks on one occasion?: Never Total Score: 1 Score Reviewed/Action Taken: Yes MAU-7 AMB Questionnaire MAU-7 Date MAU - 7 assessed: 01/13/25 Feeling nervous, anxious, or on edge: 1 = Several days Not being able to stop or control worryin = Several days Worrying too much about different things: 1 = Several days Trouble relaxin = Several days Being so restless that it is hard to sit still: 1 = Several days Becoming easily annoyed or irritable: 1 = Several days Feeling afraid as if something awful might happen: 1 = Several days Total MAU-7 score (0-4 normal; 5-9 mild; 10-14 moderate; 15-21 severe): 7 Source: Developed by Drs. Tyrone García, Marnie Huston, Sadi Ross and colleagues, with an educational krystina from [employer]. MAU-7 Assessment Billing MAU-7 Assessment Tool: MAU-7 Assessment 25284 Review of Systems Const Denies chills, Denies fatigue, Denies fever(s), Denies headache(s) and Denies weakness Eyes Denies change in vision ENT Denies dizziness, Denies headache(s), Denies hearing loss, Denies nasal congestion, Denies sinus pain, Denies sinus pressure and Denies sore throat Card Denies chest pain, Denies lightheadedness, Denies dyspnea and Denies other (palpitations) Resp Denies cough, Denies dyspnea and Denies wheezing GI Denies abdominal pain, Denies melena, Denies hematochezia, Denies change in bowel habits, Denies dyspepsia and Denies nausea Denies hematuria and Denies dysuria Musc Denies abnormal gait, Denies myalgias, Denies arthralgias, Denies numbness and Denies tingling Skin/Breast Denies rash, Denies unusual bruising and Denies wounds Neuro Denies abnormal gait, Denies dizziness, Denies headache(s), Denies memory loss, Denies numbness, Denies Sensory deficit (Neuro), Denies tingling and Denies weakness Psych Denies anxiety, Denies depression and Denies memory loss Endo Denies cold intolerance, Denies fatigue, Denies heat intolerance, Denies polydipsia and Denies polyuria Wood/Lymph Denies easy bleeding and Denies easy bruising Aller/Immun Denies wheezing Physical exam (Primary Care) Vital Signs: Last Vital Signs Temp 99.1 F 01/13/25 16:25 Pulse 106 H 01/13/25 16:25 Resp 12 01/13/25 16:25 BP 110/70 01/13/25 16:25 Pulse Ox 96 01/13/25 16:25 Oxygen Delivery Method Room Air 01/13/25 16:25 BMI result Body Mass Index 21.7 Tobacco/Smoking Status: Tobacco use Status Tobacco use date assessed 01/13/25 01/13/25 16:29 Patient Tobacco Use Status Former Tobacco user 01/13/25 16:13 e-Cigarette/Vaping Use Never Used 01/13/25 16:13 PHQ-9: PHQ-9 Score PHQ-9: Total score 13 01/13/25 16:41 Depression Screening Interpretation: Positive Thrive Assessment: Date of Thrive Assessment Date Thrive assessed 01/13/25 01/13/25 16:13 Currently or been in a relationship where the following occur: No concerns reported Const General: no acute distress, well developed, alert and awake Nutritional Appearance: well nourished Orientation/consciousness: patient oriented x3 HENMT Head: Yes normocephalic and Yes atraumatic Ears: hearing grossly normal bilaterally and TM's normal bilaterally General nose exam: Normal external nose present and Normal nares present Mouth: Normal oral and palatal mucosa present and moist mucous membranes Teeth and gingiva: dentition normal Throat: Yes posterior oropharynx normal Eyes General: appearance normal, both eyes and all related structures Pupils: Equal, round and reactive pupils present and Pupil accommodation reflex normal EOM: EOMs intact bilaterally Neck Neck: Yes normal visual inspection, Yes no lymphadenopathy and Yes trachea midline Thyroid: Thyroid normal Carotids: no bruits Lymphatic: no lymphadenopathy noted Chest Chest palpation & inspection: normal inspection of the chest Resp Effort & Inspection: normal respiratory effort Auscultation: clear to auscultation bilaterally Cardio Rate: regular rate Rhythm: regular rhythm Heart sounds: S1 normal heart sound present, S2 normal heart sound present, no gallops, no murmurs and no rubs Bruits: no abdominal aortic bruits and no carotid bruits GI Palpation (GI): No Abdominal aortic bruit present, Soft to palpation, nontender, No hepatosplenomegaly present and No Rebound tenderness present Auscultation: normal bowel sounds General: Yes no CVA tenderness Back/Spine/Pelvis Back: no CVA tenderness Cervical Spine: cervical ROM normal and No Cervical spine tenderness Thoracic/Lumbar Spine: thoraco-lumbar ROM normal, No pain with thoraco-lumbar ROM, No thoracic spinal tenderness and No lumbar spinal tenderness Skin Lesions: no lesions Rashes: no rashes Trauma: no lacerations or abrasions Wounds: no wounds Nails: normal Neuro General: patient oriented x3 Cranial nerves: Yes Equal, round and reactive pupils present Cognition (Neuro): normal cognition Gait exam (Neuro): Normal gait present Motor exam (neuro): 5/5 motor strength present throughout Sensory Exam: No Sensory deficit (Neuro) Deep tendon reflexes (DTR's): Right patellar reflex intensity grade: 2+ and Left patellar reflex intensity grade: 2+ Extrem General: Yes normal to inspection and No edema Psych Appearance: grossly normal Affect: normal affect Attitude: cooperative Thought process: Normal thought process present Results AMB Hemoglobin A1c AMB Hemoglobin A1c 6.1 % Last Edit by STEPAN Dejesus on 01/13/25 17:29 Coding Level of Care Code Est Pt Level 4 (86345) Diagnoses Pre-diabetes R73.03 Hypertension I10 Elevated LDL cholesterol level E78.00 Chronic pain syndrome G89.4 GERD (gastroesophageal reflux disease) K21.9 Asthma J45.909 Hematoma T14.8XXA Osteoporosis M81.0 Breast cancer screening by mammogram Z12.31 Screening for colon cancer Z12.11 Screening for cervical cancer Z12.4 Adult general medical exam Z00.00 Additional Codes MAU-7 Assessment Billing - MAU-7 Assessment Tool: MAU-7 Assessment 03902 ([id number]) PHQ-9 - 36610 - PHQ-9 Billing: Yes ([id number]) Assessment & Plan Assessment & Plan (1) Pre-diabetes: Code(s): R73.03 - Prediabetes Category: Medical Plan: A1c?6.1%.??Pre?diabetes?range Encouraged?diet?lower?in?sugars?and?starches Patient?is?eating?cookies?and?sugary?snacks?in?bed Recommended?she?discontinue?this Will?recheck?a?few?months (2) Hypertension: Code(s): I10 - Essential (primary) hypertension Category: Medical Plan: Blood?pressure?much?improved?today.??Goal?is?less?than?140/90 Continue?current?medications (3) Elevated LDL cholesterol level: Code(s): E78.00 - Pure hypercholesterolemia, unspecified Category: Medical Plan: LDL?cholesterol?remains?high?but?her?HDL?is?quite?good?and?somewhat?protective. She?notes?that?she?has?a?lot?of?high?cholesterol?foods. Again?recommended?a?diet?lower?in?saturated?fats?and?cholesterol (4) Chronic pain syndrome: Code(s): G89.4 - Chronic pain syndrome Category: Medical Plan: Followed?by?pain?management?as?well?as?worth?though. Recommended?she?follow-up?as?advised. (5) GERD (gastroesophageal reflux disease): Code(s): K21.9 - Gastro-esophageal reflux disease without esophagitis Category: Medical Plan: Avoid?trigger?foods Avoid?eating?too?close?to?bedtime - avoid?eating?in?bed Avoid?over?filling She?will?let?know?if?she?continues?to?have?problems (6) Asthma: Code(s): J45.909 - Unspecified asthma, uncomplicated Category: Medical Plan: Patient?has?difficulty?manipulating?the?new?controller?medication. She?had?been?on?Wixela?and?was?given?a?generic which?causes?problems?with?her?hands?due?to?arthritis Will?ask?medical?service assistant?to?get?a?prior?authorization?for?Wixela. (7) Hematoma: Code(s): T14.8XXA - Other injury of unspecified body region, initial encounter Category: Medical Plan: Hematoma?under?her?right?eye?secondary?to?fall. Had?examined?this?at?prior?visits.??This?is?slowly?resolving. (8) Osteoporosis: Code(s): M81.0 - Age-related osteoporosis without current pathological fracture Category: Medical Plan: Recent?bone?density?test?shows?osteoporosis. We?discussed?good?sources?of?calcium,?vitamin-D?and?weight-bearing?exercises. We?discussed?bisphosphonates.??Patient ?would?like?to?consider?this?and?will?read?more?about?it. (9) Breast cancer screening by mammogram: Code(s): Z12.31 - Encounter for screening mammogram for malignant neoplasm of breast Category: Medical Plan: Patient?declines?mammograms. Encouraged?self?exam?and?she?will?let?me?know?if?she?has?any?concerns. (10) Screening for colon cancer: Code(s): Z12.11 - Encounter for screening for malignant neoplasm of colon Category: Medical Plan: She?declines?colonoscopy. She?decides?she?will?do?a?Cologuard?test.??Ordered. (11) Screening for cervical cancer: Code(s): Z12.4 - Encounter for screening for malignant neoplasm of cervix Category: Medical Plan: Patient?declines?any?screening?for?cervical?cancer. She?is?not?sexually?active. She?will?let?me?know?if?she?has?any?concerns (12) Adult general medical exam: Code(s): Z00.00 - Encounter for general adult medical examination without abnormal findings Category: Medical Plan: 64-year-old?female?presents?for?extended?exam. Orders: Orders AMB Hemoglobin A1c Today R73.03 - Prediabetes Referrals Cologuard Test Z12.11 - Encounter for screening for malignant neoplasm of colon, Z12.12 - Encounter for screening for malignant neoplasm of rectum Medications: Changed From fluticasone propion-salmeterol 500-50 mcg/dose (Wixela Inhub) 1 inh inhalation BID 30 days 60 ea 3RF To Wixela Inhub 500-50 mcg/dose (fluticasone propion-salmeterol) No Substitutions due to Difficulty manipulating other Generics secondary to her arthritis 1 inh inhalation BID 30 days 60 ea 3RF NS
[2025-01-13 16:25] VITALS: BP 110/70; PULSE 106; RESP 12; TEMP 37.3; O2SAT 96; BMI 21.7
== END 2025-01-13 17:05 ==
LOC: HO.HMCFM 15:51
PROVIDERS: PCP Family Medicine; Visit Provider Family Medicine
DX: R73.03 Prediabetes (principal); I10 Essential (primary) hypertension; E78.00 Pure hypercholesterolemia, unspecified; G89.4 Chronic pain syndrome; K21.9 Gastro-esophageal reflux disease without esophagitis; J45.909 Unspecified asthma, uncomplicated; T14.8XXA Other injury of unspecified body region, initial encounter; M81.0 Age-related osteoporosis without current pathological fracture; Z12.31 Encounter for screening mammogram for malignant neoplasm of breast; Z12.11 Encounter for screening for malignant neoplasm of colon; Z12.4 Encounter for screening for malignant neoplasm of cervix; Z00.00 Encounter for general adult medical examination without abnormal findings

== ENCOUNTER → 2025-01-13 15:50 | Outpatient (BNVA) | payer MEDICARE, SELFPAY | PROVIDERS: PCP Family Medicine; Visit Provider Family Medicine | DX: Z00.00 Encounter for general adult medical examination without abnormal findings (principal); R73.03 Prediabetes; I10 Essential (primary) hypertension; E78.00 Pure hypercholesterolemia, unspecified; G89.4 Chronic pain syndrome; K21.9 Gastro-esophageal reflux disease without esophagitis; J45.909 Unspecified asthma, uncomplicated; T14.8XXA Other injury of unspecified body region, initial encounter; M81.0 Age-related osteoporosis without current pathological fracture | CPT/HCPCS: 83036; 96127; 99212 ==

== ENCOUNTER 2025-01-15 11:02 | Outpatient (AMB) | payer MEDICARE, SELFPAY ==
--- NOTE | 2025-01-15 11:07 | MHC.OFFVIS ---
Vital Signs 01/15/25 11:10 Height 5 ft 3.39 in Weight 128 lb 1.417 oz BMI 22.4 BP 112/64 Blood Pressure Location Lt brachial Position Sitting Pulse 83 Pulse Source Pulse Oximeter Pulse Oximetry (%) 98 Oxygen Delivery Method Room Air Intake Visit Reasons: Age-related osteoporosis without current pathologi Intake Note: New patient present today for Age-related Osteoporosis without current pathological. 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: No Accompanied by: Self / Same As Patient Allergies amoxicillin [From Augmentin] Allergy (Severe, Verified 01/15/25 11:12) Facial Swelling clavulanic acid [From Augmentin] Allergy (Severe, Verified 01/15/25 11:12) Facial Swelling naproxen Allergy (Severe, Verified 01/15/25 11:12) asthma, SOB animal dander [PET DANDER] Allergy (Intermediate, Verified 01/15/25 11:12) rash SEASONAL ALLERGIES Allergy (Mild, Uncoded 01/15/25 11:12) congestion Medication List - Last Reconciled 01/15/25 by Tyrone Corrigan MD acetaminophen ER 650 mg PO Q12H PRN albuterol sulfate 90 mcg/actuation 2 puffs inhalation Q4-6H PRN cetirizine (Zyrtec) 10 mg PO DAILY PRN 30 days clonazepam 1 mg PO DAILY@1400,1800 clonidine HCl 0.1 mg PO TID 30 days diclofenac sodium 1% (Voltaren Arthritis Pain) 4 grams topical QID PRN 30 days duloxetine 30 mg PO DAILY duloxetine (Cymbalta) 60 mg PO DAILY hydrocodone-acetaminophen 10-325 mg 1 tab orally H8V-S0M as needed. Maximum daily dose is 5; Partial Fill upon patient request. 30 days MDD 5 ibuprofen 800 mg PO Q12H PRN ketamine 160 mg sublingual lidocaine 5% 1 patch topical DAILY 30 days lisinopril 40 mg PO DAILY 3 months lorazepam 1 mg PO DAILY PRN methylphenidate HCl 10 mg PO TID isouwjsmtohj-ohuo-murcn acid 18-400 mg-mcg 1 tab PO DAILY naloxone 4 mg/actuation (Narcan) 4 mg intranasal Q2M PRN naratriptan 2.5 mg PO ONCE PRN 30 days ondansetron HCl 4 mg PO DAILY tizanidine 4 mg PO TID PRN triamcinolone acetonide 0.025% 1 appl topical BID PRN Wixela Inhub 500-50 mcg/dose (fluticasone propion-salmeterol) 1 inh inhalation BID 30 days NS HPI Comments Details: 64 YO Female with is seen in consultation at the request of PCP for Osteoporosis. The patient is a 64-year-old female presenting with osteoporosis. She was recently diagnosed after a bone density test. She reports a history of spinal surgeries and compromised balance, resulting in frequent falls. Previously fractured her wrist in 2010 due to a fall with no recent fractures apart from some bruising. Her dietary intake involves adequate calcium through cheese, yogurt, and fish, with recent normal calcium levels. She has no familial osteoporosis history and experiences general weight gain due to immobility. She denies current gastrointestinal medication use except for a short course of a proton pump inhibitor recently. The patient experienced early menarche and menopause with a slight height reduction over the years. The patient has not been able to maintain her previous exercise routine, which included physical activity [place] the farm. Currently, she is unable to perform weight-bearing exercises due to recent surgeries and immobility. First diagnosed in recently . Received treatment in the past history of pathologic fracture in 2011 Lwrist but hard fall but no ONJ. Has several servings of dietary calcium per day in the form of cheese , yogurt , orangeds, salmon . Takes Calcium supplement ? mg daily in divided doses. Not Takesf Vitamin D daily. Took PPI, -anticoagulant, -antiepileptic or- glucocorticoid medication. Does not do weight bearing exercise but walks each day . 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 UTD on dental cleanings and sees dentist every 6 months. No planned upcoming dental work or extractions. No tabacco use or ETOH use but previous ETOH abuse DXA dated 01/02/25 : FINDINGS: The bone mineral density of the lumbar spine is 1.092 with a T-score of -0.6, and a Z-score of 1.3. The bone mineral density of the left total hip is 0.668 with a T-score of -2.7, and a Z-score of -1.2. The bone mineral density of the left femoral neck is 0.717 with a T-score of -2.3, and a Z-score of -0.6. MM/XR DEXA appendicular skeleton IMPRESSION: Based on bone mineral density, and according to World Health Organization (WHO) criteria, the diagnosis is consistent with osteoporosis. Labs: [facility] Medical History Left groin pain Depression Migraine headache Stool incontinence Chronic pain syndrome Postlaminectomy syndrome Disc degeneration, lumbar Compression fracture of L1 lumbar vertebra Osteoporosis Hypertension Spondylosis Attention deficit disorder Herniated disc Asthma Anxiety Migraine headache Surgical History Status post kyphoplasty History of lumbosacral spine surgery History of cervical spinal surgery History of spinal surgery History of surgery on left wrist Family History Sister Ovarian cancer Lung cancer Maternal Grandmother Ovarian cancer Paternal Aunt Ovarian cancer Maternal Aunt Pancreatic cancer Social History Household Members: Spouse Housing: House Are you a primary healthcare social worker to a significant other at home: No Do you presently have visiting nurse or other home services: No Comment: medicated in pacu Patient Tobacco Use Status: Former Tobacco user e-Cigarette/Vaping Use: Never Used Second Hand Smoke Exposure: No service: No Current occupational status: disabled 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 Absence of blue sclera. Absence of kyphosis. Thyroid gland is of nl size and weighs 15 gms. There are no thyroid nodules palpated. Lungs CTA. Heart S1 S2 Reg R/R Abdominal exam benign. Muscle strength 5/5 . Examination of spine reveals absence of tenderness on palpation Assessment & Plan Assessment & Plan (1) Osteoporosis: Code(s): M81.0 - Age-related osteoporosis without current pathological fracture Category: Medical Plan: This is a 64-year-old female with a history of osteoporosis with partial secondary workup. Plan is to complete the secondary workup by checking a phosphorus, 25 hydroxy vitamin-D, SPEP, urine immunofixation, 24 hour urine for calcium and creatinine. Will ensure 1200 mg of calcium and 2000 IU of vitamin D3. Assuming secondary workup is negative could consider use of anti resorptive agent like oral intravenous bisphosphonate or Prolia 1. Osteoporosis: Management focuses on education about calcium, Vitamin D, exercise, and fall precautions. Antiresorptive therapies are considered, dependent on further testing and fall risk assessment. 2. Fall Risk and Balance Issues: Emphasized hazard-free living environments and potential rehabilitation programs to improve stability post-recovery. We discussed the management of osteoporosis, emphasizing calcium and Vitamin D intake, lifestyle measures like weight-bearing exercise when possible, and offered a straightforward explanation for antiresorptive therapy, detailing the roles of osteoblasts and osteoclasts. I explained the diagnostic tests undertaken, conveying the significance of T-scores and the implications of trabecular bone scoring as a more comprehensive assessment. Future considerations on pharmacologic interventions were discussed carefully, considering the patient?s fall risk and spine history. Consistent monitoring and establishing structured follow-up to reassess bone health are paramount. - Ensure daily calcium intake of 1200 mg from the diet, and Vitamin D of 2000 IU. - Engage in weight-bearing exercises as tolerated to enhance bone strength and balance. - Maintain a hazard-free environment at home to reduce fall risk. - Follow up with tests as scheduled and monitor for any changes in symptoms. - The patient had an opportunity to ask questions regarding treatment plan. The patient expressed understanding and agreement with the above treatment plan. Patient was informed and verbally consented to the use of an ambient scribe for clinic note documentation during this visit. Orders: Orders Phosphorus Today M81.0 - Age-related osteoporosis without current pathological fracture Vitamin D 25-OH Total Today M81.0 - Age-related osteoporosis without current pathological fracture Protein Electrophoresis, Serum Today M81.0 - Age-related osteoporosis without current pathological fracture Immunofixation, Random Urine Today M81.0 - Age-related osteoporosis without current pathological fracture Calcium, 24 Hr Ur Today M81.0 - Age-related osteoporosis without current pathological fracture Creatinine, 24 Hr Group Today M81.0 - Age-related osteoporosis without current pathological fracture Coding Level of Care Code New Pt Level 4 (99571) Diagnoses Osteoporosis M81.0
[2025-01-15 11:10] VITALS: BP 112/64; PULSE 83; O2SAT 98; BMI 22.4
== END 2025-01-15 12:05 | disposition home or self-care (01) ==
LOC: HO.ENCR 11:03
PROVIDERS: PCP Family Medicine; Visit Provider Internal Medicine Endocrinology, Diabetes & Metabolism
DX: M81.0 Age-related osteoporosis without current pathological fracture (principal)
CPT/HCPCS: 99204

== ENCOUNTER → 2025-01-15 11:02 | Outpatient (BNVA) | payer MEDICARE, SELFPAY | PROVIDERS: PCP Family Medicine; Visit Provider Internal Medicine Endocrinology, Diabetes & Metabolism | DX: M81.0 Age-related osteoporosis without current pathological fracture (principal) | CPT/HCPCS: 99202 ==

== ENCOUNTER 2025-01-22 12:59 | Outpatient (AMB) | payer MEDICARE, SELFPAY ==
--- NOTE | 2025-01-22 13:25 | HO.SPINEOV ---
Intake Visit Reasons: 2nd post op with Xrays Intake Note: Mrs. Bailey is here today for her 2nd post op with x-rays. 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 Allergies amoxicillin [From Augmentin] Allergy (Severe, Verified 01/22/25 13:26) Facial Swelling clavulanic acid [From Augmentin] Allergy (Severe, Verified 01/22/25 13:26) Facial Swelling naproxen Allergy (Severe, Verified 01/22/25 13:26) asthma, SOB animal dander [PET DANDER] Allergy (Intermediate, Verified 01/22/25 13:26) rash SEASONAL ALLERGIES Allergy (Mild, Uncoded 01/15/25 11:12) congestion Assessment & Plan Assessment & Plan (1) Left groin pain: Code(s): R10.32 - Left lower quadrant pain Category: Medical Plan Dear colleague, On January 22, 2025, I saw for 2nd postoperative visit Marilu Bailey. 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 The surgery was successful. The symptoms of numbness and weakness have near completely disappeared. She denies any significant pain. Her main complaint today is progressive pain in the sacral area to her but an into a groins. In the morning the pain radiates all the way down into her right leg and foot. The pain in the groin is worse in the left side. She can not lay on the left side. Walking aggravates her symptoms. She had similar complaints in her previous visit. Clinically, it seems not to be a hip or SI joint related problem. I think it is related to the lumbar spine. She did have an L4-5 lumbar fusion done in the past. We will order an MRI of the lumbar spine and the patient will return to review the images. Jules Neville MD, PhD Spine Fellowship Trained Neurosurgeon Director, [facility] Orders: Orders MR lumbar spine wo/w con Today R10.32 - Left lower quadrant pain Coding Level of Care Code Global (61501) Diagnoses Left groin pain R10.32
== END 2025-01-22 13:46 | disposition home or self-care (01) ==
LOC: HO.HNS 12:59
PROVIDERS: PCP Family Medicine; Visit Provider Neurological Surgery
DX: R10.32 Left lower quadrant pain (principal)
CPT/HCPCS: 99024

== ENCOUNTER → 2025-01-22 13:07 | Outpatient (BNV) | payer MEDICARE, SELFPAY | PROVIDERS: Visit Provider Radiology Diagnostic Radiology | DX: Z98.1 Arthrodesis status (principal) | CPT/HCPCS: 72040 ==

== ENCOUNTER 2025-01-22 14:22 | Outpatient (REF) | payer MEDICARE, SELFPAY ==
--- NOTE | ~2025-01-22 | XR_ITS ---
EXAMINATION: XR CERVICAL SPINE CLINICAL INFORMATION: Z98.1 - Arthrodesis status COMPARISON: March 30, 2018. Correlated to MRI brain dated November 10, 2024. TECHNIQUE: 3 views of the cervical spine were obtained. FINDINGS: Metallic plate secured with vertebral body screws from C4 T1. Intervertebral disc spacers C6-7 and C7-T1. Marginal osteophyte formation and decreased intervertebral disc height and endplate sclerosis at C3-4. Craniocervical junction is intact. No acute cortical disruption. XR/XR cervical spine 2V IMPRESSION: Status post arthrodesis C4 T1. No acute fracture or gross listhesis. Spondylosis C3-4. Electronically signed by: Greg Concepcion MD 01/23/2025 07:21 AM EDT
== END 2025-01-22 14:23 | disposition home or self-care (01) ==
LOC: HO.HOSX 14:22
PROVIDERS: Visit Provider Neurological Surgery
DX: Z48.89 Encounter for other specified surgical aftercare (principal); R10.32 Left lower quadrant pain; Z98.1 Arthrodesis status
CPT/HCPCS: 72040; 99212

== ENCOUNTER 2025-01-28 16:03 | Outpatient (REF) | payer MEDICARE, SELFPAY ==
--- NOTE | ~2025-01-28 | MR_ITS ---
EXAMINATION: MR LUMBAR SPINE WITHOUT AND WITH CONTRAST CLINICAL INFORMATION: Left lower quadrant pain. COMPARISON: November 12, 2024 reported spinal canal stenosis at L3-4 and postsurgical changes at L4-5. TECHNIQUE: MRI of the lumbar spine was obtained using routine sequences with and without contrast. Intravenous contrast: Gadolinium based 5.5 mL. No reported immediate complications. FINDINGS: Last rib-bearing vertebra labeled T12. Paramagnetic field distortion secondary to metallic hardware with transpedicular screws at L4 and L5. Decreased signal in all sequences at L1. Mild bone marrow STIR signal at the endplates of L2 and L3 and likely extending into the posterior elements. Mild bone marrow STIR signal in the endplates of T9 and T10-11. No abnormal enhancement within the leptomeningeal compartment. No abnormal enhancement within the prevertebral compartment or the central spinal canal. The conus medullaris ends at the inferior endplate of L1 with normal signal. There is no grouping or clumping of the neural elements of the thecal sac. Multilevel marginal osteophyte formation and disc desiccation from T9-10 to L3-4 levels. There is a 1 cm anterolisthesis at L4-5. Grade 1 anterolisthesis L3-4. There is a dextroconvex rotoscoliosis apex at L2-3. There is no peripheral enhancing fluid collections. There is no CSF signal characteristic collections of the surgical site. T12-L1: Broad-based disc bulging. Facet joint and ligamentum flavum hypertrophy. Reduced AP diameter of the thecal sac and the neural foramina. No compression upon neural elements. L1-2: Broad-based disc bulging. Facet joint and ligamentum flavum hypertrophy. Reduced AP diameter of the thecal sac abutting the cauda equina. Bilateral neuroforamina narrowing encroaching the exiting nerve roots. L2-3: Broad-based disc bulging. Facet joint and ligamentum flavum hypertrophy. Reduced AP diameter of the thecal sac and the neural foramina encroaching the neural elements more conspicuous on the left side. L3-4: Broad-based disc bulging. Facet joint and ligamentum flavum hypertrophy. Grade 1 anterolisthesis. CSF effacement of the thecal sac central spinal canal and bilateral neuroforamina stenosis compressing the neural elements. L4-5: Grade 1 anterolisthesis resulting in central spinal canal and bilateral neuroforamina stenosis. L5-S1: Broad-based disc bulging. Facet joint hypertrophy. No central spinal canal stenosis. Bilateral neuroforamina narrowing encroaching the exiting nerve roots. MR/MR lumbar spine wo/w con IMPRESSION: No abnormal enhancement. No pseudomeningoceles. No imaging findings for arachnoiditis. Grade 1 anterolisthesis on a degenerative basis at L3-4 and spondylosis resulting in central spinal canal and bilateral neuroforamina stenosis compressing the neural elements both thecal sac and the exiting nerve roots. Grade 1 anterolisthesis L4-5 resulting in central spinal canal and bilateral neuroforamina stenosis likely encroaching the neural elements. Multilevel spondylosis and dextroconvex rotoscoliosis lumbar spine encroaching the neural elements at L2-3 and to a lesser extent L1-2. Electronically signed by: Greg Concepcion MD 01/29/2025 08:35 AM EDT
[2025-01-28] MEDS: gadobutroL 7.5 ML VIAL IVPUSH (16:40)
== END 2025-01-28 16:04 | disposition home or self-care (01) ==
LOC: HO.MRI 16:03
PROVIDERS: PCP Family Medicine; Visit Provider Neurological Surgery
DX: R10.32 Left lower quadrant pain (principal)
CPT/HCPCS: 72158; A9585

== ENCOUNTER → 2025-01-28 16:08 | Outpatient (BNV) | payer MEDICARE, SELFPAY | PROVIDERS: PCP Family Medicine; Visit Provider Radiology Diagnostic Radiology | DX: R10.32 Left lower quadrant pain (principal) | CPT/HCPCS: 72158 ==

== ENCOUNTER 2025-02-14 11:03 | Outpatient (AMB) | payer MEDICARE, SELFPAY ==
--- NOTE | 2025-02-14 11:08 | A.OFFVIS_ITS ---
Vital Signs 02/14/25 11:10 Height 5 ft 3.39 in Weight 122 lb BMI 21.3 BP 142/69 H Blood Pressure Location Lt brachial Position Sitting Respiration 16 Pulse 90 Pulse Source Pulse Oximeter Pulse Oximetry (%) 96 Oxygen Delivery Method Room Air Intake Visit Reasons: Pill Count Intake Note: Pt states she last took vicodin 02/14/25 @ 10:30am Telemetry Registered Nurse Required: No Allergies amoxicillin [From Augmentin] Allergy (Severe, Verified 02/14/25 11:11) Facial Swelling clavulanic acid [From Augmentin] Allergy (Severe, Verified 02/14/25 11:11) Facial Swelling naproxen Allergy (Severe, Verified 02/14/25 11:11) asthma, SOB animal dander [PET DANDER] Allergy (Intermediate, Verified 02/14/25 11:11) rash SEASONAL ALLERGIES Allergy (Mild, Uncoded 02/14/25 11:11) congestion Medication List - Last Reconciled 02/14/25 by Irene Yusuf LPN acetaminophen ER 650 mg PO Q12H PRN albuterol sulfate 90 mcg/actuation 2 puffs inhalation Q4-6H PRN cetirizine (Zyrtec) 10 mg PO DAILY PRN 30 days clonazepam 1 mg PO DAILY@1400,1800 clonidine HCl 0.1 mg PO TID 30 days diclofenac sodium 1% (Voltaren Arthritis Pain) 4 grams topical QID PRN 30 days duloxetine 30 mg PO DAILY duloxetine (Cymbalta) 60 mg PO DAILY hydrocodone-acetaminophen 10-325 mg 1 tab orally [id number] as needed. Maximum daily dose is 5; Partial Fill upon patient request. 30 days MDD 5 ibuprofen 800 mg PO Q12H PRN ketamine 160 mg sublingual lidocaine 5% 1 patch topical DAILY 30 days lisinopril 40 mg PO DAILY 3 months lorazepam 1 mg PO DAILY PRN methylphenidate HCl 10 mg PO TID cstgxjqpdmmt-ajxh-cryxl acid 18-400 mg-mcg 1 tab PO DAILY naloxone 4 mg/actuation (Narcan) 4 mg intranasal Q2M PRN naratriptan 2.5 mg PO ONCE PRN 30 days ondansetron HCl 4 mg PO DAILY tizanidine 4 mg PO TID PRN triamcinolone acetonide 0.025% 1 appl topical BID PRN Wixela Inhub 500-50 mcg/dose (fluticasone propion-salmeterol) 1 inh inhalation BID 30 days NS HPI Comments Details: Patient presents today for a pill count. Patient is supposed to have #50 pills, in her possession has #57 pills. This demonstrates a responsible attitude in regards to the medication regimen. Patient reports reasonable analgesia on her current regimen of hydrocodone-acetaminophen 10-325 mg 1 tab [id number] prn without any noted side effects except constipation due to opioid use. She has not been adhering to dietary measures that eased this in the past and plans to restart her bowel regime. Her management strategy on taking medication allows for 4-5 pills a day, she tries the 5th daily dose only for severe pain. Her chronic pain issues include significant osteoarthritis of the left hip and right shoulder, moderate degenerative changes in the sacroiliac joint and lumbar spine with associated multilevel central and neuroforaminal spinal stenosis which affect her daily activities, mobility, functioning, sleep, mood and social interactions. She anticipates further insights from her upcoming consultation and recent lumbar MRI with Dr. Neville today. - Affect: Pain affects the ability to walk; frequent falls diminish confidence. - Analgesia: Hydrocodone/acetaminophen 10/325 mg as needed; current pain level at 8; goal pain level <4-5/10. - Adverse Effects: Constipation from opioid use as dietary interventions have not been maintained. - Activities of Daily Living: Unable to walk to the barn; considers hip and back pain a priority over right shoulder surgery. - Aberrant Drug Related Behaviors: None noted; excess pills returned and medication taken as needed. [facility] Medical History Left groin pain Depression Migraine headache Stool incontinence Chronic pain syndrome Postlaminectomy syndrome Disc degeneration, lumbar Compression fracture of L1 lumbar vertebra Osteoporosis Hypertension Spondylosis Attention deficit disorder Herniated disc Asthma Anxiety Migraine headache Surgical History Status post kyphoplasty History of lumbosacral spine surgery History of cervical spinal surgery History of spinal surgery History of surgery on left wrist Family History Sister Ovarian cancer Lung cancer Maternal Grandmother Ovarian cancer Paternal Aunt Ovarian cancer Maternal Aunt Pancreatic cancer Social History Household Members: Spouse Housing: House Are you a primary respiratory care instructor to a significant other at home: No Do you presently have visiting nurse or other home services: No Comment: medicated in pacu Patient Tobacco Use Status: Former Tobacco user e-Cigarette/Vaping Use: Never Used Second Hand Smoke Exposure: No service: No Current occupational status: disabled 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 Alert and oriented. Mood and affect appropriate. Clear speech. Follows and participates in conversation appropriately. Respiratory effort is unlabored. No cough. Able to transition from sit to stand unassisted. Ambulates with bilaterally normal heel strike and toe off, wide based and antalgic gait. Bilateral shoulder pain with overhead or backside pocket reaching activities, right>left. Back/Spine/Pelvis Other: Limited lumbar ROM due to pain. +Curt's on the left, reproduces left buttock, lower back and left groin and hip pain. Moderate-severe left hip pain with I/E hip rotations. +mild TTP with left GTB. Cervical Spine: No collar present, cervical muscular tenderness, pain with cervical ROM, Cervical spine scars present (well healing anterior scar) and No Cervical spine tenderness Thoracic/Lumbar Spine: Thoracic/lumbar spine scar(s), Lasegue's sign positive (right>left) bilateral and localized, pain with thoraco-lumbar ROM, thoraco- lumbar ROM limited, No thoracic spinal tenderness and lumbar spinal tenderness (L3-S1) Pelvis: buttock tenderness bilaterally Sacroiliac joints: bilaterally tender to palpation Extrem General: Yes capillary refill normal, Yes no clubbing, cyanosis or edema and Yes no calf tenderness Psych Appearance: grossly normal Mental Status: mental status grossly normal Speech and movement: Normal speech and movement present Affect: normal affect and Sad affect present Attitude: cooperative Thought process: Normal thought process present Thought content: Normal thought content present, suicidality (none), no hallucinations and Depressive thoughts present Insight: Good insight present (Psych) Judgement: Good judgement present (Psych) Results Reviewed Results Reviewed: XR HIP, LEFT 01/03/25 CLINICAL INFORMATION: R10.32 - Left lower quadrant pain COMPARISON: None available. TECHNIQUE: Two views of the left hip. FINDINGS: No definite fracture or dislocation. No suspicious bone lesion. Severe, end-stage osteoarthrosis of the left hip joint present with superior joint space loss, gvpb-[id number] appearance, with subchondral sclerosis and cystic changes in both the femoral head and superior acetabulum. There are prominent marginal productive osteophytes and subcapital osteophytes. There is mild irregularity of the contour to the superior femoral head. Partially imaged fusion hardware in the lower lumbar spine. Mild to moderate degenerative SI joint changes. No soft tissue abnormality. IMPRESSION: Severe osteoarthrosis left hip joint. DXA BONE DENSITY EXTREMITY 01/02/25 HISTORY: Estrogen deficiency TECHNIQUE: TurboTranslations Dual energy absorptiometry (DEXA) of the lumbar spine, total left hip, and femoral neck was performed. COMPARISON: There are no prior studies for comparison. FINDINGS: The bone mineral density of the lumbar spine is 1.092 with a T-score of -0.6, and a Z-score of 1.3. The bone mineral density of the left total hip is 0.668 with a T-score of -2.7, and a Z-score of -1.2. The bone mineral density of the left femoral neck is 0.717 with a T-score of -2.3, and a Z-score of -0.6. IMPRESSION: Based on bone mineral density, and according to World Health Organization (WHO) criteria, the diagnosis is consistent with osteoporosis. MR LUMBAR SPINE WITHOUT AND WITH CONTRAST 01/28/25 CLINICAL INFORMATION: Left lower quadrant pain. COMPARISON: November 12, 2024 reported spinal canal stenosis at L3-4 and postsurgical changes at L4-5. TECHNIQUE: MRI of the lumbar spine was obtained using routine sequences with and without contrast. Intravenous contrast: Gadolinium based 5.5 mL. No reported immediate complications. FINDINGS: Last rib-bearing vertebra labeled T12. Paramagnetic field distortion secondary to metallic hardware with transpedicular screws at L4 and L5. Decreased signal in all sequences at L1. Mild bone marrow STIR signal at the endplates of L2 and L3 and likely extending into the posterior elements. Mild bone marrow STIR signal in the endplates of T9 and T10-11. No abnormal enhancement within the leptomeningeal compartment. No abnormal enhancement within the prevertebral compartment or the central spinal canal. The conus medullaris ends at the inferior endplate of L1 with normal signal. There is no grouping or clumping of the neural elements of the thecal sac. Multilevel marginal osteophyte formation and disc desiccation from T9-10 to L3-4 levels. There is a 1 cm anterolisthesis at L4-5. Grade 1 anterolisthesis L3-4. There is a dextroconvex rotoscoliosis apex at L2-3. There is no peripheral enhancing fluid collections. There is no CSF signal characteristic collections of the surgical site. T12-L1: Broad-based disc bulging. Facet joint and ligamentum flavum hypertrophy. Reduced AP diameter of the thecal sac and the neural foramina. No compression upon neural elements. L1-2: Broad-based disc bulging. Facet joint and ligamentum flavum hypertrophy. Reduced AP diameter of the thecal sac abutting the cauda equina. Bilateral neuroforamina narrowing encroaching the exiting nerve roots. L2-3: Broad-based disc bulging. Facet joint and ligamentum flavum hypertrophy. Reduced AP diameter of the thecal sac and the neural foramina encroaching the neural elements more conspicuous on the left side. L3-4: Broad-based disc bulging. Facet joint and ligamentum flavum hypertrophy. Grade 1 anterolisthesis. CSF effacement of the thecal sac central spinal canal and bilateral neuroforamina stenosis compressing the neural elements. L4-5: Grade 1 anterolisthesis resulting in central spinal canal and bilateral neuroforamina stenosis. L5-S1: Broad-based disc bulging. Facet joint hypertrophy. No central spinal canal stenosis. Bilateral neuroforamina narrowing encroaching the exiting nerve roots. IMPRESSION: No abnormal enhancement. No pseudomeningoceles. No imaging findings for arachnoiditis. Grade 1 anterolisthesis on a degenerative basis at L3-4 and spondylosis resulting in central spinal canal and bilateral neuroforamina stenosis compressing the neural elements both thecal sac and the exiting nerve roots. Grade 1 anterolisthesis L4-5 resulting in central spinal canal and bilateral neuroforamina stenosis likely encroaching the neural elements. Multilevel spondylosis and dextroconvex rotoscoliosis lumbar spine encroaching the neural elements at L2-3 and to a lesser extent L1-2. Assessment & Plan Assessment & Plan (1) Disc degeneration, lumbar: Code(s): M51.36 - Other intervertebral disc degeneration, lumbar region Category: Medical (2) Chronic pain syndrome: Code(s): G89.4 - Chronic pain syndrome Category: Medical (3) Opioid contract exists: Code(s): Z79.891 - senior care (current) use of opiate analgesic Category: Medical (4) Osteoarthritis of right glenohumeral joint: Code(s): M19.011 - Primary osteoarthritis, right shoulder Category: Medical (5) Bilateral shoulder pain: Code(s): M25.511 - Pain in right shoulder; M25.512 - Pain in left shoulder Category: Medical (6) Postlaminectomy syndrome: Code(s): M96.1 - Postlaminectomy syndrome, not elsewhere classified Category: Medical (7) Right shoulder pain: Code(s): M25.511 - Pain in right shoulder Category: Medical (8) Status post cervical spinal fusion: Code(s): Z98.1 - Arthrodesis status Category: Surgical (9) Left hip pain: Code(s): M25.552 - Pain in left hip Category: Medical Plan Patient has shown accountability for her medication regimen and the pill count was accurate. There is no evidence of misuse, abuse or diversion at this time. MassPat reviewed and consistent. Script sent for increased dose for hydrocodone-acetaminophen 10-325 mg 1 tab Q4- 6H #150 tabs for 30 days with advanced date on 01/16/25 for another month to cover significant right shoulder, left hip and back pain with radiculopathy. Discussed with the patient the risks associated with benzodiazepine and opioid use. Patient is aware and verbalized an agreement to take the medications at least two hours apart. Patient has Narcan at home. Pending right shoulder steroid injection (half dose steroid due to osteoporosis) with local and fluoroscopy as planned but will notify our office of any changes after upcoming Neurosurgical evaluation. Follow up with Orthopedics for left hip pain as planned. All questions were answered and the patient is in agreement with the plan. Follow up in 4-5 weeks for a pill count or sooner if needed. Patient was informed and verbally consented to the use of an ambient scribe for clinic note documentation during this visit. Medications: Refilled hydrocodone-acetaminophen 10-325 mg 1 tab orally [id number] as needed. Maximum daily dose is 5; Partial Fill upon patient request. 30 days 150 tabs 0RF pain MDD 5 G89.4 - Chronic pain syndrome, M19.011 - Primary osteoarthritis, right shoulder, M25.511 - Pain in right shoulder, M51.36 - Other intervertebral disc degeneration, lumbar region, Z79.891 - senior care (current) use of opiate analgesic Coding Level of Care Code Est Pt Level 4 (18505) Complex EM visit Add On G2211 Diagnoses Disc degeneration, lumbar M51.36 Chronic pain syndrome G89.4 Opioid contract exists Z79.891 Osteoarthritis of right glenohumeral joint M19.011 Bilateral shoulder pain M25.511; M25.512 Postlaminectomy syndrome M96.1 Right shoulder pain M25.511 Status post cervical spinal fusion Z98.1 Left hip pain M25.552
[2025-02-14 11:10] VITALS: BP 142/69; PULSE 90; RESP 16; O2SAT 96; BMI 21.3
== END 2025-02-14 11:32 | disposition home or self-care (01) ==
LOC: HO.PMC 11:04
PROVIDERS: PCP Family Medicine; Visit Provider Nurse Practitioner Family
DX: M51.369 Other intervertebral disc degeneration, lumbar region without mention of lumbar back pain or lower extremity pain (principal); G89.4 Chronic pain syndrome; Z79.891 Long term (current) use of opiate analgesic; M19.011 Primary osteoarthritis, right shoulder; M25.511 Pain in right shoulder; M25.512 Pain in left shoulder; M96.1 Postlaminectomy syndrome, not elsewhere classified; Z98.1 Arthrodesis status; M25.552 Pain in left hip
CPT/HCPCS: 99214; G2211

== ENCOUNTER → 2025-02-14 11:03 | Outpatient (BNVA) | payer MEDICARE, SELFPAY | PROVIDERS: PCP Family Medicine; Visit Provider Nurse Practitioner Family | DX: Z51.81 Encounter for therapeutic drug level monitoring (principal); R10.32 Left lower quadrant pain; M51.360 Other intervertebral disc degeneration, lumbar region with discogenic back pain only; M19.011 Primary osteoarthritis, right shoulder; M25.511 Pain in right shoulder; M25.512 Pain in left shoulder; M96.1 Postlaminectomy syndrome, not elsewhere classified; M25.552 Pain in left hip; G89.4 Chronic pain syndrome; Z79.891 Long term (current) use of opiate analgesic; Z98.1 Arthrodesis status | CPT/HCPCS: 99212 ==

== ENCOUNTER 2025-02-14 14:12 | Outpatient (AMB) | payer MEDICARE, SELFPAY ==
--- NOTE | 2025-02-14 14:45 | HO.SPINEOV ---
Intake Visit Reasons: MRI f/u Intake Note: Ms. Bailey is here today to f/u on the results to her MRI. Capture Manager Required: No Allergies amoxicillin [From Augmentin] Allergy (Severe, Verified 02/14/25 14:46) Facial Swelling clavulanic acid [From Augmentin] Allergy (Severe, Verified 02/14/25 14:46) Facial Swelling naproxen Allergy (Severe, Verified 02/14/25 14:46) asthma, SOB animal dander [PET DANDER] Allergy (Intermediate, Verified 02/14/25 14:46) rash SEASONAL ALLERGIES Allergy (Mild, Uncoded 02/14/25 11:11) congestion Assessment & Plan Assessment & Plan (1) Left groin pain: Code(s): R10.32 - Left lower quadrant pain Category: Medical Plan Dear colleague, On 02/14/2025, I saw for follow-up Marilu Bailey for her left groin pain. The pain is constant. I ordered an MRI which I compared to latest MRI of 2020. She is status post L4-5 lumbar fusion not institution. She does have adjacent degenerative disc disease L3-4 and a lumbar degenerative scoliosis. However, the radiographic findings have not progressed that much over time. I am not convinced that the pain is related to the spine. She is going to see Dr. Tom in 2 weeks for an evaluation of her left hip. She will return to my office if the herpes excluded. Thank you for allowing me take care of your patient. Jules Neville MD, PhD Spine Fellowship Trained Neurosurgeon Director, [facility] Coding Level of Care Code Est Pt Level 2 (32603) Diagnoses Left groin pain R10.32
== END 2025-02-14 15:50 | disposition home or self-care (01) ==
LOC: HO.HNS 14:13
PROVIDERS: PCP Family Medicine; Visit Provider Neurological Surgery
DX: R10.32 Left lower quadrant pain (principal)
CPT/HCPCS: 99212

== ENCOUNTER 2025-02-27 10:11 | Outpatient (AMB) | payer MEDICARE, SELFPAY ==
--- NOTE | 2025-02-27 10:17 | MHC.OFFVIS ---
Intake Visit Reasons: New Pt - Left Hip Pain Intake Note: Marilu is a 64 year old female who presents today for a new problem visit with complaints of left hip/groin pain. Patient reports that she had surgery with Dr. Neville. She was doing very well after surgery, about 6-8 weeks after the surgery she started having pain in the left hip. She was seen with David Luciano who ordered an xray which showed OA - She also had an MRI done of the left hip. She is complaining of pain in the left groin, the pain is also felt down the leg and with knee swelling. She is having difficulty with walking, standing and laying. She is uncomfortable in all positions and is affecting your daily acitivty. Allergies amoxicillin [From Augmentin] Allergy (Severe, Verified 02/27/25 10:23) Facial Swelling clavulanic acid [From Augmentin] Allergy (Severe, Verified 02/27/25 10:23) Facial Swelling naproxen Allergy (Severe, Verified 02/27/25 10:23) asthma, SOB animal dander [PET DANDER] Allergy (Intermediate, Verified 02/27/25 10:23) rash SEASONAL ALLERGIES Allergy (Mild, Uncoded 02/27/25 10:23) congestion HPI HPI New Pt - Left Hip Pain: Details: Simi comes in today with severe left groin pain. She is unable to ambulate comfortably and feels that the quality of her life is severely diminished. She is nearly in tears. She states she can not sleep at night. She states getting into and out of a car or up from a seated position is extremely difficult. She has been seen by spine and an MRI was ordered which showed grade 1 anterolisthesis with some nerve encroachment at the L4-5 level. She does have chronic pain has been treated by pain management with shoulder injections and narcotics. She is taking 5 10 mg hydrocodone per day. REPLACED BY [facility] Medical History Left groin pain Depression Migraine headache Stool incontinence Chronic pain syndrome Postlaminectomy syndrome Disc degeneration, lumbar Compression fracture of L1 lumbar vertebra Osteoporosis Hypertension Spondylosis Attention deficit disorder Herniated disc Asthma Anxiety Migraine headache Surgical History Status post kyphoplasty History of lumbosacral spine surgery History of cervical spinal surgery History of spinal surgery History of surgery on left wrist Family History Sister Ovarian cancer Lung cancer Maternal Grandmother Ovarian cancer Paternal Aunt Ovarian cancer Maternal Aunt Pancreatic cancer Social History Household Members: Spouse Housing: House Are you a primary career education teacher to a significant other at home: No Do you presently have visiting nurse or other home services: No Comment: medicated in pacu Patient Tobacco Use Status: Former Tobacco user e-Cigarette/Vaping Use: Never Used Second Hand Smoke Exposure: No service: No Current occupational status: disabled 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 2+ dorsalis pedis pulse. 5/5 tib ant/gastrocs/EHL/quad/hamstring. Psoas testing complicated by hip pain. No clonus. Results Reviewed Results Reviewed: I personally reviewed relevant radiographs. Severe left hip osteoarthritis with femoral head erosion I personally reviewed the MR images. No abnormal enhancement. No pseudomeningoceles. No imaging findings for arachnoiditis. Grade 1 anterolisthesis on a degenerative basis at L3-4 and spondylosis resulting in central spinal canal and bilateral neuroforamina stenosis compressing the neural elements both thecal sac and the exiting nerve roots. Grade 1 anterolisthesis L4-5 resulting in central spinal canal and bilateral neuroforamina stenosis likely encroaching the neural elements. Multilevel spondylosis and dextroconvex rotoscoliosis lumbar spine encroaching the neural elements at L2-3 and to a lesser extent L1-2. Assessment & Plan Assessment & Plan (1) Osteoarthritis of left hip: Code(s): M16.12 - Unilateral primary osteoarthritis, left hip Category: Medical Plan: Marilu is a 65-year-old woman with severe arthritis of multiple joints. The most painful is her left hip at this time. Radiographs demonstrate severe disease and she is unable to ambulate or engage in daily activities without severe pain. I reviewed the x-ray findings with her and I recommend a left hip replacement. She has no cardio pulmonary risk factors that I can appreciate and overall is in reasonably good health. Her primary problem is pain management. She takes 50 mg of hydrocodone a day and feels that her pain is still difficult to control. I discussed this with her. I do recommend that she wean down on the narcotics as much as possible as postoperative pain control we will be much easier. She expressed understanding. I reviewed the risks, benefits and alternatives of surgery with her including, but not limited to, the risk of infection, fracture, dislocation as well as the risk of leg length discrepancy. I described the higher risk of dislocation patients who have undergone lumbar fusion surgery. I also discussed medical complications associated with surgery including blood clots and uncontrollable pain and pulmonary emboli. She expressed understanding and we will work to make sure that she is medically cleared and it is safe to undergo surgery. Once that is done we can proceed forward. (2) Opioid contract exists: Code(s): Z79.891 - senior care (current) use of opiate analgesic Category: Medical Plan: I recommend she wean down as much as possible. Coding Level of Care Code Est Pt Level 4 (13290) Complex EM visit Add On G2211 Diagnoses Osteoarthritis of left hip M16.12 Opioid contract exists Z79.891
== END 2025-02-27 11:14 | disposition home or self-care (01) ==
LOC: HO.HOS 10:12
PROVIDERS: PCP Family Medicine; Visit Provider Orthopaedic Surgery
DX: M16.12 Unilateral primary osteoarthritis, left hip (principal); Z79.891 Long term (current) use of opiate analgesic
CPT/HCPCS: 99214; G2211

== ENCOUNTER → 2025-02-27 10:11 | Outpatient (BNVA) | payer MEDICARE, SELFPAY | PROVIDERS: PCP Family Medicine; Visit Provider Orthopaedic Surgery | DX: M16.12 Unilateral primary osteoarthritis, left hip (principal); Z79.891 Long term (current) use of opiate analgesic | CPT/HCPCS: 99212 ==

== ENCOUNTER 2025-03-14 10:49 | Outpatient (AMB) | payer MEDICARE, SELFPAY ==
--- NOTE | 2025-03-14 11:01 | MHC.OFFVIS ---
Vital Signs 03/14/25 11:12 Height 5 ft 4 in Weight 124 lb 8 oz BMI 21.4 BP 170/104 H Blood Pressure Location Lt brachial Position Sitting Pulse 89 Pulse Source Pulse Oximeter Pulse Oximetry (%) 95 Oxygen Delivery Method Room Air Intake Visit Reasons: Pill count Intake Note: Marilu comes in today for a pill count to hydrocodone-acetaminophen. Patient should have 25 tablets and presents with 32 tablets which she last took today 03/14/25 at 10am. 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 Patient is supposed to have #25 pills, in her possession has #32 pills. This demonstrates a responsible attitude in regards to the medication regimen. Patient reports reasonable analgesia on her current regimen of hydrocodone-acetaminophen 10-325 mg 1 tab [id number] prn without any noted side effects except constipation due to opioid use. She exhibits partial and situation-dependent relief ? effective during rest but not during physical activity. The patient is considering reducing her opioid medication in anticipation of hip surgery in May and has tried non-opioid preparations but experienced limited success. She is interested in ensuring optimal pain control after her surgical procedure, evaluating both current management and future options. - Onset & Timing: Chronic pain ongoing, related to past surgeries and severe arthritis. - Location: Predominantly in shoulders and hips. - Quality: Persistent and exacerbated by movement, partially alleviated with rest. - Exacerbating Factors: Physical activity such as showering. - Relieving Factors: Laying down, resting. - Difficulties: Diminished efficacy of current analgesics, limited to rest periods, activity exacerbates pain. - Affect: Persistent chronic pain impacting daily relaxation only; concerned about post-surgical pain. - Analgesia: Current use of Vicodin; effectiveness waning; contemplating dose reduction before surgery. - Adverse Effects: No reports of adverse effects from medications. - Activities of Daily Living: Pain managed well during rest periods; physical activities exacerbate pain. - Aberrant Drug Related Behaviors: No aberrant behaviors reported; planning to taper off responsibly to a lower dose prior to upcoming left hip surgery in May. [facility] Medical History Left groin pain Depression Migraine headache Stool incontinence Chronic pain syndrome Postlaminectomy syndrome Disc degeneration, lumbar Compression fracture of L1 lumbar vertebra Osteoporosis Hypertension Spondylosis Attention deficit disorder Herniated disc Asthma Anxiety Migraine headache Surgical History Status post kyphoplasty History of lumbosacral spine surgery History of cervical spinal surgery History of spinal surgery History of surgery on left wrist Family History Sister Ovarian cancer Lung cancer Maternal Grandmother Ovarian cancer Paternal Aunt Ovarian cancer Maternal Aunt Pancreatic cancer Social History Household Members: Spouse Housing: House Are you a primary mall plant caretaker to a significant other at home: No Do you presently have visiting nurse or other home services: No Comment: medicated in pacu Patient Tobacco Use Status: Former Tobacco user e-Cigarette/Vaping Use: Never Used Second Hand Smoke Exposure: No service: No Current occupational status: disabled 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 Alert and oriented. Mood and affect appropriate. Clear speech. Follows and participates in conversation appropriately. Respiratory effort is unlabored. No cough. Able to transition from sit to stand unassisted. Ambulates with bilaterally normal heel strike and toe off, antalgic gait. Left hip pain with I/E rotations. Bilateral shoulder pain with overhead or backside pocket reaching activities, right>left. Back/Spine/Pelvis Other: Limited lumbar ROM due to pain. +Curt's on the left, reproduces left buttock, lower back and left groin and hip pain. Cervical Spine: cervical muscular tenderness, pain with cervical ROM, Cervical spine scars present (well healing anterior scar) and No Cervical spine tenderness Thoracic/Lumbar Spine: Thoracic/lumbar spine scar(s), Lasegue's sign positive (right>left) bilateral and localized, pain with thoraco-lumbar ROM, thoraco-lumbar ROM limited, No thoracic spinal tenderness and lumbar spinal tenderness (L3-S1) Pelvis: buttock tenderness bilaterally Sacroiliac joints: bilaterally tender to palpation Extrem General: Yes capillary refill normal, Yes no clubbing, cyanosis or edema and Yes no calf tenderness Psych Appearance: grossly normal and well kempt Mental Status: mental status grossly normal Speech and movement: Normal speech and movement present and Clear speech present Affect: normal affect and Sad affect present Attitude: cooperative Thought process: Normal thought process present Thought content: Normal thought content present, suicidality (none), no hallucinations and Depressive thoughts present Insight: Good insight present (Psych) Judgement: Good judgement present (Psych) Results Reviewed Results Reviewed: I personally reviewed relevant radiographs. Severe left hip osteoarthritis with femoral head erosion I personally reviewed the MR images. No abnormal enhancement. No pseudomeningoceles. No imaging findings for arachnoiditis. Grade 1 anterolisthesis on a degenerative basis at L3-4 and spondylosis resulting in central spinal canal and bilateral neuroforamina stenosis compressing the neural elements both thecal sac and the exiting nerve roots. Grade 1 anterolisthesis L4-5 resulting in central spinal canal and bilateral neuroforamina stenosis likely encroaching the neural elements. Multilevel spondylosis and dextroconvex rotoscoliosis lumbar spine encroaching the neural elements at L2-3 and to a lesser extent L1-2. 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 Category: Medical (4) Osteoarthritis of right glenohumeral joint: Code(s): M19.011 - Primary osteoarthritis, right shoulder Category: Medical (5) Bilateral shoulder pain: Code(s): M25.511 - Pain in right shoulder; M25.512 - Pain in left shoulder Category: Medical (6) Postlaminectomy syndrome: Code(s): M96.1 - Postlaminectomy syndrome, not elsewhere classified Category: Medical (7) Right shoulder pain: Code(s): M25.511 - Pain in right shoulder Category: Medical (8) Status post cervical spinal fusion: Code(s): Z98.1 - Arthrodesis status Category: Surgical (9) Left hip pain: Code(s): M25.552 - Pain in left hip Category: Medical Plan Patient has shown accountability for her medication regimen and the pill count was accurate. There is no evidence of misuse, abuse or diversion at this time. MassPat reviewed and consistent. Script sent for decreased dose of hydrocodone-acetaminophen 10-325 mg 1 tab Q6H #120 tabs (instead of #150) for 30 days with advanced date on 03/21/25. Discussed with the patient the risks associated with benzodiazepine and opioid use. Patient is aware and verbalized an agreement to take the medications at least two hours apart. Patient has Narcan at home. This reduction aims to ensure adequate room for upcoming post-operative pain control. Exploration of non-opioid adjuncts like increased dose for gabapentin or muscle relaxants is deferred until post-surgery review. I will continue to explore alternative methods of administration for buprenorphine (Belbuca vs Butrans) if Vicodin becomes inadequate or problematic. Will reschedule right shoulder steroid injection with local and fluoroscopy as planned. Follow up with Orthopedics for left hip pain as planned. All questions were answered and the patient is in agreement with the plan. Follow up in 4-5 weeks for a pill count or sooner if needed. Patient was informed and verbally consented to the use of an ambient scribe for clinic note documentation during this visit. Medications: Changed From hydrocodone-acetaminophen 10-325 mg 1 tab orally [id number] as needed. Maximum daily dose is 5; Partial Fill upon patient request. 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 30 days 120 tabs 0RF pain MDD 4 G89.4 - Chronic pain syndrome, M19.011 - Primary osteoarthritis, right shoulder, M25.511 - Pain in right shoulder, M51.36 - Other intervertebral disc degeneration, lumbar region, Z79.891 - long-term (current) use of opiate analgesic Coding Level of Care Code Est Pt Level 4 (91802) Complex EM visit Add On G2211 Diagnoses Disc degeneration, lumbar M51.36 Chronic pain syndrome G89.4 Opioid contract exists Z79.891 Osteoarthritis of right glenohumeral joint M19.011 Bilateral shoulder pain M25.511; M25.512 Postlaminectomy syndrome M96.1 Right shoulder pain M25.511 Status post cervical spinal fusion Z98.1 Left hip pain M25.552
[2025-03-14 11:12] VITALS: BP 170/104; PULSE 89; O2SAT 95; BMI 21.4
== END 2025-03-14 11:34 | disposition home or self-care (01) ==
LOC: HO.PMC 10:49
PROVIDERS: PCP Family Medicine; Visit Provider Nurse Practitioner Family
DX: M51.369 Other intervertebral disc degeneration, lumbar region without mention of lumbar back pain or lower extremity pain (principal); G89.4 Chronic pain syndrome; Z79.891 Long term (current) use of opiate analgesic; M19.011 Primary osteoarthritis, right shoulder; M25.511 Pain in right shoulder; M25.512 Pain in left shoulder; M96.1 Postlaminectomy syndrome, not elsewhere classified; Z98.1 Arthrodesis status; M25.552 Pain in left hip
CPT/HCPCS: 99214; G2211

== ENCOUNTER → 2025-03-14 10:49 | Outpatient (BNVA) | payer MEDICARE, SELFPAY | PROVIDERS: PCP Family Medicine; Visit Provider Nurse Practitioner Family | DX: M51.369 Other intervertebral disc degeneration, lumbar region without mention of lumbar back pain or lower extremity pain (principal); G89.4 Chronic pain syndrome; M19.011 Primary osteoarthritis, right shoulder; M25.511 Pain in right shoulder; M25.512 Pain in left shoulder; M96.1 Postlaminectomy syndrome, not elsewhere classified; Z98.1 Arthrodesis status; M25.552 Pain in left hip; Z51.81 Encounter for therapeutic drug level monitoring; Z79.891 Long term (current) use of opiate analgesic | CPT/HCPCS: 99212 ==

== ENCOUNTER 2025-04-11 | Outpatient (REF) | payer MEDICARE, SELFPAY ==
--- NOTE | ~2025-04-11 | XR_ITS ---
EXAMINATION: XR KNEE 4 OR MORE VIEWS LEFT HISTORY: M25.562 - Pain in left knee COMPARISON: There are no prior studies available for comparison. FINDINGS: Four views of the left knee are submitted. The bones are osteopenic. There is no fracture or dislocation. There is mild to moderate osteoarthritis of the medial compartment and mild osteoarthritis of the patellofemoral compartment, with joint space narrowing and osteophyte formation. The soft tissues are unremarkable. There is no joint effusion. XR/XR knee LT 4V IMPRESSION: Osteopenia. Degenerative changes of the left knee as described. Electronically signed by: Tyrone Qiu MD 04/11/2025 12:24 PM EDT
== END 2025-04-11 00:01 | disposition home or self-care (01) ==
LOC: HO.XRAY
PROVIDERS: PCP Family Medicine; Visit Provider Nurse Practitioner Family
DX: M25.562 Pain in left knee (principal)
CPT/HCPCS: 73564

== ENCOUNTER 2025-04-11 10:56 | Outpatient (AMB) | payer MEDICARE, SELFPAY ==
--- NOTE | 2025-04-11 10:58 | MHC.OFFVIS ---
Vital Signs 04/11/25 11:08 Height 5 ft 4 in Weight 127 lb 8 oz BMI 21.9 BP 172/107 H Blood Pressure Location Lt brachial Position Sitting Pulse 104 H Pulse Source Pulse Oximeter Pulse Oximetry (%) 97 Oxygen Delivery Method Room Air Intake Visit Reasons: Pill Count Intake Note: Marilu comes in today for a pill count to hydrocodone-acetaminophen, patient should have 36 tablets and presents with 39 tablets which she last took today 04/11/25 at 9:30am. 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 Patient is supposed to have #36 pills, in her possession has #39 pills. This demonstrates a responsible attitude in regards to the medication regimen. Patient reports mild analgesia on her current regimen of hydrocodone-acetaminophen 10-325 mg 1 tab [id number] prn without any noted side effects except constipation due to opioid use. She exhibits partial and situation-dependent relief ? effective during rest but not during physical activity. Pain is rated at 7/10. The patient is reducing her opioid medication in anticipation of hip surgery in May and has tried non-opioid preparations but experienced limited success. She was decreased from 5 times daily of Vicodin to qid prn, but is not able to go through the day with tid prn doses due to significant pain in her back, left hip and now left anterior knee where it occasionally surpasses the hip pain's intensity. Denies any recent trauma, injury or falls. The patient has made concerted efforts to reduce opioid use from four to three times daily doses with partial success, despite attempts to halve doses for less severe periods. She also receives weekly ketamine, which have shown some efficacy recently with increased dose. Sleep disturbances attributed to pain have led to a medication adjustment from clonazepam to trazodone by her Psychiatrist. She is cautious about interactions with her migraine treatments. The patient shows apprehension about using assistive devices but acknowledges significant functional impairments due to pain. [facility] Medical History Left groin pain Depression Migraine headache Stool incontinence Chronic pain syndrome Postlaminectomy syndrome Disc degeneration, lumbar Compression fracture of L1 lumbar vertebra Osteoporosis Hypertension Spondylosis Attention deficit disorder Herniated disc Asthma Anxiety Migraine headache Surgical History Status post kyphoplasty History of lumbosacral spine surgery History of cervical spinal surgery History of spinal surgery History of surgery on left wrist Family History Sister Ovarian cancer Lung cancer Maternal Grandmother Ovarian cancer Paternal Aunt Ovarian cancer Maternal Aunt Pancreatic cancer Social History Household Members: Spouse Housing: House Are you a primary health care social worker to a significant other at home: No Do you presently have visiting nurse or other home services: No Comment: medicated in pacu Patient Tobacco Use Status: Former Tobacco user e-Cigarette/Vaping Use: Never Used Second Hand Smoke Exposure: No service: No Current occupational status: disabled 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 Moderate distress due to pain. Alert and oriented. Mood and affect appropriate. Clear speech. Follows and participates in conversation appropriately. Respiratory effort is unlabored. No cough. Able to transition from sit to stand unassisted. Ambulates with bilaterally normal heel strike and toe off, antalgic gait. Left hip pain with I/E rotations. Bilateral shoulder pain with overhead or backside pocket reaching activities, right>left. Back/Spine/Pelvis Cervical Spine: cervical muscular tenderness, pain with cervical ROM, Cervical spine scars present (well healing anterior scar) and No Cervical spine tenderness Thoracic/Lumbar Spine: Thoracic/lumbar spine scar(s), Lasegue's sign positive (right>left) bilateral and localized, pain with thoraco-lumbar ROM, thoraco-lumbar ROM limited, No thoracic spinal tenderness and lumbar spinal tenderness (L3-S1) Pelvis: buttock tenderness bilaterally Sacroiliac joints: bilaterally tender to palpation Extrem General: Yes capillary refill normal, Yes no clubbing, cyanosis or edema and Yes no calf tenderness Left lower extremity: knee (Limited ROM due to pain.) Details: normal to inspection, tenderness Location: of the patella, of the medial joint line and of the lateral joint line, swelling (mild, global) and crepitus; no ecchymosis and no unusual warmth Psych Appearance: grossly normal Mental Status: mental status grossly normal Speech and movement: Normal speech and movement present and Clear speech present Affect: normal affect and Sad affect present Attitude: cooperative Thought process: Normal thought process present Thought content: Normal thought content present, suicidality (none), no hallucinations and Depressive thoughts present Insight: Good insight present (Psych) Judgement: Good judgement present (Psych) Results Reviewed Results Reviewed: XR HIP, LEFT 01/03/25 CLINICAL INFORMATION: R10.32 - Left lower quadrant pain COMPARISON: None available. TECHNIQUE: Two views of the left hip. FINDINGS: No definite fracture or dislocation. No suspicious bone lesion. Severe, end-stage osteoarthrosis of the left hip joint present with superior joint space loss, [id number] appearance, with subchondral sclerosis and cystic changes in both the femoral head and superior acetabulum. There are prominent marginal productive osteophytes and subcapital osteophytes. There is mild irregularity of the contour to the superior femoral head. Partially imaged fusion hardware in the lower lumbar spine. Mild to moderate degenerative SI joint changes. No soft tissue abnormality. IMPRESSION: Severe osteoarthrosis left hip joint. DXA BONE DENSITY EXTREMITY 01/02/25 HISTORY: Estrogen deficiency TECHNIQUE: [employer] Dual energy absorptiometry (DEXA) of the lumbar spine, total left hip, and femoral neck was performed. COMPARISON: There are no prior studies for comparison. FINDINGS: The bone mineral density of the lumbar spine is 1.092 with a T-score of -0.6, and a Z-score of 1.3. The bone mineral density of the left total hip is 0.668 with a T-score of -2.7, and a Z-score of -1.2. The bone mineral density of the left femoral neck is 0.717 with a T-score of -2.3, and a Z-score of -0.6. IMPRESSION: Based on bone mineral density, and according to World Health Organization (WHO) criteria, the diagnosis is consistent with osteoporosis. MR LUMBAR SPINE WITHOUT AND WITH CONTRAST 01/28/25 CLINICAL INFORMATION: Left lower quadrant pain. COMPARISON: November 12, 2024 reported spinal canal stenosis at L3-4 and postsurgical changes at L4-5. TECHNIQUE: MRI of the lumbar spine was obtained using routine sequences with and without contrast. Intravenous contrast: Gadolinium based 5.5 mL. No reported immediate complications. FINDINGS: Last rib-bearing vertebra labeled T12. Paramagnetic field distortion secondary to metallic hardware with transpedicular screws at L4 and L5. Decreased signal in all sequences at L1. Mild bone marrow STIR signal at the endplates of L2 and L3 and likely extending into the posterior elements. Mild bone marrow STIR signal in the endplates of T9 and T10-11. No abnormal enhancement within the leptomeningeal compartment. No abnormal enhancement within the prevertebral compartment or the central spinal canal. The conus medullaris ends at the inferior endplate of L1 with normal signal. There is no grouping or clumping of the neural elements of the thecal sac. Multilevel marginal osteophyte formation and disc desiccation from T9-10 to L3-4 levels. There is a 1 cm anterolisthesis at L4-5. Grade 1 anterolisthesis L3-4. There is a dextroconvex rotoscoliosis apex at L2-3. There is no peripheral enhancing fluid collections. There is no CSF signal characteristic collections of the surgical site. T12-L1: Broad-based disc bulging. Facet joint and ligamentum flavum hypertrophy. Reduced AP diameter of the thecal sac and the neural foramina. No compression upon neural elements. L1-2: Broad-based disc bulging. Facet joint and ligamentum flavum hypertrophy. Reduced AP diameter of the thecal sac abutting the cauda equina. Bilateral neuroforamina narrowing encroaching the exiting nerve roots. L2-3: Broad-based disc bulging. Facet joint and ligamentum flavum hypertrophy. Reduced AP diameter of the thecal sac and the neural foramina encroaching the neural elements more conspicuous on the left side. L3-4: Broad-based disc bulging. Facet joint and ligamentum flavum hypertrophy. Grade 1 anterolisthesis. CSF effacement of the thecal sac central spinal canal and bilateral neuroforamina stenosis compressing the neural elements. L4-5: Grade 1 anterolisthesis resulting in central spinal canal and bilateral neuroforamina stenosis. L5-S1: Broad-based disc bulging. Facet joint hypertrophy. No central spinal canal stenosis. Bilateral neuroforamina narrowing encroaching the exiting nerve roots. IMPRESSION: No abnormal enhancement. No pseudomeningoceles. No imaging findings for arachnoiditis. Grade 1 anterolisthesis on a degenerative basis at L3-4 and spondylosis resulting in central spinal canal and bilateral neuroforamina stenosis compressing the neural elements both thecal sac and the exiting nerve roots. Grade 1 anterolisthesis L4-5 resulting in central spinal canal and bilateral neuroforamina stenosis likely encroaching the neural elements. Multilevel spondylosis and dextroconvex rotoscoliosis lumbar spine encroaching the neural elements at L2-3 and to a lesser extent L1-2. Assessment & Plan Assessment & Plan (1) Disc degeneration, lumbar: Code(s): M51.36 - Other intervertebral disc degeneration, lumbar region Category: Medical (2) Chronic pain syndrome: Code(s): G89.4 - Chronic pain syndrome Category: Medical (3) Opioid contract exists: Code(s): Z79.891 - technician terminal and repeater (current) use of opiate analgesic Category: Medical (4) Osteoarthritis of right glenohumeral joint: Code(s): M19.011 - Primary osteoarthritis, right shoulder Category: Medical (5) Bilateral shoulder pain: Code(s): M25.511 - Pain in right shoulder; M25.512 - Pain in left shoulder Category: Medical (6) Postlaminectomy syndrome: Code(s): M96.1 - Postlaminectomy syndrome, not elsewhere classified Category: Medical (7) Right shoulder pain: Code(s): M25.511 - Pain in right shoulder Category: Medical (8) Status post cervical spinal fusion: Code(s): Z98.1 - Arthrodesis status Category: Surgical (9) Left hip pain: Code(s): M25.552 - Pain in left hip Category: Medical (10) Left knee pain: Code(s): M25.562 - Pain in left knee Category: Medical Plan Patient has shown accountability for her medication regimen and the pill count was accurate. There is no evidence of misuse, abuse or diversion at this time. [employer] reviewed and consistent. Script sent for hydrocodone-acetaminophen 10-325 mg 1 tab Q6H #120 tabs for 30 days with advanced date on 04/19/25. Discussed with the patient the risks associated with benzodiazepine and opioid use. Patient is aware and verbalized an agreement to take the medications at least two hours apart. Patient has Narcan at home. Right shoulder steroid injection with local and fluoroscopy is scheduled on 05/06/25. Follow up with Orthopedics for left hip pain and left knee pain. Knee xray ordered today. Use of available mobility aids is encouraged to improve daily mobility and limit weight-bearing stress on her joints. Ongoing evaluation and adjustment of her analgesic regimen will continue in coordination with her upcoming surgical consultations. All questions were answered and the patient is in agreement with the plan. Follow up in 4-5 weeks for a pill count or sooner if needed. Patient was informed and verbally consented to the use of an ambient scribe for clinic note documentation during this visit. Orders: Orders XR knee LT 4V Today M25.562 - Pain in left knee Medications: Refilled hydrocodone-acetaminophen 10-325 mg Partial Fill upon patient request. 30 days 120 tabs 0RF pain MDD 4 G89.4 - Chronic pain syndrome, M19.011 - Primary osteoarthritis, right shoulder, M25.511 - Pain in right shoulder, M51.36 - Other intervertebral disc degeneration, lumbar region, Z79.891 - technician terminal and repeater (current) use of opiate analgesic hydrocodone-acetaminophen 10-325 mg Partial Fill upon patient request. 30 days 120 tabs 0RF pain MDD 4 G89.4 - Chronic pain syndrome, M19.011 - Primary osteoarthritis, right shoulder, M25.511 - Pain in right shoulder, M51.36 - Other intervertebral disc degeneration, lumbar region, Z79.891 - technician terminal and repeater (current) use of opiate analgesic Coding Level of Care Code Est Pt Level 4 (76469) Complex EM visit Add On G2211 Diagnoses Disc degeneration, lumbar M51.36 Chronic pain syndrome G89.4 Opioid contract exists Z79.891 Osteoarthritis of right glenohumeral joint M19.011 Bilateral shoulder pain M25.511; M25.512 Postlaminectomy syndrome M96.1 Right shoulder pain M25.511 Status post cervical spinal fusion Z98.1 Left hip pain M25.552 Left knee pain M25.562
[2025-04-11 11:08] VITALS: BP 172/107; PULSE 104; O2SAT 97; BMI 21.9
== END 2025-04-11 11:29 | disposition home or self-care (01) ==
LOC: HO.PMC 10:56
PROVIDERS: PCP Family Medicine; Visit Provider Nurse Practitioner Family
DX: M51.369 Other intervertebral disc degeneration, lumbar region without mention of lumbar back pain or lower extremity pain (principal); G89.4 Chronic pain syndrome; Z79.891 Long term (current) use of opiate analgesic; M19.011 Primary osteoarthritis, right shoulder; M25.511 Pain in right shoulder; M25.512 Pain in left shoulder; M96.1 Postlaminectomy syndrome, not elsewhere classified; Z98.1 Arthrodesis status; M25.552 Pain in left hip; M25.562 Pain in left knee
CPT/HCPCS: 99214; G2211

== ENCOUNTER → 2025-04-11 10:56 | Outpatient (BNVA) | payer MEDICARE, SELFPAY | PROVIDERS: PCP Family Medicine; Visit Provider Nurse Practitioner Family | DX: M19.011 Primary osteoarthritis, right shoulder (principal); M51.360 Other intervertebral disc degeneration, lumbar region with discogenic back pain only; G89.4 Chronic pain syndrome; Z79.891 Long term (current) use of opiate analgesic; M25.511 Pain in right shoulder; M25.512 Pain in left shoulder; M96.1 Postlaminectomy syndrome, not elsewhere classified; Z98.1 Arthrodesis status; M25.552 Pain in left hip; M25.562 Pain in left knee | CPT/HCPCS: 99212 ==

== ENCOUNTER → 2025-04-11 11:53 | Outpatient (BNV) | payer MEDICARE, SELFPAY | PROVIDERS: PCP Family Medicine; Visit Provider Radiology Diagnostic Radiology | DX: M17.12 Unilateral primary osteoarthritis, left knee (principal); M85.862 Other specified disorders of bone density and structure, left lower leg | CPT/HCPCS: 73564 ==

== ENCOUNTER 2025-04-25 12:50 | Outpatient (AMB) | payer MEDICARE, SELFPAY ==
--- NOTE | 2025-04-25 13:08 | A.OFFPC_ITS ---
Vital Signs 04/25/25 13:24 Height 5 ft 4 in Weight 125 lb 8 oz BMI 21.5 BP 116/80 Blood Pressure Location Lt brachial Position Sitting Respiration 16 Pulse 81 Pulse Source Pulse Oximeter Temp 98.5 F Temp Source Temporal Artery Scan Pulse Oximetry (%) 96 Oxygen Delivery Method Room Air Intake Visit Reasons: undergo a L CHRISTELLE w/Dr. Tom 06/17/25. Intake Note: Simi presents in the for a pre-op. Patient has not been feeling well for about 10 days. Sore throat, bilateral ear pain. Allergies amoxicillin (From Augmentin) Allergy (Severe, Verified 04/25/25 13:16) Facial Swelling clavulanic acid (From Augmentin) Allergy (Severe, Verified 04/25/25 13:16) Facial Swelling naproxen Allergy (Severe, Verified 04/25/25 13:16) asthma, SOB animal dander (PET DANDER) Allergy (Intermediate, Verified 04/25/25 13:16) rash SEASONAL ALLERGIES Allergy (Mild, Uncoded 04/25/25 13:16) congestion Medication List - Last Reconciled 04/25/25 by Gustavo Leiva MD acetaminophen ER 650 mg PO Q12H PRN albuterol sulfate 90 mcg/actuation 2 puffs inhalation Q4-6H PRN cetirizine (Zyrtec) 10 mg PO DAILY PRN 30 days clonazepam 1 mg PO DAILY@1400,1800 clonidine HCl 0.1 mg PO TID 30 days diclofenac sodium 1% (Voltaren Arthritis Pain) 4 grams topical QID PRN 30 days duloxetine 30 mg PO DAILY duloxetine (Cymbalta) 60 mg PO DAILY fluticasone propion-salmeterol 500-50 mcg/dose (Wixela Inhub) 1 inh inhalation BID [Folding Front Wheeled walker Duration: 99 days] hydrocodone-acetaminophen 10-325 mg Partial Fill upon patient request. 30 days MDD 4 ibuprofen 800 mg PO Q12H PRN ketamine 160 mg sublingual lidocaine 5% 1 patch topical DAILY 30 days lisinopril 40 mg PO DAILY 3 months lorazepam 1 mg PO DAILY PRN methylphenidate HCl 10 mg PO TID zomsxgcvicwj-kswb-meyum acid 18-400 mg-mcg 1 tab PO DAILY naloxone 4 mg/actuation (Narcan) 4 mg intranasal Q2M PRN naratriptan 2.5 mg PO ONCE PRN 30 days ondansetron HCl 4 mg PO DAILY tizanidine 4 mg PO TID PRN triamcinolone acetonide 0.025% 1 appl topical BID PRN Tobacco use date assessed: 04/25/25 Dental Screening Dental Screen Date: 04/25/25 Did you have a dental visit in the last 12 months?: Yes Did you have a dental problem in the last 6 months where you did not have access to dental care?: No Was dental information given to patient?: Patient has dentist HPI undergo a L CHRISTELLE w/Dr. Tom 06/17/25. HPI Details Patient presents for preoperative clearance prior to L Total Hip Replacement Procedure: L Total Hip Arthroplasty Date:? June 17, 2025 Surgeon: Dr Tom Anesthesia: General Cardiac Hx: None Pulmonary Hx: Asthma Prior Surgical Complications: Infection of a foot surgery. Prior Anesthesia Complications:None Coag issues: None Functional Allgood: Good functional reserve. [facility] Medical History Left groin pain Depression Migraine headache Stool incontinence Chronic pain syndrome Postlaminectomy syndrome Disc degeneration, lumbar Compression fracture of L1 lumbar vertebra Osteoporosis Hypertension Spondylosis Attention deficit disorder Herniated disc Asthma Anxiety Migraine headache Surgical History Status post kyphoplasty History of lumbosacral spine surgery History of cervical spinal surgery History of spinal surgery History of surgery on left wrist Family History Sister Ovarian cancer Lung cancer Maternal Grandmother Ovarian cancer Paternal Aunt Ovarian cancer Maternal Aunt Pancreatic cancer Social History (Updated 04/25/25 @ 13:24 by Earnestine Silverio MA) Household Members: Spouse Housing: House Are you a primary home care administrator to a significant other at home: No Do you presently have visiting nurse or other home services: No Alcohol intake: current Alcohol intake frequency: holidays/special occasions only Comment: medicated in pacu Patient Tobacco Use Status: Former Tobacco user e-Cigarette/Vaping Use: Never Used Second Hand Smoke Exposure: No Use of substances other than those prescribed or required for medical reasons: No service: No Current occupational status: disabled 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 1. Little interest or pleasure in doing things: several days 2. Feeling down, depressed, or hopeless: several days 3. Trouble falling or staying asleep, or sleeping too much: several days 4. Feeling tired or having little energy: several days 5. Poor appetite or overeating: several days 6. Feeling bad about yourself - or that you are a failure or have let yourself or your family down: several days 7. Trouble concentrating on things, such as reading the newspaper or watching television: several days 8. Moving or speaking so slowly that other people could have noticed. Or the opposite - being so fidgety or restless that you have been moving around a lot more than usual: several days 9. Thoughts that you would be better off or of hurting yourself in some way: several days Total score: 9 Source: Developed by Drs. Tyrone García, Marnie Huston, Sadi Rsos and colleagues, with an educational krystina from [employer]. Thrive Questionnaire Date Thrive assessed: 01/13/25 I am a: Patient What is your living situation today?: I have a steady place to live Within the past 12 months, did the food you bought not last and you didn't have the money to get more?: Never true Within the past 12 months, did you worry whether your food would run out before you got money to buy more?: Never true Do you have trouble paying for medicines?: No Do you have trouble getting transportation to medical appointments?: No Do you have trouble paying your heating and electricity bill?: Yes Do you have trouble taking care of your child, family member or friend?: Yes Do you have trouble with day-to-day activities such as bathing, preparing meals, shopping, managing finances, etc.?: Yes Are you currently unemployed and looking for a job?: No Are you interested in more education?: No Currently or been in a relationship where the following occur: No concerns reported THRIVE Score: 1 MAU-7 AMB Questionnaire MAU-7 Date MAU - 7 assessed: 01/13/25 Source: Developed by Marnie RiosW. Robel, Sadi Ross and colleagues, with an educational krystina from [employer]. Review of Systems Const Denies chills, Denies fatigue, Denies fever(s), Denies headache(s) and Denies weakness ENT Denies dizziness and Denies headache(s) Card Denies chest pain, Denies lightheadedness, Denies dyspnea and Denies other (Palpitations) Resp Denies cough, Denies dyspnea, Denies wheezing and Denies other ( shortness of breath) Musc Denies numbness and Denies tingling Neuro Denies dizziness, Denies headache(s), Denies numbness, Denies tingling, Denies paresthesias and Denies weakness Psych Denies anxiety and Denies depression Endo Denies fatigue Aller/Immun Denies wheezing Physical exam (Primary Care) Vital Signs: Last Vital Signs Temp 98.5 F 04/25/25 13:24 Pulse 81 04/25/25 13:24 Resp 16 04/25/25 13:24 BP 116/80 04/25/25 13:24 Pulse Ox 96 04/25/25 13:24 Oxygen Delivery Method Room Air 04/25/25 13:24 BMI result Body Mass Index 21.5 Tobacco/Smoking Status: Tobacco use Status Tobacco use date assessed 04/25/25 04/25/25 13:27 Patient Tobacco Use Status Former Tobacco user 04/25/25 13:24 e-Cigarette/Vaping Use Never Used 04/25/25 13:24 PHQ-9: PHQ-9 Score PHQ-9: Total score 9 04/25/25 13:28 Thrive Assessment: Date of Thrive Assessment Date Thrive assessed 01/13/25 04/25/25 13:09 Currently or been in a relationship where the following occur: No concerns reported Const General: no acute distress and well developed Nutritional Appearance: well nourished Orientation/consciousness: patient oriented x3 HENMT Head: Yes normocephalic and Yes atraumatic Eyes General: appearance normal, both eyes and all related structures Pupils: Equal, round and reactive pupils present EOM: EOMs intact bilaterally Resp Effort & Inspection: normal respiratory effort Auscultation: clear to auscultation bilaterally Cardio Rate: regular rate Rhythm: regular rhythm Heart sounds: S1 normal heart sound present, S2 normal heart sound present, no gallops, no murmurs and no rubs Neuro General: patient oriented x3 and gait normal Cranial nerves: Yes Equal, round and reactive pupils present Psych Affect: normal affect Results AMB Hemoglobin A1c AMB Hemoglobin A1c 6.1 % Last Edit by Earnestine Silverio MA on 04/25/25 13:39 Coding Level of Care Code Est Pt Level 4 (89180) Diagnoses Pre-operative clearance Z01.818 Pre-diabetes R73.03 Ear discomfort H92.09 Sore throat (viral) J02.8; B97.89 Asthma J45.909 Hypertension, unspecified type I10 Hypertension type: unspecified Assessment & Plan Assessment & Plan (1) Pre-operative clearance: Code(s): Z01.818 - Encounter for other preprocedural examination Category: Medical Plan: 65-year-old?female?presents?for?preoperative?clearance?prior?to?left?total?h ip?arthroplasty No?history?of?cardiac?disease?and Cardiac?exam?is?within?limits EKG: ?Sinus?rhythm?with?PACs, normal?axis,?no?ST-T-wave?changes. Patient?has?history?of?asthma usually?fairly?well?cont rolled?though?patient?isn't?feeling?today.??Will?optimize.??Use?inhaled?medicati ons?as?prescribed Lungs?are?clear?to?auscultation?today. No complications?from?anesthesias Patient?notes?she?did?have?a? wound?infection?after?surgery?on?foot?years?ago.??No?other?complications?with?hall rgeries No?coagulopathies Good?functional?reserve Low?risk?patient?for?intermediate?risk?procedure No?contraindication?to?proposed?surgery (2) Pre-diabetes: Code(s): R73.03 - Prediabetes Category: Medical Plan: A1c 6.1%. Continue?diet?low?in?sugars?and?starches (3) Ear discomfort: Code(s): H92.09 - Otalgia, unspecified ear Category: Medical Plan: Ear?canal?irritation Use?a?small?amount?of?hydrocortisone?cream?with?her?fingertips?fingertip Avoid?inserting?ear?buds?into?ears (4) Sore throat (viral): Code(s): J02.8 - Acute pharyngitis due to other specified organisms; B97.89 - Other viral agents as the cause of diseases classified elsewhere Category: Medical Plan: Sore?throat?and?patient?has?some?erythema?with?vessicles consistent?with?a?viral?illness No?patchy?exudates Should?be?self-limiting Advised?warm?saltwater?gargles?and?good?hydration Call?or?return?to?office?if?worsening?or?not?improving (5) Asthma: Code(s): J45.909 - Unspecified asthma, uncomplicated Category: Medical Plan: Patient?notes?mild?worsening?of?her?asthma?symptoms?though?lungs?are?clear?today . Use?inhaled?medications Will?likely?improve?after?viral?illness?resolves Call?or?return?to?office?if?worsening?or?not?improving (6) Hypertension: Code(s): I10 - Essential (primary) hypertension Category: Medical Qualifiers: Hypertension type: unspecified Qualified Code(s): I10 - Essential (primary) hypertension Plan: Blood?pressure?is?well?controlled?today.??Goal?is?less?than?140/90 Continue?current?medications Orders: Orders Complete Blood Count Auto Diff Today Z00.00 - Encounter for general adult medical examination without abnormal findings, Z01.818 - Encounter for other preprocedural examination Prothrombin Time INR Today Z01.818 - Encounter for other preprocedural examination AMB Hemoglobin A1c Today R73.03 - Prediabetes AMB EKG-In Office Today Z01.818 - Encounter for other preprocedural examination Basic Metabolic Panel Today Z00.00 - Encounter for general adult medical examination without abnormal findings, Z01.818 - Encounter for other preprocedural examination Prothrombin Time INR 1 Day Z01.818 - Encounter for other preprocedural examination
[2025-04-25 13:24] VITALS: BP 116/80; PULSE 81; RESP 16; TEMP 36.9; O2SAT 96; BMI 21.5
== END 2025-04-25 14:34 | disposition home or self-care (01) ==
LOC: HO.HMCFM 12:51
PROVIDERS: PCP Family Medicine; Visit Provider Family Medicine
DX: Z01.818 Encounter for other preprocedural examination (principal); R73.03 Prediabetes; H92.09 Otalgia, unspecified ear; J02.8 Acute pharyngitis due to other specified organisms; B97.89 Other viral agents as the cause of diseases classified elsewhere; J45.909 Unspecified asthma, uncomplicated; I10 Essential (primary) hypertension

== ENCOUNTER → 2025-04-25 12:50 | Outpatient (BNVA) | payer MEDICARE, SELFPAY | PROVIDERS: PCP Family Medicine; Visit Provider Family Medicine | DX: Z01.818 Encounter for other preprocedural examination (principal); R73.03 Prediabetes; H92.09 Otalgia, unspecified ear; J02.8 Acute pharyngitis due to other specified organisms; B97.89 Other viral agents as the cause of diseases classified elsewhere; J45.909 Unspecified asthma, uncomplicated; I10 Essential (primary) hypertension | CPT/HCPCS: 83036; 96127; 99212 ==

== ENCOUNTER 2025-05-05 09:56 | Outpatient (REF) | payer MEDICARE, SELFPAY ==
[2025-05-05 11:28] LABS: MANUAL DIFF FLAG NO
[2025-05-05 11:35] LABS: Hematocrit 34.1 % (37.0-47.0); Hemoglobin 11.4 g/dl (12.0-16.0); Imm Gran Abs Auto 0.03 X10*3/uL (0.00-0.03); Imm Gran Pct Auto 0.4 % (0.0-0.4); Lymphocytes Absolute Auto 1.5 X10*3/uL (1.2-4.9); Mean Corpuscular HGB Conc 33.4 g/dl (31.0-35.0); Mean Corpuscular Hemoglobin 29.9 pg (27.0-33.0); Mean Corpuscular Volume 89.5 fL (80.0-98.0); NRBC Abs Auto 0.000 X10*3/uL (0.0-0.012); NRBC Pct Auto 0.0 /100WBC (0.0-0.2); Platelet Count 341 X10*3/uL (160-400); Red Blood Count 3.81 X10*6/uL (4.20-5.50); White Blood Count 7.1 X10*3/uL (4.8-10.8)
[2025-05-05 11:50] LABS: INTERNATIONAL NORM RATIO 0.9 (0.9-1.1); Prothrombin Time 10.5 SEC (10.9-12.4)
[2025-05-05 14:08] LABS: Anion Gap 13 (12-20)
[2025-05-05 14:10] LABS: Blood Urea Nitrogen 11 mg/dL (9-16); Calcium 10.3 mg/dL (8.4-10.2); Carbon Dioxide 29 mmol/L (22-29); Chloride 100 mmol/L (96-108); Estimated Glomerular Filt Rate > 60; Potassium 3.9 mmol/L (3.3-5.1); Sodium 138 mmol/L (135-145)
[2025-05-05 14:38] LABS: Appearance Urine Clear; Glucose Urine UA Negative (Negative); PH 6.5 (5.0-9.0); Specific Gravity - Urine 1.010 (1.005-1.025)
[2025-05-08 18:59] LABS: Prot Elec - Albumin 4.7 g/dL (3.8-4.8); Prot Elec - Alpha1 0.4 g/dL (0.2-0.3); Prot Elec - Alpha2 0.8 g/dL (0.5-0.9); Prot Elec - Beta 1 0.4 g/dL (0.4-0.6); Prot Elec - Beta 2 0.3 g/dL (0.2-0.5); Prot Elec - Gamma 0.8 g/dL (0.8-1.7); Prot Elec - Total Protein 7.3 g/dL (6.1-8.1)
== END 2025-05-05 09:57 | disposition home or self-care (01) ==
LOC: HO.WFDLDS 09:56
PROVIDERS: Referring Provider Internal Medicine Endocrinology, Diabetes & Metabolism; Visit Provider Family Medicine
DX: Z00.00 Encounter for general adult medical examination without abnormal findings (principal); M81.0 Age-related osteoporosis without current pathological fracture
CPT/HCPCS: 36415; 80048; 81003; 82306; 84100; 84165; 85025; 85610; 86335

== ENCOUNTER 2025-05-06 06:18 | Outpatient (REF) | payer MEDICARE, SELFPAY ==
--- NOTE | ~2025-05-06 | FL_ITS ---
EXAMINATION: FL GUIDANCE ONLY HISTORY: M25.511 - Pain in right shoulder COMPARISON: None available. TECHNIQUE: Fluoroscopy time: 2.1 minutes. Cumulative Dose: 0.190 mGy. DAP: [id number] mGym2 Images: 2. FINDINGS: Fluoroscopic spot films of the right shoulder demonstrate a needle in place and contrast material within the joint space. FL/FL guidance in treatment room IMPRESSION: Fluoroscopy during procedure. Please see procedure report for additional information. Electronically signed by: Tyrone Qiu MD 05/06/2025 02:11 PM EDT
== END 2025-05-06 06:19 | disposition home or self-care (01) ==
LOC: CF 06:18
PROVIDERS: Visit Provider Anesthesiology
DX: G89.4 Chronic pain syndrome (principal); M96.1 Postlaminectomy syndrome, not elsewhere classified; M25.511 Pain in right shoulder; M19.011 Primary osteoarthritis, right shoulder
CPT/HCPCS: 20610; J2003; J2795; J3301; Q9967

== ENCOUNTER 2025-05-06 13:20 | Outpatient (AMB) | payer MEDICARE, SELFPAY ==
[2025-05-06 13:32] VITALS: BP 138/83; PULSE 95; RESP 16; O2SAT 97; BMI 21.5
--- NOTE | 2025-05-06 13:32 | A.OFFVIS_ITS ---
Vital Signs 05/06/25 13:32 05/06/25 13:59 Height 5 ft 4 in Weight 125 lb BMI 21.5 BP 138/83 141/88 H Blood Pressure Location Lt brachial Lt brachial Position Sitting Sitting Respiration 16 18 Pulse 95 90 Pulse Source Pulse Oximeter Pulse Oximeter Pulse Oximetry (%) 97 98 Oxygen Delivery Method Room Air Room Air Intake Visit Reasons: RIGHT INTRA-ARTICULAR SHOULDER INJECTION Allergies amoxicillin (From Augmentin) Allergy (Severe, Verified 04/25/25 13:16) Facial Swelling clavulanic acid (From Augmentin) Allergy (Severe, Verified 04/25/25 13:16) Facial Swelling naproxen Allergy (Severe, Verified 04/25/25 13:16) asthma, SOB animal dander (PET DANDER) Allergy (Intermediate, Verified 04/25/25 13:16) rash SEASONAL ALLERGIES Allergy (Mild, Uncoded 04/25/25 13:16) congestion [facility] Medical History Left groin pain Depression Migraine headache Stool incontinence Chronic pain syndrome Postlaminectomy syndrome Disc degeneration, lumbar Compression fracture of L1 lumbar vertebra Osteoporosis Hypertension Spondylosis Attention deficit disorder Herniated disc Asthma Anxiety Migraine headache Surgical History Status post kyphoplasty History of lumbosacral spine surgery History of cervical spinal surgery History of spinal surgery History of surgery on left wrist Family History Sister Ovarian cancer Lung cancer Maternal Grandmother Ovarian cancer Paternal Aunt Ovarian cancer Maternal Aunt Pancreatic cancer Social History (Updated 04/25/25 @ 13:24 by Earnestine Silverio MA) Household Members: Spouse Housing: House Are you a primary manager critical care to a significant other at home: No Do you presently have visiting nurse or other home services: No Alcohol intake: current Alcohol intake frequency: holidays/special occasions only Comment: medicated in pacu Patient Tobacco Use Status: Former Tobacco user e-Cigarette/Vaping Use: Never Used Second Hand Smoke Exposure: No service: No Current occupational status: disabled 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 Current occupational exposures/hazards: No Cognitive needs: No Hearing needs: No Vision needs: No Physical Exam Vital Signs: Last Vital Signs Pulse 90 05/06/25 13:59 Resp 18 05/06/25 13:59 BP 141/88 H 05/06/25 13:59 Pulse Ox 98 05/06/25 13:59 Oxygen Delivery Method Room Air 05/06/25 13:59 BMI result Body Mass Index 21.5 Assessment & Plan Assessment & Plan (1) Chronic pain syndrome: Code(s): G89.4 - Chronic pain syndrome Category: Medical (2) Postlaminectomy syndrome: Code(s): M96.1 - Postlaminectomy syndrome, not elsewhere classified Category: Medical (3) Right shoulder pain: Code(s): M25.511 - Pain in right shoulder Category: Medical (4) Osteoarthritis of right shoulder: Code(s): M19.011 - Primary osteoarthritis, right shoulder Category: Medical Plan Right therapeutic glenohumeral joint injection. oYli is very pleasant 61 years old female who came today in the injection area to receive therapeutic left glenohumeral joint injection. Informed consent was explained to the patient. Risks and benefits were known to the patient. The patient was positioned prone on operating table with pillow under the abdomen. The right shoulder and upper back of the patient was prepped with ChloraPrep and draped with sterile self adhesive utility towels. C-arm was brought over the operating field. The image of the left glenohumeral joint was demonstrated on the screen. Image of the pacemaker was also demonstrated on the screen. Tilting machine cephalad and ipsilateral to the site of the joint the head of the humeral bone was demonstrated on the screen. The local anesthetic mixture of lidocaine 2% mixed with ropivacaine 0.5% one-to-one was injected slightly lateral to the projection of the anterior medial silhouette of the humeral head to the skin forming a skin wheal. After that 22 gauge 3-1/2 inch needle was inserted through the skin wheal and advanced to were the silhouette of the joint in tunnel vision fashion. When needle entered the silhouette of the joint injection of the contrast performed delineating arthrogram. After that injection of the ropivacaine 0.5% 4 mL mixed with Kenalog 40 mg was performed into the joint. The patient tolerated injection well. The needle was withdrawn Band-Aid was applied. She was taken outside of the operating room to recovery room where she recovered uneventfully. Coding Level of Care Code Procedure Only Diagnoses Chronic pain syndrome G89.4 Postlaminectomy syndrome M96.1 Right shoulder pain M25.511 Osteoarthritis of right shoulder M19.011
[2025-05-06 13:59] VITALS: BP 141/88; PULSE 90; RESP 18; O2SAT 98
== END 2025-05-06 14:27 | disposition home or self-care (01) ==
LOC: HO.PMCPRC 13:20
PROVIDERS: PCP Family Medicine; Visit Provider Anesthesiology
DX: M25.511 Pain in right shoulder (principal); M19.011 Primary osteoarthritis, right shoulder; G89.4 Chronic pain syndrome; M96.1 Postlaminectomy syndrome, not elsewhere classified
CPT/HCPCS: 20610; 77002

== ENCOUNTER 2025-05-27 09:29 | Outpatient (AMB) | payer MEDICARE, SELFPAY ==
--- NOTE | 2025-05-27 09:40 | MHC.OFFVIS ---
Vital Signs 05/27/25 09:47 Height 5 ft 4 in BP 158/84 H Blood Pressure Location Lt brachial Position Sitting Pulse 82 Pulse Source Pulse Oximeter Pulse Oximetry (%) 96 Oxygen Delivery Method Room Air Intake Visit Reasons: RIGHT INTRA-ARTICULAR SHOULDER INJECTION Intake Note: Pain today 6/10 Shared Services And Outsourcing Manager Required: No Accompanied by: Spouse Allergies amoxicillin (From Augmentin) Allergy (Severe, Verified 05/27/25 11:17) Facial Swelling clavulanic acid (From Augmentin) Allergy (Severe, Verified 05/27/25 11:17) Facial Swelling naproxen Allergy (Severe, Verified 05/27/25 11:17) asthma, SOB animal dander (PET DANDER) Allergy (Intermediate, Verified 05/27/25 11:17) rash SEASONAL ALLERGIES Allergy (Mild, Uncoded 05/27/25 11:17) congestion HPI Comments Details: The patient is a 65-year-old female presenting with right shoulder pain following a recent intra-articular steroid injection. The injection was administered on May [address] Saucedo, and the patient reports some improvement in pain, although significant pain persists during overhead activities, such as reaching in the shower, with a pain level of 6/10. The patient also reports left knee pain, which was previously evaluated with an x-ray revealing moderate osteoarthritis in the medial compartment and mild changes in the patellofemoral joint. The patient has been using a walker with elbow support for a couple of weeks, which she finds easier to manage than a cane, although it places pressure on her arms and elbows with parasthesia sensations from her right elbow to right lower arm. Additionally, the patient has been diagnosed with osteopenia, which is a concern due to her history of receiving steroid injections. She is also experiencing left hip pain, which has been worsening daily and is associated with groin pain. She is scheduled to undergo left CHRISTELLE on 06/17/[address] Tom. The patient reports experiencing muscle spasms and migraines, although it is unclear if these are related to her current treatment regimen. Denies any recent cough, cold, infection, fever or any other significant changes in medical history since last office visit. PRIOR: Patient presents today for a pill count. Patient is supposed to have #36 pills, in her possession has #39 pills. This demonstrates a responsible attitude in regards to the medication regimen. Patient reports mild analgesia on her current regimen of hydrocodone-acetaminophen 10-325 mg 1 tab [id number] prn without any noted side effects except constipation due to opioid use. She exhibits partial and situation-dependent relief ? effective during rest but not during physical activity. Pain is rated at 7/10. The patient is reducing her opioid medication in anticipation of hip surgery in May and has tried non-opioid preparations but experienced limited success. She was decreased from 5 times daily of Vicodin to qid prn, but is not able to go through the day with tid prn doses due to significant pain in her back, left hip and now left anterior knee where it occasionally surpasses the hip pain's intensity. Denies any recent trauma, injury or falls. The patient has made concerted efforts to reduce opioid use from four to three times daily doses with partial success, despite attempts to halve doses for less severe periods. She also receives weekly ketamine, which have shown some efficacy recently with increased dose. Sleep disturbances attributed to pain have led to a medication adjustment from clonazepam to trazodone by her Psychiatrist. She is cautious about interactions with her migraine treatments. The patient shows apprehension about using assistive devices but acknowledges significant functional impairments due to pain. [facility] Medical History (Updated 05/19/25 @ 12:43 by Hallie Plunkett RN) Osteoarthritis Depression ADHD (attention deficit hyperactivity disorder) Motion sickness Chronic kidney disease (CKD) Environmental and seasonal allergies Left groin pain Depression Migraine headache Stool incontinence Chronic pain syndrome Postlaminectomy syndrome Disc degeneration, lumbar Compression fracture of L1 lumbar vertebra Osteoporosis Hypertension Spondylosis Attention deficit disorder Herniated disc Asthma Anxiety Migraine headache Surgical History (Updated 05/19/25 @ 13:05 by Hallie Plunkett RN) Hx of cervical spine surgery (11/20/24) History of foot surgery Hx of colonoscopy Status post kyphoplasty History of lumbosacral spine surgery History of cervical spinal surgery History of spinal surgery History of surgery on left wrist Family History Sister Ovarian cancer Lung cancer Maternal Grandmother Ovarian cancer Paternal Aunt Ovarian cancer Maternal Aunt Pancreatic cancer Social History (Updated 05/19/25 @ 12:39 by Hallie Plunkett RN) Household Members: Spouse Housing: House Are you a primary career consultant to a significant other at home: No Do you presently have visiting nurse or other home services: No 75 years or older and lives alone: No Alcohol intake: current Alcohol intake frequency: holidays/special occasions only Comment: medicated in pacu Patient Tobacco Use Status: Former Tobacco user Tobacco use type: Cigarette e-Cigarette/Vaping Use: Never Used Second Hand Smoke Exposure: No service: No Current occupational status: disabled 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 Alert and oriented. Mood and affect appropriate. Follows and participates in conversation appropriately. Respiratory effort is unlabored. No cough. Able to transition from sit to stand unassisted. Ambulates with bilaterally normal heel strike and toe off, antalgic gait. Left hip and groin pain with I/E rotations. Improved right shoulder ROM s/p recent steroid injections, continues with pain with overhead reaches. Results Reviewed Results Reviewed: XR KNEE 4 OR MORE VIEWS LEFT 04/11/25 HISTORY: M25.562 - Pain in left knee COMPARISON: There are no prior studies available for comparison. FINDINGS: Four views of the left knee are submitted. The bones are osteopenic. There is no fracture or dislocation. There is mild to moderate osteoarthritis of the medial compartment and mild osteoarthritis of the patellofemoral compartment, with joint space narrowing and osteophyte formation. The soft tissues are unremarkable. There is no joint effusion. IMPRESSION: Osteopenia. Degenerative changes of the left knee as described. XR HIP, LEFT 01/03/25 CLINICAL INFORMATION: R10.32 - Left lower quadrant pain COMPARISON: None available. TECHNIQUE: Two views of the left hip. FINDINGS: No definite fracture or dislocation. No suspicious bone lesion. Severe, end-stage osteoarthrosis of the left hip joint present with superior joint space loss, [id number] appearance, with subchondral sclerosis and cystic changes in both the femoral head and superior acetabulum. There are prominent marginal productive osteophytes and subcapital osteophytes. There is mild irregularity of the contour to the superior femoral head. Partially imaged fusion hardware in the lower lumbar spine. Mild to moderate degenerative SI joint changes. No soft tissue abnormality. IMPRESSION: Severe osteoarthrosis left hip joint. DXA BONE DENSITY EXTREMITY 01/02/25 HISTORY: Estrogen deficiency TECHNIQUE: [employer] Dual energy absorptiometry (DEXA) of the lumbar spine, total left hip, and femoral neck was performed. COMPARISON: There are no prior studies for comparison. FINDINGS: The bone mineral density of the lumbar spine is 1.092 with a T-score of -0.6, and a Z-score of 1.3. The bone mineral density of the left total hip is 0.668 with a T-score of -2.7, and a Z-score of -1.2. The bone mineral density of the left femoral neck is 0.717 with a T-score of -2.3, and a Z-score of -0.6. IMPRESSION: Based on bone mineral density, and according to World Health Organization (WHO) criteria, the diagnosis is consistent with osteoporosis. MR LUMBAR SPINE WITHOUT AND WITH CONTRAST 01/28/25 CLINICAL INFORMATION: Left lower quadrant pain. COMPARISON: November 12, 2024 reported spinal canal stenosis at L3-4 and postsurgical changes at L4-5. TECHNIQUE: MRI of the lumbar spine was obtained using routine sequences with and without contrast. Intravenous contrast: Gadolinium based 5.5 mL. No reported immediate complications. FINDINGS: Last rib-bearing vertebra labeled T12. Paramagnetic field distortion secondary to metallic hardware with transpedicular screws at L4 and L5. Decreased signal in all sequences at L1. Mild bone marrow STIR signal at the endplates of L2 and L3 and likely extending into the posterior elements. Mild bone marrow STIR signal in the endplates of T9 and T10-11. No abnormal enhancement within the leptomeningeal compartment. No abnormal enhancement within the prevertebral compartment or the central spinal canal. The conus medullaris ends at the inferior endplate of L1 with normal signal. There is no grouping or clumping of the neural elements of the thecal sac. Multilevel marginal osteophyte formation and disc desiccation from T9-10 to L3-4 levels. There is a 1 cm anterolisthesis at L4-5. Grade 1 anterolisthesis L3-4. There is a dextroconvex rotoscoliosis apex at L2-3. There is no peripheral enhancing fluid collections. There is no CSF signal characteristic collections of the surgical site. T12-L1: Broad-based disc bulging. Facet joint and ligamentum flavum hypertrophy. Reduced AP diameter of the thecal sac and the neural foramina. No compression upon neural elements. L1-2: Broad-based disc bulging. Facet joint and ligamentum flavum hypertrophy. Reduced AP diameter of the thecal sac abutting the cauda equina. Bilateral neuroforamina narrowing encroaching the exiting nerve roots. L2-3: Broad-based disc bulging. Facet joint and ligamentum flavum hypertrophy. Reduced AP diameter of the thecal sac and the neural foramina encroaching the neural elements more conspicuous on the left side. L3-4: Broad-based disc bulging. Facet joint and ligamentum flavum hypertrophy. Grade 1 anterolisthesis. CSF effacement of the thecal sac central spinal canal and bilateral neuroforamina stenosis compressing the neural elements. L4-5: Grade 1 anterolisthesis resulting in central spinal canal and bilateral neuroforamina stenosis. L5-S1: Broad-based disc bulging. Facet joint hypertrophy. No central spinal canal stenosis. Bilateral neuroforamina narrowing encroaching the exiting nerve roots. IMPRESSION: No abnormal enhancement. No pseudomeningoceles. No imaging findings for arachnoiditis. Grade 1 anterolisthesis on a degenerative basis at L3-4 and spondylosis resulting in central spinal canal and bilateral neuroforamina stenosis compressing the neural elements both thecal sac and the exiting nerve roots. Grade 1 anterolisthesis L4-5 resulting in central spinal canal and bilateral neuroforamina stenosis likely encroaching the neural elements. Multilevel spondylosis and dextroconvex rotoscoliosis lumbar spine encroaching the neural elements at L2-3 and to a lesser extent L1-2. Assessment & Plan Assessment & Plan (1) Postlaminectomy syndrome: Code(s): M96.1 - Postlaminectomy syndrome, not elsewhere classified Category: Medical (2) Right shoulder pain: Code(s): M25.511 - Pain in right shoulder Category: Medical (3) Left hip pain: Code(s): M25.552 - Pain in left hip Category: Medical (4) Osteoarthritis of right shoulder: Code(s): M19.011 - Primary osteoarthritis, right shoulder Category: Medical (5) Chronic pain syndrome: Code(s): G89.4 - Chronic pain syndrome Category: Medical Plan The patient will continue with the current pain management regimen, including opioid medication and diclofenac gel for the right shoulder pain. Orthopedic follow-up is planned for the left knee osteoarthritis, and the patient is advised against further steroid injections due to osteopenia/osteoporosis and upcoming left hip surgery on 06/17/25. All questions and concerns have been answered and patient agreed with the plan. Follow up for pill count as scheduled and sooner as needed. Patient was informed and verbally consented to the use of an ambient scribe for clinic note documentation during this visit. Coding Level of Care Code Est Pt Level 3 (00625) Complex EM visit Add On G2211 Diagnoses Postlaminectomy syndrome M96.1 Right shoulder pain M25.511 Left hip pain M25.552 Osteoarthritis of right shoulder M19.011 Chronic pain syndrome G89.4
[2025-05-27 09:47] VITALS: BP 158/84; PULSE 82; O2SAT 96
--- OUTSIDE RECORDS SUMMARY | 2025-05-27 10:02 | XMS_ITS | Clinical Summary ---
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 Not on rajni e 02/08/2024 Are you concerned about learning? Not on file 02/08/2024 No 02/08/2024 No 02/08/2024 Digital Access Answer Date Recorded No 02/08/2024 No 02/08/2024 Reliable internet access at home? Not on file 02/08/2024 Device with a working camera? Not on file Comments Unknown Sex and Gender Information Value Date Recorded Sex Assigned at Not on file Legal Sex Female 9:50 PM EDT Gender Identity Not on file Sexual Orientation Not on file Plan of Treatment Health Maintenance Due Date Last Done Comments Adult Td,Tdap Booster 1959 LIPID PANEL 1959 DEPRESSION SCREENING 1971 SMOKING Hx and SMOKELESS TOB ACCO SCREENING 02/26/1972 HEPATITIS C SCREENING 1977 MAMMOGRAM 1999 COLOGUARD 02/26/2004 COLONOSCOPY 02/26/2004 COLORECTAL CANCER SCREENING 02/26/2004 FIT TEST 02/26/2004 FOBT 02/26/2004 SIGMOIDOSCOPY 02/26/2004 VIRTUAL COLONOSCOPY 02/26/2004 PNEUMOCOCCAL VACCINES (50+ y ears) (1 of 1 - PCV) 2009 ZOSTER VACCINES (1 of 2) 2009 OSTEOPOROSIS SCREENING INITI AL (ONE-TIME) 02/26/2024 COVID-19 VACCINE ( - 2023-2 5 season) 2024 RSV VACCINE (1 - 1-dose 75+ series) 2034 HEPATITIS A VACCINES Aged Out No long er eligible based on patient's age to complete this topic HIB VACCINES Aged Out No longer eligi ble based on patient's age to complete this topic MENINGOCOCCAL VACCINES (ACWY) Aged Out No longer eligible based on patient's age to complete this topic MENINGOCOCCAL VACCINES (B) Aged Out N o longer eligible based on patient's age to complete this topic Medical Devices Not on file Insurance [facility] POS MEDICARE PART A & B [id number] [place] [address] HMO POS MEDICARE PART A & B [facility] HMO POS MEDICARE PART A & B [facility] HMO POS MEDICARE PART A & B [facility] HMO POS MEDICARE PART A & B [facility] MEDICARE PART A & B [facility] HMO POS MEDICARE PART A & B [facility] HMO POS MEDICARE PART A & B [facility] POS Care Teams Recycling Operations Manager Relationship Specialty Start Date End Date Chetan Boo DO [address] [place] [address] PCP - General 08/14/17 Additional Source Comments The information contained in this document represents components of the legal health record. It is not the complete legal health record.[facility]
== END 2025-05-27 10:11 | disposition home or self-care (01) ==
LOC: HO.PMC 09:30
PROVIDERS: PCP Family Medicine; Visit Provider Nurse Practitioner Family
DX: M96.1 Postlaminectomy syndrome, not elsewhere classified (principal); M25.511 Pain in right shoulder; M25.552 Pain in left hip; M19.011 Primary osteoarthritis, right shoulder; G89.4 Chronic pain syndrome
CPT/HCPCS: 99213; G2211

== ENCOUNTER → 2025-05-27 09:29 | Outpatient (BNVA) | payer MEDICARE, SELFPAY | PROVIDERS: PCP Family Medicine; Visit Provider Nurse Practitioner Family | DX: M25.511 Pain in right shoulder (principal); M25.552 Pain in left hip; M85.89 Other specified disorders of bone density and structure, multiple sites; M96.1 Postlaminectomy syndrome, not elsewhere classified; M19.011 Primary osteoarthritis, right shoulder; G89.4 Chronic pain syndrome | CPT/HCPCS: 99212 ==

== ENCOUNTER 2025-06-06 10:54 | Outpatient (AMB) | payer MEDICARE, SELFPAY ==
--- OUTSIDE RECORDS SUMMARY | 2025-06-06 10:56 | XMS_ITS | Clinical Summary ---
Author Organization [facility] Address [address] [id number] Phone Care Team Providers Care E Learning Coordinator Name Role Phone Gustavo Leiva MD Primary Care Provider Encounters Date Type Department Care Team Description 05/27/2025 Orders Only [facility] [address] [place] [address] Homehealth, Interface ProviderMD from Last 3 Months Social History Tobacco Use Types Packs/Day Years [...] topic Medical Devices Not on file Insurance MEDICARE PART A & B [facility] MEDICARE HMO REPLACEMENT MEDICARE PART A & B [facility] [place] MED[place] HMO REPLACEMENT MEDICARE PART A & B MEDICARE PART A & B MEDICARE PART A & B [facility] [place] MEDICARE HMO REPLACEMENT MEDICARE PART A & B MEDICARE PART A & B Member Subscriber Plan / Payer (Ef fective 2012-Present) Name:Marilu Bailey Member ID:[id number] Relation to Subscriber:Self Name:Marilu Bailey Subscriber ID:[id number] Payer ID:[id number] Group ID:Not on file Type:Medicare Address: [employer] [address] MEDICARE HMO REPLACEMENT MEDICARE PART A & B [facility] MEDICARE HMO REPLACEMENT MEDICARE PART A & B [facility] MEDICARE HMO REPLACEMENT Care Teams E Learning Coordinator Relationship Specialty Start Date End Date Gustavo Leiva MD [address] [place] [address] [id number] PCP - General Family Medicine 05/28/25 Additional Source Comments The information contained in this document represents components of the legal health record. It is not the complete legal health record.[facility]
--- NOTE | 2025-06-06 10:57 | MHC.OFFVIS ---
Vital Signs 06/06/25 11:18 Height 5 ft 4 in BP 182/84 H Blood Pressure Location Lt brachial Position Sitting Pulse 84 Pulse Source Pulse Oximeter Pulse Oximetry (%) 97 Oxygen Delivery Method Room Air Intake Visit Reasons: PILL COUNT Intake Note: Marilu comes in today for a pill count to hydrocodone-acetaminophen, patient should have 48 tablets and presents with 54 tablets which she last took today 06/06/25 at 10 am. 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 Patient is supposed to have #48 pills, in her possession has #54 pills. This demonstrates a responsible attitude in regards to the medication regimen. Patient reports mild to moderate analgesia on her current regimen of hydrocodone-acetaminophen 10-325 mg 1 tab [id number] prn without any noted side effects except constipation due to opioid use. Pain is rated at 9/10. The patient is reducing her opioid medication in anticipation of hip surgery on 06/17/25 and has tried non-opioid preparations but experienced limited success. She also experiences anxiety about upcoming surgery and has been taking clonazepam and lorazepam with some relief. Patient also receives weekly ketamine, which have shown some efficacy. Patient uses assisting devices with ambulation due to significant impairments from pain. [facility] Medical History Osteoarthritis Depression ADHD (attention deficit hyperactivity disorder) Motion sickness Chronic kidney disease (CKD) Environmental and seasonal allergies Left groin pain Depression Migraine headache Stool incontinence Chronic pain syndrome Postlaminectomy syndrome Disc degeneration, lumbar Compression fracture of L1 lumbar vertebra Osteoporosis Hypertension Spondylosis Attention deficit disorder Herniated disc Asthma Anxiety Migraine headache Surgical History Hx of cervical spine surgery (11/20/24) History of foot surgery Hx of colonoscopy Status post kyphoplasty History of lumbosacral spine surgery History of cervical spinal surgery History of spinal surgery History of surgery on left wrist Family History Sister Ovarian cancer Lung cancer Maternal Grandmother Ovarian cancer Paternal Aunt Ovarian cancer Maternal Aunt Pancreatic cancer Social History Household Members: Spouse Housing: House Are you a primary patient care specialist to a significant other at home: No Do you presently have visiting nurse or other home services: No 75 years or older and lives alone: No Alcohol intake: current Alcohol intake frequency: holidays/special occasions only Comment: medicated in pacu Patient Tobacco Use Status: Former Tobacco user Tobacco use type: Cigarette e-Cigarette/Vaping Use: Never Used Second Hand Smoke Exposure: No service: No Current occupational status: disabled 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 Alert and oriented. Mood and affect appropriate. Follows and participates in conversation appropriately. Respiratory effort is unlabored. No cough. Able to transition from sit to stand unassisted. Ambulates with bilaterally normal heel strike and toe off, antalgic gait. Left hip and groin pain with I/E rotations. Resp Effort & Inspection: normal respiratory effort, able to speak in complete sentences, no cough, not labored and no respiratory distress Psych Appearance: grossly normal Mental Status: mental status grossly normal Speech and movement: Normal speech and movement present and Clear speech present Affect: normal affect, Sad affect present and Anxious affect present Attitude: cooperative Thought process: Normal thought process present Thought content: Normal thought content present, suicidality (none), no homicidality and Depressive thoughts present Insight: Good insight present (Psych) Judgement: Good judgement present (Psych) Assessment & Plan Assessment & Plan (1) Postlaminectomy syndrome: Code(s): M96.1 - Postlaminectomy syndrome, not elsewhere classified Category: Medical (2) Right shoulder pain: Code(s): M25.511 - Pain in right shoulder Category: Medical (3) Left hip pain: Code(s): M25.552 - Pain in left hip Category: Medical (4) Osteoarthritis of right shoulder: Code(s): M19.011 - Primary osteoarthritis, right shoulder Category: Medical (5) Chronic pain syndrome: Code(s): G89.4 - Chronic pain syndrome Category: Medical (6) Disc degeneration, lumbar: Code(s): M51.36 - Other intervertebral disc degeneration, lumbar region Category: Medical (7) Opioid contract exists: Code(s): Z79.891 - halfway (current) use of opiate analgesic Category: Medical (8) Osteoarthritis of right glenohumeral joint: Code(s): M19.011 - Primary osteoarthritis, right shoulder Category: Medical (9) Bilateral shoulder pain: Code(s): M25.511 - Pain in right shoulder; M25.512 - Pain in left shoulder Category: Medical (10) Status post cervical spinal fusion: Code(s): Z98.1 - Arthrodesis status Category: Surgical (11) Left knee pain: Code(s): M25.562 - Pain in left knee Category: Medical Plan Patient has shown accountability for her medication regimen and the pill count was accurate. There is no evidence of misuse, abuse or diversion at this time. [employer] reviewed and consistent. Script sent for hydrocodone-acetaminophen 10-325 mg 1 tab Q6H #120 tabs for 30 days with advanced date on 06/18/25. Discussed with the patient the risks associated with benzodiazepine and opioid use. Patient is aware and verbalized an agreement to take the medications at least two hours apart. Patient has Narcan at home. Patient has upcoming left hip surgery on 06/17/[address] Tom. Post-op pain management will be available as needed with collaboration with Orthopedic team. All questions were answered and the patient is in agreement with the plan. Follow up in 4-5 weeks for a pill count or sooner if needed. Patient was informed and verbally consented to the use of an ambient scribe for clinic note documentation during this visit. Medications: Changed From hydrocodone-acetaminophen 10-325 mg Partial Fill upon patient request. 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
[2025-06-06 11:18] VITALS: BP 182/84; PULSE 84; O2SAT 97
== END 2025-06-06 11:32 | disposition home or self-care (01) ==
LOC: HO.PMC 10:54
PROVIDERS: PCP Family Medicine; Visit Provider Nurse Practitioner Family
DX: M96.1 Postlaminectomy syndrome, not elsewhere classified (principal); M25.511 Pain in right shoulder; M25.552 Pain in left hip; M19.011 Primary osteoarthritis, right shoulder; G89.4 Chronic pain syndrome; M51.369 Other intervertebral disc degeneration, lumbar region without mention of lumbar back pain or lower extremity pain; Z79.891 Long term (current) use of opiate analgesic; M25.512 Pain in left shoulder; Z98.1 Arthrodesis status; M25.562 Pain in left knee
CPT/HCPCS: 99214; G2211

== ENCOUNTER → 2025-06-06 10:54 | Outpatient (BNVA) | payer MEDICARE, SELFPAY | PROVIDERS: PCP Family Medicine; Visit Provider Nurse Practitioner Family | DX: M96.1 Postlaminectomy syndrome, not elsewhere classified (principal); M25.511 Pain in right shoulder; M25.552 Pain in left hip; M19.011 Primary osteoarthritis, right shoulder; G89.4 Chronic pain syndrome; M51.360 Other intervertebral disc degeneration, lumbar region with discogenic back pain only; Z79.891 Long term (current) use of opiate analgesic; M25.512 Pain in left shoulder; Z98.1 Arthrodesis status; M25.562 Pain in left knee | CPT/HCPCS: 99212 ==

== ENCOUNTER 2025-06-12 13:53 | Outpatient (AMB) | payer MEDICARE, SELFPAY ==
--- NOTE | 2025-06-10 07:47 | A.OFFVIS_ITS ---
Intake Visit Reasons: Pre-Op: L CHRISTELLE w/NE 06/17/25 Intake Note: Marilu is a 65 year old female who presents today for a preoperative visit of a left total hip arthroplasty, DOS 06/17/25. Pain management agreement reviewed and signed. Allergies amoxicillin (From Augmentin) Allergy (Severe, Verified 06/12/25 14:05) Facial Swelling clavulanic acid (From Augmentin) Allergy (Severe, Verified 06/12/25 14:05) Facial Swelling naproxen Allergy (Severe, Verified 06/12/25 14:05) asthma, SOB animal dander (PET DANDER) Allergy (Intermediate, Verified 06/12/25 14:05) rash SEASONAL ALLERGIES Allergy (Mild, Uncoded 06/12/25 14:05) congestion Medication List - Last Reconciled 06/12/25 by Rios Vee PA-C acetaminophen ER 650 mg PO Q12H PRN albuterol sulfate 90 mcg/actuation 2 puffs inhalation Q4-6H PRN cetirizine (Zyrtec) 10 mg PO DAILY PRN 30 days clonazepam 1 mg PO DAILY@1400,1800 clonidine HCl 0.1 mg PO TID 30 days diclofenac sodium 1% (Voltaren Arthritis Pain) 4 grams topical QID PRN 30 days duloxetine 30 mg PO DAILY duloxetine (Cymbalta) 60 mg PO DAILY fluticasone propion-salmeterol 500-50 mcg/dose (Wixela Inhub) 1 inh inhalation BID 30 days [Folding Front Wheeled walker Duration: 99 days] hydrocodone-acetaminophen 10-325 mg 1 tab PO Q6H PRN 30 days MDD 4 ibuprofen 800 mg PO Q12H PRN ketamine 160 mg sublingual QWEEK lidocaine 4% 1 patch topical DAILY PRN lidocaine 5% 1 patch topical DAILY 30 days lisinopril 40 mg PO DAILY 3 months lorazepam 1 mg PO DAILY PRN methylphenidate HCl 10 mg PO TID tzvnbtifssde-vijl-jbyow acid 18-400 mg-mcg 1 tab PO DAILY naloxone 4 mg/actuation (Narcan) 4 mg intranasal Q2M PRN naratriptan 2.5 mg PO ONCE PRN 30 days ondansetron HCl 4 mg PO DAILY tizanidine 4 mg PO TID PRN trazodone 50 mg PO BEDTIME triamcinolone acetonide 0.025% 1 appl topical BID PRN HPI Comments Details: Ms Bailey presents to the office today for Orthopedic Pre op clearance. She is scheduled for Lt CHRISTELLE 06/17/[address] Tom. The patient has a pretty extensive history with pain management for chronic pain syndrome, failed back syndrome, glenohumeral joint arthritis and also hip pain. She is currently taking hydrocodone/acetaminophen 10/325 mg 1 tab q.i.d. p.r.n. pain which she states she has been on for several years. She is also on several anxiety medications and trazodone which are prescribed by her primary care provider and also her psychotherapist. She had a an L4-L5 fusion over [address] Condon. She has also had cervical spine surgery with Dr. 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 Shortly after, she developed left hip pain. She had x-rays and an MRI of the left hip which showed osteoarthritis which prompted referral to orthopedics. As for her left hip pain, this has been severe for quite some time and it continues to limit her ability to perform daily activities. 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 She states for the last year she has been unable to participate in her daily activities due to her chronic pain, especcialy in the left hip. She has difficulty ambulating without a limp and she has trouble getting in and out of a car and up from a seated position. Patient lives at home with her spouse and does have her DME. She mentions she does suffer from migraines for which she takes medication for. She has also experience post op nausea which can be complicated by migraines. Prior Medical clearances: -PCP Dr Leiva 04/25/25: Assessment & Plan (1) Pre-operative clearance: 65-year-old?female?presents?for?preoperative?cl earance?prior?to?left?total?hip?arthroplasty No?history?of?cardiac?disease?and Cardiac?exam?is?within?limits EKG: ?Sinus?rhythm?with?PACs, normal?axis,?no?ST-T-wave?changes. Patient?has?history?of?asthma usually?fairly?well?controlled?though?patient?isn't?feeling?today.??Will?optimiz e.??Use?inhaled?medications?as?prescribed Lungs?are?clear?to?auscultation?today. No complications?from?anesthesias Patient?notes?she?did?have?a?wound?infection?after?surgery?on?foot?years?ago.??N o?other?complications?with?surgeries No?coagulopathies Good?functional?reserve Low?risk?patient?for?intermediate?risk?procedure No?contraindication?to?proposed?surgery No other cardiac or vascular comorbidities. [facility] Medical History Osteoarthritis Depression ADHD (attention deficit hyperactivity disorder) Motion sickness Chronic kidney disease (CKD) Environmental and seasonal allergies Left groin pain Depression Migraine headache Stool incontinence Chronic pain syndrome Postlaminectomy syndrome Disc degeneration, lumbar Compression fracture of L1 lumbar vertebra Osteoporosis Hypertension Spondylosis Attention deficit disorder Herniated disc Asthma Anxiety Migraine headache Surgical History Hx of cervical spine surgery (11/20/24) History of foot surgery Hx of colonoscopy Status post kyphoplasty History of lumbosacral spine surgery History of cervical spinal surgery History of spinal surgery History of surgery on left wrist Family History Sister Ovarian cancer Lung cancer Maternal Grandmother Ovarian cancer Paternal Aunt Ovarian cancer Maternal Aunt Pancreatic cancer Social History Household Members: Spouse Housing: House Are you a primary point of care specialist to a significant other at home: No Do you presently have visiting nurse or other home services: No Alcohol intake: current Alcohol intake frequency: holidays/special occasions only Comment: medicated in pacu Patient Tobacco Use Status: Former Tobacco user Tobacco use type: Cigarette e-Cigarette/Vaping Use: Never Used Second Hand Smoke Exposure: No service: No Current occupational status: disabled 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 Current occupational exposures/hazards: No Cognitive needs: No Hearing needs: No Vision needs: No Review of Systems Const All systems reviewed & are unremarkable except as noted in HPI and below Physical Exam Const General: cooperative, healthy appearing, comfortable and no acute distress Orientation/consciousness: patient oriented x3 HEENT Head: Yes normal to inspection and Yes atraumatic Ears: hearing grossly normal bilaterally Eyes General: appearance normal, both eyes and all related structures Neck Neck: Yes normal visual inspection and Yes no lymphadenopathy Resp Effort & Inspection: normal respiratory effort and able to speak in complete sentences Cardio Peripheral pulses: Peripheral pulses 2+ throughout Neuro General: patient oriented x3 Extrem Other: Left hip normal to inspection, no open wounds or abraisons. Antalgic gait left hip. 2+ dorsalis pedis pulse. No evidence of venous stasis. Sensation intact. Psych Appearance: well kempt Office Procedures AMB Joint Injection/Aspiration Joint Injection/Aspiration Primary Site: left knee Prep: site was prepped using aseptic technique, ethochloride spray was applied and injection warnings given Injected: 80 mg of, DepoMedrol, with 8 mL of, 1% plain lidocaine and in the joint Approach Used: anterolateral Coding 80423 - Glenohumeral/Tronchanteric Bursa/Intraarticular Procedure code (CPT) selection complete Assessment & Plan Assessment & Plan (1) Osteoarthritis of left hip: Code(s): M16.12 - Unilateral primary osteoarthritis, left hip Category: Medical Qualifiers: Osteoarthritis type: primary Qualified Code(s): M16.12 - Unilateral primary osteoarthritis, left hip Plan: Ms Bailey has exhausted all conservative measures consisting of lifestyle modifications, physical therapy, analgesics and use of assisted devices and continues to have significant limitations in daily activities along with decreased quality of life. Given the patient's desire to improve their quality of life, surgical intervention consisting of joint replacement surgery is recommended at this time.? We discussed the procedure in detail today; which includes pre op preparation with labs and reviewing patients medication regimen prior to surgery. Patient was sent to obtain a CBC, BMP and Type and screen prior to surgery. She was also instructed to hold her Ibuprofen 7 days before surgery to reduce risk of bleeding. She does understand the importance of minimizing the amount of opiates she uses pre op due to opiate dependence and lack of efficacy post op. I discussed at length the post op course which includes physical therapy services in the hospital along with the discharge routine and the patients plan upon discharge. The patients plan is to be DC home with VNA services. She does have her walker at home. I explained to the patient, once they are DC home, they will receive VNA services which will include PT 2-3x per week. We also discussed their choice for outpatient PT once they are discharged from home PT. Patient would like to to attend [facility] for Physical therapy once she is DC from home services. An order was placed and she was given their contact information to make an appt to begin after her first post op appt. Post op DVT ppx was also discussed and the considering the patient does not have a h/o cancer, tobacco use, DVT/PE or high BMI; she will be placed on Aspirin 325mg tabs po bid x6 weeks for dvt ppx. I reviewed with the patient their post op pain medication regimen along with the detailed wean program. The patient did express understanding of this and agreed to the narcotic policy. She does take Vicodin 10/325mg tabs q.i.d. We discussed at length her post op pain regimen and she does understand she may have difficulty with pain control due to opiate dependence. Our plan was to continue with the Vicodin 10/325mg tabs along with all other regular post op medications for our total joints. Lastly, I discussed with the patient the risks to the procedure. Risks including but not limited to infection, injury to surrounding nerves, tissue , bone, small and large vessels, stiffness, aseptic loosening, fracture, dislocation, amputation, DVT/PE along with intraoperative complications including but not limited to . The patient does express understanding, all questions were answered and the patient would like to proceed?with Left total hip arthroplasty with Dr. Tom. Consents were signed and dated while in the office today.? (2) Osteoarthritis of left knee: Code(s): M17.12 - Unilateral primary osteoarthritis, left knee Category: Medical Plan: We also discussed her left knee pain which she states has been contributing to her continued limitations. She is concerned this pain will limit her post op course. We discussed options which includes knee brace, therapy exercises and steroid injections. She would like to proceed with steroid injection to help minimize pain in the left knee so she is able to participate in PT post op for the Lt hip. I discussed with Dr Tom the idea of injection the left knee, which he is in agreement with. She does understand there is a risk of infection when introducing steroid or immunosuppressants to the body prior to a joint replacement; however, this is a localized injection and not in the same joint as the surgical site; therefore the risk of infection is low.The patient did consent to left knee steroid injection, which she tolerated well. Orders: Orders Basic Metabolic Panel 06/12/25 Z01.818 - Encounter for other preprocedural examination Complete Blood Count Auto Diff 06/12/25 Z01.818 - Encounter for other preprocedural examination PT Evaluation and Treatment 06/12/25 M16.12 - Unilateral primary osteoarthritis, left hip, Z96.642 - Presence of left artificial hip joint Type and Screen 06/12/25 Z01.818 - Encounter for other preprocedural examination Coding Level of Care Code Est Pt Level 4 (07625) Complex EM visit Add On G2211 Diagnoses Primary osteoarthritis of left hip M16.12 Osteoarthritis type: primary Osteoarthritis of left knee M17.12 CPT Codes Coding - Joint 7: 71505 - Glenohumeral/Tronchanteric Bursa/Intraarticular ([id number])
--- OUTSIDE RECORDS SUMMARY | 2025-06-12 14:44 | XMS_ITS | Clinical Summary ---
Author Organization [facility] Address [address] [phone] Phone Care Team Providers Care Chipper Operator Name Role Phone Gustavo Leiva MD Primary Care Provider Encounters Date Type Department Care Team Description 05/27/2025 Orders Only [facility] [address] [place] [address] Homehealth, Interface ProviderMD from Last [...] PART A & B [facility] MEDICARE HMO REPLACEMENT MEDICARE PART A & B [facility] [place] MEDICARE HMO REPLACEMENT MEDICARE PART A & B MEDICARE PART A & B MEDICARE PART A & B [facility] [place] MEDICARE HMO REPLACEMENT MEDICARE PART A & B MEDICARE PART A & B Member Subscriber Plan / Payer (Ef fective 2012-Present) Name:Marilu Bailey Member ID:[id number] Relation to Subscriber:Self Name:Marilu Bailey Subscriber ID:[id number] Payer ID:[id number] Group ID:Not on file Type:Medicare Address: [place] [address] MEDICARE HMO REPLACEMENT MEDICARE PART A & B [facility] MEDICARE HMO REPLACEMENT MEDICARE PART A & B [facility] MEDICARE HMO REPLACEMENT Care Teams Chipper Operator Relationship Specialty Start Date End Date Gustavo Leiva MD [address] [place] [address] [phone] PCP - General Family Medicine 05/28/25 Additional Source Comments The information contained in this document represents components of the legal health record. It is not the complete legal health record.[facility]
== END 2025-06-12 15:42 | disposition home or self-care (01) ==
LOC: HO.HOS 13:53
PROVIDERS: PCP Family Medicine; Visit Provider Physician Assistant
DX: M16.12 Unilateral primary osteoarthritis, left hip (principal); M17.12 Unilateral primary osteoarthritis, left knee
CPT/HCPCS: 20610

== ENCOUNTER → 2025-06-12 13:53 | Outpatient (BNVA) | payer MEDICARE, SELFPAY | PROVIDERS: PCP Family Medicine; Visit Provider Physician Assistant | DX: M25.552 Pain in left hip (principal); Z01.818 Encounter for other preprocedural examination; M16.12 Unilateral primary osteoarthritis, left hip; M17.12 Unilateral primary osteoarthritis, left knee; G89.4 Chronic pain syndrome | CPT/HCPCS: 20610; 99212; J1010; J2003 ==

== ENCOUNTER 2025-06-17 07:01 | Day surgery (SDC) | payer MEDICARE, SELFPAY ==
[2025-05-19 12:13] VITALS: BP 134/71; PULSE 82; RESP 16; O2SAT 98; BMI 22.0
--- NOTE | 2025-05-19 12:54 | HO.ANESPROP2 ---
Documented by User: Crystal Bliss NP 05/19/25 13:13 HPI - Anesthesia Eval Consult details Narrative: 65 yr old female for left total hip arthroplasty No CP/SOB Had URI end of March 2025, resolved. Medical clearance with PCP 03/2025. s/p anterior cervical discectomy with fusion, GA 10/2024 Asthma: on ICS/LABA, occasional rescue inhaler use Depression: on ketamine 160 mg sublingual weekly Motion sickness: takes zofran prn On chronic narcotics PMFSH Active Problems Active Problems: All Active Problems Osteoarthritis of right shoulder (Acute) Sore throat (viral) (Acute) Ear discomfort (Acute) Pre-operative clearance (Acute) Left knee pain (Acute) Osteoarthritis of left hip (Acute) GERD (gastroesophageal reflux disease) (Acute) Elevated LDL cholesterol level (Acute) History of alcohol abuse (Acute) Status post cervical spinal fusion (Acute) Recurrent falls (Acute) Spondylolisthesis, lumbar region (Acute) Cervical spinal stenosis (Acute) Cervical myelopathy with cervical radiculopathy (Acute) Left ankle pain (Acute) Bilateral shoulder pain (Acute) History of recent fall (Acute) Keeps losing balance (Acute) Facial pain (Acute) Knee pain (Acute) Hematoma (Acute) Status post fall (Acute) Myalgia (Acute) Neuralgia (Acute) Viral illness (Acute) Status post tooth extraction (Acute ~07/30/24) History of tooth extraction (Acute) Paresthesia of upper and lower extremities of both sides (Acute) Left hip pain (Acute) Osteoarthritis of hands, bilateral (Acute) Cough (Acute) Depression with anxiety (Acute) Rash (Acute) Left shoulder pain (Acute) Osteoarthritis of right glenohumeral joint (Acute) Fatigue (Acute) Right knee pain (Acute) Elevated lipase (Acute) Nausea (Acute) Hypertensive emergency (Acute) Right shoulder pain (Acute) Laceration of finger (Acute) Opioid contract exists (Acute) Elevated parathyroid hormone (Acute) Normochromic normocytic anemia (Acute) Anemia (Acute) Elevated liver enzymes (Acute) Abnormal EKG (Acute) Palpitations (Acute) Screening for cervical cancer (Acute) Breast cancer screening by mammogram (Acute) Screening for colon cancer (Acute) Hyponatremia (Acute) Diarrhea (Acute) Cervical spondylosis with radiculopathy (Acute) Difficulty swallowing (Acute) High serum creatinine (Acute) Screening for osteoporosis (Acute) Adult general medical exam (Acute) Pre-diabetes (Acute) Left leg weakness (Acute) Abdominal pain (Acute) Hypercalcemia (Acute) Laboratory examination ordered as part of a routine general medical examination (Acute) Right low back pain (Acute) Hypertension (Acute) Hypertensive crisis, unspecified (Acute) IBS (irritable bowel syndrome) (Acute) Abdominal pain (Acute) Failed back syndrome, lumbar (Acute) Left groin pain (Acute) Depression (Acute) Migraine headache (Acute) Status post kyphoplasty (Acute) Stool incontinence (Acute) Chronic pain syndrome (Acute) Postlaminectomy syndrome (Acute) Disc degeneration, lumbar (Acute) Compression fracture of L1 lumbar vertebra (Acute) Osteoporosis (Acute) Asthma (Acute) Hypertension (Acute) Attention deficit disorder (Acute) Anxiety (Acute) History of cervical spinal surgery (Acute) Past Medical History Medical History Osteoarthritis Depression ADHD (attention deficit hyperactivity disorder) Motion sickness Chronic kidney disease (CKD) Environmental and seasonal allergies Left groin pain Depression Migraine headache Stool incontinence Chronic pain syndrome Postlaminectomy syndrome Disc degeneration, lumbar Compression fracture of L1 lumbar vertebra Osteoporosis Hypertension Spondylosis Attention deficit disorder Herniated disc Asthma Anxiety Migraine headache Family History Family History Sister Ovarian cancer Lung cancer Maternal Grandmother Ovarian cancer Paternal Aunt Ovarian cancer Maternal Aunt Pancreatic cancer Family history of problems with anesthesia: No Surgical History Surgical History Hx of cervical spine surgery (11/20/24) History of foot surgery Hx of colonoscopy Status post kyphoplasty History of lumbosacral spine surgery History of cervical spinal surgery History of spinal surgery History of surgery on left wrist History of Problems with Anesthesia: No Social History Social History Household Members: Spouse Housing: House Are you a primary adult care manager to a significant other at home: No Do you presently have visiting nurse or other home services: No Alcohol intake: current Alcohol intake frequency: holidays/special occasions only Comment: medicated in pacu Patient Tobacco Use Status: Former Tobacco user Tobacco use type: Cigarette Smoked in Last 30 Days: No e-Cigarette/Vaping Use: Never Used Second Hand Smoke Exposure: No Use of substances other than those prescribed or required for medical reasons: No Have you been hit, kicked, punched, or otherwise hurt by someone within the past year? 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 Current occupational exposures/hazards: No Cognitive needs: No Hearing needs: No Vision needs: No Meds Allergies Allergy/AdvReac Type Severity Reaction Status Date / Time amoxicillin (From Augmentin) Allergy Severe Facial Verified 06/17/25 07:29 Swelling clavulanic acid (From Allergy Severe Facial Verified 06/17/25 07:29 Augmentin) Swelling naproxen Allergy Severe asthma, SOB Verified 06/17/25 07:29 animal dander (PET DANDER) Allergy Intermediate rash Verified 06/17/25 07:29 SEASONAL ALLERGIES Allergy Mild congestion Uncoded 06/17/25 07:29 Home Medications ?Medication ?Instructions ?Recorded ?Confirmed ?Last Taken ?Type clonazepam 1 mg tablet 1 mg PO DAILY@1400,1800 07/27/20 06/12/25 06/17/25 History lorazepam 1 mg tablet 1 mg PO DAILY PRN anxiety 07/27/20 06/12/25 12/16/22 History duloxetine 60 mg capsule,delayed 60 mg PO DAILY 12/07/21 06/12/25 06/17/25 History release (Cymbalta) duloxetine 30 mg capsule,delayed 30 mg PO DAILY 03/08/22 06/12/25 06/17/25 History release multivitamin-ferrous 1 tab PO DAILY 12/17/22 06/12/25 Unknown History fumarate-folic acid 18 mg-400 mcg tablet triamcinolone acetonide 0.025 % 1 appl topical BID PRN rash 12/17/22 06/12/25 Unknown History topical cream ondansetron HCl 4 mg tablet 4 mg PO DAILY 12/14/23 06/12/25 Unknown History ketamine 100 mg sublingual sepideh 160 mg sublingual QWEEK 08/29/24 06/12/25 Unknown History methylphenidate HCl 10 mg tablet 10 mg PO TID 01/13/25 06/12/25 Unknown History trazodone 50 mg tablet 50 mg PO BEDTIME 06/06/25 06/17/25 Unknown History Exam Height,Weight and Vital Signs: Height 5 ft 4 in Weight 58.06 kg Last Vital Signs Pulse 82 05/19/25 12:13 Resp 16 05/19/25 12:13 BP 134/71 05/19/25 12:13 Pulse Ox 98 05/19/25 12:13 O2 Del Method Room Air 05/19/25 12:13 Pertinent Lab Results Pertinent Lab Results: Laboratory Tests 05/05/25 10:00 WBC 7.1 RBC 3.81 L Hgb 11.4 L Hct 34.1 L Plt Count 341 Sodium 138 Potassium 3.9 Chloride 100 BUN 11 Creatinine 0.85 Narrative Narrative: EKG 04/25/25 Sinus rhythm with PACs, no ST-T wave changes Airway Mallampati Class: I TM Dist: >3cm Neck ROM: Full Denture: Upper Loose/Missing/Broken Teeth: Yes and Lower (M) Heart: RRR Lungs: CTAB Assessment and Plan Final Anesthetic Review Family History of Problems with Anesthesia: No History of Problems with Anesthesia: No Documented by User: Brenda Gutierrez MD 06/17/25 08:47 [facility] Past Medical History Medical History Osteoarthritis Depression ADHD (attention deficit hyperactivity disorder) Motion sickness Chronic kidney disease (CKD) Environmental and seasonal allergies Left groin pain Depression Migraine headache Stool incontinence Chronic pain syndrome Postlaminectomy syndrome Disc degeneration, lumbar Compression fracture of L1 lumbar vertebra Osteoporosis Hypertension Spondylosis Attention deficit disorder Herniated disc Asthma Anxiety Migraine headache Family History Family History Sister Ovarian cancer Lung cancer Maternal Grandmother Ovarian cancer Paternal Aunt Ovarian cancer Maternal Aunt Pancreatic cancer Surgical History Surgical History Hx of cervical spine surgery (11/20/24) History of foot surgery Hx of colonoscopy Status post kyphoplasty History of lumbosacral spine surgery History of cervical spinal surgery History of spinal surgery History of surgery on left wrist Social History Social History Household Members: Spouse Housing: House Are you a primary adult care manager to a significant other at home: No Do you presently have visiting nurse or other home services: No Alcohol intake: current Alcohol intake frequency: holidays/special occasions only Comment: medicated in pacu Patient Tobacco Use Status: Former Tobacco user Tobacco use type: Cigarette Smoked in Last 30 Days: No e-Cigarette/Vaping Use: Never Used Second Hand Smoke Exposure: No Use of substances other than those prescribed or required for medical reasons: No Have you been hit, kicked, punched, or otherwise hurt by someone within the past year? 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 Current occupational exposures/hazards: No Cognitive needs: No Hearing needs: No Vision needs: No Meds Allergies Allergy/AdvReac Type Severity Reaction Status Date / Time amoxicillin (From Augmentin) Allergy Severe Facial Verified 06/17/25 07:29 Swelling clavulanic acid (From Allergy Severe Facial Verified 06/17/25 07:29 Augmentin) Swelling naproxen Allergy Severe asthma, SOB Verified 06/17/25 07:29 animal dander (PET DANDER) Allergy Intermediate rash Verified 06/17/25 07:29 SEASONAL ALLERGIES Allergy Mild congestion Uncoded 06/17/25 07:29 Home Medications ?Medication ?Instructions ?Recorded ?Confirmed ?Last Taken ?Type clonazepam 1 mg tablet 1 mg PO DAILY@1400,1800 07/27/20 06/12/25 06/17/25 History lorazepam 1 mg tablet 1 mg PO DAILY PRN anxiety 07/27/20 06/12/25 12/16/22 History duloxetine 60 mg capsule,delayed 60 mg PO DAILY 12/07/21 06/12/25 06/17/25 History release (Cymbalta) duloxetine 30 mg capsule,delayed 30 mg PO DAILY 03/08/22 06/12/25 06/17/25 History release multivitamin-ferrous 1 tab PO DAILY 12/17/22 06/12/25 Unknown History fumarate-folic acid 18 mg-400 mcg tablet triamcinolone acetonide 0.025 % 1 appl topical BID PRN rash 12/17/22 06/12/25 Unknown History topical cream ondansetron HCl 4 mg tablet 4 mg PO DAILY 12/14/23 06/12/25 Unknown History ketamine 100 mg sublingual sepideh 160 mg sublingual QWEEK 08/29/24 06/12/25 Unknown History methylphenidate HCl 10 mg tablet 10 mg PO TID 01/13/25 06/12/25 Unknown History trazodone 50 mg tablet 50 mg PO BEDTIME 06/06/25 06/17/25 Unknown History Assessment and Plan Assessment Anesthesia Assessment: Anesthesia Plan Discussed and Chart Reviewed Final Anesthetic Review NPO: Yes ASA Class: III Final Preanesthetic Review: No Changes in Pt Med Stat, Meds/Allgs Chart Reviewed, Consent Obtained/Reviewed and Anes Risks/Benef Reviewed Patient Risk: Intermediate Procedure Risk: Intermediate Anesthetic Plan Anesthetic Plan: GA and Agree w/ Assess. and Plan Disposition: Standard PACU
[2025-05-19 15:47] LABS: MRSA Nasal PCR NEGATIVE (Negative); SA Nasal PCR NEGATIVE (Negative)
[2025-06-12 15:54] LABS: MANUAL DIFF FLAG NO
[2025-06-12 16:02] LABS: Hematocrit 34.3 % (37.0-47.0); Hemoglobin 11.6 g/dl (12.0-16.0); Imm Gran Abs Auto 0.05 X10*3/uL (0.00-0.03); Imm Gran Pct Auto 0.5 % (0.0-0.4); Lymphocytes Absolute Auto 1.3 X10*3/uL (1.2-4.9); Mean Corpuscular HGB Conc 33.8 g/dl (31.0-35.0); Mean Corpuscular Hemoglobin 29.7 pg (27.0-33.0); Mean Corpuscular Volume 87.9 fL (80.0-98.0); NRBC Abs Auto 0.000 X10*3/uL (0.0-0.012); NRBC Pct Auto 0.0 /100WBC (0.0-0.2); Platelet Count 333 X10*3/uL (160-400); Red Blood Count 3.90 X10*6/uL (4.20-5.50); White Blood Count 10.1 X10*3/uL (4.8-10.8)
[2025-06-12 16:29] LABS: Anion Gap 14 (12-20); Blood Urea Nitrogen 14 mg/dL (9-16); Calcium 10.0 mg/dL (8.4-10.2); Carbon Dioxide 26 mmol/L (22-29); Chloride 99 mmol/L (96-108); Creatinine Clr Calc Pharmacy 58.2; Estimated Glomerular Filt Rate > 60; Potassium 3.9 mmol/L (3.3-5.1); Sodium 135 mmol/L (135-145)
[2025-06-17] VITALS (24 sets, daily range): BP systolic 108–147; BP diastolic 61–93; PULSE 71–95; RESP 16–18; TEMP 36.1–37.3; O2SAT 96–100; BMI 22.3; BMI 22.1
--- NOTE | ~2025-06-17 | XR_ITS ---
EXAMINATION: XR PELVIS CLINICAL INFORMATION: s/p lt marilee COMPARISON: June 17, 2025 TECHNIQUE: Single AP view FINDINGS: Excluded iliac crest bilaterally. Total metallic hip prosthesis with an acetabular and femoral component well-seated in the osseous structures of the left occiput femoral joint. Skin gray. Subcutaneous emphysema, left hip. XR/XR pelvis 1-2V IMPRESSION: Total left hip arthroplasty prosthesis, satisfactory. Electronically signed by: Greg Concepcion MD 06/17/2025 01:11 PM EDT
--- NOTE | ~2025-06-17 | XR_ITS ---
EXAMINATION: XR PELVIS CLINICAL INFORMATION: pre op COMPARISON: Left hip x-ray dated January 03, 2025. Correlated to CT abdomen pelvis dated December 16, 2022. TECHNIQUE: AP view of the pelvis. FINDINGS: Excluded iliac crests, bilaterally. Sclerotic marginated lytic abnormality with volume loss involving the superior aspect of the left femoral head. Sclerosis along the articular surface of the left acetabulum. Asymmetric joint space narrowing, left coxofemoral joint. No acute cortical disruption or malalignment in either hip. Mild sclerosis along the articular surface of the right acetabulum. Asymmetric joint space narrowing, right coxofemoral joint. Mild degenerative changes in the symphysis pubis. No gross vascular complications. No lytic or blastic bone lesions. XR/XR pelvis 1-2V IMPRESSION: Severe osteoarthrosis/osteoarthritis, left coxofemoral joint. Superimposed avascular necrosis seems less likely. Mild osteoarthrosis/osteoarthritis, right hip Electronically signed by: Greg Concepcion MD 06/17/2025 08:14 AM EDT
--- NOTE | 2025-06-17 07:24 | MHC.SHP ---
Pre-Procedural Eval Section A - 24 Hr Update-Section A only Date of Service: 06/17/25 The patient is an INPATIENT: No Changes since office visit: No Cold of Flu in the past 2 weeks, No New Medical Problems, No Changes in Medication and No Patient answered all questions The patient has been examined within 24 hours of the surgical procedure. The History & Physical has been completed within 30 days and I have reviewed it.: Yes Section B - Complete if H&P > 30 days Chief Complaint: Unilateral primary osteoarthritis, left hip Allergies: Allergies Allergy/AdvReac Type Severity Reaction Status Date / Time amoxicillin (From Augmentin) Allergy Severe Facial Verified 06/12/25 14:05 Swelling clavulanic acid (From Allergy Severe Facial Verified 06/12/25 14:05 Augmentin) Swelling naproxen Allergy Severe asthma, SOB Verified 06/12/25 14:05 animal dander (PET DANDER) Allergy Intermediate rash Verified 06/12/25 14:05 SEASONAL ALLERGIES Allergy Mild congestion Uncoded 06/12/25 14:05 Plan I have reviewed the history and physical and performed a pertinent physical examination on my patient. No changes have occurred unless specified. Time Spent With Patient Time: Total time managing care of this patient today ____ minutes.
[2025-06-17] MEDS: Lactated Ringers 1,000 ML 100 ML IVCONT ×2 (08:20→16:50)
--- NOTE | 2025-06-17 10:59 | P.DS_ITS ---
DS: Providers Provider Date of Service: 06/19/25 Date of discharge: 06/19/25 Primary care physician: Gustavo Leiva MD DS: Summary Hospital Course Hospital Course: The patient underwent a successful left total hip arthroplasty, they were transferred to PACU and then to the floor to recover. During their stay, their vitals were stable, afebrile at 96.3. Labs were unremarkable, H/H 9.2/28.0. POD 1 they were started on Aspirin 325mg po bid for DVT ppx, they also received Physical Therapy services twice a day. Prior to discharge, their dressing was clean dry and intact and the plan was to be discharged home with VNA services. Time Attestation Total time managing care of this patient today: 30 mintues. Discharge Coordination Time (in mins): 30 Quality: Safe Use of Opioids Does Pt have an Active Cancer Diagnosis on the Problem List?: No Quality: Stroke Does the patient have a stroke diagnosis?: No Physical Exam Vital Signs: Vital Signs: Last Vital Signs Temp 98.1 F 06/17/25 08:04 Pulse 76 06/17/25 08:04 Resp 18 06/17/25 08:04 BP 144/89 H 06/17/25 08:04 Pulse Ox 99 06/17/25 08:04 O2 Del Method Room Air 06/17/25 08:04 BMI result Body Mass Index 22.3 Const: General: cooperative, healthy appearing and no acute distress Resp: Effort & Inspection: normal respiratory effort and able to speak in complete sentences Cardio: Rate: regular rate Peripheral pulses: Peripheral pulses 2+ throughout GI: Palpation (GI): Soft to palpation Skin: Lesions: no lesions Rashes: no rashes Extrem: Other: left hip dressing is c/d/i. Able to dorsi/plantar flex. Calf is supple and nontender. Sensation intact. Pedal pulse intact. Discharge Plan Discharge Patient Disposition: Home Health Service Referrals: Rios Vee PA-C [Physician Public Housing Manager, Orthopedics] - 07/03/25 9:45 am Discharge Medications: New aspirin 325 mg Tablet 325 mg PO BID 42 Days Qty: 84 0RF celecoxib 200 mg Capsule 200 mg PO BID 30 Days Qty: 60 0RF docusate sodium 100 mg Capsule 100 mg PO BID 30 Days Qty: 60 0RF oxycodone 5 mg Tablet 5 mg PO Q4H PRN (Reason: Pain, Moderate(Pain Scale 4-6)) 7 Days Qty: 42 0RF Rx Instructions: Partial Fill upon patient request. Continued albuterol sulfate 90 mcg/actuation HFA aerosol inhaler 2 puff inhalation Q4-6H PRN (Reason: for wheezing) Qty: 25.5 2RF diclofenac sodium [Voltaren Arthritis Pain] 1 % gel 4 g topical QID PRN (Reason: pain) 30 Days Qty: 100 3RF lisinopril 40 mg tablet 40 mg PO DAILY 90 Days Qty: 90 3RF clonidine HCl 0.1 mg tablet 0.1 mg PO TID 30 Days Qty: 90 0RF (DME) Folding Front Wheeled walker See Rx Instructions .ROUTE .MEDSUPPLY Qty: 1 0RF Rx Instructions: Duration: 99 days fluticasone propion-salmeterol [Wixela Inhub] 500-50 mcg/dose blister with device 1 inh inhalation BID 30 Days Qty: 60 2RF tizanidine 4 mg tablet 4 mg PO TID PRN (Reason: for muscle spasm) Qty: 90 3RF naratriptan 2.5 mg tablet 2.5 mg PO ONCE PRN (Reason: migraine) 30 Days Qty: 9 2RF udcxuybjzhyq-rlgz-mosqa acid 18-400 mg-mcg Tablet 1 tab PO DAILY duloxetine 60 mg capsule,delayed release(DR/EC) 60 mg PO DAILY cetirizine [Zyrtec] 10 mg tablet 10 mg PO DAILY PRN (Reason: allergy symptoms) 30 Days Qty: 30 2RF duloxetine 30 mg capsule,delayed release(DR/EC) 30 mg PO DAILY lorazepam 1 mg tablet 1 mg PO BID PRN (Reason: anxiety) clonazepam 1 mg tablet 1 mg PO BID PRN (Reason: Anxiety) ibuprofen 800 mg tablet 800 mg PO Q12H PRN (Reason: pain) Qty: 60 1RF Rx Instructions: Take it with food and full glass of water. naloxone [Narcan] 4 mg/actuation spray,non-aerosol 4 mg intranasal Q2M PRN (Reason: opioid overdose) Qty: 2 0RF Rx Instructions: spray 1 dose into ONE nostril; alternate nostrils w each dose until help arrives trazodone 50 mg tablet 50 mg PO BEDTIME hydrocodone-acetaminophen 10-325 mg tablet 1 tab PO Q6H MDD 4 PRN (Reason: pain) 30 Days Qty: 120 0RF Patient Comments: currently taking TID Discontinued acetaminophen 650 mg tablet extended release 650 mg PO Q12H PRN (Reason: for pain) Qty: 60 1RF Discharge Orders: Discharge Order (Routine); Ordered 06/19/25 Ordered By: Chiquita Elena Diet: Advance to usual diet Activity on Discharge: Use cane or walker Activity Restrictions/Additional Instructions: Physical Therapy for total hip arthroplasty: posterior precautions, gait training, ROM, strength Limit stair climbing No showering, no tub bath-keep dressing clean, dry and intact No driving x 6 weeks Continue Aspirin tabs once a day x 6 weeks Follow up with [facility] in 2 weeks -Bandage/Incision Site Care: -Ice 20mins at a time -Make sure you use a towel or cloth on your skin as a barrier -DO NOT remove the bandage -Keep Bandage clean, dry and intact -Do not get the bandage wet: -No tub bath, pools or hot tubs -If there are any concerns regarding the bandage please call orthopedics: [phone] -Hip Precautions: -Do not bend hip past 90 degrees -Do not cross at your knees or ankles -Do not turn your operative leg inward (avoid twisting the foot in) -Avoid low chairs and deep couches -Use supportive shoes with nonslip soles -Physical Therapy: -Patient is WBAT with the use of a walker -Gait training -Limit stair climbing -Hip range of motion -Strengthening: Quadriceps and hip muscles -Walking: Gait training and gradually increasing distance with walker -Ankle pumps and incentive spirometry to limit the risk of blood clot -Diet: -Resume regular diet as tolerated. -Drink plenty of fluids and eat a high-fiber foods to avoid constipation -This is a common side effect of pain medication) -Take stool softeners as prescribed -Blood Clot Prevention: -Take the prescribed blood thinner as directed for 6 weeks -Perform ankle pumps and walk frequently with the walker and assistance if needed -Report calf pain, swelling, or shortness of breath immediately Print Language: Lao
--- NOTE | 2025-06-17 11:33 | P.F2F_ITS ---
Service Date Service Date: 06/17/25 Encounter Date of encounter: 06/17/25 Reasons for Services Signs and symptoms assessed: s/p LTHA Pt. is considered homebound due to recent surgery. Unable to drive, poor balance, poor gait mechanics. Reason for physical therapy: home safety and mobility, therapeutic exercises, restore joint function, gait/transfer training and ADL training Reason for occupational therapy: home safety and mobility, therapeutic exercises, restore joint function, gait/transfer training and ADL training Homebound: Leaving the home is medically contraindicated at this time without the asist of a device and/or another person due th the listed conditions above and below. Reason homebound: unsteady gait / fall risk, leg weakness, pain with ambulation, pain with transfers, poor balance / fall risk and unable to drive Certification: Based on the above findings, I certify that this patient is confined to the home and needs intermittent custodial care, physical therapy and/or speech therapy, or continues to need occupational therapy. The patient is under my care, and I have initiated the establishment of the plan of care. The patient will be followed by a physician who will periodically review the plan of care. Time Spent With Patient Time: Total time managing care of this patient today ____ minutes.
--- NOTE | 2025-06-17 11:49 | P.BOP_ITS ---
Brief Operative Note Date of Service: 06/17/25 Pre-op diagnosis: Left hip OA Post-op diagnosis: same Procedure: Left CHRISTELLE Implants: [place] Trident2 52/ 2 6.5mm acetabular screws and lipped liner; Accolade2 #4 127 with +5/36 ceramic Surgeon: Kaiden Tom MD Anesthesia: regional and spinal Was an Culinary Intern used for this Procedure?: Yes Culinary Intern: Rios Vee Estimated blood loss (mL): 200 IV fluids (mL): 1,000 Pathology: other Condition: stable Disposition: PACU
--- NOTE | 2025-06-17 16:23 | HO.PM.IMCN ---
History of Present Illness Data of Consult Service Date: 06/17/25 Primary Care Provider: Gustavo Leiva MD HPI 65-year-old woman admitted by Orthopedic surgery and is status post left total hip arthroplasty. Surgery was unremarkable. Patient has been able to eat and drink without any significant difficulties or nausea or vomiting. Patient's vital signs are stable. Pain is well-controlled at this time Review of Systems Review of Systems: Denies any recent fever chills or decrease in appetite respiratory denies any shortness of breath or cough cardiovascular denies chest pain gastrointestinal denies any dysphagia abdominal pain nausea vomiting or diarrhea genitourinary denies any dysuria frequency or hematuria musculoskeletal surgical neuropsych denies any weakness or seizures all other systems reviewed are negative [facility] Medical History Osteoarthritis Depression ADHD (attention deficit hyperactivity disorder) Motion sickness Chronic kidney disease (CKD) Environmental and seasonal allergies Left groin pain Depression Migraine headache Stool incontinence Chronic pain syndrome Postlaminectomy syndrome Disc degeneration, lumbar Compression fracture of L1 lumbar vertebra Osteoporosis Hypertension Spondylosis Attention deficit disorder Herniated disc Asthma Anxiety Migraine headache Family History Sister Ovarian cancer Lung cancer Maternal Grandmother Ovarian cancer Paternal Aunt Ovarian cancer Maternal Aunt Pancreatic cancer Surgical History Hx of cervical spine surgery (11/20/24) History of foot surgery Hx of colonoscopy Status post kyphoplasty History of lumbosacral spine surgery History of cervical spinal surgery History of spinal surgery History of surgery on left wrist Social History Household Members: Spouse Housing: House Are you a primary home health care provider to a significant other at home: No Do you presently have visiting nurse or other home services: No Alcohol intake: current Alcohol intake frequency: holidays/special occasions only Comment: medicated in pacu Patient Tobacco Use Status: Former Tobacco user Tobacco use type: Cigarette Smoked in Last 30 Days: No e-Cigarette/Vaping Use: Never Used Second Hand Smoke Exposure: No Use of substances other than those prescribed or required for medical reasons: No Have you been hit, kicked, punched, or otherwise hurt by someone within the past year? 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 Current occupational exposures/hazards: No Cognitive needs: No Hearing needs: No Vision needs: No Meds Allergies Allergy/AdvReac Type Severity Reaction Status Date / Time amoxicillin (From Augmentin) Allergy Severe Facial Verified 06/17/25 07:29 Swelling clavulanic acid (From Allergy Severe Facial Verified 06/17/25 07:29 Augmentin) Swelling naproxen Allergy Severe asthma, SOB Verified 06/17/25 07:29 animal dander (PET DANDER) Allergy Intermediate rash Verified 06/17/25 07:29 SEASONAL ALLERGIES Allergy Mild congestion Uncoded 06/17/25 07:29 Active Medications: Current Medications Albuterol Sulfate (Albuterol Sulfate 90 Mcg 8 Gm Inhaler) 2 puff INHALE Q4-6H PRN PRN Reason: for wheezing Aspirin (Aspirin 325 Mg Tablet) 325 mg PO BID [facility] Celecoxib (Celecoxib 200 Mg Capsule) 200 mg PO BID [facility] Clonazepam (Clonazepam 1 Mg Tablet) 1 mg PO DAILY@1400,1800 [facility] Clonidine HCl (Clonidine Hcl 0.1 Mg Tablet) 0.1 mg PO TID OLIVIA; Protocol Docusate Sodium (Docusate Sodium 100 Mg Capsule) 100 mg PO BID [facility] Duloxetine HCl (Duloxetine Hcl 60 Mg Capsule.Dr) 60 mg PO DAILY [facility] Duloxetine HCl (Duloxetine Hcl 30 Mg Capsule.Dr) 30 mg PO DAILY [facility] Hydromorphone HCl (Hydromorphone Hcl 0.5 Mg/0.5 Ml Syringe) 0.25 mg IVPUSH Q4H PRN; Protocol PRN Reason: Pain, Severe (Pain Scale 7-10) Lactated Ringer's (Lr) 1,000 mls @ 100 mls/hr IVCONT .Q10H OLIVIA Stop: 06/18/25 08:00 Vancomycin HCl 1,000 mg/ (Sodium Chloride) 270 mls @ 270 mls/hr IV POSTOP ONE Stop: 06/17/25 17:06 Loratadine (Loratadine 10 Mg Tablet) 10 mg PO DAILY PRN PRN Reason: allergy symptoms Lorazepam (Lorazepam 1 Mg Tablet) 1 mg PO DAILY PRN PRN Reason: Anxiety Methylphenidate HCl (Methylphenidate Hcl 10 Mg Tablet) 10 mg PO TID [facility] Naloxone HCl (Naloxone Hcl Nasal 4 Mg Krum) 4 mg NOSTRILALT Q2M PRN PRN Reason: opioid overdose Non-Formulary Medication (Fluticasone Propion-Salmeterol [Wixela Inhub]) 1 inhalation INHALE BID [facility] Non-Formulary Medication (Ketamine) 160 mg SUBLINGUAL QWEEK [facility] Non-Formulary Medication (Naratriptan) 2.5 mg PO ONCE PRN PRN Reason: migraine Non-Formulary Medication (Hydrocodone-Acetaminophen) 1 tab PO Q4H PRN PRN Reason: Pain, Moderate(Pain Scale 4-6) Ondansetron HCl (Ondansetron Odt 4 Mg Tab.Rapdis) 4 mg TRANSLINGU DAILY [facility] Oxycodone HCl (Oxycodone Hcl Er 10 Mg Tab.Er.12h) 10 mg PO BID [facility] Pharmacy Consult (Consult Rx Vancomycin Dosing) 1 each MISCELLANE DAILY PRN PRN Reason: Consult order Promethazine HCl (Promethazine Hcl 25 Mg/Ml Vial) 12.5 mg IM Q4H PRN PRN Reason: Nausea and Vomiting Sodium Chloride (0.9 % Sodium Chloride Flush 3 Ml Syringe) 3 ml IVFLUSH QSHIFT [facility] Tizanidine HCl (Tizanidine Hcl 4 Mg Tablet) 4 mg PO TID PRN PRN Reason: for muscle spasm Trazodone HCl (Trazodone Hcl 50 Mg Tablet) 50 mg PO BEDTIME [facility] Triamcinolone Acetonide (Triamcinolone Acet 0.025 % Cream 15 Gm Tube) 1 appl TOPICAL BID PRN; Protocol PRN Reason: Rash Home Medications ?Medication ?Instructions ?Recorded ?Confirmed ?Last Taken ?Type clonazepam 1 mg tablet 1 mg PO BID 07/27/20 06/17/25 06/14/25 History lorazepam 1 mg tablet 1 mg PO DAILY PRN anxiety 07/27/20 06/17/25 12/16/22 History duloxetine 30 mg capsule,delayed 30 mg PO DAILY 03/08/22 06/17/25 06/14/25 History release multivitamin-ferrous 1 tab PO DAILY 12/17/22 06/17/25 1 Week Ago History fumarate-folic acid 18 mg-400 mcg ~06/10/25 tablet trazodone 50 mg tablet 50 mg PO BEDTIME 06/06/25 06/17/25 06/14/25 History duloxetine 60 mg capsule,delayed 60 mg PO DAILY 06/17/25 06/17/25 Unknown History release Physical Exam Vital Signs and Narrative: Vital Signs: Last Vital Signs Temp 97.4 F 06/17/25 15:45 Pulse 79 06/17/25 15:45 Resp 18 06/17/25 15:45 BP 136/82 06/17/25 15:45 Pulse Ox 99 06/17/25 15:45 O2 Del Method Room Air 06/17/25 15:45 BMI result Body Mass Index 22.3 Appearing in no acute distress head is normocephalic atraumatic eyes pupils are PERRLA sclera is anicteric mouth throat mucous membranes are intact and moist neck is supple no lymphadenopathy, no JVD noted lung sounds are clear to auscultation heart regular rate rhythm, clear S1, S2 positive bowel sounds, abdomen is soft, nontender neuro patient is alert x3, no focal deficits Left hip surgical dressing no staining, surgical incision not visualized Results Labs 06/12/25 15:52 06/12/25 15:52 Imaging Radiologist's Impressions: Impressions Pelvis X-Ray 06/17/25 07:55 IMPRESSION: Severe osteoarthrosis/osteoarthritis, left coxofemoral joint. Superimposed avascular necrosis seems less likely. Mild osteoarthrosis/osteoarthritis, right hip Electronically signed by: Greg Concepcion MD 06/17/2025 08:14 AM EDT RP Pelvis X-Ray 06/17/25 11:59 IMPRESSION: Total left hip arthroplasty prosthesis, satisfactory. Electronically signed by: Greg Concepcion MD 06/17/2025 01:11 PM EDT RP Assessment and Plan (1) Status post fall: Status: Acute Plan 65-year-old woman with osteoarthritis status post left total hip arthroplasty Left total hip arthroplasty Management as per surgical team Pain management Mental health Continue home medications Hypertension Stable blood pressure Restart blood pressure medications tomorrow Asthma No exacerbation Continue inhalers as needed DVT prophylaxis as per admitting provider Full code
[2025-06-17] MEDS: 0.9 % Sodium Chloride Flush 3 ML SYRINGE IVFLUSH (17:07)
--- NOTE | 2025-06-17 17:38 | PC.NURSE ---
Pt was able to stand pivot to bedside commode with minimal assistance and walker, pt tolerated well, voided 1x, unmeasured. All safety measures in place.
--- NOTE | 2025-06-17 17:46 | PHA.MEDREC ---
Addendum entered by Moe Mireles, PharmD 06/17/25 18:28: MED REC CHECKED BY [facility] Original Note: Pharmacy Consult ? Medication Reconciliation Pharmacy has completed the medication reconciliation. Spoke with pt and she confirmed her medications (Pt had on hand Albuterol, Fluticasone-Salmeterol and Naratriptan). Pt stopped her Lisinopril last Monday and Multivitamin ~1 week ago for the surgery, pt now taking Clonazepam and Lorazepam BID PRN for anxiety and she has not taken the rest of her medications since Monday.
[2025-06-17] MEDS: oxyCODONE HCl ER 10 MG TAB.ER.12H PO (19:39)
[2025-06-17] MEDS: SALMETEROL INHALE (19:56)
[2025-06-17] MEDS: FLUTICASONE INHALE (19:56)
[2025-06-18] VITALS (14 sets, daily range): BP systolic 102–132; BP diastolic 51–68; PULSE 73–112; RESP 12–18; TEMP 36.4–37.2; O2SAT 94–99
[2025-06-18] MEDS: Lactated Ringers 1,000 ML 100 ML IVCONT (03:59)
[2025-06-18] MEDS: HYDROcodone Bit/Acetam 7.5/325 TABLET 1 TAB PO (06:02)
[2025-06-18 06:11] LABS: Anion Gap 11 (12-20); Blood Urea Nitrogen 12 mg/dL (9-16); Calcium 8.3 mg/dL (8.4-10.2); Carbon Dioxide 26 mmol/L (22-29); Chloride 104 mmol/L (96-108); Creatinine Clr Calc Pharmacy 70.2; Estimated Glomerular Filt Rate > 60; Potassium 4.3 mmol/L (3.3-5.1); Sodium 137 mmol/L (135-145)
[2025-06-18 06:25] LABS: Hemoglobin 7.1 g/dl (12.0-16.0); Imm Gran Abs Auto 0.07 X10*3/uL (0.00-0.03); Imm Gran Pct Auto 0.6 % (0.0-0.4); Lymphocytes Absolute Auto 1.0 X10*3/uL (1.2-4.9); MANUAL DIFF FLAG SCAN; Mean Corpuscular HGB Conc 34.8 g/dl (31.0-35.0); Mean Corpuscular Hemoglobin 31.1 pg (27.0-33.0); Mean Corpuscular Volume 89.5 fL (80.0-98.0); NRBC Abs Auto 0.000 X10*3/uL (0.0-0.012); NRBC Pct Auto 0.0 /100WBC (0.0-0.2); Platelet Count 219 X10*3/uL (160-400); Red Blood Count 2.28 X10*6/uL (4.20-5.50); SCAN SMEAR FLAG 1; White Blood Count 11.2 X10*3/uL (4.8-10.8)
[2025-06-18 07:35] LABS: Hematocrit 20.4 % (37.0-47.0)
--- NOTE | 2025-06-18 07:48 | PM.PNORT ---
Subjective Subjective Date of Service: 06/18/25 Interval history: POD1 s/p LTHA Patient is resting in bed comfortably No overnight events Pain is not managed No additional complaints Physical Exam Vital Signs: Vital Signs: Last Vital Signs Temp 97.6 F 06/18/25 07:33 Pulse 73 06/18/25 07:33 Resp 12 06/18/25 07:33 BP 108/65 06/18/25 07:33 Pulse Ox 94 06/18/25 07:33 O2 Del Method Room Air 06/18/25 07:33 BMI result Body Mass Index 22.1 Const: General: cooperative, healthy appearing and no acute distress Resp: Effort & Inspection: normal respiratory effort and able to speak in complete sentences Cardio: Rate: regular rate Peripheral pulses: Peripheral pulses 2+ throughout GI: Palpation (GI): Soft to palpation Skin: Lesions: no lesions Rashes: no rashes Extrem: Other: left hip dressing is c/d/i. Able to dorsi/plantar flex. Calf is supple and nontender. Sensation intact. Pedal pulse intact. Procedures Date of Service Date of Service: 06/18/25 Progress Note: A&P Assessment and plan (1) Status post total replacement of left hip: Status: Acute Plan Continue pain mgmnt Begin ASA dvt ppx begin PT/OT for LTHA Adding oxycodone 5mg po q4hrs for pain Dispo planning-Pending PT eval, pain mgmnt Time Spent With Patient Time: Total time managing care of this patient today ____ minutes. Quality Stroke Does the patient have a stroke diagnosis?: No VTE Prior VTE?: No VTE Risk Level:: Medical - moderate - high VTE Device Contraindication: N/A - Device Ordered VTE Drug Contraindication: N/A - Med Ordered
[2025-06-18] MEDS: SALMETEROL INHALE ×2 (08:31→20:39)
[2025-06-18] MEDS: FLUTICASONE INHALE ×2 (08:31→20:39)
[2025-06-18] MEDS: oxyCODONE HCl ER 10 MG TAB.ER.12H PO ×2 (08:51→20:26)
[2025-06-18] MEDS: NARATRIPTAN 2.5 MG 2.5 EACH PO (12:47)
--- NOTE | 2025-06-18 14:11 | MHC.CM.PN ---
Addendum entered by Yoli Xiong 06/18/25 14:14: CORRECTION: NOT [facility], [facility]LOOK AND [facility] ARE FOLLOWING Original Note: PT REPORTS SHE LIVES WITH HER SHE HAS NO SERVICES SHE USES A CANE OR WALKER DEPENDING ON DISTANCE, SHE ALSO HAS A TUB BENCH SHE DOES NOT WANT TO COMPLETE A HCP TODAY, BUT WILL TAKE IT HOME TO DISCUSS WITH FAMILY PCP: BEAN CORDERO DCP TBD PENDING PT EVAL, PT HOPES TO GO HOME WITH [facility] -REF TO [facility] WOULD TRANSPORT
[2025-06-18] MEDS: Albuterol Sulfate 90 MCG 8 GM INHALER 2 PUFF INHALE (14:40)
[2025-06-18] MEDS: 0.9 % Sodium Chloride Flush 3 ML SYRINGE IVFLUSH ×2 (15:08→20:30)
[2025-06-18] MEDS: oxyCODONE HCl Immed Release 5 MG TABLET PO (15:08)
[2025-06-19 03:15] VITALS: BP 105/61; PULSE 75; RESP 18; TEMP 36.4; O2SAT 94
[2025-06-19 05:46] LABS: MANUAL DIFF FLAG NO
[2025-06-19 06:06] LABS: Anion Gap 11 (12-20); Blood Urea Nitrogen 7 mg/dL (9-16); Calcium 8.7 mg/dL (8.4-10.2); Carbon Dioxide 28 mmol/L (22-29); Chloride 105 mmol/L (96-108); Creatinine Clr Calc Pharmacy 72.3; Estimated Glomerular Filt Rate > 60; Potassium 4.2 mmol/L (3.3-5.1); Sodium 140 mmol/L (135-145)
[2025-06-19 06:15] LABS: Hematocrit 28.0 % (37.0-47.0); Hemoglobin 9.2 g/dl (12.0-16.0); Imm Gran Abs Auto 0.06 X10*3/uL (0.00-0.03); Imm Gran Pct Auto 0.8 % (0.0-0.4); Lymphocytes Absolute Auto 1.2 X10*3/uL (1.2-4.9); Mean Corpuscular HGB Conc 32.9 g/dl (31.0-35.0); Mean Corpuscular Hemoglobin 29.0 pg (27.0-33.0); Mean Corpuscular Volume 88.3 fL (80.0-98.0); NRBC Abs Auto 0.000 X10*3/uL (0.0-0.012); NRBC Pct Auto 0.0 /100WBC (0.0-0.2); Platelet Count 165 X10*3/uL (160-400); Red Blood Count 3.17 X10*6/uL (4.20-5.50); White Blood Count 7.4 X10*3/uL (4.8-10.8)
[2025-06-19 07:09] VITALS: BP 117/65; PULSE 76; RESP 12; TEMP 35.7; O2SAT 92
--- NOTE | 2025-06-19 07:44 | PM.PNORT ---
Subjective Subjective Date of Service: 06/19/25 Interval history: POD2 s/p LTHA Patient is resting in bed comfortably No overnight events Pain is not managed No additional complaints Physical Exam Vital Signs: Vital Signs: Last Vital Signs Temp 96.3 F L 06/19/25 07:09 Pulse 76 06/19/25 07:09 Resp 12 06/19/25 07:09 BP 117/65 06/19/25 07:09 Pulse Ox 92 06/19/25 07:09 O2 Del Method Room Air 06/19/25 07:09 BMI result Body Mass Index 22.1 Const: General: cooperative, healthy appearing and no acute distress Resp: Effort & Inspection: normal respiratory effort and able to speak in complete sentences Cardio: Rate: regular rate Peripheral pulses: Peripheral pulses 2+ throughout GI: Palpation (GI): Soft to palpation Skin: Lesions: no lesions Rashes: no rashes Extrem: Other: left hip dressing is c/d/i. Able to dorsi/plantar flex. Calf is supple and nontender. Sensation intact. Pedal pulse intact. Procedures Date of Service Date of Service: 06/19/25 Progress Note: A&P Assessment and plan (1) Status post total replacement of left hip: Status: Acute Plan Continue pain mgmnt Begin ASA dvt ppx begin PT/OT for LTHA Dispo planning-PT, pain mgmnt - patient struggling with p.t. will reassess today if patient is safe to discharge home Time Spent With Patient Time: Total time managing care of this patient today ____ minutes. Quality Stroke Does the patient have a stroke diagnosis?: No VTE Prior VTE?: No VTE Risk Level:: Medical - moderate - high VTE Device Contraindication: N/A - Device Ordered VTE Drug Contraindication: N/A - Med Ordered
[2025-06-19] MEDS: Albuterol Sulfate 90 MCG 8 GM INHALER 2 PUFF INHALE (08:20)
[2025-06-19] MEDS: 0.9 % Sodium Chloride Flush 3 ML SYRINGE IVFLUSH (08:21)
[2025-06-19 08:22] VITALS: BP 117/65
[2025-06-19] MEDS: oxyCODONE HCl ER 10 MG TAB.ER.12H PO (08:22)
[2025-06-19 08:27] VITALS: PULSE 76; RESP 12; O2SAT 97
[2025-06-19] MEDS: SALMETEROL INHALE (08:27)
[2025-06-19] MEDS: FLUTICASONE INHALE (08:27)
[2025-06-19] MEDS: oxyCODONE HCl Immed Release 5 MG TABLET PO (10:22)
--- NOTE | 2025-06-19 10:53 | MHC.CM.PN ---
PT CLEARED TO [facility] HOME TODAY WITH [facility] TO TRANSPORT
--- NOTE | 2025-06-20 08:56 | W.PM.OPN ---
Operative Note Operative Note Date of Service: 06/17/25 Narrative: Date of Service: 06/17/25 Pre-op diagnosis: Left hip OA Post-op diagnosis: same Procedure: Left CHRISTELLE Implants: [place] Trident2 52/ 2 6.5mm acetabular screws and lipped liner; Accolade2 #4 127 with +5/36 ceramic Surgeon: Kaiden Tom MD Anesthesia: regional and spinal Was an Head School Custodian used for this Procedure?: Yes Head School Custodian: Rios Vee Estimated blood loss (mL): 200 IV fluids (mL): 1,000 Pathology: other Condition: stable Disposition: PACU Patient was brought into the operating room and placed in the right lateral decubitus position. All bony prominences were well padded and the limb was prepped and draped in standard sterile fashion. A time-out was called to identify proper site procedure proper surgeon IV antibiotics and 1 g of tranexamic acid were administered. I began by making a curvilinear incision over the posterolateral aspect of the greater trochanter. Dissection was taken down to the tensor fascia which was incised in line with the incision and a Charnley retractor was placed. Cautery was used to maintain hemostasis. The hip was internally rotated and the external rotators were identified. The vessels were cauterized and a full-thickness capsular/external rotator layer was developed starting just distal to the piriformis. This layer was tagged and a dull Hohmann retractor was placed underneath the neck in the hip was dislocated. A neck cut was made 1 cm proximal to the lesser trochanter and the head and neck were removed and measured 47-48mm on the back table. The head was deformed and eburnated. I then removed the labrum and cauterized the fovea. I started with a 44 reamer and medialized to the inner table. I sequentially reamed up to a size 52 and impacted a 52mm cup at 45 degrees of inclination and 25 degrees of version. I then placed a 20 deg posterior lipped liner and turned my attention to the femur. I identified the piriformis insertion and used a starting point just posterior to this for my verena cutter. The medius tendon was protected with a Hibs retractor. A Charnley awl was inserted in the canal and a curved curette used to remove the lateral bone. I irrigated copiously. I then sequentially broached in the patient's natural version to a size 4 and placed my trial implants. I used a #4/127/+5 based on my pre-operative template. I removed all instrumentation and copiously irrigated. I placed my final femoral implant and again took the hip through range of motion and was satisfied with the stability and length. The final +5 implant was impacted in place and the hip reduced. I then irrigated copiously and placed 1 g of local tranexamic acid. I performed a capsular closure with 2.0 fiberwire, Carmelo's fascia with 0 Vicryl, subcuticular with 2-0 Vicryl and the skin with gray. Patient was placed into a sterile dressing. Patient was extubated brought to the recovery room in stable condition. There were no known complications.
== END 2025-06-19 12:37 | disposition home health service (06) ==
LOC: HO.SSS 10:40 → HO.S3 14:33
PROVIDERS: Physician Assistant; PCP Family Medicine; Visit Provider Orthopaedic Surgery
PROC: (CPT 27130; principal; 2025-06-17 09:30)
DX: M16.12 Unilateral primary osteoarthritis, left hip (principal); M25.552 Pain in left hip; R26.2 Difficulty in walking, not elsewhere classified; Z91.81 History of falling; R10.30 Lower abdominal pain, unspecified; M81.0 Age-related osteoporosis without current pathological fracture; G89.4 Chronic pain syndrome; G43.909 Migraine, unspecified, not intractable, without status migrainosus; M51.369 Other intervertebral disc degeneration, lumbar region without mention of lumbar back pain or lower extremity pain; M96.1 Postlaminectomy syndrome, not elsewhere classified; I12.9 Hypertensive chronic kidney disease with stage 1 through stage 4 chronic kidney disease, or unspecified chronic kidney disease; N18.9 Chronic kidney disease, unspecified; J45.909 Unspecified asthma, uncomplicated; F90.9 Attention-deficit hyperactivity disorder, unspecified type; F32.A Depression, unspecified; Z79.899 Other long term (current) drug therapy; Z88.1 Allergy status to other antibiotic agents; Z88.6 Allergy status to analgesic agent; Z98.890 Other specified postprocedural states; Z87.891 Personal history of nicotine dependence
CPT/HCPCS: 27130; 36415; 72170; 80048; 85025; 86850; 86900; 86901; 86923; 87640; 87641; 88304; 88311; 94640; 97162; 97166; 97535; C1713; C1776; J0131; J1100; J1171; J1885; J2250; J2405; J2704; J2795; J3010; J3374; J7120; P9016

== ENCOUNTER → 2025-06-17 07:01 | Outpatient (BNV) | payer MEDICARE, SELFPAY | PROVIDERS: PCP Family Medicine; Visit Provider Orthopaedic Surgery | DX: Z47.1 Aftercare following joint replacement surgery (principal); Z96.642 Presence of left artificial hip joint | CPT/HCPCS: 27130; 99024; G0180 ==

== ENCOUNTER → 2025-06-17 07:01 | Outpatient (BNV) | payer MEDICARE, SELFPAY | PROVIDERS: PCP Family Medicine; Visit Provider Nurse Practitioner Acute Care | DX: Z91.81 History of falling (principal) | CPT/HCPCS: 99223 ==

== ENCOUNTER → 2025-06-17 07:24 | Outpatient (BNV) | payer MEDICARE, SELFPAY | PROVIDERS: PCP Family Medicine; Visit Provider Radiology Diagnostic Radiology | DX: M16.12 Unilateral primary osteoarthritis, left hip (principal); Z96.642 Presence of left artificial hip joint | CPT/HCPCS: 72170 ==

== ENCOUNTER 2025-07-03 09:41 | Outpatient (AMB) | payer MEDICARE, SELFPAY ==
--- NOTE | 2025-07-03 09:56 | A.OFFVIS_ITS ---
Intake Visit Reasons: 2WKPO: L CHRISTELLE w/NE 06/17/25 Intake Note: Marilu is a 65 year old woman who presents today for her first post operative visit status post left CHRISTELLE DOS: 06/20/[address] Tom. Patient reports that she is doing well, states her pain varies and is more of a tiring feeling. States that vicodin helps with her pain. Allergies amoxicillin (From Augmentin) Allergy (Severe, Verified 07/03/25 10:05) Facial Swelling clavulanic acid (From Augmentin) Allergy (Severe, Verified 07/03/25 10:05) Facial Swelling naproxen Allergy (Severe, Verified 07/03/25 10:05) asthma, SOB animal dander (PET DANDER) Allergy (Intermediate, Verified 07/03/25 10:05) rash SEASONAL ALLERGIES Allergy (Mild, Uncoded 07/03/25 10:05) congestion Medication List - Last Reconciled 07/03/25 by Rios Vee PA-C albuterol sulfate 90 mcg/actuation 2 puffs inhalation Q4-6H PRN aspirin 325 mg PO BID 42 days celecoxib 200 mg PO BID 30 days cetirizine (Zyrtec) 10 mg PO DAILY PRN 30 days clonazepam 1 mg PO BID PRN clonidine HCl 0.1 mg PO TID 30 days diclofenac sodium 1% (Voltaren Arthritis Pain) 4 grams topical QID PRN 30 days docusate sodium 100 mg PO BID 30 days duloxetine 60 mg PO DAILY duloxetine 30 mg PO DAILY fluticasone propion-salmeterol 500-50 mcg/dose (Wixela Inhub) 1 inh inhalation BID 30 days [Folding Front Wheeled walker Duration: 99 days] hydrocodone-acetaminophen 10-325 mg 1 tab PO Q6H PRN 30 days MDD 4 ibuprofen 800 mg PO Q12H PRN lisinopril 40 mg PO DAILY 3 months lorazepam 1 mg PO BID PRN [id number]-[id number] acid 18-400 mg-mcg 1 tab PO DAILY naloxone 4 mg/actuation (Narcan) 4 mg intranasal Q2M PRN naratriptan 2.5 mg PO ONCE PRN 30 days tizanidine 4 mg PO TID PRN trazodone 50 mg PO BEDTIME HPI HPI 2WKPO: L CHRISTELLE w/NE 8/19/25: Details: A 65-year-old female returns to the office today for a follow-up left total hip arthroplasty on 06/17/2025. She is ambulating with her walker and she is continuing to work with physical therapy at home the goal is transition to outpatient therapy within the next day or so. Her pain is well managed however she does have overall weakness from years of limited function due to her hip and also her back. She was discharged on Vicodin and also oxycodone but feels the oxycodone was given her migraine so she has since stopped. She continues with the Vicodin which she receives from pain management. She does have an upcoming appointment with them as she has a pain contract with their office. [facility] Medical History Osteoarthritis Depression ADHD (attention deficit hyperactivity disorder) Motion sickness Chronic kidney disease (CKD) Environmental and seasonal allergies Left groin pain Depression Migraine headache Stool incontinence Chronic pain syndrome Postlaminectomy syndrome Disc degeneration, lumbar Compression fracture of L1 lumbar vertebra Osteoporosis Hypertension Spondylosis Attention deficit disorder Herniated disc Asthma Anxiety Migraine headache Surgical History Hx of cervical spine surgery (11/20/24) History of foot surgery Hx of colonoscopy Status post kyphoplasty History of lumbosacral spine surgery History of cervical spinal surgery History of spinal surgery History of surgery on left wrist Family History Sister Ovarian cancer Lung cancer Maternal Grandmother Ovarian cancer Paternal Aunt Ovarian cancer Maternal Aunt Pancreatic cancer Social History Household Members: Spouse Housing: House Are you a primary intensive care unit registered nurse to a significant other at home: No Do you presently have visiting nurse or other home services: No 75 years or older and lives alone: No Alcohol intake: current Alcohol intake frequency: holidays/special occasions o nly Comment: medicated in pacu Patient Tobacco Use Status: Former Tobacco user Tobacco use type: Cigarette e-Cigarette/Vaping Use: Never Used Second Hand Smoke Exposure: No service: No Current occupational status: disabled 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 She has no significant pain with hip flexion or range of motion. Calf is supple and nontender neurovascularly intact. Assessment & Plan Assessment & Plan (1) Status post total replacement of left hip: Code(s): Z96.642 - Presence of left artificial hip joint Category: Surgical Plan: [place] removed today Steri-Strips applied. The patient will continue to work with physical therapy for gait training, strengthening exercises and core/lumbar stabilization. As for her pain medication at this time she does have Vicodin from a previous prescription and we will continue to receive this from pain management. She will contact me if they would like us to proceed for the 1st few weeks after surgery. She understands her hip precautions. She will see us back in [address] Tom sooner if needed. Coding Level of Care Code Global (42340) Diagnoses Status post total replacement of left hip Z96.642
== END 2025-07-03 10:32 | disposition home or self-care (01) ==
LOC: HO.HOS 09:42
PROVIDERS: PCP Family Medicine; Visit Provider Physician Assistant
DX: Z96.642 Presence of left artificial hip joint (principal)
CPT/HCPCS: 99024

== ENCOUNTER → 2025-07-03 09:41 | Outpatient (BNVA) | payer MEDICARE, SELFPAY | PROVIDERS: PCP Family Medicine; Visit Provider Physician Assistant | DX: Z96.642 Presence of left artificial hip joint (principal) | CPT/HCPCS: 99212 ==

== ENCOUNTER 2025-07-21 10:27 | Outpatient (REF) | payer MEDICARE, SELFPAY ==
--- NOTE | ~2025-07-21 | XR_ITS ---
EXAMINATION: XR PELVIS CLINICAL INFORMATION: M25.559 - Pain in unspecified hip COMPARISON: June 17, 2025 TECHNIQUE: AP view of the pelvis. FINDINGS: Total hip arthroplasty is again noted on the left. Acetabular cup is secured with 2 screws. Femoral stem makes good cortical contact. There is no shift in the hardware. Mild degenerative changes are present in the right hip joint with marginal osteophytes. Moderate degenerative changes present in the SI joints with marginal osteophytes and mild narrowing. There is mild bony thickening along the right iliopubic junction that appears stable and chronic. XR/XR pelvis 1-2V IMPRESSION: Stable total left hip arthroplasty follow-up. Moderate degenerative changes in the SI joints and mild right hip degenerative change. Electronically signed by: Mathew Ruby MD 07/21/2025 11:32 AM EDT
== END 2025-07-21 10:28 | disposition home or self-care (01) ==
LOC: HO.HOSX 10:27
PROVIDERS: Visit Provider Orthopaedic Surgery
DX: Z47.1 Aftercare following joint replacement surgery (principal); Z96.642 Presence of left artificial hip joint
CPT/HCPCS: 72170; 99212

== ENCOUNTER 2025-07-21 11:16 | Outpatient (AMB) | payer MEDICARE, SELFPAY ==
--- NOTE | 2025-07-21 11:23 | MHC.OFFVIS ---
Vital Signs 07/21/25 11:34 Height 5 ft 4 in Weight 130 lb BMI 22.3 Intake Visit Reasons: 6WKPO: Elsa CHRISTELLE 06/17/25 Intake Note: Marilu is a 65 year old woman who presents today for a post operative visit 4 weeks status post left CHRISTELLE DOS: 06/20/25. States she isn't having pain just aches and soreness due to working with P.T. Patient states she has fallen 1x after her last visit. She has bruising and a lump on left hip. States she doesnt feel like she hurt her hip. Allergies amoxicillin (From Augmentin) Allergy (Severe, Verified 07/21/25 11:34) Facial Swelling clavulanic acid (From Augmentin) Allergy (Severe, Verified 07/21/25 11:34) Facial Swelling naproxen Allergy (Severe, Verified 07/21/25 11:34) asthma, SOB animal dander (PET DANDER) Allergy (Intermediate, Verified 07/21/25 11:34) rash SEASONAL ALLERGIES Allergy (Mild, Uncoded 07/21/25 11:34) congestion HPI HPI 6WKPO: Elsa CHRISTELLE 06/17/25: Details: 65-year-old woman now 5 weeks status post left hip replacement. Overall she states she has minimal pain in her hip. She continues to use a walker because she is unsteady. She feels that her balance is poor and has been told as much with physical therapy. She also states that her knees especially her left knee feels like it will occasionally give way. I have injected her left knee in the past. She has moderate to severe left knee arthritis and ahsn-hs-[id number] right knee arthritis. Over the past 5 weeks since her surgery she has had few falls. She bruised her left leg. She states her hip though has not caused her any problems. [facility] Medical History Osteoarthritis Depression ADHD (attention deficit hyperactivity disorder) Motion sickness Chronic kidney disease (CKD) Environmental and seasonal allergies Left groin pain Depression Migraine headache Stool incontinence Chronic pain syndrome Postlaminectomy syndrome Disc degeneration, lumbar Compression fracture of L1 lumbar vertebra Osteoporosis Hypertension Spondylosis Attention deficit disorder Herniated disc Asthma Anxiety Migraine headache Surgical History Hx of cervical spine surgery (11/20/24) History of foot surgery Hx of colonoscopy Status post kyphoplasty History of lumbosacral spine surgery History of cervical spinal surgery History of spinal surgery History of surgery on left wrist Family History Sister Ovarian cancer Lung cancer Maternal Grandmother Ovarian cancer Paternal Aunt Ovarian cancer Maternal Aunt Pancreatic cancer Social History Household Members: Spouse Housing: House Are you a primary animal care specialist to a significant other at home: No Do you presently have visiting nurse or other home services: No 75 years or older and lives alone: No Alcohol intake: current Alcohol intake frequency: holidays/special occasions only Comment: medicated in pacu Patient Tobacco Use Status: Former Tobacco user Tobacco use type: Cigarette e-Cigarette/Vaping Use: Never Used Second Hand Smoke Exposure: No service: No Current occupational status: disabled 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 Incision is clean dry and intact. She has scabs on both her knees apparently from recent falls. Vital Signs: BMI result Body Mass Index 22.3 Results Reviewed Results Reviewed: I personally reviewed relevant radiographs. Left CHRISTELLE in expected post operative position with no hardware complications or evidence of loosening Assessment & Plan Assessment & Plan (1) Status post total replacement of left hip: Code(s): Z96.642 - Presence of left artificial hip joint Category: Surgical Plan: Status post left hip replacement. Her exam is benign. X-rays are unremarkable. Overall she seems to be doing very well albeit a little slow to progress and still using a walker but this sounds like it is more because of gait imbalance. I recommend she continue to use a walker and try to avoid falling and I will see her back in 6 weeks. Orders: Orders XR pelvis 1-2V Today M25.559 - Pain in unspecified hip Coding Level of Care Code Global (74657) Diagnoses Status post total replacement of left hip Z96.642
[2025-07-21 11:34] VITALS: BMI 22.3
== END 2025-07-21 11:55 | disposition home or self-care (01) ==
LOC: HO.HOS 11:17
PROVIDERS: PCP Family Medicine; Visit Provider Orthopaedic Surgery
DX: Z96.642 Presence of left artificial hip joint (principal)
CPT/HCPCS: 99024

== ENCOUNTER → 2025-07-21 11:19 | Outpatient (BNV) | payer MEDICARE, SELFPAY | PROVIDERS: Visit Provider Radiology Diagnostic Radiology | DX: M25.552 Pain in left hip (principal); Z96.642 Presence of left artificial hip joint | CPT/HCPCS: 72170 ==

== ENCOUNTER 2025-07-29 11:46 | Outpatient (AMB) | payer MEDICARE, SELFPAY ==
--- NOTE | 2025-07-29 12:03 | MHC.PC.OV ---
Vital Signs 07/29/25 12:14 Height 5 ft 4 in Weight 126 lb 8 oz BMI 21.7 BP 112/62 Blood Pressure Location Lt brachial Position Sitting Respiration 12 Pulse 98 Pulse Source Pulse Oximeter Temp 98.2 F Temp Source Temporal Artery Scan Pulse Oximetry (%) 96 Oxygen Delivery Method Room Air Intake Visit Reasons: f/u HTN Intake Note: Marilu presents in the office today for a follow up to her hypertension. Allergies amoxicillin (From Augmentin) Allergy (Severe, Verified 07/29/25 12:09) Facial Swelling clavulanic acid (From Augmentin) Allergy (Severe, Verified 07/29/25 12:09) Facial Swelling naproxen Allergy (Severe, Verified 07/29/25 12:09) asthma, SOB animal dander (PET DANDER) Allergy (Intermediate, Verified 07/29/25 12:09) rash celecoxib (From Celebrex) Allergy (Verified 07/29/25 12:09) Shortness of Breath oxycodone Adverse Reaction (Verified 07/29/25 12:09) Migraine SEASONAL ALLERGIES Allergy (Mild, Uncoded 07/29/25 12:09) congestion Medication List - Last Reconciled 07/29/25 by Gustavo eLiva MD albuterol sulfate 90 mcg/actuation 2 puffs inhalation Q4-6H PRN cetirizine (Zyrtec) 10 mg PO DAILY PRN 30 days clonazepam 1 mg PO BID PRN clonidine HCl 0.1 mg PO TID 30 days diclofenac sodium 1% (Voltaren Arthritis Pain) 4 grams topical QID PRN 30 days docusate sodium 100 mg PO BID 30 days duloxetine 60 mg PO DAILY duloxetine 30 mg PO DAILY fluticasone propion-salmeterol 500-50 mcg/dose (Wixela Inhub) 1 inh inhalation BID [Folding Front Wheeled walker Duration: 99 days] hydrocodone-acetaminophen 10-325 mg 1 tab PO Q6H PRN 30 days MDD 4 ibuprofen 800 mg PO Q12H PRN lisinopril 40 mg PO DAILY 3 months lorazepam 1 mg PO BID PRN iahwndhypost-mqkj-orcsm acid 18-400 mg-mcg 1 tab PO DAILY naloxone 4 mg/actuation (Narcan) 4 mg intranasal Q2M PRN naratriptan 2.5 mg PO ONCE PRN 30 days tizanidine 4 mg PO BEDTIME PRN 30 days trazodone 50 mg PO BEDTIME Tobacco use date assessed: 07/29/25 Dental Screening Dental Screen Date: 07/29/25 Did you have a dental visit in the last 12 months?: Yes Did you have a dental problem in the last 6 months where you did not have access to dental care?: No Was dental information given to patient?: Yes HPI f/u HTN HPI Details 65 y/o female presents to f/u hypertension, pre-diabetes. Blood pressure today 112/62, 98p. She is on lisinopril 40mg. A1c today 5.9%. S/p total replacement of L hip and had been following up with Dr. Tom, orthopedics. Ongoing complaints of migraines. Pt reports mouth swelling s/p fall and she describes pressure on her jaws. Also reports some difficulty swallowing. [facility] Medical History Osteoarthritis Depression ADHD (attention deficit hyperactivity disorder) Motion sickness Chronic kidney disease (CKD) Environmental and seasonal allergies Left groin pain Depression Migraine headache Stool incontinence Chronic pain syndrome Postlaminectomy syndrome Disc degeneration, lumbar Compression fracture of L1 lumbar vertebra Osteoporosis Hypertension Spondylosis Attention deficit disorder Herniated disc Asthma Anxiety Migraine headache Surgical History Hx of cervical spine surgery (11/20/24) History of foot surgery Hx of colonoscopy Status post kyphoplasty History of lumbosacral spine surgery History of cervical spinal surgery History of spinal surgery History of surgery on left wrist Family History Sister Ovarian cancer Lung cancer Maternal Grandmother Ovarian cancer Paternal Aunt Ovarian cancer Maternal Aunt Pancreatic cancer Social History (Updated 07/29/25 @ 12:14 by Earnestine Silverio CMA) Household Members: Spouse Housing: House Are you a primary daycare assistant to a significant other at home: No Do you presently have visiting nurse or other home services: No 75 years or older and lives alone: No Alcohol intake: current Alcohol intake frequency: holidays/special occasions only Comment: medicated in pacu Patient Tobacco Use Status: Former Tobacco user Tobacco use type: Cigarette e-Cigarette/Vaping Use: Never Used Second Hand Smoke Exposure: No service: No Current occupational status: disabled 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 Current occupational exposures/hazards: No Cognitive needs: No Hearing needs: No Vision needs: No Questionnaire Thrive Questionnaire Date Thrive assessed: 06/18/25 I am a: Patient What is your living situation today?: I have a steady place to live Within the past 12 months, did the food you bought not last and you didn't have the money to get more?: Never true Within the past 12 months, did you worry whether your food would run out before you got money to buy more?: Never true Do you have trouble paying for medicines?: No Do you have trouble getting transportation to medical appointments?: No Do you have trouble paying your heating and electricity bill?: Yes Do you have trouble taking care of your child, family member or friend?: Yes Do you have trouble with day-to-day activities such as bathing, preparing meals, shopping, managing finances, etc.?: Yes Are you currently unemployed and looking for a job?: No Are you interested in more education?: No Currently or been in a relationship where the following occur: No concerns reported THRIVE Score: 1 MAU-7 AMB Questionnaire MAU-7 Date MAU - 7 assessed: 01/13/25 Source: Developed by Drs. Tyrone García, Marnie Huston, Sadi Ross and colleagues, with an educational krystina from [employer]. Review of Systems Const Denies chills, Denies fatigue, Denies fever(s), Denies headache(s) and Denies weakness ENT Denies dizziness and Denies headache(s) Card Denies dyspnea Resp Denies cough, Denies dyspnea, Denies wheezing and Denies other (shortness of breath) Musc Denies numbness and Denies tingling Neuro Denies dizziness, Denies headache(s), Denies numbness, Denies tingling and Denies weakness Psych Denies anxiety and Denies depression Endo Denies fatigue Aller/Immun Denies wheezing Physical exam (Primary Care) Vital Signs: Last Vital Signs Temp 98.2 F 07/29/25 12:14 Pulse 98 07/29/25 12:14 Resp 12 07/29/25 12:14 BP 112/62 07/29/25 12:14 Pulse Ox 96 07/29/25 12:14 Oxygen Delivery Method Room Air 07/29/25 12:14 BMI result Body Mass Index 21.7 Tobacco/Smoking Status: Tobacco use Status Tobacco use date assessed 07/29/25 07/29/25 12:18 Patient Tobacco Use Status Former Tobacco user 07/29/25 12:14 Tobacco use type Cigarette 07/29/25 12:14 e-Cigarette/Vaping Use Never Used 07/29/25 12:14 Thrive Assessment: Date of Thrive Assessment Date Thrive assessed 06/18/25 07/29/25 12:05 Currently or been in a relationship where the following occur: No concerns reported Const General: well developed; No acute distress Nutritional Appearance: well nourished Orientation/consciousness: patient oriented x3 HENMT Head: Yes normocephalic and Yes atraumatic Eyes General: appearance normal, both eyes and all related structures Pupils: Equal, round and reactive pupils present EOM: EOMs intact bilaterally Resp Effort & Inspection: normal respiratory effort Auscultation: clear to auscultation bilaterally Cardio Rate: regular rate Rhythm: regular rhythm Heart sounds: S1 normal heart sound present, S2 normal heart sound present, no gallops, no murmurs and no rubs Neuro General: patient oriented x3 and gait normal Cranial nerves: Yes Equal, round and reactive pupils present Psych Affect: normal affect Results AMB Hemoglobin A1c AMB Hemoglobin A1c 5.9 % Last Edit by Earnestine Silverio CMA on 07/29/25 12:42 Coding Level of Care Code Est Pt Level 4 (28549) Diagnoses Pre-diabetes R73.03 Hypertension, unspecified type I10 Hypertension type: unspecified Status post total replacement of left hip Z96.642 Recurrent falls R29.6 Migraine headache G43.909 Cervical myelopathy with cervical radiculopathy G95.9; M54.12 Shoulder pain M25.519 Mouth swelling R22.0 Difficulty swallowing R13.10 Traumatic hematoma of face S00.83XA Assessment & Plan Assessment & Plan (1) Pre-diabetes: Code(s): R73.03 - Prediabetes Category: Medical Plan: A1c improved from 6.1% to 5.9% Encouraged diet low in sugars and starches Will continue to monitor (2) Hypertension: Code(s): I10 - Essential (primary) hypertension Category: Medical Qualifiers: Hypertension type: unspecified Qualified Code(s): I10 - Essential (primary) hypertension Plan: Blood pressure is well controlled. Goal is less than 130/80 Continue current medication (3) Status post total replacement of left hip: Code(s): Z96.642 - Presence of left artificial hip joint Category: Surgical Plan: S/p left hip replacement and recurrent falls Left hip has healed well however patient has fallen and bruised her left thigh. She now has a rolling walker and has had no further falls. She is undergoing physical therapy for left hip Follow-up with ortho as recommended (4) Recurrent falls: Code(s): R29.6 - Repeated falls Category: Medical Plan: As above (5) Migraine headache: Code(s): G43.909 - Migraine, unspecified, not intractable, without status migrainosus Category: Medical Plan: Migraines about every other day since her last fall where she strain her neck Refilled naratriptan which she says helps Will give her a 1 month course of tizanidine at bedtime. She will avoid using this at the same time as lorazepam or other medications that cause sedation or drowsiness Cautioned her regarding falls. (6) Cervical myelopathy with cervical radiculopathy: Code(s): G95.9 - Disease of spinal cord, unspecified; M54.12 - Radiculopathy, cervical region Category: Medical Plan: As above, giving her some tizanidine This should improve to her baseline We discussed that if not improving we will start physical therapy right shoulder and neck pain (7) Shoulder pain: Code(s): M25.519 - Pain in unspecified shoulder Category: Medical Plan: As above (8) Mouth swelling: Code(s): R22.0 - Localized swelling, mass and lump, head Category: Medical Plan: Patient notes some mild swelling and discomfort since her fall 1 year ago She will discuss this with her dentist (9) Difficulty swallowing: Code(s): R13.10 - Dysphagia, unspecified Category: Medical Plan: Patient notices some difficulty swallowing Will check modified barium swallow study (10) Traumatic hematoma of face: Code(s): S00.83XA - Contusion of other part of head, initial encounter Category: Medical Plan: Ongoing traumatic hematoma of the face which has not resolved in 1 year. Referred to Plastic surgery Plan Patient had several other concerns and we will discuss these at her next appointment in 1 month. Orders: Orders AMB Hemoglobin A1c Today R73.03 - Prediabetes [place] Modified Barium Swallow Today R13.10 - Dysphagia, unspecified Referrals Plastic Surgery Referral S00.83XA - Contusion of other part of head, initial encounter Medications: Changed From tizanidine 4 mg PO TID PRN 90 tabs 3RF for muscle spasm To tizanidine 4 mg PO BEDTIME PRN 30 tabs 0RF for muscle spasm 30 days Refilled naratriptan 2.5 mg PO ONCE PRN 12 tabs 2RF migraine 30 days
[2025-07-29 12:14] VITALS: BP 112/62; PULSE 98; RESP 12; TEMP 36.8; O2SAT 96; BMI 21.7
== END 2025-07-29 13:04 | disposition home or self-care (01) ==
LOC: HO.HMCFM 11:47
PROVIDERS: PCP Family Medicine; Visit Provider Family Medicine
DX: R73.03 Prediabetes (principal)

== ENCOUNTER → 2025-07-29 11:46 | Outpatient (BNVA) | payer MEDICARE, SELFPAY | PROVIDERS: PCP Family Medicine; Visit Provider Family Medicine | DX: I10 Essential (primary) hypertension (principal); R73.03 Prediabetes; G43.909 Migraine, unspecified, not intractable, without status migrainosus; R29.6 Repeated falls; G95.9 Disease of spinal cord, unspecified; M54.12 Radiculopathy, cervical region; M25.519 Pain in unspecified shoulder; R22.0 Localized swelling, mass and lump, head; R13.10 Dysphagia, unspecified; S00.83XA Contusion of other part of head, initial encounter; X58.XXXA Exposure to other specified factors, initial encounter; Y93.9 Activity, unspecified; Y92.89 Other specified places as the place of occurrence of the external cause; Y99.9 Unspecified external cause status; Z96.642 Presence of left artificial hip joint | CPT/HCPCS: 83036; 99212 ==

== ENCOUNTER 2025-08-08 11:03 | Outpatient (AMB) | payer MEDICARE, SELFPAY ==
--- NOTE | 2025-08-08 11:06 | A.OFFVIS_ITS ---
Vital Signs 08/08/25 11:32 Height 5 ft 4 in Weight 126 lb 4 oz BMI 21.7 BP 165/94 H Blood Pressure Location Lt brachial Position Sitting Pulse 98 Pulse Source Pulse Oximeter Pulse Oximetry (%) 98 Oxygen Delivery Method Room Air Intake Visit Reasons: Pill Count Intake Note: Marilu comes in today for a pill count to hydrocodone-acetaminophen, patient should have 44 tablets and presents with 48 tablets which she last took today 08/08/25 at 10:30am. 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 Accompanied by: Spouse Allergies amoxicillin (From Augmentin) Allergy (Severe, Verified 08/08/25 11:33) Facial Swelling clavulanic acid (From Augmentin) Allergy (Severe, Verified 08/08/25 11:33) Facial Swelling naproxen Allergy (Severe, Verified 08/08/25 11:33) asthma, SOB animal dander (PET DANDER) Allergy (Intermediate, Verified 08/08/25 11:33) rash celecoxib (From Celebrex) Allergy (Verified 08/08/25 11:33) Shortness of Breath oxycodone Adverse Reaction (Verified 08/08/25 11:33) Migraine SEASONAL ALLERGIES Allergy (Mild, Uncoded 07/29/25 12:09) congestion HPI Comments Details: Patient presents today for a pill count. Patient is supposed to have #44 pills, in her possession has #48 pills. This demonstrates a responsible attitude in regards to the medication regimen. Patient reports reasonable analgesia on her current regimen of hydrocodone-acetaminophen 10-325 mg 1 tab [id number] prn without any noted side effects except constipation due to opioid use. Pain is rated at 7/10. The patient underwent left hip replacement surgery on June 17, performed by Dr. Tom. Post-surgery, she experienced several falls due to poor balance and instability, which began upon discharge home and few weeks after the procedure. She has been using a rollator walker to aid mobility and has started physical therapy to address balance issues. The patient reports minimal pain in her surgical hip, indicating successful pain management post-surgery. However, she experiences left knee pain due to significant arthritis and recurrent falls, for which she received an injection from Orthopedics. The patient has been dealing with episodes of diarrhea, initially attributed to the use of stool softener to prevent constipation from narcotic use. She suspects a viral infection as a contributing factor, as symptoms persisted despite discontinuation of the medication. The patient reports right shoulder pain and swelling following a fall, which she discussed with Dr. Tom. Additionally, she has neck pain, potentially related to previous surgery, and is considering an x-ray to assess cervical fusion status. She also reports ear discomfort and swallowing difficulties, for which she is scheduled to undergo a swallowing test. Denies any recent cough, cold, infection, fever or any other significant changes in medical history since last office visit. FORMERLY [facility] Medical History Status post fall Osteoarthritis Depression ADHD (attention deficit hyperactivity disorder) Motion sickness Chronic kidney disease (CKD) Environmental and seasonal allergies Left groin pain Depression Migraine headache Stool incontinence Chronic pain syndrome Postlaminectomy syndrome Disc degeneration, lumbar Compression fracture of L1 lumbar vertebra Osteoporosis Hypertension Spondylosis Attention deficit disorder Herniated disc Asthma Anxiety Migraine headache Surgical History Hx of cervical spine surgery (11/20/24) History of foot surgery Hx of colonoscopy Status post kyphoplasty History of lumbosacral spine surgery History of cervical spinal surgery History of spinal surgery History of surgery on left wrist Family History Sister Ovarian cancer Lung cancer Maternal Grandmother Ovarian cancer Paternal Aunt Ovarian cancer Maternal Aunt Pancreatic cancer Social History Household Members: Spouse Housing: House Are you a primary wound care technician to a significant other at home: No Do you presently have visiting nurse or other home services: No 75 years or older and lives alone: No Alcohol intake: current Alcohol intake frequency: holidays/special occasions only Comment: medicated in pacu Patient Tobacco Use Status: Former Tobacco user Tobacco use type: Cigarette e-Cigarette/Vaping Use: Never Used Second Hand Smoke Exposure: No service: No Current occupational status: disabled 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 Current occupational exposures/hazards: No Cognitive needs: No Hearing needs: No Vision needs: No Review of Systems Const Details: - Musculoskeletal: Reports poor balance and instability, left knee pain, right shoulder pain, neck pain - Gastrointestinal: Reports diarrhea, denies constipation - Ears, Nose, Throat: Reports ear discomfort and swallowing difficulties All systems reviewed & are unremarkable except as noted in HPI and below Physical Exam Vital Signs: Last Vital Signs Pulse 98 08/08/25 11:32 BP 165/94 H 08/08/25 11:32 Pulse Ox 98 08/08/25 11:32 Oxygen Delivery Method Room Air 08/08/25 11:32 BMI result Body Mass Index 21.7 General: Appears afebrile. Alert and oriented. Mood and affect appropriate. Follows and participates in conversation appropriately. Respiratory effort is unlabored. No cough. Able to transition from sit to stand with assistance. Uses rollator walker with ambulation. Ambulates with bilaterally normal heel strike and toe off, antalgic gait. Eyes General: appearance normal, both eyes and all related structures Neck Neck: Yes normal visual inspection, Yes no lymphadenopathy, Yes supple, No anterior neck swelling, Yes no JVD, No prominent supraclavicular fat pad and No prominent dorsocervical fat pad Resp Effort & Inspection: normal respiratory effort, able to speak in complete sentences, no cough, not labored and no respiratory distress Back/Spine/Pelvis Cervical Spine: No collar present, loss of normal cervical lordosis, No cervical muscular tenderness, pain with cervical ROM, Cervical spine scars present, cervical spasm and No Cervical spine tenderness Thoracic/Lumbar Spine: thoracic and lumbar spine normal to inspection, Thoracic/lumbar spine scar(s), pain with thoraco-lumbar ROM, thoraco-lumbar ROM limited, No thoracic spinal tenderness and No lumbar spinal tenderness Extrem General: Yes capillary refill normal, Yes no clubbing, cyanosis or edema and Yes no calf tenderness Left lower extremity: hip/thigh (Well healed incision) Details: normal to inspection and tenderness (mild TTP lateral hip); no swelling, no ecchymosis and no unusual warmth Psych Appearance: grossly normal Mental Status: mental status grossly normal Speech and movement: Normal speech and movement present and Clear speech present Affect: normal affect, Sad affect present and Anxious affect present Attitude: cooperative Thought process: Normal thought process present Thought content: Normal thought content present, suicidality (none), no homicidality and Depressive thoughts present Insight: Good insight present (Psych) Judgement: Good judgement present (Psych) Results Reviewed Results Reviewed: XR PELVIS 07/21/25 CLINICAL INFORMATION: M25.559 - Pain in unspecified hip COMPARISON: June 17, 2025 TECHNIQUE: AP view of the pelvis. FINDINGS: Total hip arthroplasty is again noted on the left. Acetabular cup is secured with 2 screws. Femoral stem makes good cortical contact. There is no shift in the hardware. Mild degenerative changes are present in the right hip joint with marginal osteophytes. Moderate degenerative changes present in the SI joints with marginal osteophytes and mild narrowing. There is mild bony thickening along the right iliopubic junction that appears stable and chronic. IMPRESSION: Stable total left hip arthroplasty follow-up. Moderate degenerative changes in the SI joints and mild right hip degenerative change. 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 There is no evidence of misuse, abuse or diversion at this time. MassPat reviewed and consistent. Continue to follow up with the Orthopedic team and attend physical therapy sessions to address balance issues and improve mobility. She is advised to monitor her gastrointestinal symptoms and adjust medication use accordingly to manage diarrhea. A swallowing test is scheduled to evaluate her swallowing difficulties. Consideration for a neck x-ray is suggested to assess cervical fusion status and any dislocation, degenerative changes due to her neck pain and recent history of recurrent falls. Script sent for hydrocodone-acetaminophen 10-325 mg 1 tab Q6H #120 tabs for 30 days with advanced date on 08/18/25. Discussed with the patient the risks associated with benzodiazepine and opioid use. Patient is aware and verbalized an agreement to take the medications at least two hours apart. Patient has Narcan at home. All questions were answered and the patient is in agreement with the plan. Follow up in 4-5 weeks for a pill count or sooner if needed. Patient was informed and verbally consented to the use of an ambient scribe for clinic note documentation during this visit. Orders: Orders XR cervical spine 4V Today R29.6 - Repeated falls, Z98.1 - Arthrodesis status Medications: Refilled hydrocodone-acetaminophen 10-325 mg 1 tab PO Q6H PRN 120 tabs 0RF pain 30 days MDD 4 G89.4 - Chronic pain syndrome, M19.011 - Primary osteoarthritis, right shoulder, M25.511 - Pain in right shoulder, M51.36 - Other intervertebral disc degeneration, lumbar region, Z79.891 - care home (current) use of opiate analgesic Coding Level of Care Code Est Pt Level 4 (26534) Complex EM visit Add On G2211 Diagnoses Postlaminectomy syndrome M96.1 Left hip pain M25.552 Osteoarthritis of right shoulder M19.011 Chronic pain syndrome G89.4 Disc degeneration, lumbar M51.36 Opioid contract exists Z79.891 Osteoarthritis of right glenohumeral joint M19.011 Bilateral shoulder pain M25.511; M25.512 Left knee pain M25.562 Recurrent falls R29.6
[2025-08-08 11:32] VITALS: BP 165/94; PULSE 98; O2SAT 98; BMI 21.7
== END 2025-08-08 11:40 | disposition home or self-care (01) ==
LOC: HO.PMC 11:04
PROVIDERS: PCP Family Medicine; Visit Provider Nurse Practitioner Family
DX: M96.1 Postlaminectomy syndrome, not elsewhere classified (principal); M25.552 Pain in left hip; M19.011 Primary osteoarthritis, right shoulder; G89.4 Chronic pain syndrome; M51.369 Other intervertebral disc degeneration, lumbar region without mention of lumbar back pain or lower extremity pain; Z79.891 Long term (current) use of opiate analgesic; M25.511 Pain in right shoulder; M25.512 Pain in left shoulder; M25.562 Pain in left knee; R29.6 Repeated falls
CPT/HCPCS: 99214; G2211

== ENCOUNTER → 2025-08-08 11:03 | Outpatient (BNVA) | payer MEDICARE, SELFPAY | PROVIDERS: PCP Family Medicine; Visit Provider Nurse Practitioner Family | DX: M25.552 Pain in left hip (principal); M96.1 Postlaminectomy syndrome, not elsewhere classified; M19.011 Primary osteoarthritis, right shoulder; G89.4 Chronic pain syndrome; M51.360 Other intervertebral disc degeneration, lumbar region with discogenic back pain only; M25.511 Pain in right shoulder; R29.6 Repeated falls; Z79.891 Long term (current) use of opiate analgesic | CPT/HCPCS: 99212 ==

== ENCOUNTER 2025-08-25 11:11 | Outpatient (REF) | payer MEDICARE, SELFPAY ==
--- NOTE | ~2025-08-25 | XR_ITS ---
EXAMINATION: XR CERVICAL SPINE 4-5 VIEWS HISTORY: Z98.1 - Arthrodesis status COMPARISON: Comparison is made with the prior examination dated 01/22/2025. FINDINGS: AP, lateral, swimmer's, bilateral oblique, and open-mouth odontoid views of the cervical spine are submitted. Osseous mineralization is normal. The patient is again noted to be status post anterior fusion of C4-T1. Intervertebral spacers are again noted at C6-7 C7-T1. The fusion hardware is intact. The vertebral bodies maintain normal height. There is moderate to severe degenerative disc disease at the C3-4 level with disc space narrowing and osteophyte formation. There is diffuse narrowing of all of the visualized right neural foramen. There is narrowing of the left C3-4, C5-6, C6-7, and C7-T1 neural foramen secondary to facet osteoarthritis and uncovertebral joint hypertrophy. There is narrowing of the atlantoaxial articulation. There is no prevertebral soft tissue swelling. XR/XR cervical spine 4V IMPRESSION: Status post anterior fusion of C4-T1 without change. Multilevel bilateral neural foraminal stenosis as described. Electronically signed by: Tyrone Qiu MD 08/25/2025 11:56 AM EDT
[2025-08-25 14:06] LABS: INTERNATIONAL NORM RATIO 0.9 (0.9-1.1); Prothrombin Time 10.8 SEC (10.9-12.4)
== END 2025-08-25 11:12 | disposition home or self-care (01) ==
LOC: HO.XRAY 11:11
PROVIDERS: Absent Provider Nurse Practitioner Family; PCP Family Medicine; Visit Provider Internal Medicine Endocrinology, Diabetes & Metabolism
DX: Z51.81 Encounter for therapeutic drug level monitoring (principal); Z01.818 Encounter for other preprocedural examination; Z98.1 Arthrodesis status; R29.6 Repeated falls; M81.0 Age-related osteoporosis without current pathological fracture
CPT/HCPCS: 36415; 72050; 84100; 85610

== ENCOUNTER → 2025-08-25 11:18 | Outpatient (BNV) | payer MEDICARE, SELFPAY | PROVIDERS: Absent Provider Nurse Practitioner Family; PCP Family Medicine; Visit Provider Radiology Diagnostic Radiology | DX: Z98.1 Arthrodesis status (principal) | CPT/HCPCS: 72050 ==

== ENCOUNTER 2025-09-01 10:55 | Outpatient (AMB) | payer MEDICARE, SELFPAY ==
--- NOTE | 2025-09-01 11:08 | MHC.OFFVIS ---
Intake Visit Reasons: PO: Left CHRISTELLE 06/17/25 Intake Note: Marilu is a 65 year old female who presents today for a post operative appointment about 10 weeks s/p Left CHRISTELLE 06/17/25. Patient reports that she is doing well, her hip is feeling good and she is using her cane for ambulation of short distances and uses her walker for long distances. She explains pain of her lower back that radiates down the posterior aspect of the hip and leg - this pain is increased with shifting her weight onto the left leg and tilting pelvis forward. Allergies amoxicillin (From Augmentin) Allergy (Severe, Verified 09/01/25 11:10) Facial Swelling clavulanic acid (From Augmentin) Allergy (Severe, Verified 09/01/25 11:10) Facial Swelling naproxen Allergy (Severe, Verified 09/01/25 11:10) asthma, SOB animal dander (PET DANDER) Allergy (Intermediate, Verified 09/01/25 11:10) rash celecoxib (From Celebrex) Allergy (Verified 09/01/25 11:10) Shortness of Breath oxycodone Adverse Reaction (Verified 09/01/25 11:10) Migraine SEASONAL ALLERGIES Allergy (Mild, Uncoded 09/01/25 11:10) congestion HPI HPI PO: Left CHRISTELLE 06/17/25: Details: Simi comes in today now 10 weeks status post left hip replacement. She feels well with respect to her hip but complains of back pain that radiates down the outside of her legs and occasionally into the groin. She is walking with a cane and here today with her . She has lots of pain generators. She is on chronic low-dose opioids. FORMERLY [facility] Medical History Status post fall Osteoarthritis Depression ADHD (attention deficit hyperactivity disorder) Motion sickness Chronic kidney disease (CKD) Environmental and seasonal allergies Left groin pain Depression Migraine headache Stool incontinence Chronic pain syndrome Postlaminectomy syndrome Disc degeneration, lumbar Compression fracture of L1 lumbar vertebra Osteoporosis Hypertension Spondylosis Attention deficit disorder Herniated disc Asthma Anxiety Migraine headache Surgical History Hx of cervical spine surgery (11/20/24) History of foot surgery Hx of colonoscopy Status post kyphoplasty History of lumbosacral spine surgery History of cervical spinal surgery History of spinal surgery History of surgery on left wrist Family History Sister Ovarian cancer Lung cancer Maternal Grandmother Ovarian cancer Paternal Aunt Ovarian cancer Maternal Aunt Pancreatic cancer Social History Household Members: Spouse Housing: House Are you a primary youth care professional to a significant other at home: No Do you presently have visiting nurse or other home services: No 75 years or older and lives alone: No Alcohol intake: current Alcohol intake frequency: holidays/special occasions only Comment: medicated in pacu Patient Tobacco Use Status: Former Tobacco user Tobacco use type: Cigarette e-Cigarette/Vaping Use: Never Used Second Hand Smoke Exposure: No service: No Current occupational status: disabled 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 Left hip incision clean dry intact. She has no pain and good hip range of motion. Mild discomfort with extension of the hip. When she bends over she feels pain down the lateral aspect of the bilateral hips. She walks well with no gait antalgia. Assessment & Plan Assessment & Plan (1) Status post total replacement of left hip: Code(s): Z96.642 - Presence of left artificial hip joint Category: Surgical Plan: 65-year-old woman status post left hip replacement doing well. She has some back pain which I think she should get treated as it is limiting her ability to walk but at this time there does not appear to be any evidence complication after hip surgery. She does have a lot of pain and is going to see someone her her spine. She can see me in 3 months or sooner if needed Coding Level of Care Code Global ([id number]) Diagnoses Status post total replacement of left hip Z96.642
== END 2025-09-01 13:06 | disposition home or self-care (01) ==
LOC: HO.HOS 10:56
PROVIDERS: PCP Family Medicine; Visit Provider Orthopaedic Surgery
DX: Z96.642 Presence of left artificial hip joint (principal)
CPT/HCPCS: 99024

== ENCOUNTER → 2025-09-01 10:55 | Outpatient (BNVA) | payer MEDICARE, SELFPAY | PROVIDERS: PCP Family Medicine; Visit Provider Orthopaedic Surgery | DX: Z96.642 Presence of left artificial hip joint (principal) | CPT/HCPCS: 99212 ==

== ENCOUNTER 2025-09-02 13:28 | Outpatient (REF) | payer MEDICARE, SELFPAY ==
--- NOTE | ~2025-09-02 | FL_ITS ---
EXAMINATION: XR MODIFIED BARIUM SWALLOW CLINICAL INFORMATION: Dysphagia COMPARISON: None available. TECHNIQUE: Modified barium swallow performed with speech pathologist. FINDINGS: Patient swallowed liquids and solids of varying consistency. Laryngeal penetration is noted. No aspiration is seen. FLUOROSCOPY TIME: 1 minute 21 seconds DOSE AREA PRODUCT: 778 uGy-m2 (microgray-meter squared) FL/FL Modified Barium Swallow IMPRESSION: Modified barium swallow performed by speech pathologist. See speech pathology report. Electronically signed by: Dc Ambrosio MD 09/02/2025 02:31 PM AP BLACK
--- NOTE | 2025-09-02 15:33 | MHC.SL.IMP ---
Date of Plan of Treatment: 09/02/25 Onset of Symptoms/Illness: 07/30/25 Date Treatment Started: 09/02/25 Admitting Diagnosis: Hx cervical neck surgeries Primary Speech & Language Diagnosis: R13.11 Oral Phase Dysphagia Reason for Today's Visit: 02445 Modified Barium Swallow Study Pre-evaluation Dietary Consistencies: Regular Pre-evaluation Liquid Consistency: Thin Pre-evaluation Medication Administration: Whole with Liquid Medical History: Modified Barium Swallow Study Fluoroscopic Evaluation of Swallowing Function CPT Code 22454 Evaluation Year: 2024 Reason for Study: Patient reporting difficulty swallowing. Referring Physician: Gustavo Leiva MD Evaluating Clinician: Stephie Lynne MA, CCC-DRAGLINE ENGINEER Study Number: 1 Patient Name: Marilu Bailey Status: Outpatient, Ambulatory Age: 65 Sex: Female Medical History Medical History Status post fall Osteoarthritis Depression ADHD (attention deficit hyperactivity disorder) Motion sickness Chronic kidney disease (CKD) Environmental and seasonal allergies Left groin pain Depression Migraine headache Stool incontinence Chronic pain syndrome Postlaminectomy syndrome Disc degeneration, lumbar Compression fracture of L1 lumbar vertebra Osteoporosis Hypertension Spondylosis Attention deficit disorder Herniated disc Asthma Anxiety Migraine headache Surgical History Hx of cervical spine surgery (11/20/24) History of foot surgery Hx of colonoscopy Status post kyphoplasty History of lumbosacral spine surgery History of cervical spinal surgery History of spinal surgery History of surgery on left wrist Current (pre-evaluation) Intake/Diet: Route: PO Diet Grade: Regular Liquid Consistencies: Thin Pre-Study Functional Oral Intake Scale (FOIS): 7- Total oral intake with no restrictions Pain: None reported at time of study SUBJECTIVE: Patient is a 65 year old female referred for a modified barium swallow study by her primary care provider, Dr. Leiva, after patient reported having difficulty swallowing. Patient reports a ?full feeling? in her esophagus and stomach, but denies coughing or choking with PO intake. Patient mentioned having multiple cervical neck surgeries. Medical history includes CKD, environmental and seasonal allergies, chronic pain syndrome, osteoporosis, hypertension, asthma, anxiety, migraine. Oral Motor Exam Facial Symmetry: Symmetrical Mouth Occlusion: Normal Oral-Facial Teeth Characteristics: Edentulous Dentures Oral-Facial Teeth Miscellaneous Observation: Patient w/ top dentures only. Oral-Facial Lip Pucker Description: Normal Oral-Facial Smile (Lips) Description: Normal Oral-Facial Puff Cheeks Description: Normal Tongue Size: Normal Tongue Excursion Description: Normal Tongue Range of Movement Description: Normal Tongue Speed of Movement Description: Normal Tongue Strength of Movement (against opposing pressure): Normal Tongue Movement Characteristics: Normal/Absent Is patient able to manage secretions?: Yes Food and Liquid Trials: Oral Impairment: Lip Closure: Did not test Oral Impairment: Tongue Control During Bolus Hold: 1=Escape to lateral buccal cavity/floor of mouth (FOM) Oral Impairment: Bolus Preparation/Mastication: 1=Slow prolonged chewing/mashing with complete re-collection Oral Impairment: Bolus Transport/Lingual Motion: 2=Slowed tongue motion Oral Impairment: Oral Residue: 1=Trace residue lining oral structures Oral Impairment:Initiation of Pharyngeal Swallow: 2=Bolus head at posterior laryngeal surface of epiglottis Pharyngeal Impairment: Soft Palate Elevation: 0=No bolus between soft palate (SP)/pharyngeal wall (PW) Pharyngeal Impairment: Laryngeal Elevation: 1=Partial thyroid cartilage/arytenoids to epiglottic petiole movement Pharyngeal Impairment: Anterior Hyoid Excursion: 1=Partial anterior movement Pharyngeal Impairment: Epiglottic Movement: 0=Complete inversion Pharyngeal Impairment: Laryngeal Vestibular Closure:: 1=Incomplete: narrow column air/contrast in laryngeal vestibule Pharyngeal Impairment: Pharyngeal Stripping Wave: 0=Present: complete Pharyngeal Impairment: Pharyngeal Contraction: Did not test Pharyngeal Impairment: Pharyngoesophageal Segment Openin=Complete distension and complete duration: no obstruction of flow Pharyngeal Impairment: Tongue Base (TB) Retraction: 0=No contrast between tongue base and posterior pharyngeal wall Pharyngeal Impairment: Pharyngeal Residue: 0=Complete pharyngeal clearance Pharyngeal Impairment: Esophageal Clearance Upright Position: Did not test Impressions and Recommendations OBJECTIVE: Time-out: performed at 14:15 Evaluation Start: 14:00; Stop: 14:10 Patient Positioning: Standing Viewing Planes: LATERAL ONLY Contrast: MBSImP? Standardized Protocol using commercially prepared, standardized Barium viscosities, including: Varibar? THIN LIQUID (40% w/v, <15 cps) , Varibar? PUDDING (40% w/v, <3173-5561 cps) , 1/2 Shortbread Cookie (1 x1 x.25 ) MBSImP ID: [id number] [facility] Results: Lip closure for intraoral bolus containment could not be assessed due to logistical reasons not related to physiologic impairment. Tongue control during bolus hold allowed bolus escape to the lateral buccal cavity/floor of mouth. Bolus preparation and mastication resulted in slow, prolonged chewing/mashing but with complete re-collection. Bolus transport/lingual motion was with slowed tongue motion. Oral residue was a trace, lining oral structures. Initiation of the pharyngeal swallow occurred as the bolus head was at the posterior laryngeal surface of the epiglottis. Soft palate elevation resulted in no bolus between the soft palate and the pharyngeal wall. Laryngeal elevation was decreased, with partial superior movement of the thyroid cartilage/partial approximation of the arytenoids to the epiglottic petiole. Anterior hyoid excursion demonstrated partial anterior movement. Epiglottic movement resulted in complete inversion. Laryngeal vestibular closure was incomplete, with a narrow column of air/contrast noted within the laryngeal vestibule at the height of the swallow. Pharyngeal stripping wave was present and complete. Pharyngeal contraction could not be determined due to logistical reasons not related to physiologic impairment. Pharyngoesophageal segment opening was completely distended for complete duration with no obstruction of bolus flow. Tongue base retraction allowed no contrast between the retracted tongue base and the posterior pharyngeal wall. Pharyngeal residue was not present. There was complete pharyngeal clearance. Esophageal clearance in the upright position could not be assessed due to logistical reasons not related to physiologic impairment. Oral Impairment Score: 6 (absence of score, component 1) Pharyngeal Impairment Score: 3 (absence of score, component 13) Esophageal Impairment Score: --- (absence of score, component 17) Laryngeal Penetration and Aspiration: Neither penetration nor aspiration was observed in today's study with Cookie, Pudding-thick. Penetration was observed in today's study. Thin Contrast entered the airway, remained above the vocal folds, and was ejected from the airway. Structural Abnormalities Noted: Cervical hardware noted, but had no functional significance. ASSESSMENT: This exam was conducted by the radiologist and the speech pathologist. Patient was standing for lateral view and fed herself independently. She trialed the following consistencies: -Thin liquid (via individual cup sips and rapid cup sips) -Puree (mixture applesauce w/ barium pudding) -Regular (shortbread cookies coated w/ barium pudding) Good tongue control with no premature posterior escape from the oral cavity. Mastication was mildly slowed, likely due to limited dentition, characterized by piece meal deglutition. Patient cleared the oral cavity after 2-3 swallows. Posterior lingual motion was mildly slowed and delayed. Pharyngeal swallow trigger was also delayed. No evidence of nasopharyngeal reflux. Partial laryngeal elevation with complete epiglottic inversion and partial laryngeal vestibular closure. There was flash penetration seen intermittently with sips of thin liquid. A trace amount of contrast entered the airway above the vocal folds and spontaneously cleared with no subsequent aspiration. No evidence of aspiration or penetration with puree and regular solids. Complete pharyngeal clearance seen. Liquid Intake Recommendation: Thin Liquid Intake Strategies: Small Sips Dietary Recommendations: Regular Medication Administration: Whole with Liquid Please contact the pharmacy regarding appropriate crushable or liquid drug formulations that are available whenever modified delivery is recommended. Compensatory Strategies Recommended: Sitting Upright (90 deg), Small Bites and Sips, Rate of Ingestion Change, Avoid Specific Foods Supervision during eating and or drinking: None Needed Recommendation for Speech Therapy: NA:Typical Evaluation Text Comment: Intake Recommendations: Route: PO Diet Grade: Regular Liquid Consistencies: Thin Post-Study Functional Oral Intake Scale (FOIS): 6- Total oral intake with no special preparation, but must avoid specific foods or liquid items Patient with mild oral phase dysphagia d/t lack of dentition (patient w/ top dentures only), in the setting of hx cervical neck surgeries. Flash penetration with thin liquids. No evidence of aspiration during this exam. Good oral and pharyngeal clearance. Suggested Referrals: The patient might benefit from a referral to: Gastroenterology Indication for Referral: Patient c/o feeling ?full? in the esophagus and stomach after swallowing. Good pharyngeal clearance seen on MBSS Therapy Recommendations: Further speech therapy is not indicated at this time. Recommend continue on unmodified textures REGULAR solids and THIN liquids. Patient is advised to avoid overly hard or tough to chew solids due to lack of bottom dentition. Clinician - Supplemental, Miscellaneous Communication: It is important to note MBSS objective studies are snapshots in time and Patient function might vary with factors such as time of day or concomitant medical conditions. For this reason, the final treatment plan for this patient should rest with their medical care team. Additional recommendations should be considered with the totality of the Patient in mind. Thank for the opportunity to participate in the care of this patient. If you have any questions about the content of this report, please contact the [facility] at [facility]. Education: Education regarding findings from today's study and plans for therapy were provided to Patient only through Verbal Instruction. Understanding was expressed by the Patient only. Grounds Cleaner Clinician/Clinical Fellow: No Supervisory Statement: N/A Speech Language Pathologist: Stephie Lynne M.A., CCC-DRAGLINE ENGINEER
== END 2025-09-02 13:29 | disposition home or self-care (01) ==
LOC: HO.XRAY 13:28
PROVIDERS: Visit Provider Family Medicine
DX: R13.10 Dysphagia, unspecified (principal)
CPT/HCPCS: 74230; 92611

== ENCOUNTER → 2025-09-02 14:00 | Outpatient (BNV) | payer MEDICARE, SELFPAY | PROVIDERS: Visit Provider Radiology Diagnostic Ultrasound | DX: R13.10 Dysphagia, unspecified (principal) | CPT/HCPCS: 74230 ==

== ENCOUNTER 2025-09-04 13:17 | Outpatient (AMB) | payer MEDICARE, SELFPAY ==
--- NOTE | 2025-09-04 13:57 | A.OFFPC_ITS ---
Vital Signs 09/04/25 14:00 09/04/25 14:07 Height 5 ft 4 in Weight 122 lb BMI 20.9 BP 176/105 H 175/95 H Blood Pressure Location Lt brachial Lt brachial Position Sitting Sitting Respiration 14 Pulse 97 Pulse Source Pulse Oximeter Temp 98.6 F Temp Source Oral Pulse Oximetry (%) 98 Oxygen Delivery Method Room Air Intake Visit Reasons: f/u chronic conditions Intake Note: Follow up [place] Required: No Allergies amoxicillin (From Augmentin) Allergy (Severe, Verified 09/04/25 13:58) Facial Swelling clavulanic acid (From Augmentin) Allergy (Severe, Verified 09/04/25 13:58) Facial Swelling naproxen Allergy (Severe, Verified 09/04/25 13:58) asthma, SOB animal dander (PET DANDER) Allergy (Intermediate, Verified 09/04/25 13:58) rash celecoxib (From Celebrex) Allergy (Verified 09/04/25 13:58) Shortness of Breath oxycodone Adverse Reaction (Verified 09/04/25 13:58) Migraine SEASONAL ALLERGIES Allergy (Mild, Uncoded 09/04/25 13:58) congestion Tobacco use date assessed: 09/04/25 Fall risk assessment: 2 + Falls in past year (5 times ) Last assessed Fall Risk: 09/04/25 Dental Screening Dental Screen Date: 07/29/25 HPI f/u chronic conditions HPI Details 65 y/o female presents to f/u chronic co ndiitions. A1c today 09/04/25 5.7%. Blood pressure today 175/95. She is on lisinopril 40mg daily. Continues to f/u with orthopedics for s/p total replacement of L hip. Had been doing well though she had been having complaints of back pain that radiates down the outside of her legs. Ongoing complaints of migraines. COUNTS INCLUDE 234 BEDS AT THE [facility] Medical History Status post fall Osteoarthritis Depression ADHD (attention deficit hyperactivity disorder) Motion sickness Chronic kidney disease (CKD) Environmental and seasonal allergies Left groin pain Depression Migraine headache Stool incontinence Chronic pain syndrome Postlaminectomy syndrome Disc degeneration, lumbar Compression fracture of L1 lumbar vertebra Osteoporosis Hypertension Spondylosis Attention deficit disorder Herniated disc Asthma Anxiety Migraine headache Surgical History Hx of cervical spine surgery (11/20/24) History of foot surgery Hx of colonoscopy Status post kyphoplasty History of lumbosacral spine surgery History of cervical spinal surgery History of spinal surgery History of surgery on left wrist Family History Sister Ovarian cancer Lung cancer Maternal Grandmother Ovarian cancer Paternal Aunt Ovarian cancer Maternal Aunt Pancreatic cancer Social History Household Members: Spouse Housing: House Are you a primary pet care associate to a significant other at home: No Do you presently have visiting nurse or other home services: No 75 years or older and lives alone: No Alcohol intake: current Alcohol intake frequency: holidays/special occasions only Comment: medicated in pacu Patient Tobacco Use Status: Former Tobacco user Tobacco use type: Cigarette e-Cigarette/Vaping Use: Never Used Second Hand Smoke Exposure: No service: No Current occupational status: disabled 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 Current occupational exposures/hazards: No Cognitive needs: No Hearing needs: No Vision needs: No Questionnaire Thrive Questionnaire Date Thrive assessed: 01/13/25 I am a: Patient What is your living situation today?: I have a steady place to live Within the past 12 months, did the food you bought not last and you didn't have the money to get more?: Never true Within the past 12 months, did you worry whether your food would run out before you got money to buy more?: Never true Do you have trouble paying for medicines?: No Do you have trouble getting transportation to medical appointments?: No Do you have trouble paying your heating and electricity bill?: Yes Do you have trouble taking care of your child, family member or friend?: Yes Do you have trouble with day-to-day activities such as bathing, preparing meals, shopping, managing finances, etc.?: Yes Are you currently unemployed and looking for a job?: No Are you interested in more education?: No Currently or been in a relationship where the following occur: No concerns reported THRIVE Score: 1 AUDIT C Alcohol Use Questionnaire (AUDIT-C) 1. How often do you have a drink containing alcohol?: Monthly or less 2. How many drinks containing alcohol do you have on a typical day when you are drinking?: 1 or 2 3. How often do you have six or more drinks on one occasion?: Never Total Score: 1 MAU-7 AMB Questionnaire MAU-7 Date MAU - 7 assessed: 01/13/25 Source: Developed by Drs. Tyrone García, Marnie Huston, Sadi Ross and colleagues, with an educational krystina from [employer]. Review of Systems Const Denies chills, Denies fatigue, Denies fever(s), Denies headache(s) and Denies weakness ENT Denies dizziness and Denies headache(s) Card Denies dyspnea Resp Denies cough, Denies dyspnea, Denies wheezing and Denies other (shortness of breath) Musc Denies numbness and Denies tingling Neuro Denies dizziness, Denies headache(s), Denies numbness, Denies tingling and Denies weakness Psych Denies anxiety and Denies depression Endo Denies fatigue Aller/Immun Denies wheezing Physical exam (Primary Care) Vital Signs: Last Vital Signs Temp 98.6 F 09/04/25 14:00 Pulse 97 09/04/25 14:00 Resp 14 09/04/25 14:00 BP 175/95 H 09/04/25 14:07 Pulse Ox 98 09/04/25 14:00 Oxygen Delivery Method Room Air 09/04/25 14:00 BMI result Body Mass Index 20.9 Tobacco/Smoking Status: Tobacco use Status Tobacco use date assessed 09/04/25 09/04/25 14:04 Patient Tobacco Use Status Former Tobacco user 09/04/25 14:04 Tobacco use type Cigarette 09/04/25 14:04 e-Cigarette/Vaping Use Never Used 09/04/25 14:04 Thrive Assessment: Date of Thrive Assessment Date Thrive assessed 01/13/25 09/04/25 14:04 Currently or been in a relationship where the following occur: No concerns reported Const General: well developed; No acute distress Nutritional Appearance: well nourished Orientation/consciousness: patient oriented x3 HENMT Head: Yes normocephalic and Yes atraumatic Eyes General: appearance normal, both eyes and all related structures Pupils: Equal, round and reactive pupils present EOM: EOMs intact bilaterally Resp Effort & Inspection: normal respiratory effort Neuro General: patient oriented x3 and gait normal Cranial nerves: Yes Equal, round and reactive pupils present Psych Affect: normal affect Results AMB Hemoglobin A1c AMB Hemoglobin A1c 5.7 % Last Edit by Leeanna Ortiz CMA on 09/04/25 14:11 Results Reviewed Results Reviewed: Laboratory Last Values Hgb A1c (Clinic) 5.7 % (4.0-6.0) 09/04/25 14:10 Coding Level of Care Code Est Pt Level 5 (42382) Diagnoses Hypertension, unspecified type I10 Hypertension type: unspecified Pre-diabetes R73.03 Back pain M54.9 Migraine headache G43.909 Depression with anxiety F41.8 Assessment & Plan Assessment & Plan (1) Hypertension: Code(s): I10 - Essential (primary) hypertension Category: Medical Qualifiers: Hypertension type: unspecified Qualified Code(s): I10 - Essential (pr imary) hypertension Plan: Blood pressure is very high today. No current headache or evidence of end-organ damage She has intermittently elevated blood pressures which she attributes to pain and stress/anxiety. Plan is to take clonidine when blood pressures are high due to the above-she took her morning dose but has not taken another. She will take her next clonidine dose as soon she gets home. (2) Pre-diabetes: Code(s): R73.03 - Prediabetes Category: Medical Plan: A1c continues to decline. Now at 5.7% still in will pre diabetes range Keep working at a diet low in sugars and starches (3) Back pain: Code(s): M54.9 - Dorsalgia, unspecified Category: Medical Plan: Low back and sacral pain. Patient also has significant shoulder and hip pain. Recent hip surgery. Will check x-ray of lumbar and sacral spine She has an appointment with pain management tomorrow (4) Migraine headache: Code(s): G43.909 - Migraine, unspecified, not intractable, without status migrainosus Category: Medical Plan: Patient gets frequent migraine headaches which improved with naratriptan. She can continue this medication We discussed that if she is having headaches more than 9-12 times per month, we should discuss preventative medications Briefly discussed beta-blockers such as metoprolol and also mentioned Topamax. Patient declines a new medication for now. (5) Depression with anxiety: Code(s): F41.8 - Other specified anxiety disorders Category: Medical Plan: Followed by her therapist She says she will discuss/she consider beta-iliana medication which might help with anxiety as well as blood pressure and possibly even headaches, with her therapist Plan She will return in 1 month to follow-up chronic conditions including hypertension Orders: Orders AMB Hemoglobin A1c Today R73.03 - Prediabetes XR lumbar spine 2-3V Today M54.9 - Dorsalgia, unspecified XR sacroiliac joint 1-2V Today M53.3 - Sacrococcygeal disorders, not elsewhere classified, M54.9 - Dorsalgia, unspecified Referrals Pain Management Referral M53.3 - Sacrococcygeal disorders, not elsewhere classified, M54.9 - Dorsalgia, unspecified Medications: New cetirizine 10 mg PO DAILY PRN 90 tabs 3RF allergy symptoms 90 days Refilled diclofenac sodium 1% (Voltaren Arthritis Pain) 4 grams topical QID PRN 100 grams 3RF pain 30 days M19.011 - Primary osteoarthritis, right shoulder, M25.512 - Pain in left shoulder
[2025-09-04 14:00] VITALS: BP 176/105; PULSE 97; RESP 14; TEMP 37; O2SAT 98; BMI 20.9
[2025-09-04 14:07] VITALS: BP 175/95
== END 2025-09-04 14:45 | disposition home or self-care (01) ==
LOC: HO.HMCFM 13:17
PROVIDERS: PCP Family Medicine; Visit Provider Family Medicine
DX: R73.03 Prediabetes (principal)

== ENCOUNTER → 2025-09-04 13:17 | Outpatient (BNVA) | payer MEDICARE, SELFPAY | PROVIDERS: PCP Family Medicine; Visit Provider Family Medicine | DX: I10 Essential (primary) hypertension (principal); R73.03 Prediabetes; G43.909 Migraine, unspecified, not intractable, without status migrainosus; F41.8 Other specified anxiety disorders; M53.3 Sacrococcygeal disorders, not elsewhere classified; Z96.642 Presence of left artificial hip joint | CPT/HCPCS: 83036; 99212 ==

== ENCOUNTER 2025-09-05 10:29 | Outpatient (AMB) | payer MEDICARE, SELFPAY ==
--- NOTE | 2025-09-05 10:34 | MHC.OFFVIS ---
Vital Signs 09/05/25 10:44 Height 5 ft 4 in Weight 122 lb BMI 20.9 BP 175/102 H Blood Pressure Location Lt brachial Position Sitting Pulse 92 Pulse Source Pulse Oximeter Pulse Oximetry (%) 98 Oxygen Delivery Method Room Air Intake Visit Reasons: Pill count Intake Note: Marilu comes in today for a pill count to hydrocodone-acetaminophen, patient should have 48 tablets and presents with 52 tablets which she last took today 09/05/25 at 6am. Pain today 810 Shirt Presser Required: No Accompanied by: Spouse Allergies amoxicillin (From Augmentin) Allergy (Severe, Verified 09/05/25 10:45) Facial Swelling clavulanic acid (From Augmentin) Allergy (Severe, Verified 09/05/25 10:45) Facial Swelling naproxen Allergy (Severe, Verified 09/05/25 10:45) asthma, SOB animal dander (PET DANDER) Allergy (Intermediate, Verified 09/05/25 10:45) rash celecoxib (From Celebrex) Allergy (Verified 09/05/25 10:45) Shortness of Breath oxycodone Adverse Reaction (Verified 09/05/25 10:45) Migraine SEASONAL ALLERGIES Allergy (Mild, Uncoded 09/04/25 13:58) congestion HPI Comments Details: Patient presents today for a pill count. Patient is supposed to have #48 pills, in her possession has #52 pills. This demonstrates a responsible attitude in regards to the medication regimen. Patient reports reasonable analgesia on her current regimen of hydrocodone-acetaminophen 10-325 mg 1 tab [id number] prn without any noted side effects except constipation due to opioid use. Pain is rated at 8/10. The patient reports severe pain in her lower back, radiating down the back of her legs, which prohibits her from standing upright. She has a history of spinal issues, including slippage at L3-L4 and L4-L5, significant arthritis, and neuroforaminal and central spinal canal stenosis, as noted in an MRI from January. Patient reports she was seen by [facility] in January, per their note patient to follow up with Dr. Bedoya's once left hip pain is excluded. She believes she was told no additional spine surgery is required. The patient has osteoporosis, which complicates potential treatment options such as injections. She does have adjacent degenerative disc disease and a lumbar degenerative scoliosis which attributes to her chronic back pain. She has been undergoing physical therapy for her hip and plans to continue until the end of August, with future plans to address her shoulder. Her blood pressure has been elevated recently, which she attributes to increased activity and pain levels. Denies any recent cough, cold, infection, fever or any other significant changes in medical history since last office visit. [facility] Medical History Status post fall Osteoarthritis Depression ADHD (attention deficit hyperactivity disorder) Motion sickness Chronic kidney disease (CKD) Environmental and seasonal allergies Left groin pain Depression Migraine headache Stool incontinence Chronic pain syndrome Postlaminectomy syndrome Disc degeneration, lumbar Compression fracture of L1 lumbar vertebra Osteoporosis Hypertension Spondylosis Attention deficit disorder Herniated disc Asthma Anxiety Migraine headache Surgical History Hx of cervical spine surgery (11/20/24) History of foot surgery Hx of colonoscopy Status post kyphoplasty History of lumbosacral spine surgery History of cervical spinal surgery History of spinal surgery History of surgery on left wrist Family History Sister Ovarian cancer Lung cancer Maternal Grandmother Ovarian cancer Paternal Aunt Ovarian cancer Maternal Aunt Pancreatic cancer Social History Household Members: Spouse Housing: House Are you a primary healthcare consultant to a significant other at home: No Do you presently have visiting nurse or other home services: No 75 years or older and lives alone: No Alcohol intake: current Alcohol intake frequency: holidays/special occasions only Comment: medicated in pacu Patient Tobacco Use Status: Former Tobacco user Tobacco use type: Cigarette e-Cigarette/Vaping Use: Never Used Second Hand Smoke Exposure: No service: No Current occupational status: disabled 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 - Neurological: Denies dizziness or drowsiness. - Gastrointestinal: Denies constipation. - Cardiovascular: Reports elevated blood pressure, attributed to pain and activity. All systems reviewed & are unremarkable except as noted in HPI and below Physical Exam Vital Signs: Last Vital Signs Pulse 92 09/05/25 10:44 BP 175/102 H 09/05/25 10:44 Pulse Ox 98 09/05/25 10:44 Oxygen Delivery Method Room Air 09/05/25 10:44 BMI result Body Mass Index 20.9 General: Appears afebrile. Alert and oriented. Mood and affect appropriate. Follows and participates in conversation appropriately. Respiratory effort is unlabored. No cough. Able to transition from sit to stand with assistance. Ambulates with slow, antalgic gait. Eyes General: appearance normal, both eyes and all related structures Resp Effort & Inspection: normal respiratory effort, able to speak in complete sentences, no cough, not labored and no respiratory distress Psych Appearance: grossly normal Mental Status: mental status grossly normal Speech and movement: Normal speech and movement present and Clear speech present Affect: normal affect, Sad affect present and Anxious affect present Attitude: cooperative Thought process: Normal thought process present Thought content: Normal thought content present, suicidality (none), no homicidality and Depressive thoughts present Insight: Good insight present (Psych) Judgement: Good judgement present (Psych) Results Reviewed Results Reviewed: XR KNEE 4 OR MORE VIEWS LEFT 04/11/25 HISTORY: M25.562 - Pain in left knee COMPARISON: There are no prior studies available for comparison. FINDINGS: Four views of the left knee are submitted. The bones are osteopenic. There is no fracture or dislocation. There is mild to moderate osteoarthritis of the medial compartment and mild osteoarthritis of the patellofemoral compartment, with joint space narrowing and osteophyte formation. The soft tissues are unremarkable. There is no joint effusion. IMPRESSION: Osteopenia. Degenerative changes of the left knee as described. XR HIP, LEFT 01/03/25 CLINICAL INFORMATION: R10.32 - Left lower quadrant pain COMPARISON: None available. TECHNIQUE: Two views of the left hip. FINDINGS: No definite fracture or dislocation. No suspicious bone lesion. Severe, end-stage osteoarthrosis of the left hip joint present with superior joint space loss, [id number] appearance, with subchondral sclerosis and cystic changes in both the femoral head and superior acetabulum. There are prominent marginal productive osteophytes and subcapital osteophytes. There is mild irregularity of the contour to the superior femoral head. Partially imaged fusion hardware in the lower lumbar spine. Mild to moderate degenerative SI joint changes. No soft tissue abnormality. IMPRESSION: Severe osteoarthrosis left hip joint. DXA BONE DENSITY EXTREMITY 01/02/25 HISTORY: Estrogen deficiency TECHNIQUE: [employer] Dual energy absorptiometry (DEXA) of the lumbar spine, total left hip, and femoral neck was performed. COMPARISON: There are no prior studies for comparison. FINDINGS: The bone mineral density of the lumbar spine is 1.092 with a T-score of -0.6, and a Z-score of 1.3. The bone mineral density of the left total hip is 0.668 with a T-score of -2.7, and a Z-score of -1.2. The bone mineral density of the left femoral neck is 0.717 with a T-score of -2.3, and a Z-score of -0.6. IMPRESSION: Based on bone mineral density, and according to World Health Organization (WHO) criteria, the diagnosis is consistent with osteoporosis. MR LUMBAR SPINE WITHOUT AND WITH CONTRAST 01/28/25 CLINICAL INFORMATION: Left lower quadrant pain. COMPARISON: November 12, 2024 reported spinal canal stenosis at L3-4 and postsurgical changes at L4-5. TECHNIQUE: MRI of the lumbar spine was obtained using routine sequences with and without contrast. Intravenous contrast: Gadolinium based 5.5 mL. No reported immediate complications. FINDINGS: Last rib-bearing vertebra labeled T12. Paramagnetic field distortion secondary to metallic hardware with transpedicular screws at L4 and L5. Decreased signal in all sequences at L1. Mild bone marrow STIR signal at the endplates of L2 and L3 and likely extending into the posterior elements. Mild bone marrow STIR signal in the endplates of T9 and T10-11. No abnormal enhancement within the leptomeningeal compartment. No abnormal enhancement within the prevertebral compartment or the central spinal canal. The conus medullaris ends at the inferior endplate of L1 with normal signal. There is no grouping or clumping of the neural elements of the thecal sac. Multilevel marginal osteophyte formation and disc desiccation from T9-10 to L3-4 levels. There is a 1 cm anterolisthesis at L4-5. Grade 1 anterolisthesis L3-4. There is a dextroconvex rotoscoliosis apex at L2-3. There is no peripheral enhancing fluid collections. There is no CSF signal characteristic collections of the surgical site. T12-L1: Broad-based disc bulging. Facet joint and ligamentum flavum hypertrophy. Reduced AP diameter of the thecal sac and the neural foramina. No compression upon neural elements. L1-2: Broad-based disc bulging. Facet joint and ligamentum flavum hypertrophy. Reduced AP diameter of the thecal sac abutting the cauda equina. Bilateral neuroforamina narrowing encroaching the exiting nerve roots. L2-3: Broad-based disc bulging. Facet joint and ligamentum flavum hypertrophy. Reduced AP diameter of the thecal sac and the neural foramina encroaching the neural elements more conspicuous on the left side. L3-4: Broad-based disc bulging. Facet joint and ligamentum flavum hypertrophy. Grade 1 anterolisthesis. CSF effacement of the thecal sac central spinal canal and bilateral neuroforamina stenosis compressing the neural elements. L4-5: Grade 1 anterolisthesis resulting in central spinal canal and bilateral neuroforamina stenosis. L5-S1: Broad-based disc bulging. Facet joint hypertrophy. No central spinal canal stenosis. Bilateral neuroforamina narrowing encroaching the exiting nerve roots. IMPRESSION: No abnormal enhancement. No pseudomeningoceles. No imaging findings for arachnoiditis. Grade 1 anterolisthesis on a degenerative basis at L3-4 and spondylosis resulting in central spinal canal and bilateral neuroforamina stenosis compressing the neural elements both thecal sac and the exiting nerve roots. Grade 1 anterolisthesis L4-5 resulting in central spinal canal and bilateral neuroforamina stenosis likely encroaching the neural elements. Multilevel spondylosis and dextroconvex rotoscoliosis lumbar spine encroaching the neural elements at L2-3 and to a lesser extent L1-2. 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 There is no evidence of misuse, abuse or diversion at this time. [employer] reviewed and consistent. Script sent for hydrocodone-acetaminophen 10-325 mg 1 tab Q6H #120 tabs for 30 days with advanced date on 09/17/25. Discussed with the patient the risks associated with benzodiazepine and opioid use. Patient is aware and verbalized an agreement to take the medications at least two hours apart. Patient has Narcan at home. Due to osteoporosis, steroid injections in lower spine are not recommended, and the patient is advised to consult with Dr. Neville for further evaluation of her back condition. Physical therapy for the hip will continue until the end of August, with plans to address shoulder issues subsequently. The patient is provided with brochures on spinal cord stimulation, radiofrequency ablation and the [employer] system for potential future pain management options. All questions were answered and the patient is in agreement with the plan. Follow up in 4-5 weeks for a pill count or sooner if needed. Patient was informed and verbally consented to the use of an ambient scribe for clinic note documentation during this visit. Medications: Refilled hydrocodone-acetaminophen 10-325 mg 1 tab PO Q6H PRN 120 tabs 0RF pain 30 days MDD 4 G89.4 - Chronic pain syndrome, M19.011 - Primary osteoarthritis, right shoulder, M25.511 - Pain in right shoulder, M51.36 - Other intervertebral disc degeneration, lumbar region, Z79.891 - [facility] (current) use of opiate analgesic Coding Level of Care Code Est Pt Level 4 (37574) Complex EM visit Add On G2211 Diagnoses Postlaminectomy syndrome M96.1 Osteoarthritis of right shoulder M19.011 Chronic pain syndrome G89.4 Disc degeneration, lumbar M51.36 Opioid contract exists Z79.891 Bilateral shoulder pain M25.511; M25.512 Left knee pain M25.562 Recurrent falls R29.6
[2025-09-05 10:44] VITALS: BP 175/102; PULSE 92; O2SAT 98; BMI 20.9
== END 2025-09-05 10:57 | disposition home or self-care (01) ==
LOC: HO.PMC 10:30
PROVIDERS: PCP Family Medicine; Visit Provider Nurse Practitioner Family
DX: M96.1 Postlaminectomy syndrome, not elsewhere classified (principal); M19.011 Primary osteoarthritis, right shoulder; G89.4 Chronic pain syndrome; M51.369 Other intervertebral disc degeneration, lumbar region without mention of lumbar back pain or lower extremity pain; Z79.891 Long term (current) use of opiate analgesic; M25.511 Pain in right shoulder; M25.512 Pain in left shoulder; M25.562 Pain in left knee; R29.6 Repeated falls
CPT/HCPCS: 99214; G2211

== ENCOUNTER → 2025-09-05 10:29 | Outpatient (BNVA) | payer MEDICARE, SELFPAY | PROVIDERS: PCP Family Medicine; Visit Provider Nurse Practitioner Family | DX: Z51.81 Encounter for therapeutic drug level monitoring (principal); M96.1 Postlaminectomy syndrome, not elsewhere classified; M19.011 Primary osteoarthritis, right shoulder; G89.4 Chronic pain syndrome; M51.360 Other intervertebral disc degeneration, lumbar region with discogenic back pain only; Z79.891 Long term (current) use of opiate analgesic; M25.511 Pain in right shoulder; M25.512 Pain in left shoulder; M25.562 Pain in left knee; R29.6 Repeated falls | CPT/HCPCS: 99212 ==

== ENCOUNTER 2025-10-03 11:07 | Outpatient (AMB) | payer MEDICARE, SELFPAY ==
--- NOTE | 2025-10-03 11:12 | MHC.OFFVIS ---
Vital Signs 10/03/25 11:25 Height 5 ft 4 in Weight 118 lb 4 oz BMI 20.3 BP 168/89 H Blood Pressure Location Lt brachial Position Sitting Pulse 92 Pulse Source Pulse Oximeter Pulse Oximetry (%) 97 Oxygen Delivery Method Room Air Intake Visit Reasons: PILL COUNT Intake Note: Marilu comes in today for a pill count to hydrocodone-acetamniophen, patient should have 56 tablets and presents with 58 tablets which she last took today 10/03/25 at 10:30am. 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 Accompanied by: Spouse Allergies amoxicillin (From Augmentin) Allergy (Severe, Verified 10/03/25 11:21) Facial Swelling clavulanic acid (From Augmentin) Allergy (Severe, Verified 10/03/25 11:21) Facial Swelling naproxen Allergy (Severe, Verified 10/03/25 11:21) asthma, SOB animal dander (PET DANDER) Allergy (Intermediate, Verified 10/03/25 11:21) rash celecoxib (From Celebrex) Allergy (Verified 10/03/25 11:21) Shortness of Breath oxycodone Adverse Reaction (Verified 10/03/25 11:21) Migraine SEASONAL ALLERGIES Allergy (Mild, Uncoded 09/04/25 13:58) congestion HPI Comments Details: Patient presents today for a pill count. Patient is supposed to have #56 pills, in her possession has #58 pills. This demonstrates a responsible attitude in regards to the medication regimen. Patient reports reasonable analgesia on her current regimen of hydrocodone-acetaminophen 10-325 mg 1 tab Q6H prn without any noted side effects except constipation due to opioid use. Pain is rated at 7/10. The patient 's last dose taken at 10:30 AM on the day of the visit. She reports consistently taking 4 tablets per day, as she finds that taking fewer tablets worsens her pain the following day. Regarding her Orthopedic care, her last PT visit was for her hip, which was deemed stable. She is awaiting a decision on whether she will need a knee injection. Shoulder replacement surgery is not currently being considered. The patient is currently attending physical therapy for her hip once a week and considers PT for her right shoulder to follow. Patient also suffers from chronic low back pain with spinal stenosis, DDD and osteoporosis. She denies any recent falls. Denies any recent cough, cold, infection, fever or any other significant changes in medical history since last office visit. [facility] Medical History Status post fall Osteoarthritis Depression ADHD (attention deficit hyperactivity disorder) Motion sickness Chronic kidney disease (CKD) Environmental and seasonal allergies Left groin pain Depression Migraine headache Stool incontinence Chronic pain syndrome Postlaminectomy syndrome Disc degeneration, lumbar Compression fracture of L1 lumbar vertebra Osteoporosis Hypertension Spondylosis Attention deficit disorder Herniated disc Asthma Anxiety Migraine headache Surgical History Hx of cervical spine surgery (11/20/24) History of foot surgery Hx of colonoscopy Status post kyphoplasty History of lumbosacral spine surgery History of cervical spinal surgery History of spinal surgery History of surgery on left wrist Family History Sister Ovarian cancer Lung cancer Maternal Grandmother Ovarian cancer Paternal Aunt Ovarian cancer Maternal Aunt Pancreatic cancer Social History Household Members: Spouse Housing: House Are you a primary foster care therapist to a significant other at home: No Do you presently have visiting nurse or other home services: No 75 years or older and lives alone: No Alcohol intake: current Alcohol intake frequency: holidays/special occasions only Comment: medicated in pacu Patient Tobacco Use Status: Former Tobacco user Tobacco use type: Cigarette e-Cigarette/Vaping Use: Never Used Second Hand Smoke Exposure: No service: No Current occupational status: disabled 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 Alert and oriented. Mood and affect appropriate. Follows and participates in conversation appropriately. Respiratory effort is unlabored. No cough. Able to transition from sit to stand with assistance. Ambulates with slow, antalgic gait. Uses walker or cane with ambulation. Eyes General: appearance normal, both eyes and all related structures Resp Effort & Inspection: normal respiratory effort, able to speak in complete sentences, no cough, not labored and no respiratory distress Back/Spine/Pelvis Cervical Spine: cervical muscular tenderness, pain with cervical ROM, Cervical spine scars present and No Cervical spine tenderness Thoracic/Lumbar Spine: pain with thoraco-lumbar ROM, thoraco-lumbar ROM limited, No thoracic spinal tenderness and No lumbar spinal tenderness Sacroiliac joints: bilaterally tender to palpation Extrem General: Yes capillary refill normal, Yes no clubbing, cyanosis or edema and Yes no calf tenderness Psych Appearance: grossly normal and well kempt Mental Status: mental status grossly normal Speech and movement: Normal speech and movement present and Clear speech present Affect: normal affect Attitude: cooperative Thought process: Normal thought process present Thought content: Normal thought content present, suicidality (none), no homicidality and No Depressive thoughts present Insight: Good insight present (Psych) Judgement: Good judgement present (Psych) Results Reviewed Results Reviewed: XR KNEE 4 OR MORE VIEWS LEFT 04/11/25 HISTORY: M25.562 - Pain in left knee COMPARISON: There are no prior studies available for comparison. FINDINGS: Four views of the left knee are submitted. The bones are osteopenic. There is no fracture or dislocation. There is mild to moderate osteoarthritis of the medial compartment and mild osteoarthritis of the patellofemoral compartment, with joint space narrowing and osteophyte formation. The soft tissues are unremarkable. There is no joint effusion. IMPRESSION: Osteopenia. Degenerative changes of the left knee as described. XR HIP, LEFT 01/03/25 CLINICAL INFORMATION: R10.32 - Left lower quadrant pain COMPARISON: None available. TECHNIQUE: Two views of the left hip. FINDINGS: No definite fracture or dislocation. No suspicious bone lesion. Severe, end-stage osteoarthrosis of the left hip joint present with superior joint space loss, [id number] appearance, with subchondral sclerosis and cystic changes in both the femoral head and superior acetabulum. There are prominent marginal productive osteophytes and subcapital osteophytes. There is mild irregularity of the contour to the superior femoral head. Partially imaged fusion hardware in the lower lumbar spine. Mild to moderate degenerative SI joint changes. No soft tissue abnormality. IMPRESSION: Severe osteoarthrosis left hip joint. DXA BONE DENSITY EXTREMITY 01/02/25 HISTORY: Estrogen deficiency TECHNIQUE: Moat Dual energy absorptiometry (DEXA) of the lumbar spine, total left hip, and femoral neck was performed. COMPARISON: There are no prior studies for comparison. FINDINGS: The bone mineral density of the lumbar spine is 1.092 with a T-score of -0.6, and a Z-score of 1.3. The bone mineral density of the left total hip is 0.668 with a T-score of -2.7, and a Z-score of -1.2. The bone mineral density of the left femoral neck is 0.717 with a T-score of -2.3, and a Z-score of -0.6. IMPRESSION: Based on bone mineral density, and according to World Health Organization (WHO) criteria, the diagnosis is consistent with osteoporosis. MR LUMBAR SPINE WITHOUT AND WITH CONTRAST 01/28/25 CLINICAL INFORMATION: Left lower quadrant pain. COMPARISON: November 12, 2024 reported spinal canal stenosis at L3-4 and postsurgical changes at L4-5. TECHNIQUE: MRI of the lumbar spine was obtained using routine sequences with and without contrast. Intravenous contrast: Gadolinium based 5.5 mL. No reported immediate complications. FINDINGS: Last rib-bearing vertebra labeled T12. Paramagnetic field distortion secondary to metallic hardware with transpedicular screws at L4 and L5. Decreased signal in all sequences at L1. Mild bone marrow STIR signal at the endplates of L2 and L3 and likely extending into the posterior elements. Mild bone marrow STIR signal in the endplates of T9 and T10-11. No abnormal enhancement within the leptomeningeal compartment. No abnormal enhancement within the prevertebral compartment or the central spinal canal. The conus medullaris ends at the inferior endplate of L1 with normal signal. There is no grouping or clumping of the neural elements of the thecal sac. Multilevel marginal osteophyte formation and disc desiccation from T9-10 to L3-4 levels. There is a 1 cm anterolisthesis at L4-5. Grade 1 anterolisthesis L3-4. There is a dextroconvex rotoscoliosis apex at L2-3. There is no peripheral enhancing fluid collections. There is no CSF signal characteristic collections of the surgical site. T12-L1: Broad-based disc bulging. Facet joint and ligamentum flavum hypertrophy. Reduced AP diameter of the thecal sac and the neural foramina. No compression upon neural elements. L1-2: Broad-based disc bulging. Facet joint and ligamentum flavum hypertrophy. Reduced AP diameter of the thecal sac abutting the cauda equina. Bilateral neuroforamina narrowing encroaching the exiting nerve roots. L2-3: Broad-based disc bulging. Facet joint and ligamentum flavum hypertrophy. Reduced AP diameter of the thecal sac and the neural foramina encroaching the neural elements more conspicuous on the left side. L3-4: Broad-based disc bulging. Facet joint and ligamentum flavum hypertrophy. Grade 1 anterolisthesis. CSF effacement of the thecal sac central spinal canal and bilateral neuroforamina stenosis compressing the neural elements. L4-5: Grade 1 anterolisthesis resulting in central spinal canal and bilateral neuroforamina stenosis. L5-S1: Broad-based disc bulging. Facet joint hypertrophy. No central spinal canal stenosis. Bilateral neuroforamina narrowing encroaching the exiting nerve roots. IMPRESSION: No abnormal enhancement. No pseudomeningoceles. No imaging findings for arachnoiditis. Grade 1 anterolisthesis on a degenerative basis at L3-4 and spondylosis resulting in central spinal canal and bilateral neuroforamina stenosis compressing the neural elements both thecal sac and the exiting nerve roots. Grade 1 anterolisthesis L4-5 resulting in central spinal canal and bilateral neuroforamina stenosis likely encroaching the neural elements. Multilevel spondylosis and dextroconvex rotoscoliosis lumbar spine encroaching the neural elements at L2-3 and to a lesser extent L1-2. Assessment & Plan Assessment & Plan (1) Postlaminectomy syndrome: Code(s): M96.1 - Postlaminectomy syndrome, not elsewhere classified Category: Medical (2) Osteoarthritis of right shoulder: Code(s): M19.011 - Primary osteoarthritis, right shoulder Category: Medical (3) Chronic pain syndrome: Code(s): G89.4 - Chronic pain syndrome Category: Medical (4) Disc degeneration, lumbar: Code(s): M51.36 - Other intervertebral disc degeneration, lumbar region Category: Medical (5) Opioid contract exists: Code(s): Z79.891 - senior care (current) use of opiate analgesic Category: Medical (6) Bilateral shoulder pain: Code(s): M25.511 - Pain in right shoulder; M25.512 - Pain in left shoulder Category: Medical (7) Left knee pain: Code(s): M25.562 - Pain in left knee Category: Medical Plan Patient has shown accountability for her medication regimen and the pill count was accurate. There is no evidence of misuse, abuse or diversion at this time. [employer] reviewed and consistent. Script sent for hydrocodone-acetaminophen 10-325 mg 1 tab Q6H #120 tabs for 30 days with advanced date on 10/16/25. Discussed with the patient the risks associated with benzodiazepine and opioid use. Patient is aware and verbalized an agreement to take the medications at least two hours apart. Patient has Narcan at home. Physical therapy for the hip will continue on weekly basis, with plans to address shoulder issues subsequently. Previously discussed spinal cord stimulation, radiofrequency ablation and the [employer] system for potential future pain management options. All questions were answered and the patient is in agreement with the plan. Follow up in 4-5 weeks for a pill count or sooner if needed. Patient was informed and verbally consented to the use of an ambient scribe for clinic note documentation during this visit. 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
[2025-10-03 11:25] VITALS: BP 168/89; PULSE 92; O2SAT 97; BMI 20.3
== END 2025-10-03 11:27 | disposition home or self-care (01) ==
LOC: HO.PMC 11:08
PROVIDERS: PCP Family Medicine; Visit Provider Nurse Practitioner Family
DX: M96.1 Postlaminectomy syndrome, not elsewhere classified (principal); M19.011 Primary osteoarthritis, right shoulder; G89.4 Chronic pain syndrome; M51.369 Other intervertebral disc degeneration, lumbar region without mention of lumbar back pain or lower extremity pain; Z79.891 Long term (current) use of opiate analgesic; M25.511 Pain in right shoulder; M25.512 Pain in left shoulder; M25.562 Pain in left knee
CPT/HCPCS: 99214; G2211

== ENCOUNTER → 2025-10-03 11:07 | Outpatient (BNVA) | payer MEDICARE, SELFPAY | PROVIDERS: PCP Family Medicine; Visit Provider Nurse Practitioner Family | DX: M96.1 Postlaminectomy syndrome, not elsewhere classified (principal); M19.011 Primary osteoarthritis, right shoulder; G89.4 Chronic pain syndrome; M25.512 Pain in left shoulder; M25.562 Pain in left knee; Z79.891 Long term (current) use of opiate analgesic | CPT/HCPCS: 99212 ==